=== PATIENT | female | born 1960 | race Caucasian/White ===

== ENCOUNTER 2023-03-26 00:01 | Emergency (ER) | payer OTHER, SELFPAY ==
[2023-03-26 00:04] VITALS: BP 142/66
[2023-03-26 00:21] LABS: Urine Albumin Negative (Neg - Trace); Urine Bilirubin Negative (Negative); Urine Character Clear (Clear); Urine Color Yellow; Urine Glucose Negative (Negative); Urine Ketone Negative (Negative); Urine Leukocyte 2+ (Negative); Urine Nitrite Negative (Negative); Urine Occult Blood Negative (Negative); Urine Urobilinogen Negative (Neg - 1+)
[2023-03-26 00:34] VITALS: BP 122/62
[2023-03-26 00:36] LABS: Urine Bacteria Moderate (Negative); Urine Red Blood Cell 0-2 /HPF (0-2); Urine Squamous Cell >30 /LPF (Few)
[2023-03-26 00:41] LABS: % Basophils 0.3 % (0-2); % Immature Granulocytes 0.4 % (0-0.5); % Lymphocytes 15.7 % (20.5-51.1); % Neutrophils 70.6 % (42.2-75.2); Absolute Eosinophils 0.5 10^3/uL (0-0.7); Absolute Immature Granulocytes 0.1 10^3/uL (0-0.05); Absolute Monocytes 1.2 10^3/uL (0.1-0.6); Hematocrit 35.9 % (37.0-47.0); Hemoglobin 11.3 g/dL (12.0-16.0); Mean Corp Hgb Conc. 31.5 g/dL (33.0-37.0); Mean Corpuscular Volume 60.3 fL (81.0-99.0); Mean Platelet Volume 10.8 fL (7.4-10.4); Nucleated Red Blood Cells % 0 %; Platelet Count 344 10^3/uL (130-400); Red Blood Cell Count 5.95 10^6/uL (4.20-5.40); White Blood Cell Count 12.8 10^3/uL (4.8-10.8)
--- NOTE | 2023-03-26 00:57 | ED.GENMED ---
History of Present Illness
General
Chief Complaint: Abdominal Pain
Source: patient and spouse
Exam Limitations: none
Time Seen by Provider: 03/26/23 00:22
Nursing documentation reviewed up to this point in time: agreed with
Travel History
Have you had any contact with someone who has COVID-19?: No
Do you have any symptoms of coronavirus? Fever > 100 degrees, chills, cough, shortness of breath, sore throat, loss of taste or smell, muscle aches, or headache?: No
History of Present Illness
History of Present Illness:
62-year-old female status post appendectomy, presents with lower abdominal pain right greater than left tells me she had twinges of pain since around the first of the year acutely worsened yesterday after lifting a heavy bag no nausea or vomiting no
diarrhea no fever or chills, she has had a colonoscopy possibly told that she had diverticulosis, though she is not certain,
Past History
Past History
ED Past Surgical History: Appendectomy
Social History
Tobacco: Non-smoker
Alcohol: None
Drug: None
Personal:
Living: with family
Employment: Employed
Review of Systems
Review of Systems
All Other Systems: Not applicable
Constitutional: Denies fever or fatigue
EENT: Reports no symptoms
Respiratory: Reports no symptoms
Cardiac: Reports no symptoms
ABD/GI: Reports abdominal pain; Denies vomiting, diarrhea or black stools
: Reports no symptoms
Skin: Reports no symptoms
Neurological: Reports no symptoms
Endocrine: Reports no symptoms
Phy Exam
Physical Exam
Physical Exam:
Physical Exam
General: no apparent distress, not acutely ill
Neck: No jaundice
Heart: s1/s2 regular rate and rhythm, no murmur. equal radial pulses.
Lungs: no acute respiratory distress. clear bilaterally
Abdomen: Soft, mild right lower abdominal tenderness
Neuro: alert and oriented. no focal neurological deficits
Skin: no rash
Psychiatric: well kept. interactive and cooperative
Extremities: no edema.
Course
Orders/Labs/Results
Orders:
Orders
03/26/23 00:14
Urinalysis Reflex To Culture Urgent
Date Specimen was Collected: 03/26/23
Time Specimen was Collected: 00:10
Urine Microscopic Reflex Cult Urgent
Urine Culture Urgent
TYREE Source: U
Specimen Description:
Date Specimen was Collected: 03/26/23
Time Specimen was Collected: 00:10
03/26/23 00:25
IV Insert/Care/Rem.- Treatment PRN
03/26/23 00:34
Complete Blood Count/With Diff Urgent
Comprehensive Metabolic Panel Urgent
Lipase Urgent
03/26/23 00:48
CT Abd/Pel (IV only)-DH only Urgent
Comment:
Reason For Exam: rlq pain
Ketorolac [Toradol] 30 mg IV NOW STA
Abnormal Lab Results
03/26/23 03/26/23
00:14 00:34
WBC 12.8 H 10^3/uL
(4.8-10.8)
RBC 5.95 H 10^6/uL
(4.20-5.40)
Hgb 11.3 L g/dL
(12.0-16.0)
Hct 35.9 L %
(37.0-47.0)
MCV 60.3 L fL
(81.0-99.0)
MCH 19.0 L pg
(27.0-31.0)
MCHC 31.5 L g/dL
(33.0-37.0)
RDW 17.0 H %
(11.5-14.5)
MPV 10.8 H fL
(7.4-10.4)
Abs Immat Gran (auto) 0.1 H 10^3/uL
(0-0.05)
Absolute Neuts (auto) 9.0 H 10^3/uL
(1.4-6.5)
Absolute Monos (auto) 1.2 H 10^3/uL
(0.1-0.6)
Lymphocytes % 15.7 L %
(20.5-51.1)
Potassium 3.2 L mmol/L
(3.5-5.1)
BUN 25 H mg/dl
(7-17)
Glucose 120 H mg/dl
(70-99)
ALT 41 H U/L
(0-35)
Leukocyte Esterase Rfl 2+ A
(Negative)
Urine WBC (Reflex) 11-15 A /HPF
(0-5)
Urine Bacteria (Reflex) Moderate A
(Negative)
03/26/23 00:34
03/26/23 00:34
Vital Signs
Initial and Last Documented VS:
Initial Vital Signs
Temp Pulse Resp BP Pulse Ox
97.8 F 73 18 142/66 99
03/26/23 00:04 03/26/23 00:04 03/26/23 00:04 03/26/23 00:04 03/26/23 00:04
Last Documented Vital Signs
Temp Pulse Resp BP Pulse Ox
97.8 F 73 18 118/95 99
03/26/23 00:04 03/26/23 00:04 03/26/23 00:04 03/26/23 01:21 03/26/23 00:04
MDM/Problems Addressed
Differential Diagnosis Includes:
Diverticulitis colitis, inflammatory bowel disease obstruction muscle strain
MDM/Problems Addressed:
Lower abdominal
Chronic conditions affecting care: Previous abdomnial surgery
Acute Exacerbation and/or Progression of Chronic Illness: Previous abdomnial surgery
*Radiology
Radiology exam reviewed: preliminary read by ED provider
*Pulse Oximetry
Patient hypoxic: no
*Glass Processing Worker Interpretation
Rate: Glass Processing Worker- N/A
*Critical Care Note
Total Time (30-74mins, 75-104mins- exclusive of procedures): Not Applicable
Update Note
Update Note:
Update labs noted CT noted consistent with early sigmoid diverticulitis
ED Attending Note
-
Portions of this chart may have been created with voice recognition software.� Occasional wrong word or��sound alike� substitutions may have occurred due to the inherent limitations of voice recognition software.
Discharge Plan
Departure
Referrals:
Lily Ivey DO [Family Provider] -
Interventions
Interventions:
*Risk Screen - Suicide Last Done: 03/26/23 00:04
*General Assessment Last Done: 03/26/23 00:04
*Neglect/Abuse Screening Last Done: 03/26/23 00:04
ED- Fall Risk Assessment Last Done: 03/26/23 00:04
*ED COVID-19 Vaccine History Last Done: 03/26/23 00:04
QN-Cgttcl-Wpdkoevlaj Assessment Last Done: 03/26/23 00:37
[2023-03-26 01:00] VITALS: BP 120/66
[2023-03-26 01:03] LABS: ALT (SGPT) 41 U/L (0-35); AST (SGOT) 31 U/L (14-36); Albumin 4.1 g/dl (3.5-5.0); Alkaline Phosphatase 109 U/L (38-126); Blood Urea Nitrogen 25 mg/dl (7-17); Calcium 9.4 mg/dl (8.4-10.2); Carbon Dioxide 27 mmol/L (22-30); Chloride 102 mmol/L (98-107); Glucose 120 mg/dl (70-99); Lipase 150 U/L (23-300); Potassium 3.2 mmol/L (3.5-5.1); Sodium 137 mmol/L (135-145); Total Bilirubin 0.6 mg/dl (0.2-1.3); Total Protein 7.1 g/dl (6.3-8.2); eGFR > 60.00
[2023-03-26] MEDS: TORADOL 30 MG IV (01:06)
[2023-03-26 01:21] VITALS: BP 118/95
[2023-03-26] MEDS: LEVAQUIN 500 MG PO (01:59)
== END 2023-03-26 02:07 | disposition home or self-care (01) ==
LOC: EMR 00:01
PROVIDERS: EMERGENCY PHYSICIAN Emergency Medicine; FAMILY PHYSICIAN Family Medicine
DX: K57.32 Diverticulitis of large intestine without perforation or abscess without bleeding (principal)
CPT/HCPCS: 99285; 96374; 74177; 80053; 81003; 81015; 83690; 85025; 87086; Q9967

== ENCOUNTER 2023-10-19 01:03 | Inpatient (IN) | payer OTHER, SELFPAY ==
[2023-10-18 21:50] VITALS: BMI 31.3
[2023-10-18 21:51] VITALS: BP 108/73
[2023-10-18] MEDS: NSS 1000 IV (22:55)
[2023-10-18 23:00] VITALS: BP 100/63
[2023-10-18 23:13] LABS: % Basophils 0.7 % (0-2); % Eosinophils 0.2 % (0-6); % Immature Granulocytes 2.2 % (0-0.5); % Monocytes 10.9 % (1.7-9.3); Absolute Basophils 0.1 10^3/uL (0-0.2); Absolute Immature Granulocytes 0.3 10^3/uL (0-0.05); Absolute Lymphocytes 0.8 10^3/uL (1.2-3.4); Absolute Monocytes 1.4 10^3/uL (0.1-0.6); Absolute Neutrophils 9.9 10^3/uL (1.4-6.5); Hematocrit 27.1 % (37.0-47.0); Hemoglobin 8.8 g/dL (12.0-16.0); Mean Corp Hgb Conc. 32.5 g/dL (33.0-37.0); Mean Corpuscular Hgb 18.4 pg (27.0-31.0); Mean Corpuscular Volume 56.7 fL (81.0-99.0); Mean Platelet Volume 10.9 fL (7.4-10.4); Nucleated Red Blood Cells % 0.2 %; Platelet Count 550 10^3/uL (130-400); Red Blood Cell Count 4.78 10^6/uL (4.20-5.40); Red Cell Dist. Width 15.6 % (11.5-14.5); White Blood Cell Count 12.4 10^3/uL (4.8-10.8)
[2023-10-18 23:22] LABS: ALT (SGPT) 45 U/L (0-35); AST (SGOT) 66 U/L (14-36); Albumin 2.8 g/dl (3.5-5.0); Alkaline Phosphatase 96 U/L (38-126); Blood Urea Nitrogen 25 mg/dl (7-17); Calcium 8.1 mg/dl (8.4-10.2); Carbon Dioxide 31 mmol/L (22-30); Chloride 87 mmol/L (98-107); Glucose 145 mg/dl (70-99); Lipase 37 U/L (23-300); Potassium 2.9 mmol/L (3.5-5.1); Sodium 128 mmol/L (135-145); Total Protein 5.6 g/dl (6.3-8.2); eGFR > 60.00
[2023-10-18 23:49] VITALS: BP 117/50
[2023-10-19] VITALS (10 sets, daily range): BP systolic 91–121; BP diastolic 43–74; BMI 29.7
--- NOTE | 2023-10-19 00:01 | ED.GENMED ---
History of Present Illness
General
Chief Complaint: Abdominal Symptoms
Source: patient
Exam Limitations: none
Time Seen by Provider: 10/18/23 22:32
History of Present Illness
History of Present Illness:
63-year-old female presents with 4 weeks worth of diarrhea that has been persistent after taking a course of antibiotics for a respiratory infection. She denies abdominal pain or fever. She happened to have colonoscopy done yesterday. She was
tested positive for C. difficile during the colonoscopy. Her diarrhea persist. She was started on vancomycin by the GI team she had a total of 7 doses prior to arrival. She notes generalized weakness.
Past History
Past History
ED Past Surgical History: Appendectomy
Social History
Tobacco: Non-smoker
Alcohol: None
Drug: None
Personal:
Living: with family
Employment: Employed
Phy Exam
Physical Exam
Physical Exam:
General: Pale appearing female no acute respiratory distress
HEENT: Normocephalic mucosa dry neck is supple
Heart: Regular rate and rhythm no murmurs
Lungs: Clear no wheeze abdomen is soft nontender nondistended no guarding or rebound
Extremities: No cyanosis
Course
Orders/Labs/Results
Orders:
Orders
10/18/23 22:40
0.9% Sodium Chloride 1000 ml [Nss] 1,000 ml IV BOLUS
10/18/23 22:48
Complete Blood Count/With Diff Urgent
Comprehensive Metabolic Panel Urgent
Lipase Urgent
10/18/23 23:59
STOOL [C difficile Antigen & Toxins] Urgent
TYREE Source: Feces/Stool
Specimen Description:
Stool Culture Urgent
TYREE Source: Feces/Stool
Specimen Description:
Abnormal Lab Results
10/18/23
22:48
WBC 12.4 H 10^3/uL
(4.8-10.8)
Hgb 8.8 L g/dL
(12.0-16.0)
Hct 27.1 L %
(37.0-47.0)
MCV 56.7 L fL
(81.0-99.0)
MCH 18.4 L pg
(27.0-31.0)
MCHC 32.5 L g/dL
(33.0-37.0)
RDW 15.6 H %
(11.5-14.5)
Plt Count 550 H 10^3/uL
(130-400)
MPV 10.9 H fL
(7.4-10.4)
Abs Immat Gran (auto) 0.3 H 10^3/uL
(0-0.05)
Absolute Neuts (auto) 9.9 H 10^3/uL
(1.4-6.5)
Absolute Lymphs (auto) 0.8 L 10^3/uL
(1.2-3.4)
Absolute Monos (auto) 1.4 H 10^3/uL
(0.1-0.6)
Immature Gran % 2.2 H %
(0-0.5)
Neutrophils % 80.0 H %
(42.2-75.2)
Lymphocytes % 6.0 L %
(20.5-51.1)
Monocytes % 10.9 H %
(1.7-9.3)
Sodium 128 L mmol/L
(135-145)
Potassium 2.9 L mmol/L
(3.5-5.1)
Chloride 87 L mmol/L
(98-107)
Carbon Dioxide 31 H mmol/L
(22-30)
BUN 25 H mg/dl
(7-17)
Glucose 145 H mg/dl
(70-99)
Calcium 8.1 L mg/dl
(8.4-10.2)
AST 66 H U/L
(14-36)
ALT 45 H U/L
(0-35)
Total Protein 5.6 L g/dl
(6.3-8.2)
Albumin 2.8 L g/dl
(3.5-5.0)
10/18/23 22:48
10/18/23 22:48
Vital Signs
Initial and Last Documented VS:
Initial Vital Signs
Temp Pulse Resp BP Pulse Ox
99.5 F 92 18 108/73 95
10/18/23 21:51 10/18/23 21:51 10/18/23 21:51 10/18/23 21:51 10/18/23 21:51
Last Documented Vital Signs
Temp Pulse Resp BP Pulse Ox
99.5 F 88 18 117/50 96
10/18/23 21:51 10/18/23 23:30 10/18/23 21:51 10/18/23 23:49 10/18/23 23:30
MDM/Problems Addressed
Differential Diagnosis Includes:
Persistent diarrhea and fatigue. Question electrolyte abnormality versus dehydration. Known positive C. difficile
Will check labs. Hydration ordered.
*Critical Care Note
Total Time (30-74mins, 75-104mins- exclusive of procedures): Not Applicable
Update Note
Update Note:
Notable laboratory abnormalities include hypokalemia with potassium of 2.9 and hyponatremia with a sodium of 128. Diarrhea persist here several times. Will resend stool cultures. Will admit to hospital for further treatment
ED Attending Note
-
Portions of this chart may have been created with voice recognition software.� Occasional wrong word or��sound alike� substitutions may have occurred due to the inherent limitations of voice recognition software.
Discharge Plan
Departure
Patient Disposition: Admit
Date of Disposition: 10/19/23
Time of Disposition: 00:07
Admit to: Telemetry
Presentation/result/management discussed w/ accepting MD/DO: Hospitalist
Discharge Problem:
Acute hyponatremia, Acute hypokalemia, Diarrhea
Prescriptions:
No Action
metronidazole 250 mg tablet
250 mg PO BID Qty: 14 0RF
levofloxacin 500 mg tablet
500 mg PO DAILY 7 Days Qty: 7 0RF
Referrals:
Garrick Parham PA-C [Family Provider] -
Interventions
Interventions:
*Risk Screen - Suicide Last Done: 10/18/23 21:51
*General Assessment Last Done: 10/18/23 21:51
*Neglect/Abuse Screening Last Done: 10/18/23 21:51
Discharge Date and Time
Print Language: ESTONIAN
[2023-10-19] MEDS: TYLENOL 650 MG PO (00:36)
--- NOTE | 2023-10-19 00:36 | HPS.HSE ---
Family Physician
-
Family Physician: Garrick Parham
Chief Complaint
-
Recently Dxed C Diff, dirrhea
History of Present Illness
63F no significant PMHX being OP evaluated for 4 weeks of non bloody persistent diarrhea after taking a course of antibiotics for a respiratory infection.
- denies abdominal pain or fever.
- s/p colonoscopy done yesterday.
- tested positive for C. difficile during the colonoscopy.
- Currently on PO vancomycin by the GI team s/p total of 7 doses prior to arrival.
- associated generalized weakness.
Medical History
Past Medical History
Past Medical History: Reports Other
Past Surgical History: Reports Appendectomy
Social History
Tobacco: Non-smoker
Alcohol: None
Personal:
Living: With Family
Family History
Family History: Not pertinent
Allergies / Home Medications
Allergies reflects when Allergies were last updated in [employer].
Home Medications with original date entered in [employer]
Allergy/Medication List:
Allergies
Allergy/AdvReac Type Severity Reaction Status Date / Time
No Known Allergies Allergy Unverified 03/26/23 00:04
Home Medications
levofloxacin 500 mg tablet 500 mg PO DAILY 7 days #7 tabs 03/26/23
metronidazole 250 mg tablet 250 mg PO BID #14 tabs 03/26/23
Review of Systems
-
Constitutional: Reports No Symptoms
EENT: Reports No Symptoms
Respiratory: Reports No Symptoms
Cardiac: Reports No Symptoms
Abdomen/GI: Reports Diarrhea
: Reports No Symptoms
Musculoskeletal: Reports No Symptoms
Skin: Reports No Symptoms
Neurological: Reports No Symptoms
Endocrine: Reports No Symptoms
Hematologic/Lymphatic: Reports No Symptoms
Psych: Reports No Symptoms
Physical Exam
Vital Signs
Vital Signs
Temp Pulse Resp BP Pulse Ox
99.5 F 88 18 117/50 96
10/18/23 21:51 10/18/23 23:30 10/18/23 21:51 10/18/23 23:49 10/18/23 23:30
Physical Exam
General: Well Developed, Well Nourished and No Apparent Distress
HEENT: NormoCephalic, Moist mucous membranes and Atraumatic
Respiratory: Clear
Cardiac: S1/S2 and Regular Rhythm; No Murmur or Rub
GI: Soft, Non Tender, Non Distended and Normal Bowel Sounds; No Organomegaly
Rectal: Deferred by Provider
Musculoskeletal: No Clubbing, No Cyanosis and No Edema
Skin: No Rash
Neuro: Nonfocal/grossly intact
Laboratory Results
-
10/18/23 22:48
10/18/23 22:48
Laboratory Results
Total Bilirubin 1.0 mg/dl (0.2-1.3) 10/18/23 22:48
AST 66 U/L (14-36) H 10/18/23 22:48
ALT 45 U/L (0-35) H 10/18/23 22:48
Alkaline Phosphatase 96 U/L (38-126) 10/18/23 22:48
Lipase 37 U/L (23-300) 10/18/23 22:48
Data Reviewed
-
Lab Data: Labs Reviewed by me
Impression/Plan
-
Vital Signs
Temp Pulse Resp BP Pulse Ox
99.5 F 88 18 117/50 96
10/18/23 21:51 10/18/23 23:30 10/18/23 21:51 10/18/23 23:49 10/18/23 23:30
Laboratory Tests
03/26/23 10/18/23
00:34 22:48
WBC 12.4 H
Hgb 11.3 L 8.8 L
MCV 56.7 L
Sodium 128 L
Potassium 2.9 L
Chloride 87 L
Carbon Dioxide 31 H
BUN 25 H
Creatinine 0.8
eGFR > 60.00
AST 66 H
ALT 45 H
Alkaline Phosphatase 96
Albumin 2.8 L
No prior DH t admission:
ASSESSMENT & PLAN
C Diff associated diarrhea with persistent diarrhea
Associated with dehydration , hyponatremia and hypokalemia
Abn LFTs suspect ? shock liver
- stool for C Diff
- cont PO vanco 250 qid
- IV NS
- IV K [place] 40 now
- check Mg
- f/u CMP in AM
- ID consult
Interval new microcytic anemia
S/P colonoscopy yesterday
- Trend Hgb
- Fe studied and Ferritin
- T & S
- Heme consult
DVT Px: SCD
Code: Full
IP TLM
[2023-10-19] MEDS: KCL 270 MEQ IV ×4 (01:37→21:09)
[2023-10-19] MEDS: NSS 1000 IV (02:34)
--- NOTE | 2023-10-19 03:15 | PTCARENOTE ---
Patient arrived from the ED via stretcher at approximately 0130. Patient was a stand and pivot from stretcher to bed x2 assist. Assessment as documented. Patient oriented to room. Bed in lowest position. Call gracia within reach.
[2023-10-19] MEDS: FIRVANQ 250 MG PO (05:22)
--- NOTE | 2023-10-19 08:07 | W.PN.HOSP.TC ---
Today's Communication/Plan
-
cont Vanco
follow labs
Assessment / Plan
Assessment / Plan
63yo F with PMHx of HTN, was having loose watery non-bloody stools for 2 mo, found c.diff during colonoscopy on 10/17/23, came back for worsening weakness
A/P:
#C.diff coitis
Vanco 125mg q6h
GI cosnult
#Hyponatremia
#Hypokalemia
2/2 GI lossess
replete and follow
#Microcytic anemia
chronic
iron studies
Hem consult placed on admission
#Transaminitis
recurrent
hepatitis panel
follow LFT
#Thrombocytosis
#Leukocytosis
reactive
follow CBC
#Essential HTN
hold HCTZ due to concern for GI fluid losses
DVT ppx hep
FUll code
I have spent at least 37min reviewing chart, test results and direct patient care
Anticipated Discharge: Within 24 hours
Subjective/Interval History
-
Date of Service: October 19, 2023
Objective Data
-
Labs:
Laboratory Results
10/18/23 10/19/23 10/19/23
22:48 06:00 07:27
WBC 12.4 H Pending
Hgb 8.8 L Pending
Hct 27.1 L Pending
Plt Count 550 H Pending
Sodium 128 L Pending
Potassium 2.9 L Pending
Chloride 87 L Pending
Carbon Dioxide 31 H Pending
BUN 25 H Pending
Creatinine 0.8 Pending
Glucose 145 H Pending
Calcium 8.1 L Pending
Total Bilirubin 1.0 Pending
AST 66 H Pending
ALT 45 H Pending
Alkaline Phosphatase 96 Pending
Vital Signs:
Vital Signs
Temp Pulse Resp BP Pulse Ox
98.2 F 88 18 91/49 98
10/19/23 03:40 10/19/23 03:40 10/19/23 03:40 10/19/23 03:40 10/19/23 03:40
Review of Systems
-
History Source: Patient
All other systems: Reviewed and negative
Physical Exam
-
General: No Apparent Distress
HEENT: Normocephalic and Atraumatic
Cardiac: Regular Rhythm
GI: Soft, Nontender and Nondistended
Skin: Warm
Neuro: Awake, Alert, Oriented and AO x 3
Psych: Calm
[2023-10-19] MEDS: HEPARIN 5000 UNITS SC ×2 (08:37→21:13)
[2023-10-19] MEDS: DESENEX/MITRAZOL/ZEASORB 1 APPLIC TOPICAL ×2 (08:40→21:09)
[2023-10-19 08:52] LABS: ALT (SGPT) 41 U/L (0-35); AST (SGOT) 43 U/L (14-36); Albumin 2.4 g/dl (3.5-5.0); Alkaline Phosphatase 106 U/L (38-126); Blood Urea Nitrogen 20 mg/dl (7-17); Calcium 7.9 mg/dl (8.4-10.2); Carbon Dioxide 32 mmol/L (22-30); Chloride 93 mmol/L (98-107); Direct Bilirubin 0.3 mg/dl (0.0-0.4); Estimated Creatinine Clearance 64 ml/min; Glucose 117 mg/dl (70-99); Iron 28 ug/dl (37-170); Magnesium 2.6 mg/dl (1.6-2.3); Potassium 2.5 mmol/L (3.5-5.1); Sodium 134 mmol/L (135-145); Total Bilirubin 0.7 mg/dl (0.2-1.3); Total Protein 5.1 g/dl (6.3-8.2); eGFR > 60.00
[2023-10-19 08:58] LABS: Percent Saturation 21 % (20-50); Total Iron Binding Capacity 132 ug/dl (265-497)
[2023-10-19] MEDS: LR 1000 IV ×2 (09:45→21:13)
[2023-10-19 10:08] LABS: Hematocrit 27.1 % (37.0-47.0); Hemoglobin 8.7 g/dL (12.0-16.0); Mean Corp Hgb Conc. 32.1 g/dL (33.0-37.0); Mean Corpuscular Hgb 18.4 pg (27.0-31.0); Mean Corpuscular Volume 57.4 fL (81.0-99.0); Mean Platelet Volume 10.8 fL (7.4-10.4); Platelet Count 502 10^3/uL (130-400); Red Blood Cell Count 4.72 10^6/uL (4.20-5.40); Red Cell Dist. Width 15.6 % (11.5-14.5); White Blood Cell Count 11.6 10^3/uL (4.8-10.8)
[2023-10-19 12:23] LABS: % Basophils 0.9 % (0-2); % Eosinophils 0.3 % (0-6); % Immature Granulocytes 2.8 % (0-0.5); % Lymphocytes 5.8 % (20.5-51.1); % Monocytes 8.4 % (1.7-9.3); % Neutrophils 81.8 % (42.2-75.2); Absolute Basophils 0.1 10^3/uL (0-0.2); Absolute Immature Granulocytes 0.3 10^3/uL (0-0.05); Absolute Lymphocytes 0.7 10^3/uL (1.2-3.4); Absolute Neutrophils 9.5 10^3/uL (1.4-6.5); Nucleated Red Blood Cells % 0 %
[2023-10-19] MEDS: FIRVANQ 125 MG PO (12:59)
[2023-10-19] MEDS: MYLICON 80 MG PO (13:55)
[2023-10-19] MEDS: FLUSH (NSS) 2 FLUSH IV (14:18)
[2023-10-19] MEDS: MORPHINE SULFATE 1 MG IV ×2 (14:18→20:35)
--- NOTE | 2023-10-19 14:30 | W.PN.UPDATE ---
Update Note
Progress Note Update
Pt with 'Mediterranean anemia', most likely thalassemia, from .
Superimposed inflammatory state causing platelet and ferritin elevation.
She is s/p colonoscopy 10/16 as outpt.
Known C. diff colitis.
Plan:
No further workup needed for anemia.
Ordered Bentyl for crampy abdominal pain.
Full Consult to follow.
[2023-10-19] MEDS: BENTYL 20 MG IM (15:04)
[2023-10-19 15:06] LABS: Potassium 2.5 mmol/L (3.5-5.1)
[2023-10-19] MEDS: D5/0.9% SODIUM CHLORIDE 1000 IV (15:06)
[2023-10-19 15:08] LABS: Lactic Acid 1.8 mmol/L (0.7-2.0)
[2023-10-19] MEDS: FLUSH (NSS) 1 FLUSH IV (15:08)
--- NOTE | 2023-10-19 16:17 | CM ---
Reviewed the chart notes and spoke with the patient at the bedside. The patient resides with her spouse, daughter, and sister in a one story home with one step to enter. The patient reports no DME/VN/SNF in the past. The patient confirmed her
pharmacy of choice is the [facility]. CM continues to be available to patient/family and is monitoring medical plan for needs at discharge.
Plan: Discharge to home when medically stable. No needs anticipated.
--- NOTE | 2023-10-19 16:24 | W.PN.UPDATE ---
Update Note
Progress Note Update
Received call from radiology - concern for air under the diaphragm.
Transfer to IMU, start broad spectrum Abx, strict NPO and GenSx consult - informed surgeon outside production inspector
--- NOTE | 2023-10-19 16:40 | PHA.VAN.IN ---
Assessment
- Assessment
Renal Function: Appears similar to baseline
Maximum Temperature: 100.4 F
Concomitant Antimicrobials: MEROPENEM
Plan
- Plan
Initial / Loading Dose: VANCO 2000 MG X1
Monitoring: RANDOM 10/19 @0600
Pharmacokinetics Vancomycin I
- -
Patient Age: 63
Patient Sex: Female
Vancomycin Day #: 1
Indication: GI
Requesting Provider: DR. HDALEY
Height / Weight:
Height 5 ft 4 in
Actual Weight 78.381 kg
Pertinent Past Medical History: Thalassemia, CDiff (+)
- Vital Signs / Lab Results
Temp Pulse Resp BP Pulse Ox
98.5 F 89 20 112/55 95
10/19/23 11:35 10/19/23 11:35 10/19/23 11:35 10/19/23 11:35 10/19/23 11:35
Lab Results - Hematology
10/18/23 10/19/23
22:48 09:26
WBC 12.4 H 11.6 H
Lab Results - Chemistry
10/18/23 10/19/23
22:48 07:27
BUN 25 H 20 H
Creatinine 0.8 0.9
Estimated Creat Clear 64
Albumin 2.8 L 2.4 L
10/19/23
14:49
Lactic Acid 1.8
Microbiology Results
10/19/23 00:16 C. difficile [facility] Antigen & Toxins - Final
Feces/Stool Negative for toxigenic C.difficile
--- NOTE | 2023-10-19 16:54 | CON.ID ---
Consultation
-
Date/Time Consultation Requested: October 19, 2023
Date/Time Consultation Performed: October 19, 2023
Requesting Provider: Dr. Fernando Fernández
Performing Provider: Dr. Maria Elena Villavicencio
Reason for Consultation: C. diff, bowel perforation
Chief Complaint / Past History
Chief Complaint
Abdominal pain
History of Present Illness
63-year-old female with history of hypertension who has been having 4 to 6 weeks of diarrhea. She underwent colonoscopy on October 17, 2023 with report of indeterminate colitis. She was started on oral vancomycin after the colonoscopy. It is
unclear at this time whether or not C. difficile was positive at time of colonoscopy. She presented to ED 10/17 complaining of abdominal pain. No fevers. Diarrhea persisted. In ED stool for C. diff negative. WBC 11.6. + fever 100.6. Today CT a/p
shows air under the diaphragm. She is going to the OR.
Past History
Additional Past Medical History:
HTN
Mediterranean anemia
Diverticulosis
Appendectomy
Allergy History:
No Known Allergies Allergy (Unverified 03/26/23 00:04)
Medications Reviewed: Yes
Current Antibiotics:
PO vancomycin
Metronidazole
meropenem
Zosyn
Social History
Tobacco: Non-Smoker
Alcohol: None
Drug: None
Personal:
Family History
Family History: Not Pertinent
Review of Systems
Review of Systems
General: Change in Appetite; Negative Fever or Chills
HEENT: Negative Lymphadenopathy, Stiff Neck, Headache or Pharyngitis
Cardiovascular: Negative Chest Pain or Dyspnea
Respiratory: Negative Dyspnea or Cough
Genital / Urological: Negative Dysuria or Flank Pain
Vital Signs
Temp Pulse Resp BP Pulse Ox
98.5 F 89 20 112/55 95
10/19/23 11:35 10/19/23 11:35 10/19/23 11:35 10/19/23 11:35 10/19/23 11:35
Physical Exam
Physical Exam
Constitutional: Acutely Ill
Eyes: No Conjunctival Hemorrhage and Sclera Anicteric
Cardiovascular: Regular Rate and S1/S2
Pulmonary: Clear
Gastrointestinal: Soft, Tender (Diffuse), Distended and Decreased Bowel Sounds
Genito-Urinary: Negative CVA Tenderness
Extremities: Negative Edema
Neurological: AO x 3
Lab / Diagnostic Study Results
10/19/23 09:26
10/19/23 14:49
Abs Immat Gran (auto) 0.3 10^3/uL (0-0.05) H 10/19/23 09:26
Absolute Neuts (auto) 9.5 10^3/uL (1.4-6.5) H 10/19/23 09:26
Absolute Lymphs (auto) 0.7 10^3/uL (1.2-3.4) L 10/19/23 09:26
Absolute Monos (auto) 1.0 10^3/uL (0.1-0.6) H 10/19/23 09:26
Absolute Basos (auto) 0.1 10^3/uL (0-0.2) 10/19/23 09:26
Immature Gran % 2.8 % (0-0.5) H 10/19/23 09:26
Neutrophils % 81.8 % (42.2-75.2) H 10/19/23 09:26
Lymphocytes % 5.8 % (20.5-51.1) L 10/19/23 09:26
Monocytes % 8.4 % (1.7-9.3) 10/19/23 09:
Eosinophils % 0.3 % (0-6) 10/19/23 09:26
Basophils % 0.9 % (0-2) 10/19/23 09:26
Lactic Acid 1.8 mmol/L (0.7-2.0) 10/19/23 14:49
Microbiology Results
Micro:
10/19/23 00:16 C. difficile [facility] Antigen & Toxins - Final
Feces/Stool Negative for toxigenic C.difficile
10/19/23 00:16 Salmonella/Shigella Culture - Pending
Feces/Stool Campylobacter Culture - Pending
Shiga Toxin Test - Pending
10/19/23 AXR: Nonspecific bowel gas appearance with bowel wall thickening and distended bowel wall thickening in the distended transverse colon suggesting colitis and gas-filled loops of small bowel measuring up to 3 cm suggesting ileus
10/19/23 CT a/p: There is moderate-large volume free intraperitoneal air suggesting the presence of perforated abdominal viscus. There is colitis involving the descending and sigmoid colon. There is ileocolic anastomosis in the right mid abdomen.
Assessment / Plan
# Chronic diarrhea
# Descending colon and sigmoid colitis
# Colonoscopy 10/17/23 -> GI prescribed po Vancomycin ?empirically. 09/12/23 C. diff negative, O+P neg. 10/17 C. diff neg. Need outside record.
# Bowel perforation
# Sepsis fever, leukocytosis
- C. diff here negative.
- Emergent OR.
Appreciate surgery. Will send intra-op aerobic, anaerobic cx's as well as C. diff.
- Recommend IV Vancomycin, cefepime, metronidazole stat.
- DC meropenem, Zosyn.
- Can continue po vancomycin for now pending OR findings and repeat C. diff in OR.
- Follow blood cx's, stool cx's, temps, wbc.
Care Review
Plan reviewed with: Physician (Dr. Fernández and Florecita)
--- NOTE | 2023-10-19 16:54 | CON.GS ---
Addendum entered and electronically signed by Jean Marie Bernabe MD 10/19/23 18:46:
I saw and examined the patient.
The Coagulating Bath Mixer's note was reviewed and I agree with the note.
Comment: 63F PPD2 s/p colonoscopy for indeterminate colitis. Presented to ED with persistent diarrhea and weakness. Denies abd pain. Exam is remarkably benign. CT reviewed, significant free air and colonic inflammation noted. For ex-lap, possible
bowel resection, possible ostomy. Will need to proceed with caution as there is no blood available for transfusion and she is starting with Hb 8.
Original Note:
Consultation
-
Date/Time Consultation Requested: 10/19/231621
Date/Time Consultation Performed: 10/19/231634
Requesting Provider: Jennifer
Performing Provider: Solo Bernabe
Reason for Consultation: CT concerned for bowel perf
Medical History
-
Chief Complaint: abdominal pain
History of Present Illness:
Ms Johnston is a 63 yo female with a h/o appendectomy who has been having significant diarrhea for the past 6-[address] Nix in [place] for this problem. She notes that she had a colonoscopy on 10/17/[address] Nix and
according to the handout she received from her doctor she was noted to have 'indeterminate colitis'. The official report is not available at this time. It is unclear if she had a positive c-diff stool study or if the colitis was only thought to be
from c-diff, but she was started on oral vancomycin after her colonoscopy. The morning after her procedure (yesterday), she developed lower abdominal pain which became more generalized causing her to present to the ED at for evaluation yesterday
evening. Of note, c-diff sent from the ED was negative for c-difficile. She notes that pain is better with morphine and is grossly nontender on exam without rigidity or guarding. The abdomen is quite rounded and distended but not tense. She denies
nausea or vomiting. She does note persistent diarrhea. She denies fevers or chills.
Past Medical History
Past Medical History: HTN and Other ('mediterranean' anemia )
Past Surgical History: Appendectomy
Social History
Tobacco: Non-Smoker
Alcohol: None
Personal:
Living: With Family
Family History
Family History: Reviewed & Not Pertinent
Allergies / Home Medications
Allergy/AdvReac Type Severity Reaction Status Date / Time
No Known Allergies Allergy Unverified 03/26/23 00:04
�Medication �Instructions �Recorded �Confirmed �Type
hydrochlorothiazide 25 mg tablet 25 mg PO DAILY 10/19/23 10/19/23 History
Review of Systems
-
History Source: Patient
All other systems: Negative unless noted
A 10 point review of systems was completed, and was negative except as per HPI.
Physical Exam
Vital Signs
Temp Pulse Resp BP Pulse Ox
98.5 F 89 20 112/55 95
10/19/23 11:35 10/19/23 11:35 10/19/23 11:35 10/19/23 11:35 10/19/23 11:35
10/18/23 10/19/23 10/20/23
06:59 06:59 06:59
Actual Weight 78.381 kg
Body Mass Index (BMI) 29.7
Lab Results
10/19/23 09:26
10/19/23 14:49
WBC 11.6 10^3/uL (4.8-10.8) H 10/19/23 09:26
Hgb 8.7 g/dL (12.0-16.0) L 10/19/23 09:26
Hct 27.1 % (37.0-47.0) L 10/19/23 09:26
Plt Count 502 10^3/uL (130-400) H 10/19/23 09:26
Abs Immat Gran (auto) 0.3 10^3/uL (0-0.05) H 10/19/23 09:26
Neutrophils % 81.8 % (42.2-75.2) H 10/19/23 09:26
Physical Exam
General: Other (Ill appearing; color ashy novoa)
HEENT: Normocephalic
Respiratory: Non Labored Respirations
GI: Soft, Tender (minimal without rebound or rigidity) and Distended
Skin: Warm and Dry
Neuro: Awake, Alert and AO x 3
Psych: Calm
Data Reviewed
-
Radiology: Image Personally Visualized and interpreted, Report Reviewed by me, Discussed with Physician, Discussed with Nurse and Discussed with Patient
CT Scan: Image Personally Visualized and interpreted, Report Reviewed by me, Discussed with Nurse and Discussed with Patient
Labs: Labs Reviewed by me, Discussed with Physician and Discussed with Patient
Old Records: Reviewed
Assessment / Plan
-
Ms Johnston is a 63 yo female with a h/o appendectomy with possible cecectomy at the time based on imaging who has been having significant diarrhea for the past 6-8 weeks. She had a colonoscopy on 10/17/[address] Nix and according to the handout she
received from her doctor she was noted to have 'indeterminate colitis'. It is unclear if she had a positive c-diff stool study as an OP but the colitis was thought to be from c-diff and she was started on oral vancomycin after her colonoscopy. Of
note, c-diff specimen sent from the ED was negative for c-difficile with other stool cx pending. She presents with pain and persistent diarrhea.
Supine ABD XR with significant bowel distention on admission with f/u CT imaging demonstrating perforated viscous with significant amount of free air. Pain thus far managed well with morphine alone. Afebrile currently with low grade fever of 100.4
around midnight this morning. stable vital signs thus far. mild leukocytosis. Lactic acid is normal. Severe hypokalemia noted as well which is being replaced currently.
--Keep NPO
--Correct hypokalemia: first k-rider is infusing
--Will plan OR emergently for exploratory laparotomy
--Start ABX, will give stat dose preop, recommend ID consult to assist with management
--d/c bowel regimen
--Obtain records of colonoscopy if able
--Analgesics/antiemetics as needed
Further recommendations to follow pending operative findings
--- NOTE | 2023-10-19 17:10 | PTCARENOTE ---
Orders in to transfer pt to ICU due to a perf bowel. Pt with temp of 99.9, 115/55. Report given to MANAGER TRANSPORTATION.
[2023-10-19] MEDS: FLAGYL 500 MG 100 IV (17:43)
[2023-10-19] MEDS: STERILE WATER FOR INJECTION 10 ML IV (17:43)
[2023-10-19] MEDS: MAXIPIME 2000 MG IV (17:43)
[2023-10-19] MEDS: VANCOCIN 540 MG IV (17:44)
--- NOTE | 2023-10-19 18:26 | PTCARENOTE ---
Pt received to room 3363 as IMU overflow at
--- NOTE | 2023-10-19 18:27 | PTCARENOTE ---
Pt received to ICU bed 3363 as IMU overflow. Blood cultures drawn. 2 new IVs placed. Antibiotics started and pt transferred to OR.
Pt AAOx3. Family updated at bedside. Sinus rhythm. no edema. Lungs CTA. 88% on room air. 97% on 2L NC. Abdomen tender and distended. No BM or void in short time on unit.
--- NOTE | 2023-10-19 20:25 | W.IMMPOSTOP ---
Surgical Immed Post Op Note
-
Primary Surgeon: Florecita
Pre-op Diagnosis: Perforated viscus
Post-op Diagnosis: Perforated rectum
Procedure Performed: Exploratory laparotomy, repair rectal perforation
Anesthesia Type: GETA + TAP block
Specimen / Cultures: Peritoneal fluid aerobic/anaerobic
Estimated Blood Loss: 5cc
Complications: None immediate
Operative Findings: Virtually no contamination, no purulence; colon with healthy appearance, no signs of ischemia, inflamed proximal rectum, 1mm perforation identified and repaired in 2 layers with 3-0 silk suture; scant turbid fluid at site of
perforation and a few sb loops nearby with slight staining/rind, 19fr ely adjacent to the repair; ng confirmed in stomach, may develop ileus
updated by phone
--- NOTE | 2023-10-19 20:30 | PTCARENOTE ---
pt direct back from OR, drowsy/oriented x 3, c/o 11/26 abd pain- prn morphine per APR. afebrile. SR HR 90s. IV x 4 WNL- IVF and K rider infusing on arrival. R ryan huddleston WNL. Sat 99% on 6LNC. R NGT at 65- LIWS. SANDEEP with 2 aquacel - shadowing
noted/marked. L abd KELLY drain with SS drainage. Stark draining adequate amt rain yellow urine. awaiting additional orders.
[2023-10-19 21:34] LABS: Hematocrit 25.2 % (37.0-47.0); Hemoglobin 8.1 g/dL (12.0-16.0); Mean Corp Hgb Conc. 32.1 g/dL (33.0-37.0); Mean Corpuscular Hgb 18.6 pg (27.0-31.0); Mean Corpuscular Volume 57.8 fL (81.0-99.0); Mean Platelet Volume 10.9 fL (7.4-10.4); Platelet Count 514 10^3/uL (130-400); Red Blood Cell Count 4.36 10^6/uL (4.20-5.40); Red Cell Dist. Width 15.4 % (11.5-14.5); White Blood Cell Count 18.1 10^3/uL (4.8-10.8)
[2023-10-19] MEDS: DILAUDID 1 MG IV (21:37)
[2023-10-19 21:44] LABS: INR 1.52; PT 18.1 Sec (11.4-14.6)
[2023-10-19 21:45] LABS: APTT 34.3 Sec (23.4-35.0)
[2023-10-19 21:58] LABS: Blood Urea Nitrogen 15 mg/dl (7-17); Calcium 6.8 mg/dl (8.4-10.2); Carbon Dioxide 25 mmol/L (22-30); Chloride 101 mmol/L (98-107); Estimated Creatinine Clearance 82 ml/min; Glucose 159 mg/dl (70-99); Magnesium 2.4 mg/dl (1.6-2.3); Potassium 3.2 mmol/L (3.5-5.1); Sodium 136 mmol/L (135-145); eGFR > 60.00
--- NOTE | 2023-10-19 22:15 | CON.ONC ---
Impression
Impression
Presumed thalassemia, baseline Hgb 11.7
Acute exacerbation of anemia due to inflammatory state +/- blood loss
Platelet elevation due to inflammatory state +/- iron deficiency
C. diff
Abd pain
Plan
Plan
No definite evidence of iron deficiency currently. Can reassess CBC in outpt setting following recovery from acute presentation.
When I saw pt this afternoon, she was about to go down for CT A/P.
Subsequently the scan showed perforated viscus requiring urgent ex lap and repair of rectal perforation.
Suggest blood transfusion PRN Hgb <7.
Thank you for consult, will follow along with you.
Patient History
History of Present Illness
63-year-old female presents with 4 weeks worth of diarrhea that has been persistent after taking a course of antibiotics for a respiratory infection. She underwent colonoscopy 10/16 ([facility] She was tested positive for C. difficile
during the colonoscopy. In ED she c/o generalized weakness and was noted to have Hgb 8.1. She does not recognized the term thalassemia but gives a history of 'Mediterranean anemia' with 03/26/23 CBC showing Hgb 11.3, MCV 60.3. Admits to hx
superimposed iron deficiency. We are consulted regarding her anemia. Currently she appears uncomfortable, experiencing paroxysms of abdominal pain. Denies recent rectal bleeding.
Past-Medical/Surgical History
Past Medical History
Past Medical History: HTN and Other ('mediterranean' anemia )
Past Surgical History: Appendectomy
Social History
Tobacco: Non-Smoker
Alcohol: None
Personal:
Living: With Family
Family History
Family History: Reviewed & Not Pertinent
Allergies / Home Medications
Patient Medication
�Medication �Instructions �Recorded �Confirmed �Last Taken �Type
hydrochlorothiazide 25 mg tablet 25 mg PO DAILY 10/19/23 10/19/23 Unknown History
Active Medications
Generic Name Dose Route Start Last Admin
Trade Name Freq PRN Reason Stop Dose Admin
Cefepime HCl 2,000 mg 10/20/23 02:00
Cefepime Hcl 2,000 Mg/12.5 Ml Vial IV
Q8H FABIAN
Dicyclomine HCl 20 mg 10/19/23 18:00 10/19/23 21:14
Dicyclomine 20 Mg Tablet PO 10/20/23 00:00 Not Given
QID FABIAN
Heparin Sodium 5,000 units 10/19/23 08:00 10/19/23 21:13
Heparin 5,000 Units/Ml 1 Ml Vial SC 11/16/23 07:59 5,000 units
Q12 FABIAN Administration
Hydromorphone HCl 0.5 mg 10/19/23 21:23
Hydromorphone 0.5 Mg/0.5 Ml Syringe IV 11/02/23 21:22
Q3HPRN PRN
moderate pain
Hydromorphone HCl 1 mg 10/19/23 21:23 10/19/23 21:37
Hydromorphone 1 Mg/Ml Carpuject IV 11/02/23 21:22 1 mg
Q3HPRN PRN Administration
severe pain
Lactated Ringer's 1,000 mls @ 75 mls/hr 10/19/23 09:00 10/19/23 21:13
Lr IV 1,000 mls
.[id number] FABIAN Administration
Dextrose/Sodium Chloride 1,000 mls @ 75 mls/hr 10/19/23 15:00 10/19/23 15:06
D5/0.9% Sodium Chloride IV 1,000 mls
.[id number] FABIAN Administration
Potassium Chloride 40 meq/ 270 mls @ 67.5 mls/hr 10/19/23 16:00 10/19/23 21:09
Sodium Chloride IV 10/19/23 23:59 270 mls
Q4H FABIAN Administration
Vancomycin HCl 1 each/ Device 0 mls @ 0 mls/hr 10/19/23 18:00
IV
PER PROTOCOL FABIAN
As Directed
Metronidazole 100 mls @ 100 mls/hr 10/20/23 00:00
Flagyl 500 Mg IV
Q8 FABIAN
Miconazole Nitrate 0 applic 10/19/23 08:00 10/19/23 21:09
Miconazole Powder Bottle TOPICAL 11/16/23 07:59 1 applic
BID FABIAN Administration
Sodium Chloride 0 flush 10/19/23 01:00 10/19/23 15:08
Sodium Chloride 0.9% (Flush) Syringe IV 11/16/23 00:59 1 flush
PER PROTOCOL FABIAN Administration
Sterile Water 10 ml 10/20/23 02:00
Sterile Water For Injection 10 Ml Vial IV 11/17/23 01:59
Q8H FABIAN
Vancomycin HCl 500 mg 10/19/23 18:00 10/19/23 21:09
Vancomycin Oral Solution 50 Mg/Ml In Oral Syringe PO Not Given
Q6 FABIAN
Review of Systems
-
History Source: Patient and Records
Constitutional: Reports Fatigue and Weakness
EENT: Reports No Symptoms
Respiratory: Reports No Symptoms
Cardiac: Reports No Symptoms
GI: Reports Abdominal Pain
: Reports No Symptoms
Musculoskeletal: Reports No Symptoms
Skin: Reports No Symptoms
Neuro: Reports No Symptoms
Endocrine: Reports No Symptoms
Hematologic/Lymphatic: Reports No Symptoms
Allergy / Immunology: Reports No Symptoms
Psych: Reports No Symptoms
Physical Exam
-
General: Well Developed, Well Nourished and Appears in Distress
HEENT: Moist Mucous Membranes; Negative Jaundice
Cardiology: Normal Sinus Rhythm
Pulmonary: Clear
GI: Other (tender)
Musculoskeletal: No Clubbing, No Cyanosis and No Edema
Extremities: No C/C/E
Neurology: Non Focal
Skin: Warm and Dry
Hematologic / Lymphatic: No Petechiae
Psych: Calm and Intact Judgement/Insight
Labs
Lab Results
WBC 18.1 10^3/uL (4.8-10.8) H 10/19/23 21:21
RBC 4.36 10^6/uL (4.20-5.40) 10/19/23 21:21
Hgb 8.1 g/dL (12.0-16.0) L 10/19/23 21:21
Hct 25.2 % (37.0-47.0) L 10/19/23 21:
MCV 57.8 fL (81.0-99.0) L 10/19/23 21:
MCH 18.6 pg (27.0-31.0) L 10/19/23 21:
MCHC 32.1 g/dL (33.0-37.0) L 10/19/23 21:21
RDW 15.4 % (11.5-14.5) H 10/19/23 21:
Plt Count 514 10^3/uL (130-400) H 10/19/23 21:21
MPV 10.9 fL (7.4-10.4) H 10/19/23 21:21
Abs Immat Gran (auto) 0.3 10^3/uL (0-0.05) H 10/19/23 09:26
Absolute Neuts (auto) 9.5 10^3/uL (1.4-6.5) H 10/19/23 09:26
Absolute Lymphs (auto) 0.7 10^3/uL (1.2-3.4) L 10/19/23 09:26
Absolute Monos (auto) 1.0 10^3/uL (0.1-0.6) H 10/19/23 09:26
Absolute Eos (auto) 0.0 10^3/uL (0-0.7) 10/19/23 09:26
Absolute Basos (auto) 0.1 10^3/uL (0-0.2) 10/19/23 09:
Immature Gran % 2.8 % (0-0.5) H 10/19/23 09:
Neutrophils % 81.8 % (42.2-75.2) H 10/19/23 09:
Lymphocytes % 5.8 % (20.5-51.1) L 10/19/23 09:
Monocytes % 8.4 % (1.7-9.3) 10/19/23 09:
Eosinophils % 0.3 % (0-6) 10/19/23:
Basophils % 0.9 % (0-2) 10/19/23 09:
Creatinine 0.7 mg/dL (0.6-1.0) 10/19/23 21:21
Vital Signs
Vital Signs
Temp Pulse Resp BP Pulse Ox
99.1 F 90 26 97/55 98
10/19/23 18:00 10/19/23 21:45 10/19/23 21:45 10/19/23 21:58 10/19/23 21:45
[2023-10-20] VITALS (15 sets, daily range): BP systolic 86–121; BP diastolic 44–93; BMI 30.6; BMI 31.0
[2023-10-20] MEDS: CALCIUM GLUCONATE 130 MG IV (00:50)
[2023-10-20] MEDS: DILAUDID 1 MG IV ×6 (00:51→19:32)
[2023-10-20] MEDS: FLAGYL 500 MG 100 IV ×3 (00:51→16:29)
[2023-10-20] MEDS: MAXIPIME 2000 MG IV ×3 (03:00→18:42)
[2023-10-20] MEDS: STERILE WATER FOR INJECTION 10 ML IV ×3 (03:00→18:42)
--- NOTE | 2023-10-20 04:00 | PTCARENOTE ---
no changes in pt assessment. resting with eyes closed.
[2023-10-20 04:50] LABS: Hematocrit 24.6 % (37.0-47.0); Hemoglobin 7.8 g/dL (12.0-16.0); Mean Corp Hgb Conc. 31.7 g/dL (33.0-37.0); Mean Corpuscular Hgb 18.9 pg (27.0-31.0); Mean Corpuscular Volume 59.6 fL (81.0-99.0); Mean Platelet Volume 10.9 fL (7.4-10.4); Platelet Count 473 10^3/uL (130-400); Red Blood Cell Count 4.13 10^6/uL (4.20-5.40); Red Cell Dist. Width 15.4 % (11.5-14.5); White Blood Cell Count 15.8 10^3/uL (4.8-10.8)
[2023-10-20 04:58] LABS: ALT (SGPT) 33 U/L (0-35); AST (SGOT) 27 U/L (14-36); Albumin 1.8 g/dl (3.5-5.0); Alkaline Phosphatase 88 U/L (38-126); Blood Urea Nitrogen 15 mg/dl (7-17); Carbon Dioxide 28 mmol/L (22-30); Chloride 104 mmol/L (98-107); Estimated Creatinine Clearance 82 ml/min; Glucose 161 mg/dl (70-99); Magnesium 2.4 mg/dl (1.6-2.3); Phosphorus 3.9 mg/dl (2.5-4.5); Potassium 3.3 mmol/L (3.5-5.1); Sodium 139 mmol/L (135-145); Total Bilirubin 0.4 mg/dl (0.2-1.3); Total Protein 4.3 g/dl (6.3-8.2); eGFR > 60.00
[2023-10-20 05:16] LABS: Vancomycin Random 14.6 ug/ml
[2023-10-20] MEDS: KCL 270 MEQ IV (06:26)
[2023-10-20 07:27] LABS: Band Neutrophils 23 % (0-3); Lymphocytes 3 % (20-51); Monocytes 3 % (2-9)
[2023-10-20 07:28] LABS: Absolute Neutrophils -Man Diff 14.3 10^3/uL (1.4-6.5); Metamyelocytes 1 % (-); Myelocytes 2 % (-); Segmented Neutrophils 68 % (42-75)
[2023-10-20 07:29] LABS: Normal RBC Morphology No; Platelets Checked Yes
[2023-10-20 07:30] LABS: Anisocytosis Slight; Hypochromasia 1+; Ovalocytes 1+; Target Cells Slight; Total Cells Counted 100
[2023-10-20] MEDS: HEPARIN 5000 UNITS SC ×2 (08:10→21:00)
[2023-10-20] MEDS: DESENEX/MITRAZOL/ZEASORB 1 APPLIC TOPICAL ×2 (08:11→21:02)
--- NOTE | 2023-10-20 09:00 | W.PN.ID1 ---
Date of Service
Date of Service: October 20, 2023
Today's Communication
DC PO vancomycin.
Assessment / Plan
# Chronic diarrhea
# Descending colon and sigmoid colitis
# Colonoscopy 10/17/23 -> GI prescribed po Vancomycin ?empirically. 09/12/23 C. diff negative, O+P neg. 10/18 C. diff neg. Need outside record.
# Post-colonoscopy rectal perforation
# leukocytosis
# Fever resolved
- C. diff here negative.
- 10/18 s/p emergent OR: colon healthy, no stool for C. diff, +1mm perforation proximal rectum, minimal contaminatio
Appreciate surgery. Intra-op cx pending
- DC po vancomycin. Not consistent with C. diff colitis.
- Continue IV Vancomycin, cefepime, metronidazole pending OR cx.
- Follow wbc.
Chief Complaint
-: Other (Bowel perf)
Subjective / Review of Systems
Feels 150% better today.
Vital Signs / Physical Exam
Vital Signs
Vital Signs
Temp Pulse Resp BP Pulse Ox
98.5 F 80 14 92/49 96
10/20/23 00:30 10/20/23 07:00 10/20/23 07:00 10/20/23 00:00 10/20/23 08:31
Physical Exam
Constitutional: No Acute Distress and Comfortable
Cardiovascular: Regular Rate and S1/S2
Gastrointestinal: Soft and Non Tender; Negative Decreased Bowel Sounds
Extremities: Negative Edema
Neurological: AO x 3
Objective Data
Lab Data
Lab Results
10/20/23 04:06
10/20/23 04:06
PT 18.1 Sec (11.4-14.6) H 10/19/23 21:21
PT Cancelled 10/19/23 21:21
INR 1.52 10/19/23 21:21
INR Cancelled 10/19/23 21:21
APTT 34.3 Sec (23.4-35.0) 10/19/23 21:21
APTT Cancelled 10/19/23 21:21
Estimated Creat Clear 82 ml/min 10/20/23 04:06
Lactic Acid 1.8 mmol/L (0.7-2.0) 10/19/23 14:49
Total Bilirubin 0.4 mg/dl (0.2-1.3) 10/20/23 04:06
AST 27 U/L (14-36) 10/20/23 04:06
ALT 33 U/L (0-35) 10/20/23 04:06
Alkaline Phosphatase 88 U/L (38-126) 10/20/23 04:06
Most recent labs reviewed.
Micro Results:
10/19/23 17:46 Blood Culture - Pending
Blood/Venous
10/19/23 17:44 Blood Culture - Pending
Blood/Venous
10/19/23 19:07 Wound Culture - Pending
Abdomen Gram Stain - Pending
10/19/23 19:07 Anaerobic Culture - Pending
Peritoneal Fluid
10/19/23 00:16 C. difficile GDH Antigen & Toxins - Final
Feces/Stool Negative for toxigenic C.difficile
10/19/23 00:16 Salmonella/Shigella Culture - Pending
Feces/Stool Campylobacter Culture - Pending
Shiga Toxin Test - Pending
10/19/23 AXR: Nonspecific bowel gas appearance with bowel wall thickening and distended bowel wall thickening in the distended transverse colon suggesting colitis and gas-filled loops of small bowel measuring up to 3 cm suggesting ileus
10/19/23 CT a/p: There is moderate-large volume free intraperitoneal air suggesting the presence of perforated abdominal viscus. There is colitis involving the descending and sigmoid colon. There is ileocolic anastomosis in the right mid abdomen.
--- NOTE | 2023-10-20 09:25 | CON.INTV ---
Consultation
Consultation Request
Date/Time Consultation Requested: 10/20/2023
Date/Time Consultation Performed: 10/20/2023
Requesting Provider: Dr. Rodriguez
Performing Provider: Dr. Pio Wall
Reason for Consultation: Bowel perforation/sepsis
Medical History
-
History of Present Illness:
63-year-old woman with past medical history significant for prior appendectomy, hypertension, possible thalassemia who reports diarrhea for about 6 to 8 weeks following a course of antibiotics. Being evaluated by gastroenterology in [place].
Underwent colonoscopy on 10/17/2023 at [facility].? Indeterminate colitis. No details available at this point.
It is noted that the patient was given vancomycin after colonoscopy, unclear whether she was positive for C. difficile at that time.
Morning after the procedure patient developed lower abdominal pain that eventually became generalized and came to the hospital for further evaluation.
C. difficile testing was negative.
CT abdomen pelvis demonstrated free intraperitoneal air. Subsequently she was taken for exploratory laparotomy emergently, she was found to have a rectal perforation. This was repaired. Patient was sent to the critical care unit for further care.
Currently hemodynamically stable.
Extubated
Abdominal pain expected postoperatively.
Denies nausea or vomiting.
Past Medical History
Past Medical History: Other (See assessment and plan section)
Social History
Tobacco: Non-smoker
Alcohol: None
Personal:
Living: With Family
Family History
Family History: Reviewed & Not Pertinent
Allergies / Home Medications
Allergies
Allergy/AdvReac Type Severity Reaction Status Date / Time
No Known Allergies Allergy Unverified 03/26/23 00:04
Home Medications
�Medication �Instructions �Recorded �Confirmed �Last Taken �Type
hydrochlorothiazide 25 mg tablet 25 mg PO DAILY Fluid 10/19/23 10/19/23 Unknown History
Retention/Swelling
Review of Systems
-
History Source: Patient
All other systems: Negative unless noted
Vitals / Labs / Diagnostic Testing
Vital Signs
Temp Pulse Resp BP Pulse Ox
98.0 F 80 14 92/49 96
10/20/23 08:00 10/20/23 07:00 10/20/23 07:00 10/20/23 00:00 10/20/23 08:31
Lab Data
10/20/23 04:06
10/20/23 04:06
Laboratory Results
10/19/23 10/19/23 10/19/23
21:21 21:21 21:21
PT 18.1 H Cancelled
INR 1.52 Cancelled
APTT 34.3
10/19/23
21:21
PT
INR
APTT Cancelled
Microbiology
10/19/23 00:16 Feces/Stool C. difficile GDH Antigen & Toxins - Final
Negative for toxigenic C.difficile
Diagnostic Testing:
Physical Exam
-
HEENT: Normocephalic
Cardiovascular: S1/S2
Respiratory: Clear and Non-Labored Respirations
GI: Soft, Other (This morning absent bowel sound, NG tube in place.) and Other (Surgical incision intact)
Neurology: Awake
Skin: Warm
General: Comfortable
Assessment
-
63-year-old woman with past medical history noted, admitted through the emergency room complaining of abdominal pain. Colonoscopy performed 10/17/2019/[facility] for chronic diarrhea. Found to have bowel perforation. Taken emergently to the
operating room for exploratory laparotomy, rectal perforation found. Repaired. Transferred to the critical care unit for further care.
Bowel perforation post colonoscopy: Colonoscopy performed 10/17/2023-[facility].
CT abdomen pelvis 10/19/2023: Reviewed
1). There is moderate-large volume free intraperitoneal air suggesting the presence of perforated abdominal viscus.
2). There is colitis involving the descending and sigmoid colon
3). There is ileocolic anastomosis in the right mid abdomen
Status post exploratory laparotomy for perforated viscus 10/19/2023: Repair of rectal perforation.
Virtually no contamination, no purulence; colon with healthy appearance, no signs of ischemia, inflamed proximal rectum, 1mm perforation identified and repaired
Conditions present prior admission:
Hypertension
? Thalassemia
Diverticulosis
History of appendectomy
Assessment and plan:
Overnight hemodynamically stable. Did not require vasopressors.
Hemoglobin relatively stable at 7.8. Patient does have history of chronic anemia.? Thalassemia
Continue to follow H&H
Continue gentle IV fluids while NPO.
Surgical correspondence reviewed: Continue usual postoperative care
Incentive spirometry
Increase activity as able
N.p.o. for now.
-
Operative report reviewed: No significant contamination found on exploratory laparotomy. Antibiotics will continue. Infectious disease at this point.
Follow cultures.
Follow drain output
-
Discontinue [id number] stable
Hold antihypertensive for now
-
DVT prophylax heparin subcu every 12.
-
Stable to transfer to intermediate care unit.
No additional critical care recommendations.
Please call pulmonary if any respiratory issues arise.
--- NOTE | 2023-10-20 09:26 | PHA.VAN.FU ---
Vancomycin Assessment / Plan
- Assessment
Renal Function: Stable (0.7>0.7)
WBC's are: Trending Down (18.1>15.8)
In the past 24 hrs, patient has been: Afebrile
Concomitant Antimicrobials: Cefepime, Metronidazole
- Assessment - Therapeutic Drug Monitoring
Random Level: 14.6 drawn ~10.5 hrs after vancomycin 2000mg loading dose
- Dosing Plan
Adjust Regimen to: Vancomycin 1000mg IV Q12hrs
New Regimen Predicts: AUC (488), Peak (30), Trough (13)
Dosing Comments: Utilized Vd coefficient 0.7 based on patient clearing Vanc LD in 10.5hrs
- Monitoring Plan
No level(s) ordered at this time: Will order levels according to vancomycin dosing protocol
- Follow Up
Pharmacy will continue to follow.
Vancomycin Follow UP
- -
Patient Age: 63
Patient Sex: Female
Vancomycin Day #: 2
Indication: GI
Requesting Provider: DR. HADLEY
Height / Weight:
Height 5 ft 4 in
Actual Weight 81.9 kg
IBW in k.7
Adjusted BW in k.6
Pertinent Past Medical History: BMI~ 31, Thalassemia, CDiff (+) recently,
- Vital Signs / Lab Results
Temp Pulse Resp BP Pulse Ox
98.0 F 80 14 92/49 96
10/20/23 08:00 10/20/23 07:00 10/20/23 07:00 10/20/23 00:00 10/20/23 08:31
Lab Results - Hematology
10/18/23 10/19/23 10/19/23
22:48 09:26 21:21
WBC 12.4 H 11.6 H 18.1 H
Band Neutrophils
10/20/23
04:06
WBC 15.8 H
Band Neutrophils 23 H
Lab Results - Chemistry
10/18/23 10/19/23 10/19/23
22:48 07:27 21:21
BUN 25 H 20 H 15
Creatinine 0.8 0.9 0.7
Estimated Creat Clear 64 82
Albumin 2.8 L 2.4 L
10/20/23
04:06
BUN 15
Creatinine 0.7
Estimated Creat Clear 82
Albumin 1.8 L
10/19/23
14:49
Lactic Acid 1.8
Microbiology Results
10/19/23 00:16 C. difficile GDH Antigen & Toxins - Final
Feces/Stool Negative for toxigenic C.difficile
Therapeutic Drug Monitoring
Random Vancomycin 14.6 ug/ml 10/20/23 04:06
--- NOTE | 2023-10-20 09:29 | PTCARENOTE ---
Pt received in bed @ 0700. AAOx3. Pt stating pain adequately controlled by PRN Dilaudid administered by previous shift. SaO2 96% on 2L NC. Lungs clear to auscultation. Sinus rhythm on reclaimer. HR 80s. (R) radial arterial line transduced,
zeroed, and flushed. MAP > 65. +1 pitting LE edema. Palpable pedal pulses. Abdomen round, tender. Hypoactive bowel sounds. NG tube to LIWS. Green output. Pt with diarrhea prior to admission. C. Diff (-). Standard precaution per Dr. Villavicencio, ID. Stark
catheter draining yellow urine. (L) KELLY drain serosanguineous. Midline abdominal incision with shadowing within borders marked by previous shift. Foam on sacrum. LR infusing @ 75ml/hr. KCl 40 meq IV infusing.
--- NOTE | 2023-10-20 09:34 | W.PN.GS2 ---
Today's Communication / Plan
-
Awaiting return of bowel function
Okay to downgrade from ICU.
Assessment / Plan
-
This is a 63-year-old female who presents with perforated rectum in the setting of a recent colonoscopy. Postoperative day 1 status post exploratory laparotomy, primary repair of rectal perforation.
N.p.o., IV fluids, continue NG tube to low intermittent wall suction, expect ileus
Continue KELLY to bulb suction
Continue antibiotics will plan for a 7-day course.
Patient appears stable, okay to transfer out of the ICU per primary.
General surgery will continue to follow
Time Spent
Total Time Spent with Patient (in minutes): 20
Subjective Data
-
Date of Service: October 20, 2023
Interval Events:
No acute events overnight. Slept well. Pain Controlled. Denies Nausea/Vomiting.
Objective Data
-
Intake and Output
10/19/23 10/20/23 10/21/23
06:59 06:59 06:59
Intake Total 1480 / 1555 250 / 250
Output Total 2390 / 2425 70 / 70
Balance -910 / -870 180 / 180
Intake:
IV fluids (Total) 750 / 825 150 / 150
Lr 1,000 ml @ 75 mls/hr IV . 750 / 825 150 / 150
[id number] FABIAN Rx#:[id number]
IV piggybacks 730 / 730 100 / 100
Output:
Drain Output (Total) 340 / 340
Left Abdomen Bud-Bullard 340 / 340
Urine, Stark 2049 70 / 70
Other:
Number of approximated LARGE 1
amounts of urine
Vital Signs
Temp Pulse Resp BP Pulse Ox
98.0 F 80 14 92/49 96
10/20/23 08:00 10/20/23 07:00 10/20/23 07:00 10/20/23 00:00 10/20/23 08:31
Lab Results
10/20/23 04:06
10/20/23 04:06
Calcium 8.0 mg/dl (8.4-10.2) L 10/20/23 04:06
Phosphorus 3.9 mg/dl (2.5-4.5) 10/20/23 04:06
Magnesium 2.4 mg/dl (1.6-2.3) H 10/20/23 04:06
Total Bilirubin 0.4 mg/dl (0.2-1.3) 10/20/23 04:06
Direct Bilirubin 0.3 mg/dl (0.0-0.4) 10/19/23 07:27
AST 27 U/L (14-36) 10/20/23 04:06
ALT 33 U/L (0-35) 10/20/23 04:06
Alkaline Phosphatase 88 U/L (38-126) 10/20/23 04:06
Total Protein 4.3 g/dl (6.3-8.2) L 10/20/23 04:06
Albumin 1.8 g/dl (3.5-5.0) L 10/20/23 04:06
Physical Exam
-
GENERAL/NEURO: Awake, Alert, no distress
CHEST: Unlabored breathing on RA, NG tube with bilious output
ABDOMEN: Soft, Non-Tender, Non-Distended, dressing with stable strikethrough, KELLY with serous output
[2023-10-20] MEDS: VANCOCIN 200 IV ×2 (10:00→21:00)
[2023-10-20] MEDS: LR 1000 IV (11:07)
--- NOTE | 2023-10-20 11:37 | W.PN.HOSP.TC ---
Today's Communication/Plan
-
cont Abx
replete potassium
Assessment / Plan
Assessment / Plan
63yo F with PMHx of HTN, was having loose watery non-bloody stools for 2 mo, found c.diff during colonoscopy on 10/17/23, came back for worsening weakness, found worsening abdominal pain and later CT showed bowel perf. S/P laparotomy on 10/19/23 with
small rectal defect repaired, no purulnce seen, colon viable and visually healthy/
A/P:
#Bowel perf
s/p laparotomy by GenSx
Abx as per ID
Advance diet as per GenSx
#C.diff colitis
neg c.diff test
Request documents from GI office
Vanco/Flagyl
GI cosnult
#Hyponatremia
#Hypokalemia
2/2 GI lossess
replete and follow
#Microcytic anemia
chronic
iron studies
Hem consult placed on admission
#Transaminitis - resolved
hepatitis panel
follow LFT
#Thrombocytosis
#Leukocytosis
reactive
follow CBC
#Essential HTN
hold HCTZ due to concern for GI fluid losses
DVT ppx hep
FUll code
I have spent at least 57mon reviewing chart, test results and direct patient care
Anticipated Discharge: > 48 hours
Subjective/Interval History
-
Date of Service: October 20, 2023
Objective Data
-
Labs:
Laboratory Results
10/20/23
04:06
WBC 15.8 H
Hgb 7.8 L
Hct 24.6 L
Plt Count 473 H
Sodium 139
Potassium 3.3 L
Chloride 104
Carbon Dioxide 28
BUN 15
Creatinine 0.7
Glucose 161 H
Calcium 8.0 L
Total Bilirubin 0.4
AST 27
ALT 33
Alkaline Phosphatase 88
Vital Signs:
Vital Signs
Temp Pulse Resp BP Pulse Ox
98.0 F 80 14 92/49 96
10/20/23 08:00 10/20/23 07:00 10/20/23 07:00 10/20/23 00:00 10/20/23 10:40
I&O
10/19/23 10/20/23 10/21/23
06:59 06:59 06:59
Intake Total 1480 / 1555 675 / 675
Output Total 2390 / 2425 215 / 215
Balance -910 / -870 460 / 460
Review of Systems
-
History Source: Patient
All other systems: Reviewed and negative
Physical Exam
-
General: No Apparent Distress
HEENT: Moist Mucous Membranes
Respiratory: Clear to Auscultation
Cardiac: Regular Rhythm
GI: Soft, Nondistended and Tender
Genito-urinary: No Costovertebral Tender
Skin: Warm
Neuro: Awake, Alert, Oriented and AO x 3
Psych: Calm
--- NOTE | 2023-10-20 13:11 | PTCARENOTE ---
Pt reassessed. (R) radial arterial line removed. Stark catheter removed @ 1:00pm. Due to void by 7:00pm. Incontinent of small brown loose stool. LR continues @ 75ml/hr. PRN Dilaudid 1mg IV given as able for 7/10 abdominal pain. Pt expresses relief
with administration.
--- NOTE | 2023-10-20 14:03 | W.PN.ANS.POP ---
Anesthesia Post Operative
- Anesthesia Post Op Note
Vital Signs Stable-See Nursing Note: Yes
Airway Patent: Yes
Adequate Pain Control: Yes
Change in Mental Status: No
Current Postoperative Nausea & Vomiting: No
Anesthesia Complications: No
General Anesthetic Recall: No
Unplanned Admission: No
Post Op Hydration Adequate: Yes
- -
Pt resting, spoke to RN-VSS, and doing well.
--- NOTE | 2023-10-20 15:21 | CON.GI ---
Consultation
-
Date/Time Consultation Requested: 10/20/2023
Date/Time Consultation Performed: 10/20/2023
Performing Provider: Kwasi Harding
Reason for Consultation: diarrhea, ? c. diff
Medical History
Chief Complaint / HPI
Chief Complaint: diarrhea, questionable C. diff infection
History of Present Illness:
Patient is a 63-year-old female with no significant history who presents with diarrhea. She had colonoscopy at another facility for evaluation of chronic diarrhea. There was a question whether she tested positive for C. difficile. During her
evaluation here, CT abdomen/pelvis was done which showed free air under diaphragm and was diagnosed with colonic perforation. She was taken to the OR and had laparotomy which noted small perforation in the rectum, and had primary repair. Regarding
her diarrhea, this started from 07/2023. Multiple watery BMs without blood. She had taken amoxicillin for URTI when her diarrhea started.
Past Medical History
Past Medical History: Other
Past Surgical History: Appendectomy
Social History
Tobacco: Non-Smoker
Alcohol: None
Allergies / Home Medications
Allergy/AdvReac Type Severity Reaction Status Date / Time
No Known Allergies Allergy Unverified 03/26/23 00:04
�Medication �Instructions �Recorded
hydrochlorothiazide 25 mg tablet 25 mg PO DAILY Fluid 10/19/23
Retention/Swelling
Review of Systems
Vital Signs
Temp Pulse Resp BP Pulse Ox
98.2 F 81 17 117/61 92
10/20/23 11:09 10/20/23 14:00 10/20/23 14:00 10/20/23 14:00 10/20/23 13:30
Physical Exam
Exam
General: Well Developed and Well Nourished
HEENT: Normocephalic
Respiratory: Clear
Cardiac: S1/S2
GI: Soft, Non Distended and Normal Bowel Sounds
Results
WBC 15.8 10^3/uL (4.8-10.8) H 10/20/23 04:06
Hgb 7.8 g/dL (12.0-16.0) L 10/20/23 04:06
Hct 24.6 % (37.0-47.0) L 10/20/23 04:06
MCV 59.6 fL (81.0-99.0) L 10/20/23 04:06
Plt Count 473 10^3/uL (130-400) H 10/20/23 04:06
Absolute Neuts (auto) 9.5 10^3/uL (1.4-6.5) H 10/19/23 09:26
PT 18.1 Sec (11.4-14.6) H 10/19/23 21:21
PT Cancelled 10/19/23 21:21
INR 1.52 10/19/23 21:21
INR Cancelled 10/19/23 21:21
APTT 34.3 Sec (23.4-35.0) 10/19/23 21:21
APTT Cancelled 10/19/23 21:21
Sodium 139 mmol/L (135-145) 10/20/23 04:06
Potassium 3.3 mmol/L (3.5-5.1) L 10/20/23 04:06
Chloride 104 mmol/L (98-107) 10/20/23 04:06
Carbon Dioxide 28 mmol/L (22-30) 10/20/23 04:06
BUN 15 mg/dl (7-17) 10/20/23 04:06
Creatinine 0.7 mg/dL (0.6-1.0) 10/20/23 04:06
Calcium 8.0 mg/dl (8.4-10.2) L 10/20/23 04:06
Total Bilirubin 0.4 mg/dl (0.2-1.3) 10/20/23 04:06
AST 27 U/L (14-36) 10/20/23 04:06
ALT 33 U/L (0-35) 10/20/23 04:06
Alkaline Phosphatase 88 U/L (38-126) 10/20/23 04:06
Lipase 37 U/L (23-300) 10/18/23 22:48
Diagnostic Image Results:
Prior GI Procedures:
EGD:
Colonoscopy:
Assessment / Plan
-
63-year-old female with no significant history who recently had colonoscopy for chronic diarrhea which was complicated by rectal perf s/p primary surgical repair requested for evaluation of diarrhea.
Impression / Rec:
1. Chronic diarrhea - onset about 2 months ago which started around the time she took amoxicillin for respiratory infection. No blood in stool. She had colonoscopy at another facility for evaluation of this which reportedly showed indeterminate
colitis. There was a question whether she tested positive for C. difficile and she had been taking oral vanco prior to admission here. C. difficile antigen/toxin are negative here. Unclear if she had biopsies taken during her colonoscopy. Will
obtain records for clarification.
Total Time Spent with Patient (in minutes): 55
-
-
Thank you for consultation and allowing me to participate in the patient's care. Please call the surgical oncologist GI physician during the after hours with any questions or concerns.
--- NOTE | 2023-10-20 19:30 | PTCARENOTE ---
oil deliverer, pt aaox3, prn dilaudid for abd pain, inc small amt loose stool, paulina care. SR HR 70-80s. NGT to LIWS- draining green. L abd drsg intact- L abd KELLY with serous-Serosang drainage. POC discussed, call basil w/pt.
[2023-10-20 20:12] LABS: Hepatitis B Surface Antigen Negative (Negative)
[2023-10-20 20:29] LABS: Hepatitis B Core Ab, Total Negative (Negative); Hepatitis B Surface Antibody Negative; Hepatitis C Antibody Negative (Negative)
[2023-10-21] VITALS (10 sets, daily range): BP systolic 89–149; BP diastolic 51–97; BMI 31.4
[2023-10-21] MEDS: LR 1000 IV ×2 (00:11→14:46)
[2023-10-21] MEDS: FLAGYL 500 MG 100 IV ×4 (00:11→23:35)
[2023-10-21] MEDS: MAXIPIME 2000 MG IV ×3 (03:15→17:13)
[2023-10-21] MEDS: STERILE WATER FOR INJECTION 10 ML IV ×3 (04:35→17:12)
[2023-10-21 05:19] LABS: Hematocrit 24.7 % (37.0-47.0); Hemoglobin 7.7 g/dL (12.0-16.0); Mean Corp Hgb Conc. 31.2 g/dL (33.0-37.0); Mean Corpuscular Hgb 18.6 pg (27.0-31.0); Mean Corpuscular Volume 59.5 fL (81.0-99.0); Mean Platelet Volume 10.7 fL (7.4-10.4); Platelet Count 477 10^3/uL (130-400); Red Blood Cell Count 4.15 10^6/uL (4.20-5.40); Red Cell Dist. Width 15.6 % (11.5-14.5); White Blood Cell Count 15.9 10^3/uL (4.8-10.8)
[2023-10-21] MEDS: VANCOCIN 200 IV ×2 (05:23→17:39)
[2023-10-21 05:25] LABS: ALT (SGPT) 30 U/L (0-35); AST (SGOT) 24 U/L (14-36); Albumin 1.9 g/dl (3.5-5.0); Alkaline Phosphatase 86 U/L (38-126); Blood Urea Nitrogen 20 mg/dl (7-17); Calcium 8.2 mg/dl (8.4-10.2); Carbon Dioxide 29 mmol/L (22-30); Chloride 107 mmol/L (98-107); Estimated Creatinine Clearance 84 ml/min; Glucose 122 mg/dl (70-99); Potassium 3.3 mmol/L (3.5-5.1); Sodium 140 mmol/L (135-145); Total Bilirubin 0.5 mg/dl (0.2-1.3); Total Protein 4.7 g/dl (6.3-8.2); eGFR > 60.00
[2023-10-21] MEDS: DILAUDID 1 MG IV (05:36)
[2023-10-21 07:22] LABS: % Basophils 0.6 % (0-2); % Immature Granulocytes 6.9 % (0-0.5); % Lymphocytes 5.2 % (20.5-51.1); % Monocytes 5.7 % (1.7-9.3); % Neutrophils 81.6 % (42.2-75.2); Absolute Basophils 0.1 10^3/uL (0-0.2); Absolute Immature Granulocytes 1.1 10^3/uL (0-0.05); Absolute Lymphocytes 0.8 10^3/uL (1.2-3.4); Absolute Monocytes 0.9 10^3/uL (0.1-0.6); Nucleated Red Blood Cells % 0 %
[2023-10-21] MEDS: HEPARIN 5000 UNITS SC ×2 (08:07→20:26)
[2023-10-21] MEDS: DESENEX/MITRAZOL/ZEASORB 1 APPLIC TOPICAL ×2 (08:14→20:26)
--- NOTE | 2023-10-21 08:26 | W.PN.HOSP.TC ---
Today's Communication/Plan
-
No significant BS
cont Abx as per ID
cont NPO until GenSx advance diet
repleted potassium
Assessment / Plan
Assessment / Plan
63yo F with PMHx of HTN, was having loose watery non-bloody stools for 2 mo, found c.diff during colonoscopy on 10/17/23, came back for worsening weakness, found worsening abdominal pain and later CT showed bowel perf. S/P laparotomy on 10/19/23 with
small rectal defect repaired, no purulence seen, colon viable and visually healthy
A/P:
#Bowel perf
s/p laparotomy by GenSx
Abx as per ID, pending periOP Cx
Advance diet as per GenSx
#C.diff colitis ruled out
neg c.diff test
#Hyponatremia
#Hypokalemia
2/2 GI losses
replete and follow
#Microcytic anemia with postOP anemia
Hem consult: presumed thalassemia
Serial Hgb and transfuse to keep >7.0
#Transaminitis - resolved
hepatitis panel
follow LFT
#Thrombocytosis
#Leukocytosis
reactive
follow CBC
#Essential HTN
hold HCTZ due to concern for GI fluid losses
DVT ppx hep
FUll code
I have spent at least 37mon reviewing chart, test results and direct patient care
Anticipated Discharge: > 48 hours
Subjective/Interval History
-
Date of Service: October 21, 2023
Objective Data
-
Labs:
Laboratory Results
10/21/23
04:46
WBC 15.9 H
Hgb 7.7 L
Hct 24.7 L
Plt Count 477 H
Sodium 140
Potassium 3.3 L
Chloride 107
Carbon Dioxide 29
BUN 20 H
Creatinine 0.7
Glucose 122 H
Calcium 8.2 L
Total Bilirubin 0.5
AST 24
ALT 30
Alkaline Phosphatase 86
Vital Signs:
Vital Signs
Temp Pulse Resp BP Pulse Ox
98.0 F 93 27 98/54 94
10/21/23 07:27 10/21/23 05:00 10/21/23 05:00 10/21/23 04:00 10/21/23 05:00
I&O
10/20/23 10/21/23 10/22/23
06:59 06:59 06:59
Intake Total 1480 / 1555 2155 / 2155
Output Total 2390 / 2425 585 / 585
Balance -910 / -870 1570 / 1570
Review of Systems
-
All other systems: Reviewed and negative
Physical Exam
-
General: No Apparent Distress
HEENT: Normocephalic
Cardiac: Regular Rhythm
GI: Soft and Tender; Negative Normal Bowel Sounds
Skin: Warm
Psych: Calm
[2023-10-21] MEDS: KCL 270 MEQ IV (09:00)
--- NOTE | 2023-10-21 09:00 | PTCARENOTE ---
alert and oriented, pleasant , NSR on monitor , BP 98/64, 96% on 2L NC , pt given IS , TV 500 encouraged cough and deep breathing , weaned down o2 to room air with sats of 92% , pt currently IMU level of care
--- NOTE | 2023-10-21 10:10 | W.PN.UPDATE ---
Update Note
Progress Note Update
CBC and history c/w thalassemia
No evidence for iron deficiency
Would transfuse if clinically indicated
No heme f/u needed
Will sign off, please call with any questions
--- NOTE | 2023-10-21 10:16 | W.PN.GS2 ---
Today's Communication / Plan
-
-- DC NGT, sips of clears for comfort
Assessment / Plan
-
This is a 63-year-old female who presents with perforated rectum in the setting of a recent colonoscopy. POD#2 status post exploratory laparotomy, primary repair of rectal perforation.
Plan clinically stable. Evidence of some return of bowel function. Minimal NGT output. Plan to DC NG tube and trial sips of clears.
-- DC NGT, sips of clears for comfort
-- Continue KELLY to bulb suction
-- Continue antibiotics will plan for a 7-day course.
-- General surgery will continue to follow
Subjective Data
-
Date of Service: October 21, 2023
Feels improved -less abdominal and pelvic pain. No nausea or vomiting. Reports passing loose or liquidy, nonbloody stools. No flatus. No fevers.
Objective Data
-
Intake and Output
10/20/23 10/21/23 10/22/23
06:59 06:59 06:59
Intake Total 1480 / 1555 2155 / 2155
Output Total 2390 / 2425 585 / 585
Balance -910 / -870 1570 / 1570
Intake:
IV fluids (Total) 750 / 825 1725 / 1725
Lr 1,000 ml @ 75 mls/hr IV . 750 / 825 1725 / 1725
[id number] FABIAN Rx#:[id number]
IV piggybacks 730 / 730 400 / 400
Amount instilled into GI Tube ( 30 / 30
Total)
Alton Sump 30 / 30
Output:
Drain Output (Total) 340 / 340 40 / 40
Left Abdomen Bud-Bullard 340 / 340 40 / 40
Gastrointestinal tube output ( 300 / 300
Total)
Alton Sump 300 / 300
Urine, Stark 2049 245 / 245
Other:
Number of approximated LARGE 1
amounts of urine
Vital Signs
Temp Pulse Resp BP Pulse Ox
98.0 F 93 27 98/54 94
10/21/23 07:27 10/21/23 05:00 10/21/23 05:00 10/21/23 04:00 10/21/23 05:00
Lab Results
10/21/23 04:46
10/21/23 04:46
Calcium 8.2 mg/dl (8.4-10.2) L 10/21/23 04:46
Phosphorus 3.9 mg/dl (2.5-4.5) 10/20/23 04:06
Magnesium 2.4 mg/dl (1.6-2.3) H 10/20/23 04:06
Total Bilirubin 0.5 mg/dl (0.2-1.3) 10/21/23 04:46
Direct Bilirubin 0.3 mg/dl (0.0-0.4) 10/19/23 07:27
AST 24 U/L (14-36) 10/21/23 04:46
ALT 30 U/L (0-35) 10/21/23 04:46
Alkaline Phosphatase 86 U/L (38-126) 10/21/23 04:46
Total Protein 4.7 g/dl (6.3-8.2) L 10/21/23 04:46
Albumin 1.9 g/dl (3.5-5.0) L 10/21/23 04:46
Physical Exam
-
Gen: NAD
HEENT: minimal light bilious
Abd: soft, mild tenderness, mild distension, non-peritoneal, dressing with shadowing, KELLY serosang with some fibrinous debris, no feculence or bile
--- NOTE | 2023-10-21 10:31 | W.PN.ID1 ---
Date of Service
Date of Service: October 21, 2023
Today's Communication
Continue abx's.
Assessment / Plan
# Chronic diarrhea since 07/2023
# Descending colon and sigmoid colitis
# Colonoscopy 10/17/23 -> outsice GI prescribed po Vancomycin ?empirically. 09/12/23 C. diff negative, O+P neg. 10/18 C. diff neg. Need outside record.
# Post-colonoscopy rectal perforation
# leukocytosis
# Fever resolved
- C. diff here negative.
- 10/18 s/p emergent OR: colon healthy, no stool for C. diff, +1mm perforation proximal rectum s/p repaired, minimal contamination
Appreciate surgery. Intra-op cx pending
- DC'd po vancomycin. Not consistent with C. diff colitis.
- Continue IV Vancomycin, cefepime, metronidazole pending OR cx.
- Follow wbc.
Chief Complaint
-: Other (Bowel perf)
Subjective / Review of Systems
Feeling better today.
+ loose stool.
Vital Signs / Physical Exam
Vital Signs
Vital Signs
Temp Pulse Resp BP Pulse Ox
98.0 F 93 27 98/54 94
10/21/23 07:27 10/21/23 05:00 10/21/23 05:00 10/21/23 04:00 10/21/23 05:00
Physical Exam
Constitutional: No Acute Distress and Comfortable
Cardiovascular: Regular Rate and S1/S2
Gastrointestinal: Soft, Non Tender and Decreased Bowel Sounds
Neurological: AO x 3
Objective Data
Lab Data
Lab Results
10/21/23 04:46
10/21/23 04:46
PT 18.1 Sec (11.4-14.6) H 10/19/23 21:21
PT Cancelled 10/19/23 21:21
INR 1.52 10/19/23 21:21
INR Cancelled 10/19/23 21:21
APTT 34.3 Sec (23.4-35.0) 10/19/23 21:21
APTT Cancelled 10/19/23 21:21
Estimated Creat Clear 84 ml/min 10/21/23 04:46
Lactic Acid 1.8 mmol/L (0.7-2.0) 10/19/23 14:49
Total Bilirubin 0.5 mg/dl (0.2-1.3) 10/21/23 04:46
AST 24 U/L (14-36) 10/21/23 04:46
ALT 30 U/L (0-35) 10/21/23 04:46
Alkaline Phosphatase 86 U/L (38-126) 10/21/23 04:46
Most recent labs reviewed.
Micro Results:
10/19/23 19:07 Anaerobic Culture - Preliminary
Peritoneal Fluid Culture pending. Anaerobic cultures are examined after 3
days incubation. Additional information to follow.
10/19/23 19:07 Wound Culture - Preliminary
Abdomen Gram Stain - Preliminary
10/19/23 17:44 Blood Culture - Preliminary
Blood/Venous No Growth in 24 hours- Final report to follow
10/19/23 17:46 Blood Culture - Preliminary
Blood/Venous No Growth in 24 hours- Final report to follow
10/19/23 00:16 Salmonella/Shigella Culture - Preliminary
Feces/Stool Culture in Progress
Campylobacter Culture - Preliminary
Culture in Progress
Shiga Toxin Test - Pending
10/19/23 00:16 C. difficile GDH Antigen & Toxins - Final
Feces/Stool Negative for toxigenic C.difficile
10/19/23 AXR: Nonspecific bowel gas appearance with bowel wall thickening and distended bowel wall thickening in the distended transverse colon suggesting colitis and gas-filled loops of small bowel measuring up to 3 cm suggesting ileus
10/19/23 CT a/p: There is moderate-large volume free intraperitoneal air suggesting the presence of perforated abdominal viscus. There is colitis involving the descending and sigmoid colon. There is ileocolic anastomosis in the right mid abdomen.
--- NOTE | 2023-10-21 10:45 | CM ---
CM following re: discharge planning.
Discussed in Rounds, reviewed pt's chart, met with pt.
Per Rounds meeting, POD#2 status post exploratory laparotomy, primary repair of rectal perforation, d/c NGT, continue KELLY tube, continue antibiotics, PT/OT to evaluate.
Per CM note, pt resides with her spouse, daughter, and sister in a one story home with one step to enter and pt is independent in all areas [employer].
D/C plan: home with anticipated no needs.
CM will follow with discharge plan updates as hospitalization progresses
--- NOTE | 2023-10-21 10:53 | W.PN.GI.CBS2 ---
Today's Communication / Plan
-
Clinically improving, see full recommendations as below. Will sign-off, please call / recontact with any questions.
Assessment / Plan
-
Ms. Johnston is a 63-year-old female with no significant past medical history who recently had colonoscopy for chronic diarrhea which was complicated by rectal perf s/p primary surgical repair requested for evaluation of diarrhea. Previous reports onset
about 2 months ago which started around the time she took amoxicillin for respiratory infection. No blood in stool. She had colonoscopy at another facility for evaluation (no records of this) of this which reportedly showed indeterminate colitis
(?). There was a question whether she tested positive for C. difficile as well and she had been taking oral vanco prior to admission here. Thus far, stool testing has been unremarkable and C. difficile antigen/toxin are negative here. Unclear if
she had biopsies taken during her colonoscopy, but would defer any plans for any endoscopic evaluation at this time. Reports her diarrhea is improving with more formed stools.
#Chronic Diarrhea- IMPROVING
#Rectal Perforation (s/p primary repair 10/19/23)
#Leukocytosis
#Previous c/f C Diff Infection (pseudomembranes ? C Diff x 2 negative)
Recommendations:
- Diet as outlined per surgery
- Agree with continuing IV antibiotics as per Infectious Disease
- Will attempt to obtain [facility] colonoscopy records and path (submitted request)
- No plans for repeat endoscopic evaluation at this time
- Prefer to avoid anti-diarrheals / anti-spasmodics given recent surgery unless diarrhea recurs but would avoid in post-op setting
- Surgery following, appreciate recs
- Recommend outpatient follow-up with her primary [employer] [employer] Specialist after discharge
- Rest of care per primary team
GI team will sign-off. Please recontact with any questions or concerns regarding this patient.
Mateus Hugo, DO
Department of Gastroenterology
Subjective
Subjective
Date of Service: October 21, 2023
- No acute events overnight
Feeling better, have less abdominal pain. Reports pain is well-controlled. NGT removed, hoping to have sips of clear liquids. No recent nausea or vomiting. Had one semi-formed BM this morning with loose brown stool, reports her overall symptoms
improving.
Objective
Data Reviewed
Laboratory Data:
Laboratory Results
10/21/23 04:46
10/21/23 04:46
Laboratory Results
PT 18.1 Sec (11.4-14.6) H 10/19/23 21:21
PT Cancelled 10/19/23 21:21
INR 1.52 10/19/23 21:21
INR Cancelled 10/19/23 21:21
APTT 34.3 Sec (23.4-35.0) 10/19/23 21:21
APTT Cancelled 10/19/23 21:21
Phosphorus 3.9 mg/dl (2.5-4.5) 10/20/23 04:06
Magnesium 2.4 mg/dl (1.6-2.3) H 10/20/23 04:06
Total Bilirubin 0.5 mg/dl (0.2-1.3) 10/21/23 04:46
AST 24 U/L (14-36) 10/21/23 04:46
ALT 30 U/L (0-35) 10/21/23 04:46
Alkaline Phosphatase 86 U/L (38-126) 10/21/23 04:46
Lipase 37 U/L (23-300) 10/18/23 22:48
Vital Signs and I&O:
Vital Signs
Temp Pulse Resp BP Pulse Ox
98.0 F 93 27 98/54 94
10/21/23 07:27 10/21/23 05:00 10/21/23 05:00 10/21/23 04:00 10/21/23 05:00
I&O
10/20/23 10/21/23 10/22/23
06:59 06:59 06:59
Intake Total 1480 / 1555 2155 / 2155
Output Total 2390 / 2425 585 / 585
Balance -910 / -870 1570 / 1570
Physical Exam
Physical Exam
HEENT: Moist mucous membranes
Cardiology: Normal Sinus Rhythm
Pulmonary: Clear
GI: Soft, Non Distended and Other (KELLY drain with serosang fluid)
Extremities: Warm
Neuro: Non Focal
--- NOTE | 2023-10-21 11:09 | PTCARENOTE ---
NGT DC as ordered, oob in chair , pt is now Telemetry status , pt and sister updated on current plan of care and condition
--- NOTE | 2023-10-21 11:28 | PHA.VAN.FU ---
Vancomycin Assessment / Plan
- Assessment
Renal Function: Stable
WBC's are: Trending Up (15.8->15.9)
In the past 24 hrs, patient has been: Afebrile
Concomitant Antimicrobials: Cefepime, Metronidazole
- Dosing Plan
Continue: Vanco 1G Q12H
- Monitoring Plan
Peak Level: 10/20 2029
Trough Level: 10/21 529
Monitoring Comments: levels to be drawn after 4th maintenance dose
- Follow Up
Pharmacy will continue to follow.
Vancomycin Follow UP
- -
Patient Age: 63
Patient Sex: Female
Vancomycin Day #: 3
Indication: GI
Requesting Provider: DR. HADLEY
Height / Weight:
Height 5 ft 4 in
Actual Weight 82.9 kg
IBW in k.7
Adjusted BW in k.6
Pertinent Past Medical History: BMI~ 31, Thalassemia, CDiff (+) recently,
- Vital Signs / Lab Results
Temp Pulse Resp BP Pulse Ox
97.8 F 90 26 93/62 90
10/21/23 11:25 10/21/23 11:00 10/21/23 11:00 10/21/23 10:41 10/21/23 11:00
Lab Results - Hematology
10/18/23 10/19/23 10/19/23
22:48 09:26 21:21
WBC 12.4 H 11.6 H 18.1 H
Band Neutrophils
10/20/23 10/21/23
04:06 04:46
WBC 15.8 H 15.9 H
Band Neutrophils 23 H
Lab Results - Chemistry
10/18/23 10/19/23 10/19/23
22:48 07:27 21:21
BUN 25 H 20 H 15
Creatinine 0.8 0.9 0.7
Estimated Creat Clear 64 82
Albumin 2.8 L 2.4 L
10/20/23 10/21/23
04:06 04:46
BUN 15 20 H
Creatinine 0.7 0.7
Estimated Creat Clear 82 84
Albumin 1.8 L 1.9 L
10/19/23
14:49
Lactic Acid 1.8
Microbiology Results
10/19/23 00:16 Salmonella/Shigella Culture - Final
Feces/Stool No Salmonella, Shigella, Aeromonas or Plesiomonas species
isolated.
Campylobacter Culture - Final
No Campylobacter species isolated.
10/19/23 19:07 Anaerobic Culture - Preliminary
Peritoneal Fluid Culture pending. Anaerobic cultures are examined after 3
days incubation. Additional information to follow.
10/19/23 19:07 Wound Culture - Preliminary
Abdomen Gram Stain - Preliminary
10/19/23 17:44 Blood Culture - Preliminary
Blood/Venous No Growth in 24 hours- Final report to follow
10/19/23 17:46 Blood Culture - Preliminary
Blood/Venous No Growth in 24 hours- Final report to follow
10/19/23 00:16 C. difficile GDH Antigen & Toxins - Final
Feces/Stool Negative for toxigenic C.difficile
Therapeutic Drug Monitoring
Random Vancomycin 14.6 ug/ml 10/20/23 04:06
--- NOTE | 2023-10-21 11:51 | PTCARENOTE ---
pt voided large amount on toilet unable to get accurate amount
--- NOTE | 2023-10-21 17:08 | PTCARENOTE ---
pt is now having small formed brown stools
[2023-10-21] MEDS: DILAUDID 0.5 MG IV (17:13)
--- NOTE | 2023-10-21 18:08 | PTCARENOTE ---
pt to transfer to room 433, report given to receiving RN
--- NOTE | 2023-10-21 18:45 | TRANSFER ---
1835 Pt arrived via w/c from ICU. Alert and oriented x 3. Denies acute distress. Place on telemetry per MD orders, heart rhythm (normal sinus rhythm)
IV fluids infusing and vancomycin IVPB. VS stable. Report given to cook night nurse.
[2023-10-21 22:29] LABS: Vancomycin Peak 31.9 ug/ml (18-26)
[2023-10-22] MEDS: MAXIPIME 2000 MG IV ×3 (02:00→16:20)
[2023-10-22] MEDS: STERILE WATER FOR INJECTION 10 ML IV ×3 (02:00→16:21)
[2023-10-22 03:38] VITALS: BP 129/76
[2023-10-22 06:00] VITALS: BMI 31.0
[2023-10-22] MEDS: LR 1000 IV (06:19)
[2023-10-22] MEDS: VANCOCIN 200 IV (06:56)
[2023-10-22 07:00] VITALS: BP 122/53
[2023-10-22 07:58] LABS: Hematocrit 28.6 % (37.0-47.0); Hemoglobin 8.8 g/dL (12.0-16.0); Mean Corp Hgb Conc. 30.8 g/dL (33.0-37.0); Mean Corpuscular Volume 58.5 fL (81.0-99.0); Platelet Count 470 10^3/uL (130-400); Red Blood Cell Count 4.89 10^6/uL (4.20-5.40); Red Cell Dist. Width 16.5 % (11.5-14.5)
[2023-10-22 08:05] LABS: Vancomycin Trough 21.4 ug/ml (5-20)
[2023-10-22 08:21] LABS: ALT (SGPT) 28 U/L (0-35); AST (SGOT) 24 U/L (14-36); Albumin 2.2 g/dl (3.5-5.0); Alkaline Phosphatase 130 U/L (38-126); Blood Urea Nitrogen 21 mg/dl (7-17); Calcium 8.1 mg/dl (8.4-10.2); Carbon Dioxide 26 mmol/L (22-30); Chloride 106 mmol/L (98-107); Estimated Creatinine Clearance 65 ml/min; Glucose 107 mg/dl (70-99); Potassium 3.5 mmol/L (3.5-5.1); Sodium 141 mmol/L (135-145); Total Bilirubin 0.5 mg/dl (0.2-1.3); Total Protein 4.8 g/dl (6.3-8.2); eGFR > 60.00
--- NOTE | 2023-10-22 08:28 | PTCARENOTE ---
Vanco Trough 21.4 from this am- hospitalist notified
[2023-10-22 08:55] LABS: % Basophils 0.6 % (0-2); % Eosinophils 0.3 % (0-6); % Immature Granulocytes 7.4 % (0-0.5); % Lymphocytes 5.4 % (20.5-51.1); % Monocytes 4.7 % (1.7-9.3); % Neutrophils 81.6 % (42.2-75.2); Absolute Basophils 0.1 10^3/uL (0-0.2); Absolute Eosinophils 0.1 10^3/uL (0-0.7); Absolute Immature Granulocytes 1.7 10^3/uL (0-0.05); Absolute Lymphocytes 1.3 10^3/uL (1.2-3.4); Absolute Monocytes 1.1 10^3/uL (0.1-0.6); Absolute Neutrophils 18.7 10^3/uL (1.4-6.5); Nucleated Red Blood Cells % 0.2 %
--- NOTE | 2023-10-22 08:56 | PHA.VAN.FU ---
Addendum entered and electronically signed by Katie Santiago [facility] 10/22/23 09:51:
Agree with resident's assessment and plan
Original Note:
Vancomycin Assessment / Plan
- Assessment
Renal Function: SCR Increasing (0.7->0.9)
WBC's are: Trending Up
In the past 24 hrs, patient has been: Afebrile
Concomitant Antimicrobials: Cefepime, Flagyl
- Assessment - Therapeutic Drug Monitoring
Extrapolated Cmax (mcg/mL): 37.1
Peak level was drawn: More than 3 hours after previous dose (Level drawn more than 3hrs of end of infusion, may underestimate true peak and AUC and overestimate half-life)
Extrapolated Cmin (mcg/mL): 22.4
Trough Drawn: Appropriately
Levels were drawn: At steady state
Calculated AUC (mcg*h/mL): 701
Calculated ke: .0458
Calculated half life (H): 15.1
Calculated Vd (L): 62.26
Calculated Vanc CL (ml/min): 47.52
- Dosing Plan
Adjust Regimen to: Vanco Dosing By Level
- Monitoring Plan
Random Level: 10/22 06
- Follow Up
Pharmacy will continue to follow.
Vancomycin Follow UP
- -
Patient Age: 63
Patient Sex: Female
Vancomycin Day #: 4
Indication: GI
Requesting Provider: DR. HADLEY
Height / Weight:
Height 5 ft 4 in
Actual Weight 81.817 kg
IBW in k.7
Adjusted BW in k.6
Pertinent Past Medical History: BMI~ 31, Thalassemia, CDiff (+) recently,
- Vital Signs / Lab Results
Temp Pulse Resp BP Pulse Ox
99.0 F 91 18 122/53 100
10/22/23 07:00 10/22/23 07:00 10/22/23 07:00 10/22/23 07:00 10/22/23 07:00
Lab Results - Hematology
10/19/23 10/19/23 10/20/23
09:26 21:21 04:06
WBC 11.6 H 18.1 H 15.8 H
Band Neutrophils 23 H
10/21/23 10/22/23
04:46 06:41
WBC 15.9 H 23.0 H
Band Neutrophils
Lab Results - Chemistry
10/19/23 10/20/23 10/21/23
21:21 04:06 04:46
BUN 15 15 20 H
Creatinine 0.7 0.7 0.7
Estimated Creat Clear 82 82 84
Albumin 1.8 L 1.9 L
10/22/23
06:41
BUN 21 H
Creatinine 0.9
Estimated Creat Clear 65
Albumin 2.2 L
10/19/23
14:49
Lactic Acid 1.8
Microbiology Results
10/19/23 19:07 Anaerobic Culture - Preliminary
Peritoneal Fluid Culture pending. Anaerobic cultures are examined after 3
days incubation. Additional information to follow.
10/19/23 17:44 Blood Culture - Preliminary
Blood/Venous No Growth in 48 hours- Final report to follow
10/19/23 17:46 Blood Culture - Preliminary
Blood/Venous No Growth in 48 hours- Final report to follow
10/19/23 00:16 Salmonella/Shigella Culture - Final
Feces/Stool No Salmonella, Shigella, Aeromonas or Plesiomonas species
isolated.
Campylobacter Culture - Final
No Campylobacter species isolated.
10/19/23 19:07 Wound Culture - Preliminary
Abdomen Gram Stain - Preliminary
Therapeutic Drug Monitoring
Vancomycin Peak 31.9 ug/ml (18-26) H 10/21/23 21:58
Vancomycin Trough 21.4 ug/ml (5-20) H* 10/22/23 06:41
Random Vancomycin 14.6 ug/ml 10/20/23 04:06
[2023-10-22] MEDS: FLAGYL 500 MG 100 IV ×3 (09:28→23:06)
[2023-10-22] MEDS: HEPARIN 5000 UNITS SC ×2 (09:28→20:25)
[2023-10-22] MEDS: DESENEX/MITRAZOL/ZEASORB 1 APPLIC TOPICAL ×2 (09:29→20:25)
--- NOTE | 2023-10-22 10:10 | PN.CDI ---
Addendum entered and electronically signed by Fernando Rodriguez MD 10/22/23 15:39:
clinically irrelevant
Original Note:
CDI
- -
CDI:
Physician Documentation Request
Admit Date: 10/19/23 01:03
Dear Doctor Jennifer,
Clinical Indicators:
Patient admitted with bowel perforation; s/p repair of rectal perforation 10/18.
10/18 Calcium Gluconate 3 gm IV rider x 1.
Calcium level:
10/19/23
21:21
Calcium 6.8 L*
Based on the above, could you clarify in the progress notes, the appropriate diagnosis, if significant, that supports the above abnormalities and additional evaluation, monitoring and/or treatment rendered:
Hypocalcemia
Abnormal lab value, clinically insignificant
Other
Use of terms such as suspected, likely, concern for, or probable (associated with a specific diagnosis that is being evaluated, monitored, or treated as if it exists) are acceptable and can be coded in the inpatient setting, when documented at the
time of discharge.
Thank you,
Mayra Beal RN BSN
CDI Specialist
available via tiger text
Please use your independent medical judgment in providing your response.
--- NOTE | 2023-10-22 10:37 | CM ---
Plan is to home when stable, no needs.
Plan; Home no needs.
--- NOTE | 2023-10-22 10:59 | W.PN.GS2 ---
Today's Communication / Plan
-
LRD
Possible CT tomorrow
Assessment / Plan
-
This is a 63-year-old female who presents with perforated rectum in the setting of a recent colonoscopy. POD#3 status post exploratory laparotomy, primary repair of rectal perforation.
Plan clinically stable. Bowel function returning.
-- Adv to LRD
-- Continue KELLY to bulb suction
-- Continue antibiotics will plan for a 7-day course, appreciate ID recs.
-- Trend WBC, if continues to rise or spikes fever would proceed to CT a/p with PO and IV contrast
-- General surgery will continue to follow
Subjective Data
-
Date of Service: October 22, 2023
AFVSS, pain controlled, OOBTC, denies n/v, passing liquid stool and flatus
Objective Data
-
Intake and Output
10/21/23 10/22/23 10/23/23
06:59 06:59 06:59
Intake Total 2155 / 2230 2155.0 / 2155.0
Output Total 585 / 585 170 / 170
Balance 1570 / 1645 1985.0 / 1985.0
Intake:
Oral fluids 60 / 60
IV fluids (Total) 172 / 1800 1995.0 / 1995.0
40 kcl in 270 nss 270.0 / 270.0
Lr 1,000 ml @ 75 mls/hr IV . 172 / 1800 900 / 900
[id number] FABIAN Rx#:[id number]
IV piggybacks 400 / 400 100 / 100
Amount instilled into GI Tube ( 30 / 30
Total)
[place] Sump 30 / 30
Output:
Drain Output (Total) 40 / 40 170 / 170
Left Abdomen Bud-Bullard 40 / 40 170 / 170
Gastrointestinal tube output ( 300 / 300
Total)
[place] Sump 300 / 300
Urine, Stark 245 / 245
Other:
Number of approximated MODERATE 4
amounts of urine
Number of approximated LARGE 1
amounts of urine
Vital Signs
Temp Pulse Resp BP Pulse Ox
99.0 F 91 18 122/53 100
10/22/23 07:00 10/22/23 07:00 10/22/23 07:00 10/22/23 07:00 10/22/23 07:00
Lab Results
10/22/23 06:41
10/22/23 06:41
Calcium 8.1 mg/dl (8.4-10.2) L 10/22/23 06:41
Phosphorus 3.9 mg/dl (2.5-4.5) 10/20/23 04:06
Magnesium 2.4 mg/dl (1.6-2.3) H 10/20/23 04:06
Total Bilirubin 0.5 mg/dl (0.2-1.3) 10/22/23 06:41
Direct Bilirubin 0.3 mg/dl (0.0-0.4) 10/19/23 07:27
AST 24 U/L (14-36) 10/22/23 06:41
ALT 28 U/L (0-35) 10/22/23 06:41
Alkaline Phosphatase 130 U/L (38-126) H 10/22/23 06:41
Total Protein 4.8 g/dl (6.3-8.2) L 10/22/23 06:41
Albumin 2.2 g/dl (3.5-5.0) L 10/22/23 06:41
Physical Exam
-
Gen: NAD
Abd: soft, aquacel OK, mod ttp to LLQ, drain ss
[2023-10-22 11:00] VITALS: BP 107/78
--- NOTE | 2023-10-22 12:43 | W.PN.ID1 ---
Addendum entered and electronically signed by Maria Elena Villavicencio MD 10/22/23 12:51:
10/18 stool cx negative. No need to repeat stool cx.
Original Note:
Date of Service
Date of Service: October 22, 2023
Today's Communication
Check stool cx, C. diff
Assessment / Plan
# Chronic diarrhea since 07/2023
# Descending colon and sigmoid colitis
# Colonoscopy 10/17/23 -> outsice GI prescribed po Vancomycin ?empirically. 09/12/23 C. diff negative, O+P neg. 10/18 C. diff neg.
# Post-colonoscopy rectal perforation
# leukocytosis
# Fever resolved
- C. diff here negative. Awaiting outside record.
- 10/18 s/p emergent OR: colon healthy, no stool for C. diff, +1mm perforation proximal rectum s/p repaired, minimal contamination
Appreciate surgery. Intra-op cx in progress
- Leukocytosis trending up.
Check stool cx, repeat C. diff.
- Continue IV Vancomycin, cefepime, metronidazole pending OR cx.
- Follow wbc.
Chief Complaint
-: Other (Bowel perf)
Subjective / Review of Systems
Feels well. + diarrhea as previous.
Vital Signs / Physical Exam
Vital Signs
Vital Signs
Temp Pulse Resp BP Pulse Ox
97.8 F 96 16 107/78 97
10/22/23 11:00 10/22/23 11:00 10/22/23 11:00 10/22/23 11:10/22/23 11:00
Physical Exam
Constitutional: No Acute Distress
Cardiovascular: Regular Rate and S1/S2
Gastrointestinal: Soft, Non Tender, Non Distended and Decreased Bowel Sounds
Extremities: Negative Edema
Neurological: AO x 3
Objective Data
Lab Data
Lab Results
10/22/23 06:41
10/22/23 06:41
PT 18.1 Sec (11.4-14.6) H 10/19/23 21:21
PT Cancelled 10/19/23 21:21
INR 1.52 10/19/23 21:21
INR Cancelled 10/19/23 21:21
APTT 34.3 Sec (23.4-35.0) 10/19/23 21:21
APTT Cancelled 10/19/23 21:21
Estimated Creat Clear 65 ml/min 10/22/23 06:41
Lactic Acid 1.8 mmol/L (0.7-2.0) 10/19/23 14:49
Total Bilirubin 0.5 mg/dl (0.2-1.3) 10/22/23 06:41
AST 24 U/L (14-36) 10/22/23 06:41
ALT 28 U/L (0-35) 10/22/23 06:41
Alkaline Phosphatase 130 U/L (38-126) H 10/22/23 06:41
Most recent labs reviewed.
Micro Results:
10/19/23 19:07 Anaerobic Culture - Preliminary
Peritoneal Fluid Culture pending. Anaerobic cultures are examined after 3
days incubation. Additional information to follow.
10/19/23 17:44 Blood Culture - Preliminary
Blood/Venous No Growth in 48 hours- Final report to follow
10/19/23 17:46 Blood Culture - Preliminary
Blood/Venous No Growth in 48 hours- Final report to follow
10/19/23 00:16 Salmonella/Shigella Culture - Final
Feces/Stool No Salmonella, Shigella, Aeromonas or Plesiomonas species
isolated.
Campylobacter Culture - Final
No Campylobacter species isolated.
Shiga Toxin Test - Pending
10/19/23 19:07 Wound Culture - Preliminary
Abdomen Gram Stain - Preliminary
10/19/23 00:16 C. difficile GDH Antigen & Toxins - Final
Feces/Stool Negative for toxigenic C.difficile
10/19/23 AXR: Nonspecific bowel gas appearance with bowel wall thickening and distended bowel wall thickening in the distended transverse colon suggesting colitis and gas-filled loops of small bowel measuring up to 3 cm suggesting ileus
10/19/23 CT a/p: There is moderate-large volume free intraperitoneal air suggesting the presence of perforated abdominal viscus. There is colitis involving the descending and sigmoid colon. There is ileocolic anastomosis in the right mid abdomen.
--- NOTE | 2023-10-22 12:54 | W.PN.HOSP.TC ---
Today's Communication/Plan
-
follow labs - repeat imaging if leukocytosis will keep worsening
cont Abx
advance diet
Assessment / Plan
Assessment / Plan
63yo F with PMHx of HTN, was having loose watery non-bloody stools for 2 mo, found c.diff during colonoscopy on 10/17/23, came back for worsening weakness, found worsening abdominal pain and later CT showed bowel perf. S/P laparotomy on 10/19/23 with
small rectal defect repaired, no purulence seen, colon viable and visually healthy
A/P:
#Bowel perf
s/p laparotomy by GenSx
Abx as per ID, pending periOP Cx, gram stain showed no WBC and no growth
Advance diet as per GenSx
#C.diff colitis ruled out
neg c.diff test
#Hyponatremia
#Hypokalemia
2/2 GI losses
replete and follow
#Microcytic anemia with postOP anemia
Hem consult: presumed thalassemia
Serial Hgb and transfuse to keep >7.0
#Transaminitis - resolved
hepatitis panel
follow LFT
#Thrombocytosis
#Leukocytosis
reactive
follow CBC
#Essential HTN
hold HCTZ due to concern for GI fluid losses
DVT ppx hep
FUll code
I have spent at least 37mon reviewing chart, test results and direct patient care
Anticipated Discharge: > 48 hours
Subjective/Interval History
-
Date of Service: October 22, 2023
Objective Data
-
Labs:
Laboratory Results
10/22/23
06:41
WBC 23.0 H
Hgb 8.8 L
Hct 28.6 L
Plt Count 470 H
Sodium 141
Potassium 3.5
Chloride 106
Carbon Dioxide 26
BUN 21 H
Creatinine 0.9
Glucose 107 H
Calcium 8.1 L
Total Bilirubin 0.5
AST 24
ALT 28
Alkaline Phosphatase 130 H
Vital Signs:
Vital Signs
Temp Pulse Resp BP Pulse Ox
97.8 F 96 16 107/78 97
10/22/23 11:00 10/22/23 11:00 10/22/23 11:00 10/22/23 11:00 10/22/23 11:00
I&O
10/21/23 10/22/23 10/23/23
06:59 06:59 06:59
Intake Total 2155 / 2230 2155.0 / 2155.0
Output Total 585 / 585 170 / 170
Balance 1570 / 1645 1985.0 / 1985.0
[2023-10-22] MEDS: DILAUDID 0.5 MG IV (14:24)
[2023-10-22 15:00] VITALS: BP 100/61
[2023-10-22 19:44] VITALS: BP 97/68
[2023-10-22 23:17] VITALS: BP 124/58
[2023-10-23] MEDS: STERILE WATER FOR INJECTION 10 ML IV ×3 (01:09→17:06)
[2023-10-23] MEDS: MAXIPIME 2000 MG IV ×3 (01:09→17:05)
[2023-10-23 03:25] VITALS: BP 123/66
[2023-10-23] MEDS: DILAUDID 0.5 MG IV ×3 (05:42→22:13)
[2023-10-23 06:00] VITALS: BMI 30.9
[2023-10-23 08:21] VITALS: BP 125/67
[2023-10-23] MEDS: HEPARIN 5000 UNITS SC ×2 (08:27→19:32)
[2023-10-23] MEDS: FLAGYL 500 MG 100 IV ×2 (08:27→15:58)
[2023-10-23 08:36] LABS: Vancomycin Random 15.6 ug/ml
[2023-10-23 08:39] LABS: Hematocrit 26.9 % (37.0-47.0); Hemoglobin 8.6 g/dL (12.0-16.0); Mean Corpuscular Volume 59.4 fL (81.0-99.0); Mean Platelet Volume 10.7 fL (7.4-10.4); Platelet Count 453 10^3/uL (130-400); Red Blood Cell Count 4.53 10^6/uL (4.20-5.40); Red Cell Dist. Width 15.9 % (11.5-14.5); White Blood Cell Count 23.3 10^3/uL (4.8-10.8)
[2023-10-23 08:48] LABS: ALT (SGPT) 26 U/L (0-35); AST (SGOT) 24 U/L (14-36); Albumin 1.9 g/dl (3.5-5.0); Alkaline Phosphatase 136 U/L (38-126); Blood Urea Nitrogen 21 mg/dl (7-17); Calcium 7.7 mg/dl (8.4-10.2); Carbon Dioxide 24 mmol/L (22-30); Chloride 106 mmol/L (98-107); Estimated Creatinine Clearance 73 ml/min; Glucose 108 mg/dl (70-99); Potassium 3.2 mmol/L (3.5-5.1); Sodium 140 mmol/L (135-145); Total Bilirubin 0.5 mg/dl (0.2-1.3); Total Protein 4.4 g/dl (6.3-8.2); eGFR > 60.00
--- NOTE | 2023-10-23 08:55 | W.PN.HOSP.TC ---
Today's Communication/Plan
-
cont Abx
CT abd/pelvis today
replete potassium
Assessment / Plan
Assessment / Plan
63yo F with PMHx of HTN, was having loose watery non-bloody stools for 2 mo, found c.diff during colonoscopy on 10/17/23, came back for worsening weakness, found worsening abdominal pain and later CT showed bowel perf. S/P laparotomy on 10/19/23 with
small rectal defect repaired, no purulence seen, colon viable and visually healthy
A/P:
#Bowel perf
s/p laparotomy by GenSx
Abx as per ID, pending periOP Cx: GNB and strep
Advance diet as per GenSx
#Leukocytosis
worsening since Sx
Repeat imaging on 10/23/23
#C.diff colitis ruled out
neg c.diff test
#Hyponatremia
#Hypokalemia
2/2 GI losses
replete and follow
#Microcytic anemia with postOP anemia
Hem consult: presumed thalassemia
Serial Hgb and transfuse to keep >7.0
#Transaminitis - resolved
hepatitis panel
follow LFT
#Thrombocytosis
reactive
follow CBC
#Essential HTN
hold HCTZ due to concern for GI fluid losses
DVT ppx hep
FUll code
I have spent at least 37mon reviewing chart, test results and direct patient care
Anticipated Discharge: > 48 hours
Subjective/Interval History
-
Date of Service: October 23, 2023
Objective Data
-
Labs:
Laboratory Results
10/23/23
07:37
WBC 23.3 H
Hgb 8.6 L
Hct 26.9 L
Plt Count 453 H
Sodium 140
Potassium 3.2 L
Chloride 106
Carbon Dioxide 24
BUN 21 H
Creatinine 0.8
Glucose 108 H
Calcium 7.7 L
Total Bilirubin 0.5
AST 24
ALT 26
Alkaline Phosphatase 136 H
Vital Signs:
Vital Signs
Temp Pulse Resp BP Pulse Ox
98.2 F 93 16 125/67 94
10/23/23 08:21 10/23/23 08:21 10/23/23 08:21 10/23/23 08:21 10/23/23 08:21
I&O
10/22/23 10/23/23 10/24/23
06:59 06:59 06:59
Intake Total 2155.0 / 2155.0 960 / 960
Output Total 170 / 170 30 / 30
Balance 1985.0 / 1985.0 930 / 930
Review of Systems
-
History Source: Patient
All other systems: Reviewed and negative
Abdomen/GI: Reports Abdominal Pain
Physical Exam
-
General: No Apparent Distress
HEENT: Normocephalic
Respiratory: Clear to Auscultation
Cardiac: Regular Rhythm
GI: Nondistended and Tender
Musculoskeletal: No Clubbing, No Cyanosis and No Edema
Skin: Warm
Neuro: Awake, Alert, Oriented and AO x 3
[2023-10-23] MEDS: DESENEX/MITRAZOL/ZEASORB TOPICAL (09:15)
--- NOTE | 2023-10-23 09:30 | PHA.VAN.FU ---
Vancomycin Assessment / Plan
- Assessment
Renal Function: Stable
WBC's are: Stable
In the past 24 hrs, patient has been: Afebrile
Concomitant Antimicrobials: cefepime, metronidazole
- Assessment - Therapeutic Drug Monitoring
Random Level: 15.6 - drawn ~24.5H after previous dose of 1000mg
- Dosing Plan
Dosing by Level: Re-dose today (Vanc 1000mg)
Dosing Comments: will continue dosing by level today and follow level trend
Patient received 1000mg after trough of 21.4 was drawn (had not resulted)
Patient was changed from Q12H regimen to dosing by level and further dosing was held yesterday
Level appropriately reduced today following single dose yesterday
Re-dose today with same dose today of 1000mg and follow trend - may eventually require reduced dosing or prolonged interval
SCR & BUN relatively stable and close to baseline - vancomycin clearance may be impacted by IV contrast received 10/18 or patient may not follow population-based PK
- Monitoring Plan
Random Level: 10/23 0600
- Follow Up
Pharmacy will continue to follow.
Vancomycin Follow UP
- -
Patient Age: 63
Patient Sex: Female
Vancomycin Day #: 5
Indication: GI
Requesting Provider: Dr. Rodriguez
Pertinent Antimicrobial Allergies:
NKDA
Height / Weight:
Height 5 ft 4 in
Actual Weight 81.6 kg
IBW in k.7
Adjusted BW in k.6
Pertinent Past Medical History: BMI~ 31, Thalassemia, CDiff (+) recently,
- Vital Signs / Lab Results
Temp Pulse Resp BP Pulse Ox
98.2 F 93 16 125/67 94
10/23/23 08:21 10/23/23 08:21 10/23/23 08:21 10/23/23 08:21 10/23/23 08:21
Lab Results - Hematology
10/21/23 10/22/23 10/23/23
04:46 06:41 07:37
WBC 15.9 H 23.0 H 23.3 H
Lab Results - Chemistry
10/21/23 10/22/23 10/23/23
04:46 06:41 07:37
BUN 20 H 21 H 21 H
Creatinine 0.7 0.9 0.8
Estimated Creat Clear 84 65 73
Albumin 1.9 L 2.2 L 1.9 L
Microbiology Results
10/19/23 00:16 Salmonella/Shigella Culture - Final
Feces/Stool No Salmonella, Shigella, Aeromonas or Plesiomonas species
isolated.
Campylobacter Culture - Final
No Campylobacter species isolated.
Shiga Toxin Test - Final
No E. coli Shiga Toxin 1 or 2 detected.
10/22/23 17:58 C. difficile GDH Antigen & Toxins - Final
Feces/Stool Negative for toxigenic C.difficile
10/19/23 19:07 Wound Culture - Preliminary
Abdomen Gram negative bacilli
Streptococcus species
Gram Stain - Preliminary
10/19/23 17:46 Blood Culture - Preliminary
Blood/Venous No Growth in 72 hours- Final report to follow
10/19/23 17:44 Blood Culture - Preliminary
Blood/Venous No Growth in 72 hours- Final report to follow
10/19/23 19:07 Anaerobic Culture - Preliminary
Peritoneal Fluid Culture pending. Anaerobic cultures are examined after 3
days incubation. Additional information to follow.
Therapeutic Drug Monitoring
Vancomycin Peak 31.9 ug/ml (18-26) H 10/21/23 21:58
Vancomycin Trough 21.4 ug/ml (5-20) H* 10/22/23 06:41
Random Vancomycin 15.6 ug/ml 10/23/23 07:37
--- NOTE | 2023-10-23 09:53 | W.PN.GS2 ---
Addendum entered and electronically signed by Chandrakant Martines MD 10/23/23 10:33:
pt seen and examined in followup with resident. agree with documented progress note
pt at bedside as well
she denies any new abdominal pain, no nausea/vomiting, + loose stools (stable)
no cough/SOB
no symptoms
no calf pain/ambulating some
AFVSS
ABD: soft, ND, mild TTP at incision area
incision with aquacel dressing
KELLY with SSF - cloudy but not purulent or feculent
WBC 23
A/P: POD#4 s/p ex lap repair rectal perf
CT a/p to eval for abd source of leukocytosis
await review of imaging
continue KELLY
cefepime/metro abx - ID following
Original Note:
Today's Communication / Plan
-
Patient to get CT Ab/Pelv today. Continue current management
Assessment / Plan
-
This is a 63-year-old female who presents with perforated rectum in the setting of a recent colonoscopy. POD#4 status post exploratory laparotomy, primary repair of rectal perforation.
Plan clinically stable. Bowel function returning.
-- Advanced diet to LRD yesterday, patient has been tolerating well, continue
-- Continue KELLY to bulb suction
-- Continue antibiotics will plan for a 7-day course, appreciate ID recs.
-- Leukocytosis continues, afebrile, CT a/p with PO and IV contrast ordered
-- General surgery will continue to follow
Subjective Data
-
Date of Service: October 23, 2023
Patient says that she has been feeling well but had an instance of increased abdominal pain after using the commode at 2:30am last night. She described the event as a pulling pain in her lower abdomen that resolved after taking pain medication. She
is currently in no distress and says she has had no other issues. Patient was able to tolerate her low residue diet well yesterday and says she has been ambulating often as well.
Objective Data
-
Intake and Output
10/22/23 10/23/23 10/24/23
06:59 06:59 06:59
Intake Total 2155.0 / 2155.0 960 / 960
Output Total 170 / 170 30 / 30
Balance 1985.0 / 1985.0 930 / 930
Intake:
Oral fluids 60 / 60 960 / 960
IV fluids (Total) 1995.0 / 1995.0
40 kcl in 270 nss 270.0 / 270.0
Lr 1,000 ml @ 75 mls/hr IV . 900 / 900
[id number] FABIAN Rx#:[id number]
IV piggybacks 100 / 100
Output:
Drain Output (Total) 170 / 170 30 / 30
Left Abdomen Bud-Bullard 170 / 170 30 / 30
Other:
Number of approximated MODERATE 4 2
amounts of urine
Number of approximated LARGE 1
amounts of urine
Number of unmeasured liquid
stools
Rectum 3
Vital Signs
Temp Pulse Resp BP Pulse Ox
98.2 F 93 16 125/67 94
10/23/23 08:21 10/23/23 08:21 10/23/23 08:21 10/23/23 08:21 10/23/23 08:21
Lab Results
10/23/23 07:37
10/23/23 07:37
Calcium 7.7 mg/dl (8.4-10.2) L 10/23/23 07:37
Phosphorus 3.9 mg/dl (2.5-4.5) 10/20/23 04:06
Magnesium 2.4 mg/dl (1.6-2.3) H 10/20/23 04:06
Total Bilirubin 0.5 mg/dl (0.2-1.3) 10/23/23 07:37
Direct Bilirubin 0.3 mg/dl (0.0-0.4) 10/19/23 07:27
AST 24 U/L (14-36) 10/23/23 07:37
ALT 26 U/L (0-35) 10/23/23 07:37
Alkaline Phosphatase 136 U/L (38-126) H 10/23/23 07:37
Total Protein 4.4 g/dl (6.3-8.2) L 10/23/23 07:37
Albumin 1.9 g/dl (3.5-5.0) L 10/23/23 07:37
Physical Exam
-
Gen: NAD
Abd: soft, aquacel OK, mild tenderness in LLQ, drain ss
[2023-10-23] MEDS: KCL 270 MEQ IV (10:08)
--- NOTE | 2023-10-23 10:19 | W.PN.ID1 ---
Date of Service
Date of Service: October 23, 2023
Today's Communication
DC Vanco. Continue cefepime/wbc.
Assessment / Plan
# Chronic diarrhea since 07/2023
# Descending colon and sigmoid colitis on CT
# s/p outpatient Colonoscopy 10/17/23 - awaiting report, biopsy result
# Post-colonoscopy rectal perforation
# leukocytosis - plateau'd
# Fever resolved
- C. diff ruled out.
C. diff x 2 here negative. Outpt 09/10/23 C. diff neg.
- 10/18 s/p emergent OR: colon healthy, +1mm perforation proximal rectum s/p repaired, minimal contamination
OR cx: GNR, Strep species
- DC Vancomycin
- Continue cefepime, metronidazole pending final cx.
- Follow wbc.
Chief Complaint
-: Other (Bowel perf)
Subjective / Review of Systems
Feels well.
Vital Signs / Physical Exam
Vital Signs
Vital Signs
Temp Pulse Resp BP Pulse Ox
98.2 F 93 16 125/67 94
10/23/23 08:21 10/23/23 08:21 10/23/23 08:21 10/23/23 08:21 10/23/23 08:21
Physical Exam
Constitutional: No Acute Distress and Comfortable
Pulmonary: Clear
Gastrointestinal: Soft, Non Tender and Non Distended
Extremities: Negative Edema
Objective Data
Lab Data
Lab Results
10/23/23 07:37
10/23/23 07:37
PT 18.1 Sec (11.4-14.6) H 10/19/23 21:21
PT Cancelled 10/19/23 21:21
INR 1.52 10/19/23 21:21
INR Cancelled 10/19/23 21:21
APTT 34.3 Sec (23.4-35.0) 10/19/23 21:21
APTT Cancelled 10/19/23 21:21
Estimated Creat Clear 73 ml/min 10/23/23 07:37
Lactic Acid 1.8 mmol/L (0.7-2.0) 10/19/23 14:49
Total Bilirubin 0.5 mg/dl (0.2-1.3) 10/23/23 07:37
AST 24 U/L (14-36) 10/23/23 07:37
ALT 26 U/L (0-35) 10/23/23 07:37
Alkaline Phosphatase 136 U/L (38-126) H 10/23/23 07:37
Most recent labs reviewed.
Micro Results:
10/19/23 00:16 Salmonella/Shigella Culture - Final
Feces/Stool No Salmonella, Shigella, Aeromonas or Plesiomonas species
isolated.
Campylobacter Culture - Final
No Campylobacter species isolated.
Shiga Toxin Test - Final
No E. coli Shiga Toxin 1 or 2 detected.
10/22/23 17:58 C. difficile GDH Antigen & Toxins - Final
Feces/Stool Negative for toxigenic C.difficile
10/19/23 19:07 Wound Culture - Preliminary
Abdomen Gram negative bacilli
Streptococcus species
Gram Stain - Preliminary
10/19/23 17:46 Blood Culture - Preliminary
Blood/Venous No Growth in 72 hours- Final report to follow
10/19/23 17:44 Blood Culture - Preliminary
Blood/Venous No Growth in 72 hours- Final report to follow
10/19/23 19:07 Anaerobic Culture - Preliminary
Peritoneal Fluid Culture pending. Anaerobic cultures are examined after 3
days incubation. Additional information to follow.
10/19/23 00:16 C. difficile GDH Antigen & Toxins - Final
Feces/Stool Negative for toxigenic C.difficile
10/19/23 AXR: Nonspecific bowel gas appearance with bowel wall thickening and distended bowel wall thickening in the distended transverse colon suggesting colitis and gas-filled loops of small bowel measuring up to 3 cm suggesting ileus
10/19/23 CT a/p: There is moderate-large volume free intraperitoneal air suggesting the presence of perforated abdominal viscus. There is colitis involving the descending and sigmoid colon. There is ileocolic anastomosis in the right mid abdomen.
[2023-10-23] MEDS: OMNIPAQUE 50 ML PO (11:04)
[2023-10-23 11:33] LABS: % Basophils 0.3 % (0-2); % Eosinophils 0.8 % (0-6); % Immature Granulocytes 6.8 % (0-0.5); % Lymphocytes 4.9 % (20.5-51.1); % Monocytes 3.2 % (1.7-9.3); Absolute Basophils 0.1 10^3/uL (0-0.2); Absolute Eosinophils 0.2 10^3/uL (0-0.7); Absolute Immature Granulocytes 1.6 10^3/uL (0-0.05); Absolute Lymphocytes 1.1 10^3/uL (1.2-3.4); Absolute Monocytes 0.8 10^3/uL (0.1-0.6); Absolute Neutrophils 19.6 10^3/uL (1.4-6.5); Nucleated Red Blood Cells % 0.2 %
[2023-10-23 11:37] VITALS: BP 118/67
--- NOTE | 2023-10-23 14:48 | CM ---
sp expl lap/repair of rectal perforation pod#4,iv cefepime,iv flagyl,cont lakeisha drain,on low residue diet.Plan:home with no needs.
[2023-10-23 15:20] VITALS: BP 116/67
--- NOTE | 2023-10-23 16:54 | W.PN.SURGUPD ---
Surgical Update
Surgical Update
pt seen in follow up. family at bedside (sister and daughter)
just ate some lunch.
denies nausea, no vomiting. not much appetite but enrique PO
+fl and loose BM today
adamantly denies no new or worsening abdominal pain, on questioning continues to deny even any significant abdominal pain
AF, low grade tachy, BP normal
ABD soft, ND, moderate incisional pain but no R/R/G on palpation.
dressing removed and incision clean and intact, no erythema, no purulence - okay to leave open to air
KELLY bulb a bit mucopurulent but not bilious/enteric (securing stitch to skin was broken but able to tie again to secure) pinned KELLY bulb to gown.
CT imaging personally reviewed as well as rads report. small foci of scattered extraluminal air but within limits of expectation for recent laparotomy. focal area of SB thickening adjacent to pelvis with some free fluid and foci of extraluminal
air but no organized abscess. oral contrast opacifies this area and does not extravasate. near drain but drain does not course immediate through this area. no pelvic fluid collections, no oral contrast extravasation elsewhere. no signs of ileus
or obstruction.
reviewed with pt and her family. leukocytosis may be reactive or infectious but no intra-abominal abscess or drainable post op fluid collections. clinically stable without peritonitis on exam, no enteric contents in KELLY and enrique LR diet fairly well.
other than leukocytosis clinically does not appear to have SB injury.
continue close monitoring
okay to continue LR diet
repeat CBC tomorrow AM
maintain KELLY
currently on broad abx coverage with guidance from ID
if fever - sharp culture
if persistent WBC tomorrow and abd exam unchanged consider further work up (CXR/UA/Bld cx/duplex scan for LE dvt?)
updated primary surgeon as well
[2023-10-23 19:00] VITALS: BP 108/68
[2023-10-23] MEDS: DESENEX/MITRAZOL/ZEASORB 1 APPLIC TOPICAL (19:32)
[2023-10-23 23:00] VITALS: BP 120/64
[2023-10-24] MEDS: FLAGYL 500 MG 100 IV (00:59)
[2023-10-24] MEDS: HEPARIN 5000 UNITS SC ×3 (02:00→18:17)
[2023-10-24] MEDS: STERILE WATER FOR INJECTION 10 ML IV (02:00)
[2023-10-24] MEDS: MAXIPIME 2000 MG IV (02:00)
[2023-10-24 03:45] VITALS: BP 119/63
[2023-10-24 07:05] VITALS: BP 103/66
--- NOTE | 2023-10-24 07:45 | W.PN.GS2 ---
Addendum entered and electronically signed by Jean Marie Bernabe MD 10/24/23 10:12:
I saw and examined the patient.
The resident's note was reviewed and I agree with the note.
Comment:
Pt with no complaints. Reports clinical improvement on every parameter. Her diarrhea is improved. Her pain is improved. She feels well. She is tolerating LRD. She denies f/c, denies urinary symptoms, denies extremity pain/swelling. Her exam is
essentially benign, with minimal ttp, incision cdi, and drain with totally clear pristine serous fluid.
Until now no records from her c-scope that occurred 2 days prior to admission are available. I reached out to Dr Luis Nix MD of [facility] in [place], and he provided an update and will fax records shortly. He reports pseudomembranes
on the scope, he did not advance scope beyond rectum due to severe colitis. He took biopsies, results are pending.
Plan is to treat empirically for c dif. Will investigate other potential etiologies for leukocytosis including pulmonary, vascular and urinary for completeness.
Original Note:
Today's Communication / Plan
-
Monitor patient labs and if leukocytosis persists, patient will require further work up
Assessment / Plan
-
This is a 63-year-old female who presents with perforated rectum in the setting of a recent colonoscopy. POD#5 status post exploratory laparotomy, primary repair of rectal perforation.
Plan clinically stable, afebrile with mild tachycardia. Bowel movements regular and started to bulk from being mostly liquid before
-- Patient has been tolerating low residue diet well
-- Patient reports little to no abdominal pain, no issues after having dressing removed yesterday
-- Continue KELLY to bulb suction
-- Continuing broad based antibiotics according to ID recommendations- input appreciated -> continue cefepime and metronidazole while awaiting culture results
-- Monitoring WBC count, afebrile at the moment, CT A/P with PO and IV contrast showed no organized abscess, pelvic fluid collections, or oral contrast extravasation nor any signs of ileus or obstruction.
-- Awaiting CBC for today -> Continuing Leukocytosis will require further workup -> CXR, UA, Bld cx, duplex scan
-- General surgery will continue to follow
Subjective Data
-
Date of Service: October 24, 2023
Patient has been feeling well, and complained of no adverse events overnight. Patient states that she likes having support from her walker while ambulating and has been able to keep moving around throughout the day. She has no complaints at this
time and is looking forward to going home soon.
Objective Data
-
Intake and Output
10/23/23 10/24/23 10/25/23
06:59 06:59 06:59
Intake Total 960 / 960
Output Total 30 30 180 / 180
Balance 930 / 930 -180 / -180
Intake:
Oral fluids 960 / 960
Output:
Drain Output (Total) 180 / 180
Left Abdomen Bud-Bullard 180 / 180
Other:
Number of approximated MODERATE 2
amounts of urine
Number of approximated LARGE 1
amounts of urine
Number of unmeasured liquid
stools
Rectum 3
Vital Signs
Temp Pulse Resp BP Pulse Ox
98.1 F 91 18 119/63 97
10/24/23 03:45 10/24/23 03:45 10/24/23 03:45 10/24/23 03:45 10/24/23 03:45
Calcium 7.7 mg/dl (8.4-10.2) L 10/23/23 07:37
Phosphorus 3.9 mg/dl (2.5-4.5) 10/20/23 04:06
Magnesium 2.4 mg/dl (1.6-2.3) H 10/20/23 04:06
Total Bilirubin 0.5 mg/dl (0.2-1.3) 10/23/23 07:37
Direct Bilirubin 0.3 mg/dl (0.0-0.4) 10/19/23 07:27
AST 24 U/L (14-36) 10/23/23 07:37
ALT 26 U/L (0-35) 10/23/23 07:37
Alkaline Phosphatase 136 U/L (38-126) H 10/23/23 07:37
Total Protein 4.4 g/dl (6.3-8.2) L 10/23/23 07:37
Albumin 1.9 g/dl (3.5-5.0) L 10/23/23 07:37
Physical Exam
-
Gen: NAD
Abd: soft, roslyn in midline- no erythema noted around roslyn, non tender abdomen, non-distended, drain ss
[2023-10-24 08:29] LABS: Hematocrit 25.7 % (37.0-47.0); Mean Corp Hgb Conc. 31.1 g/dL (33.0-37.0); Mean Corpuscular Hgb 18.3 pg (27.0-31.0); Mean Corpuscular Volume 58.8 fL (81.0-99.0); Mean Platelet Volume 10.7 fL (7.4-10.4); Platelet Count 442 10^3/uL (130-400); Red Blood Cell Count 4.37 10^6/uL (4.20-5.40); Red Cell Dist. Width 15.7 % (11.5-14.5); White Blood Cell Count 32.7 10^3/uL (4.8-10.8)
[2023-10-24 08:51] LABS: ALT (SGPT) 22 U/L (0-35); AST (SGOT) 20 U/L (14-36); Alkaline Phosphatase 150 U/L (38-126); Blood Urea Nitrogen 22 mg/dl (7-17); Calcium 7.7 mg/dl (8.4-10.2); Carbon Dioxide 22 mmol/L (22-30); Chloride 105 mmol/L (98-107); Estimated Creatinine Clearance 73 ml/min; Glucose 111 mg/dl (70-99); Potassium 3.5 mmol/L (3.5-5.1); Sodium 137 mmol/L (135-145); Total Bilirubin 0.6 mg/dl (0.2-1.3); Total Protein 4.6 g/dl (6.3-8.2); eGFR > 60.00
[2023-10-24] MEDS: ROCEPHIN 2000 MG IV (08:56)
[2023-10-24] MEDS: STERILE WATER FOR INJECTION 20 ML IV (08:57)
[2023-10-24] MEDS: DESENEX/MITRAZOL/ZEASORB TOPICAL (09:09)
[2023-10-24 09:13] LABS: % Basophils 0.2 % (0-2); % Eosinophils 0.2 % (0-6); % Immature Granulocytes 5.1 % (0-0.5); % Lymphocytes 3.6 % (20.5-51.1); % Monocytes 3.1 % (1.7-9.3); % Neutrophils 87.8 % (42.2-75.2); Absolute Basophils 0.1 10^3/uL (0-0.2); Absolute Eosinophils 0.1 10^3/uL (0-0.7); Absolute Immature Granulocytes 1.7 10^3/uL (0-0.05); Absolute Lymphocytes 1.2 10^3/uL (1.2-3.4); Absolute Neutrophils 28.7 10^3/uL (1.4-6.5); Nucleated Red Blood Cells % 0.1 %
[2023-10-24] MEDS: FLAGYL 500 MG IV (09:22)
--- NOTE | 2023-10-24 10:35 | W.PN.ID1 ---
Addendum entered and electronically signed by Maria Elena Villavicencio MD 10/24/23 10:56:
Of note 10/23/23 CT a/p: Postoperative changes with overall decreased pneumoperitoneum however there is a new focus of bowel wall thickening with surrounding edema and focal pneumoperitoneum along a loop of small bowel within the lower midline
abdomen, likely jejunum, suspicious for focal bowel injury. Per surgery, pt wo peritoneal signs, no abscess, no contrast extravasation; to monitor closely.
Original Note:
Date of Service
Date of Service: October 24, 2023
Today's Communication
See below.
Assessment / Plan
# Leukocytosis trending up
# Chronic diarrhea since 07/2023 - stool cx's neg, C. diff neg
# Descending colon and sigmoid colitis on CT
# Rectal perforation post outpatient Colonoscopy on 10/17/23
- 10/18 s/p emergent OR: colon healthy, +1mm perforation proximal rectum s/p repaired, minimal contamination
OR cx E. coli, Strep species
Narrow cefepime/metronidazole to ceftriaxone/po metronidazole.
- Worsening leukocytosis - unclear at this time.
Dr. Bernabe spoke to outside GI who reports 'pseudomembranous colitis'. Biopsy pending.
However, pt with multiple negative C. diff 09/10/23, 10/19/23, 10/22/23.
Also diarrhea improving without tx.
Pt looks well, non-toxic appearing without specific complaints
Hospitalist started empiric fidaxomicin today.
Recheck WBC today.
Repeat blood cx's.
UA reflex Ucx pending.
Venous US
Follow WBC.
Chief Complaint
-: Leukocytosis and Other (Bowel perf)
Subjective / Review of Systems
Feels well. Diarrhea improving. Tolerating diet. No limb swelling.
Review of Systems: No Fever, No Chills, No Pharyngitis, No Cough, No Abdominal Pain, No Nausea, No Dysuria and No Skin Rash
Vital Signs / Physical Exam
Vital Signs
Vital Signs
Temp Pulse Resp BP Pulse Ox
98.1 F 84 16 103/66 98
10/24/23 07:05 10/24/23 07:05 10/24/23 07:05 10/24/23 07:05 10/24/23 07:05
Physical Exam
Constitutional: No Acute Distress, Comfortable and Non-toxic
Eyes: No Conjunctival Hemorrhage and Sclera Anicteric
Cardiovascular: Regular Rate and S1/S2
Pulmonary: Clear, Symmetric and Non Labored; Negative Wheezes, Rales, Rhonchi or Coarse
Gastrointestinal: Soft, Non Tender, Non Distended and Normal Bowel Sounds
Genito-Urinary: Negative CVA Tenderness
Extremities: Edema (1+ BLE)
Musculoskeletal: Negative Joint Swelling, Joint Effusion or Spinal Tenderness
Skin: Negative Rash
Neurological: AO x 3
Objective Data
Lab Data
Lab Results
10/24/23 07:21
PT 18.1 Sec (11.4-14.6) H 10/19/23 21:21
PT Cancelled 10/19/23 21:21
INR 1.52 10/19/23 21:21
INR Cancelled 10/19/23 21:21
APTT 34.3 Sec (23.4-35.0) 10/19/23 21:21
APTT Cancelled 10/19/23 21:21
Estimated Creat Clear 73 ml/min 10/24/23 07:21
Lactic Acid 1.8 mmol/L (0.7-2.0) 10/19/23 14:49
Total Bilirubin 0.6 mg/dl (0.2-1.3) 10/24/23 07:21
AST 20 U/L (14-36) 10/24/23 07:21
ALT 22 U/L (0-35) 10/24/23 07:21
Alkaline Phosphatase 150 U/L (38-126) H 10/24/23 07:21
Most recent labs reviewed.
Micro Results:
10/24/23 09:26 Blood Culture - Pending
Blood/Venous
10/24/23 08:50 Blood Culture - Pending
Blood/Venous
10/19/23 17:44 Blood Culture - Preliminary
Blood/Venous No Growth in 4 days- Final report to follow
10/19/23 17:46 Blood Culture - Preliminary
Blood/Venous No Growth in 4 days- Final report to follow
10/19/23 19:07 Anaerobic Culture - Preliminary
Peritoneal Fluid Culture pending. Anaerobic cultures are examined after 3
days incubation. Additional information to follow.
10/19/23 19:07 Wound Culture - Preliminary
Abdomen Escherichia coli
Streptococcus species
Gram Stain - Preliminary
10/19/23 00:16 Salmonella/Shigella Culture - Final
Feces/Stool No Salmonella, Shigella, Aeromonas or Plesiomonas species
isolated.
Campylobacter Culture - Final
No Campylobacter species isolated.
Shiga Toxin Test - Final
No E. coli Shiga Toxin 1 or 2 detected.
10/22/23 17:58 C. difficile GDH Antigen & Toxins - Final
Feces/Stool Negative for toxigenic C.difficile
10/19/23 00:16 C. difficile GDH Antigen & Toxins - Final
Feces/Stool Negative for toxigenic C.difficile
10/19/23 AXR: Nonspecific bowel gas appearance with bowel wall thickening and distended bowel wall thickening in the distended transverse colon suggesting colitis and gas-filled loops of small bowel measuring up to 3 cm suggesting ileus
10/19/23 CT a/p: There is moderate-large volume free intraperitoneal air suggesting the presence of perforated abdominal viscus. There is colitis involving the descending and sigmoid colon. There is ileocolic anastomosis in the right mid abdomen.
Care Review
Plan reviewed with: Physician (Dr. Bernabe. Dr. Fernández)
[2023-10-24 11:00] VITALS: BP 117/65
[2023-10-24] MEDS: DIFICID 200 MG PO ×2 (11:24→20:37)
--- NOTE | 2023-10-24 11:28 | VNURNOTE ---
Home Health Liaison met with patient and spouse at bedside to discuss [facility] nurse visits, schedule and homebound status. Patient is agreeable and understands that visits at home will be 1-3 x per week to assess and teach medical management. [facility]
brochure provided with contact information. Patient is aware that [facility] will contact them for start of care in 1-2 days after discharge from . Will watch if home w/drain.
[facility] referral completed in [facility].
--- NOTE | 2023-10-24 11:41 | PTCARENOTE ---
Patient put on Contact Precautions as per hospitalist verbal order .
--- NOTE | 2023-10-24 12:29 | CM ---
Chart reviewed and patient to return to home with spouse when stable, plan will be to home with visiting nurses, visiting nurse options were reviewed and they are agreeable to [facility], [facility] liaison contacted.
Plan: Home with [facility].
[2023-10-24] MEDS: FLAGYL 500 MG PO ×2 (14:00→22:03)
--- NOTE | 2023-10-24 14:33 | W.PN.HOSP.TC ---
Today's Communication/Plan
-
started difficid. Patient in spite of high WBC is mobile, without much abd pain and afebrile.
Assessment / Plan
Assessment / Plan
63yo F with PMHx of HTN, was having loose watery non-bloody stools for 2 mo, found c.diff during colonoscopy on 10/17/23, came back for worsening weakness, found worsening abdominal pain and later CT showed bowel perf. S/P laparotomy on 10/19/23 with
small rectal defect repaired, no purulence seen, colon viable and visually healthy.
As per results of colonoscopy - pseudomembranes seen, so cont mgmt for c.diff
A/P:
#Bowel perf
s/p laparotomy by GenS[facility]
Abx as per ID, pending periOP Cx: GNB and strep
Advance diet as per GenSx
#Leukocytosis 2/2 C.Diff colitis
Dificid
worsening since Sx
Repeat imaging on 10/23/23 - postOP changes with no abscess.
#Hyponatremia
#Hypokalemia
2/2 GI losses
replete and follow
#Microcytic anemia with postOP anemia
Hem consult: presumed thalassemia
Serial Hgb and transfuse to keep >7.0
#Transaminitis - resolved
hepatitis panel
follow LFT
#Thrombocytosis
reactive
follow CBC
#Essential HTN
hold HCTZ due to concern for GI fluid losses
DVT ppx hep
FUll code
I have spent at least 57mon reviewing chart, test results and direct patient care
Anticipated Discharge: > 48 hours
Subjective/Interval History
-
Date of Service: October 24, 2023
Objective Data
-
Labs:
Laboratory Results
10/24/23 10/24/23
07:21 14:05
WBC 32.7 H Pending
Hgb 8.0 L
Hct 25.7 L
Plt Count 442 H
Sodium 137
Potassium 3.5
Chloride 105
Carbon Dioxide 22
BUN 22 H
Creatinine 0.8
Glucose 111 H
Calcium 7.7 L
Total Bilirubin 0.6
AST 20
ALT 22
Alkaline Phosphatase 150 H
Vital Signs:
Vital Signs
Temp Pulse Resp BP Pulse Ox
98.2 F 91 16 117/65 98
10/24/23 11:00 10/24/23 11:00 10/24/23 11:00 10/24/23 11:00 10/24/23 11:00
I&O
10/23/23 10/24/23 10/25/23
06:59 06:59 06:59
Intake Total 960 / 960
Output Total 30 / 30 180 / 180
Balance 930 / 930 -180 / -180
Review of Systems
-
History Source: Patient
All other systems: Reviewed and negative
Physical Exam
-
General: Comfortable
HEENT: Normocephalic
Respiratory: Clear to Auscultation
Cardiac: Regular Rhythm
GI: Soft, Nontender and Nondistended
[2023-10-24 14:40] LABS: % Basophils 0.2 % (0-2); % Eosinophils 0.4 % (0-6); % Immature Granulocytes 4.5 % (0-0.5); % Lymphocytes 4.3 % (20.5-51.1); % Monocytes 3.8 % (1.7-9.3); % Neutrophils 86.8 % (42.2-75.2); Absolute Basophils 0.1 10^3/uL (0-0.2); Absolute Eosinophils 0.1 10^3/uL (0-0.7); Absolute Immature Granulocytes 1.5 10^3/uL (0-0.05); Absolute Lymphocytes 1.4 10^3/uL (1.2-3.4); Absolute Monocytes 1.3 10^3/uL (0.1-0.6); White Blood Cell Count 33.4 10^3/uL (4.8-10.8)
[2023-10-24 14:41] LABS: Anisocytosis 1+; Hypochromasia 3+; Normal RBC Morphology No; Polychromasia 2+; Target Cells 2+
[2023-10-24 14:42] LABS: Acanthocytes 1+; Ovalocytes 1+; Schistocytes RARE
[2023-10-24 15:05] VITALS: BP 125/69
--- NOTE | 2023-10-24 15:34 | PN.CDI ---
Addendum entered and electronically signed by Fernando Rodriguez MD 10/24/23 15:55:
on admission
Original Note:
CDI
- -
CDI:
Physician Documentation Request
Admit Date: 10/19/23 01:03
Dear Doctor Jennifer,
Clinical Indicators:
Patient admitted with bowel perforation; s/p exploratory laparotomy, primary repair of rectal perforation 10/19/23.
10/18 H & P, '...4 weeks of non bloody persistent diarrhea after taking a course of antibiotics...tested positive for C. difficile during the colonoscopy.'
10/18 PN, 'C.diff colitis Vanco 125mg q6h'
10/20 PN, 'C.diff colitis ruled out neg c.diff test'
10/23 PN, 'Leukocytosis 2/2 C.Diff colitis Dificid worsening since Sx'
After study, please clarify the following:
C diff colitis was present on admission
C diff colitis was not present on admission
Other, please specify
Use of terms such as suspected, likely, concern for, or probable (associated with a specific diagnosis that is being evaluated, monitored, or treated as if it exists) are acceptable and can be coded in the inpatient setting, when documented at the
time of discharge.
Thank you,
Mayra Beal RN BSN
CDI Specialist
available via tiger text
Please use your independent medical judgment in providing your response.
[2023-10-24 19:42] VITALS: BP 149/56
[2023-10-24 20:24] LABS: Urine Albumin 2+ (Neg - Trace); Urine Bilirubin 1+ (Negative); Urine Character Clear (Clear); Urine Color Amber; Urine Glucose Negative (Negative); Urine Ketone Trace (Negative); Urine Leukocyte Trace (Negative); Urine Nitrite Positive (Negative); Urine Occult Blood 3+ (Negative); Urine Urobilinogen Negative (Neg - 1+)
[2023-10-24] MEDS: DILAUDID 0.5 MG IV (20:38)
[2023-10-24] MEDS: DESENEX/MITRAZOL/ZEASORB 1 APPLIC TOPICAL (20:38)
[2023-10-24 21:00] LABS: Urine Mucus Few; Urine Squamous Cell >30 /LPF (Few)
[2023-10-24 21:02] LABS: Urine Yeast Few (Negative)
[2023-10-24 21:03] LABS: Urine Bacteria Few (Negative); Urine Red Blood Cell 0-2 /HPF (0-2)
[2023-10-24 23:33] VITALS: BP 137/69
[2023-10-25] MEDS: HEPARIN 5000 UNITS SC ×3 (02:12→17:13)
[2023-10-25 03:15] VITALS: BP 136/67
[2023-10-25] MEDS: FLAGYL 500 MG PO ×3 (05:36→21:00)
[2023-10-25 06:00] VITALS: BMI 32.0
[2023-10-25 07:05] VITALS: BP 108/54
[2023-10-25] MEDS: DIFICID 200 MG PO ×2 (07:47→20:55)
[2023-10-25] MEDS: DESENEX/MITRAZOL/ZEASORB 1 APPLIC TOPICAL ×2 (07:49→20:55)
[2023-10-25 07:58] LABS: ALT (SGPT) 20 U/L (0-35); AST (SGOT) 21 U/L (14-36); Albumin 2.2 g/dl (3.5-5.0); Alkaline Phosphatase 169 U/L (38-126); Blood Urea Nitrogen 20 mg/dl (7-17); Calcium 8.2 mg/dl (8.4-10.2); Carbon Dioxide 22 mmol/L (22-30); Chloride 104 mmol/L (98-107); Estimated Creatinine Clearance 75 ml/min; Glucose 111 mg/dl (70-99); Potassium 3.5 mmol/L (3.5-5.1); Sodium 139 mmol/L (135-145); Total Bilirubin 0.5 mg/dl (0.2-1.3); eGFR > 60.00
[2023-10-25 08:06] LABS: Hematocrit 25.9 % (37.0-47.0); Hemoglobin 8.2 g/dL (12.0-16.0); Mean Corp Hgb Conc. 31.7 g/dL (33.0-37.0); Mean Corpuscular Hgb 18.2 pg (27.0-31.0); Mean Corpuscular Volume 57.6 fL (81.0-99.0); Mean Platelet Volume 10.8 fL (7.4-10.4); Platelet Count 473 10^3/uL (130-400); Red Cell Dist. Width 15.9 % (11.5-14.5); White Blood Cell Count 31.7 10^3/uL (4.8-10.8)
[2023-10-25 08:54] LABS: % Basophils 0.3 % (0-2); % Immature Granulocytes 4.3 % (0-0.5); % Lymphocytes 4.8 % (20.5-51.1); % Monocytes 4.1 % (1.7-9.3); % Neutrophils 85.5 % (42.2-75.2); Absolute Basophils 0.1 10^3/uL (0-0.2); Absolute Eosinophils 0.3 10^3/uL (0-0.7); Absolute Immature Granulocytes 1.4 10^3/uL (0-0.05); Absolute Lymphocytes 1.5 10^3/uL (1.2-3.4); Absolute Monocytes 1.3 10^3/uL (0.1-0.6); Absolute Neutrophils 27.1 10^3/uL (1.4-6.5); Nucleated Red Blood Cells % 0.1 %
--- NOTE | 2023-10-25 09:54 | W.PN.HOSP.TC ---
Today's Communication/Plan
-
WBC leveled - cont dificid
send KELLY drain fluid for culture
Assessment / Plan
Assessment / Plan
63yo F with PMHx of HTN, was having loose watery non-bloody stools for 2 mo, found c.diff during colonoscopy on 10/17/23, came back for worsening weakness, found worsening abdominal pain and later CT showed bowel perf. S/P laparotomy on 10/19/23 with
small rectal defect repaired, no purulence seen, colon viable and visually healthy.
As per results of colonoscopy - pseudomembranes seen, so cont mgmt for c.diff
A/P:
#Bowel perf
s/p laparotomy by GenSx
Abx as per ID, pending periOP Cx: GNB and strep
Advance diet as per GenSx
#Leukocytosis 2/2 C.Diff colitis vs another source
Dificid
worsening since Sx
Repeat imaging on 10/23/23 - postOP changes with no abscess.
Repeated Bcx NTD
UA with nitrites ands bacteria, however no pyuria and no urinary symptoms as per patient. Ucx pending
XR without overt pneumonia
LE US neg for DVT
Cx from KELLY drain ordered
#Hyponatremia
#Hypokalemia
2/2 GI losses
replete and follow
#Microcytic anemia with postOP anemia
Hem consult: presumed thalassemia
Serial Hgb and transfuse to keep >7.0
#Transaminitis - resolved
hepatitis panel
follow LFT
#Thrombocytosis
reactive
follow CBC
#Essential HTN
hold HCTZ due to concern for GI fluid losses
DVT ppx hep
FUll code
I have spent at least 57mon reviewing chart, test results and direct patient care
Anticipated Discharge: 24 - 48 hours
Subjective/Interval History
-
Date of Service: October 25, 2023
Objective Data
-
Labs:
Laboratory Results
10/25/23
06:29
WBC 31.7 H
Hgb 8.2 L
Hct 25.9 L
Plt Count 473 H
Sodium 139
Potassium 3.5
Chloride 104
Carbon Dioxide 22
BUN 20 H
Creatinine 0.8
Glucose 111 H
Calcium 8.2 L
Total Bilirubin 0.5
AST 21
ALT 20
Alkaline Phosphatase 169 H
Vital Signs:
Vital Signs
Temp Pulse Resp BP Pulse Ox
98.3 F 88 18 108/54 98
10/25/23 07:05 10/25/23 07:05 10/25/23 07:05 10/25/23 07:05 10/25/23 07:05
I&O
10/24/23 10/25/23 10/26/23
06:59 06:59 06:59
Intake Total 1440 / 1440
Output Total 180 / 180
Balance -180 / -180 1415 / 1415
Review of Systems
-
History Source: Patient
All other systems: Reviewed and negative
Physical Exam
-
General: No Apparent Distress
HEENT: Normocephalic and Atraumatic
Respiratory: Clear to Auscultation
Cardiac: Regular Rhythm
GI: Soft, Nontender, Nondistended and Other (KELLY drain with mildly cloudy fluid)
Genito-urinary: No Costovertebral Tender
Musculoskeletal: No Clubbing, No Cyanosis and No Edema
Skin: Warm
Neuro: Awake, Alert, Oriented and AO x 3
Psych: Calm
[2023-10-25] MEDS: STERILE WATER FOR INJECTION 20 ML IV (10:09)
[2023-10-25] MEDS: ROCEPHIN 2000 MG IV (10:10)
[2023-10-25 11:03] VITALS: BP 108/57
--- NOTE | 2023-10-25 12:36 | W.PN.GS2 ---
Addendum entered and electronically signed by Mickey Blakely MD 10/25/23 19:18:
I saw and examined the patient.
The CATSHOVEL DRIVER's note was reviewed and I agree with the note.
Comment:
POD 6 ex lap, primary repair of rectal perforation; complicated by significant leukocytosis; repeat CT with expected postoperative changes, UA concerning for UTI, pending urine culture
Tolerating a diet without N/V, denies abdominal pain; still having liquid BMs
AFVSS, ABD soft, nondistended, appropriately tender near midline incision; incision well-approximated with roslyn, no erythema or purulent drainage
Significant leukocytosis seems unrelated to surgery (i.e. no concern for deep space infection or failure of repair)
Workup so far unrevealing except suspicious UA, but denies urinary symptoms; follow-up urine culture
Continue IV antibiotics for intraop cultures and dificid for pseudomembranes seen during cscope (cdiff test negative); appreciate ID
Continue low residue
Continue pain control
Original Note:
Today's Communication / Plan
-
C/W ABX
C/W diet
Assessment / Plan
-
This is a 63-year-old female who presents with perforated rectum in the setting of a recent colonoscopy which showed severe pseudomembranous colitis noted and scope therefore not advanced past rectum/rectal biopsy taken. c-diff stool studies however
negative.
POD#6 status post exploratory laparotomy, primary repair of rectal perforation : of note near the area of perforation there were a few sb loops with slight staining/rind
Repeat CT on 10/23/23 with expected post operative changes some small bowel wall thickening with surrounding edema consistent with findings in OR of localized irritation near area of perforation, no abscess
Significant leukocytosis persists with slight downtrend today
Abdominal exam benign, tolerating diet: progressing well from surgical standpoint
Abnormal UA with Cx pending
OR wound cultures with ecoli/strep
-- C/W LRD
-- Continue KELLY to bulb suction
-- ABX as per ID
-- On Dificid for c-diff ppx given colonoscopy findings/diarrhea
-- Trend labs/exams
Subjective Data
-
Date of Service: October 25, 2023
Patient seen and examined at bedside with Dr. Blakely. present, questions addressed. Denies abdominal pain. Denies n/v. Passing flatus. Still with some diarrhea although she notes it is not as severe as before and slowing down significantly.
Denies voiding difficulty or dysuria.
Objective Data
-
Intake and Output
10/24/23 10/25/23 10/26/23
06:59 06:59 06:59
Intake Total 1440 / 1440
Output Total 180 / 180
Balance -180 / -180 1415 / 1415
Intake:
Oral fluids 1440 / 1440
Output:
Drain Output (Total) 180 / 180
Left Abdomen Bud-Bullard 180 / 180
Other:
Number of approximated MODERATE 5
amounts of urine
Number of approximated LARGE 1 4
amounts of urine
Vital Signs
Temp Pulse Resp BP Pulse Ox
98.3 F 86 18 108/57 98
10/25/23 11:03 10/25/23 11:03 10/25/23 11:03 10/25/23 11:03 10/25/23 11:03
Lab Results
10/25/23 06:29
10/25/23 06:29
Calcium 8.2 mg/dl (8.4-10.2) L 10/25/23 06:29
Phosphorus 3.9 mg/dl (2.5-4.5) 10/20/23 04:06
Magnesium 2.4 mg/dl (1.6-2.3) H 10/20/23 04:06
Total Bilirubin 0.5 mg/dl (0.2-1.3) 10/25/23 06:29
Direct Bilirubin 0.3 mg/dl (0.0-0.4) 10/19/23 07:27
AST 21 U/L (14-36) 10/25/23 06:29
ALT 20 U/L (0-35) 10/25/23 06:29
Alkaline Phosphatase 169 U/L (38-126) H 10/25/23 06:
Total Protein 5.0 g/dl (6.3-8.2) L 10/25/23 06:29
Albumin 2.2 g/dl (3.5-5.0) L 10/25/23 06:29
Physical Exam
-
Gen: NAD
Abd: soft, midline incision with intact roslyn- no erythema or drainage, non tender abdomen, non-distended, drain ss
[2023-10-25 15:33] VITALS: BP 123/59
[2023-10-25 19:00] VITALS: BP 112/65
[2023-10-25] MEDS: MELATONIN 5 MG PO (21:02)
[2023-10-25 23:00] VITALS: BP 108/63
[2023-10-26] MEDS: HEPARIN 5000 UNITS SC ×3 (01:28→18:14)
[2023-10-26 04:13] VITALS: BMI 32.4
[2023-10-26] MEDS: FLAGYL 500 MG PO ×3 (05:10→21:08)
[2023-10-26 07:12] VITALS: BP 111/57
[2023-10-26] MEDS: DIFICID 200 MG PO ×2 (07:29→19:56)
[2023-10-26] MEDS: DESENEX/MITRAZOL/ZEASORB 1 APPLIC TOPICAL ×2 (07:30→19:56)
[2023-10-26 08:41] LABS: % Basophils 0.3 % (0-2); % Eosinophils 1.4 % (0-6); % Immature Granulocytes 4.8 % (0-0.5); % Monocytes 6.1 % (1.7-9.3); % Neutrophils 80.4 % (42.2-75.2); Absolute Basophils 0.1 10^3/uL (0-0.2); Absolute Eosinophils 0.3 10^3/uL (0-0.7); Absolute Immature Granulocytes 0.9 10^3/uL (0-0.05); Absolute Lymphocytes 1.3 10^3/uL (1.2-3.4); Absolute Monocytes 1.2 10^3/uL (0.1-0.6); Absolute Neutrophils 15.3 10^3/uL (1.4-6.5); Hemoglobin 7.8 g/dL (12.0-16.0); Mean Corp Hgb Conc. 32.5 g/dL (33.0-37.0); Mean Corpuscular Hgb 19.1 pg (27.0-31.0); Mean Corpuscular Volume 58.7 fL (81.0-99.0); Mean Platelet Volume 10.9 fL (7.4-10.4); Nucleated Red Blood Cells % 0.2 %; Platelet Count 426 10^3/uL (130-400); Red Blood Cell Count 4.09 10^6/uL (4.20-5.40); Red Cell Dist. Width 15.7 % (11.5-14.5)
[2023-10-26 09:06] LABS: ALT (SGPT) 18 U/L (0-35); AST (SGOT) 23 U/L (14-36); Albumin 2.2 g/dl (3.5-5.0); Alkaline Phosphatase 134 U/L (38-126); Blood Urea Nitrogen 18 mg/dl (7-17); Carbon Dioxide 24 mmol/L (22-30); Chloride 102 mmol/L (98-107); Estimated Creatinine Clearance 86 ml/min; Glucose 102 mg/dl (70-99); Potassium 3.4 mmol/L (3.5-5.1); Sodium 137 mmol/L (135-145); Total Bilirubin 0.5 mg/dl (0.2-1.3); Total Protein 4.9 g/dl (6.3-8.2); eGFR > 60.00
--- NOTE | 2023-10-26 09:14 | W.PN.GS2 ---
Addendum entered and electronically signed by Mickey Blakely MD 10/26/23 17:32:
Tolerating a diet, pain controlled, having bowel function
WBC 19
Continue low residue
Continue antibiotics, appreciate ID
Original Note:
Today's Communication / Plan
-
Continue abx and LRD
Trend labs
Assessment / Plan
-
This is a 63-year-old female who presents with perforated rectum in the setting of a recent colonoscopy which showed severe pseudomembranous colitis noted and scope therefore not advanced past rectum/rectal biopsy taken. c-diff stool studies however
negative.
POD#7 status post exploratory laparotomy, primary repair of rectal perforation : of note near the area of perforation there were a few sb loops with slight staining/rind
Repeat CT on 10/23/23 with expected post operative changes some small bowel wall thickening with surrounding edema consistent with findings in OR of localized irritation near area of perforation, no abscess
Leukocytosis present but trending down 31.7 to 19
Diarrhea improved, tolerating diet: progressing well from surgical standpoint
Abnormal UA with Cx pending
OR wound cultures with ecoli/veillonella and peptostrep
-- C/W LRD
-- Continue KELLY to bulb suction, will likely be able to remove prior to d/c
-- ABX as per ID
-- On Dificid for c-diff ppx given colonoscopy findings/diarrhea with noted improvement in diarrhea
-- Trend labs/exams
Subjective Data
-
Date of Service: October 26, 2023
Patient seen and examined at bedside. OOB to chair. Denies pain. Tolerating diet. Denies n/v. Passing flatus. Notes diarrhea has significantly slowed down.
Objective Data
-
Intake and Output
10/25/23 10/26/23 10/27/23
06:59 06:59 06:59
Intake Total 1440 / 1440 960 / 960
Output Total
Balance 1415 / 1415 940 / 940
Intake:
Oral fluids 1440 / 1440 960 / 960
Output:
Drain Output (Total)
Left Abdomen Bud-Bullard
Other:
Number of approximated MODERATE 5 4
amounts of urine
Number of approximated LARGE 4
amounts of urine
Vital Signs
Temp Pulse Resp BP Pulse Ox
98.0 F 81 16 111/57 97
10/26/23 07:12 10/26/23 07:12 10/26/23 07:12 10/26/23 07:12 10/26/23 07:12
Lab Results
10/26/23 07:50
10/26/23 07:50
Calcium 8.0 mg/dl (8.4-10.2) L 10/26/23 07:50
Phosphorus 3.9 mg/dl (2.5-4.5) 10/20/23 04:06
Magnesium 2.4 mg/dl (1.6-2.3) H 10/20/23 04:06
Total Bilirubin 0.5 mg/dl (0.2-1.3) 10/26/23 07:50
Direct Bilirubin 0.3 mg/dl (0.0-0.4) 10/19/23 07:27
AST 23 U/L (14-36) 10/26/23 07:50
ALT 18 U/L (0-35) 10/26/23 07:50
Alkaline Phosphatase 134 U/L (38-126) H 10/26/23 07:50
Total Protein 4.9 g/dl (6.3-8.2) L 10/26/23 07:50
Albumin 2.2 g/dl (3.5-5.0) L 10/26/23 07:50
Physical Exam
-
Gen: NAD
Abd: soft, midline incision with intact roslyn- no erythema or drainage, non tender abdomen, non-distended, drain with clear serous fluid
[2023-10-26] MEDS: STERILE WATER FOR INJECTION 20 ML IV (09:20)
[2023-10-26] MEDS: ROCEPHIN 2000 MG IV (09:20)
--- NOTE | 2023-10-26 11:10 | W.PN.HOSP.TC ---
Today's Communication/Plan
-
pending final plan for KELLY drain and IV abx
cont Dificid
Assessment / Plan
Assessment / Plan
63yo F with PMHx of HTN, was having loose watery non-bloody stools for 2 mo, found c.diff during colonoscopy on 10/17/23, came back for worsening weakness, found worsening abdominal pain and later CT showed bowel perf. S/P laparotomy on 10/19/23 with
small rectal defect repaired, no purulence seen, colon viable and visually healthy. Later developed worsening leukocytosis, that resolving with the restart of C.diff treatment since as per results of colonoscopy - pseudomembranes seen. Plan to d/c
when able to switch to oral Abx vs stop IV Abx and final plan from surgery for KELLY drain.
A/P:
#Bowel perf
s/p laparotomy by GenSx
Abx as per ID, accoding to periOP Cx - Ceftriaxone/Flagyl
Advance diet as per GenSx
#Leukocytosis 2/2 C.Diff colitis vs another source
Dificid
worsening since Sx
Repeat imaging on 10/23/23 - postOP changes with no abscess.
Repeated Bcx NTD
UA with nitrites ands bacteria, however no pyuria and no urinary symptoms as per patient. Ucx pending
XR without overt pneumonia
LE US neg for DVT
Cx from KELLY drain ordered
#Hyponatremia
#Hypokalemia
2/2 GI losses
replete and follow
#Microcytic anemia with postOP anemia
Hem consult: presumed thalassemia
Serial Hgb and transfuse to keep >7.0
#Transaminitis - resolved
hepatitis panel
follow LFT
#Thrombocytosis
reactive
follow CBC
#Essential HTN
hold HCTZ due to concern for GI fluid losses
DVT ppx hep
FUll code
I have spent at least 57mon reviewing chart, test results and direct patient care
Anticipated Discharge: 24 - 48 hours
Subjective/Interval History
-
Date of Service: October 26, 2023
Objective Data
-
Labs:
Laboratory Results
10/26/23
07:50
WBC 19.0 H
Hgb 7.8 L
Hct 24.0 L
Plt Count 426 H
Sodium 137
Potassium 3.4 L
Chloride 102
Carbon Dioxide 24
BUN 18 H
Creatinine 0.7
Glucose 102 H
Calcium 8.0 L
Total Bilirubin 0.5
AST 23
ALT 18
Alkaline Phosphatase 134 H
Vital Signs:
Vital Signs
Temp Pulse Resp BP Pulse Ox
98.0 F 81 16 111/57 97
10/26/23 07:12 10/26/23 07:12 10/26/23 07:12 10/26/23 07:12 10/26/23 07:12
I&O
10/25/23 10/26/23 10/27/23
06:59 06:59 06:59
Intake Total 1440 / 1440 960 / 960
Output Total 25 / 25 20 / 20
Balance 1415 / 1415 940 / 940
Review of Systems
-
History Source: Patient
All other systems: Reviewed and negative
Physical Exam
-
General: No Apparent Distress
HEENT: Normocephalic and Atraumatic
Respiratory: Clear to Auscultation
Cardiac: Regular Rhythm
GI: Soft, Nontender, Nondistended and Other (clear yellow liquid in KELLY)
Genito-urinary: No Costovertebral Tender
Skin: Warm
Neuro: Awake, Alert, Oriented and AO x 3
Psych: Calm
[2023-10-26] MEDS: KCL 270 MEQ IV (11:17)
[2023-10-26] MEDS: KCL 40 MEQ PO (13:48)
[2023-10-26 15:17] VITALS: BP 104/60
[2023-10-26] MEDS: MELATONIN 5 MG PO (21:08)
[2023-10-26 23:05] VITALS: BP 118/64
[2023-10-27] MEDS: HEPARIN 5000 UNITS SC ×3 (01:22→16:42)
[2023-10-27] MEDS: FLAGYL 500 MG PO (05:01)
[2023-10-27 06:00] VITALS: BMI 32.1
[2023-10-27 07:34] VITALS: BP 120/70
[2023-10-27] MEDS: DIFICID 200 MG PO (07:35)
[2023-10-27] MEDS: DESENEX/MITRAZOL/ZEASORB 1 APPLIC TOPICAL ×2 (07:36→21:34)
[2023-10-27 08:21] LABS: Hematocrit 24.4 % (37.0-47.0); Hemoglobin 7.7 g/dL (12.0-16.0); Mean Corp Hgb Conc. 31.6 g/dL (33.0-37.0); Mean Corpuscular Hgb 18.3 pg (27.0-31.0); Mean Platelet Volume 10.5 fL (7.4-10.4); Platelet Count 486 10^3/uL (130-400); Red Blood Cell Count 4.21 10^6/uL (4.20-5.40); Red Cell Dist. Width 16.1 % (11.5-14.5); White Blood Cell Count 18.1 10^3/uL (4.8-10.8)
[2023-10-27 08:55] LABS: Blood Urea Nitrogen 18 mg/dl (7-17); Calcium 8.3 mg/dl (8.4-10.2); Carbon Dioxide 22 mmol/L (22-30); Chloride 105 mmol/L (98-107); Estimated Creatinine Clearance 86 ml/min; Glucose 112 mg/dl (70-99); Potassium 4.1 mmol/L (3.5-5.1); Sodium 139 mmol/L (135-145); eGFR > 60.00
--- NOTE | 2023-10-27 09:21 | W.PN.GS2 ---
Addendum entered and electronically signed by Dennis Márquez MD 10/27/23 14:22:
I saw and examined the patient independently.
The Procedure Rn's note was reviewed and I agree with the note, assessment and plan except where noted below.
Comment: This is a 63-year-old female postoperative day 8 from exploratory laparotomy, primary repair of rectal perforation in the setting of a recent colonoscopy for concern of C. difficile though studies negative.
Clinically doing well however had a marked leukocytosis of unclear etiology that is now downtrending. ID is following and helping with antibiotic management.
Continue with low residue diet.
KELLY drain removed at bedside today.
Remainder of care per hospitalist.
Will keep roslyn in until follow-up.
General surgery will continue to follow.
Original Note:
Today's Communication / Plan
-
Removed KELLY drain, continue low residue diet, continue antibiotics as per ID. Patient clear to be discharged on surgery's end if WBC count continues to drop tomorrow.
Assessment / Plan
-
63-year-old female who presented with perforated rectum in the setting of a recent colonoscopy which showed severe pseudomembranous colitis noted and scope therefore not advanced past rectum/rectal biopsy taken. C-diff stool studies however negative.
POD#8 status post exploratory laparotomy, primary repair of rectal perforation. Patient has been feeling well, and has been having regular more solid bowel movements now as well.
CT on 10/23/23 with expected post operative changes some small bowel wall thickening with surrounding edema consistent with findings in OR of localized irritation near area of perforation, no abscess
Leukocytosis present but trending down 19.0 -> 18.1
Diarrhea improved, tolerating diet: progressing well from surgical standpoint
Abnormal UA -> Urine Cx shows Yeast
OR wound cultures with ecoli/veillonella and peptostrep
-- C/W LRD
-- KELLY drain removed -> pain tolerated removal of drain well
-- ABX as per ID -> input appreciated, continuing abx as directed
-- On Dificid for c-diff ppx given colonoscopy findings/diarrhea with noted improvement in diarrhea -> continuing as per ID
-- Continue to trend labs, monitor WBC and Hgb
-- Transfuse as needed if Hgb <7
Subjective Data
-
Date of Service: October 27, 2023
Patient continues to feel well. Had no complaints over night. Says she continues to tolerate her low residue diet and has had no abdominal pain. She says that she is looking forward to leaving the hospital soon. Patient does not complain of any
nausea or vomiting.
Objective Data
-
Intake and Output
10/26/23 10/27/23 10/28/23
06:59 06:59 06:59
Intake Total 960 / 960 1570 / 1570
Output Total
Balance 940 / 940 1535 / 1535
Intake:
Oral fluids 960 / 960 1570 / 1570
Output:
Drain Output (Total)
Left Abdomen Bud-Bullard
Other:
Number of approximated MODERATE 4 2
amounts of urine
Number of approximated LARGE 1
amounts of urine
Vital Signs
Temp Pulse Resp BP Pulse Ox
98.1 F 87 18 120/70 98
10/27/23 07:34 10/27/23 07:34 10/27/23 07:34 10/27/23 07:34 10/27/23 07:34
Lab Results
10/27/23 07:26
10/27/23 07:26
Calcium 8.3 mg/dl (8.4-10.2) L 10/27/23 07:26
Phosphorus 3.9 mg/dl (2.5-4.5) 10/20/23 04:06
Magnesium 2.4 mg/dl (1.6-2.3) H 10/20/23 04:06
Total Bilirubin 0.5 mg/dl (0.2-1.3) 10/26/23 07:50
Direct Bilirubin 0.3 mg/dl (0.0-0.4) 10/19/23 07:27
AST 23 U/L (14-36) 10/26/23 07:50
ALT 18 U/L (0-35) 10/26/23 07:50
Alkaline Phosphatase 134 U/L (38-126) H 10/26/23 07:50
Total Protein 4.9 g/dl (6.3-8.2) L 10/26/23 07:50
Albumin 2.2 g/dl (3.5-5.0) L 10/26/23 07:50
Physical Exam
-
Gen: NAD
Abd: soft, midline incision with intact roslyn- no erythema or drainage, non tender abdomen, non-distended,
KELLY: drain with clear serous fluid -> Removed
[2023-10-27] MEDS: STERILE WATER FOR INJECTION 20 ML IV (09:48)
[2023-10-27] MEDS: ROCEPHIN 2000 MG IV (09:48)
--- NOTE | 2023-10-27 11:55 | CM ---
Chart reviewed and plan is to home with [facility] when stable.
Plan; Home with [facility].
--- NOTE | 2023-10-27 12:26 | W.PN.ID1 ---
Date of Service
Date of Service: October 27, 2023
Today's Communication
Can dc ceftriaxone/metronidazole.
Consider dc fidaxomicin (ordered by hopsitalist)
Assessment / Plan
# Leukocytosis trending down
# Chronic diarrhea since 07/2023 - stool cx's neg, C. diff neg
# Descending colon and sigmoid colitis on CT
# Rectal perforation post outpatient Colonoscopy on 10/17/23
- 10/18 s/p emergent OR: colon healthy, +1mm perforation proximal rectum s/p repaired, minimal contamination
OR cx E. coli, Strep species
Discontinue ceftriaxone/po metronidazole (day 9).
- leukocytosis - unclear at this time.
Bcx neg. CXR neg. No DVT. Urine specimen contaminated with >[address]
Dr. Bernabe spoke to outside GI who reports 'pseudomembranous colitis' in rectum. Biopsy pending.
However, pt with multiple negative C. diff 09/10/23, 10/19/23, 10/22/23.
Also diarrhea improving prior to fidaxomicin .
Pt looks well, non-toxic appearing without specific complaints
Suspect IBD.
Hospitalist started empiric fidaxomicin on 10/23. Consider dc further fidaxomicin.
Chief Complaint
-: Leukocytosis and Other (Bowel perf)
Subjective / Review of Systems
She feels well. No complaints. Wants to go home soon.
Vital Signs / Physical Exam
Vital Signs
Vital Signs
Temp Pulse Resp BP Pulse Ox
98.1 F 87 18 120/70 98
10/27/23 07:34 10/27/23 07:34 10/27/23 07:34 10/27/23 07:34 10/27/23 07:34
Physical Exam
Constitutional: No Acute Distress and Comfortable
Cardiovascular: Regular Rate and S1/S2
Pulmonary: Clear
Gastrointestinal: Soft, Non Tender and Non Distended
Genito-Urinary: Negative CVA Tenderness
Extremities: Negative Edema
Neurological: AO x 3
Objective Data
Lab Data
Lab Results
10/27/23 07:26
10/27/23 07:26
PT 18.1 Sec (11.4-14.6) H 10/19/23 21:21
PT Cancelled 10/19/23 21:21
INR 1.52 10/19/23 21:21
INR Cancelled 10/19/23 21:21
APTT 34.3 Sec (23.4-35.0) 10/19/23 21:21
APTT Cancelled 10/19/23 21:21
Estimated Creat Clear 86 ml/min 10/27/23 07:26
Lactic Acid 1.8 mmol/L (0.7-2.0) 10/19/23 14:49
Total Bilirubin 0.5 mg/dl (0.2-1.3) 10/26/23 07:50
AST 23 U/L (14-36) 10/26/23 07:50
ALT 18 U/L (0-35) 10/26/23 07:50
Alkaline Phosphatase 134 U/L (38-126) H 10/26/23 07:50
Most recent labs reviewed.
Micro Results:
10/25/23 10:21 Body Fluid Culture - Preliminary
Fluid No Growth After 48 Hours
Gram Stain - Preliminary
10/24/23 09:26 Blood Culture - Preliminary
Blood/Venous No Growth in 72 hours- Final report to follow
10/24/23 19:49 Urine Culture - Preliminary
Urine Yeast
10/24/23 08:50 Blood Culture - Preliminary
Blood/Venous No Growth in 72 hours- Final report to follow
10/19/23 19:07 Wound Culture - Final
Abdomen Escherichia coli
Streptococcus species
Gram Stain - Final
10/19/23 19:07 Anaerobic Culture - Final
Peritoneal Fluid Veillonella species
Peptostreptococcus species
10/19/23 17:44 Blood Culture - Final
Blood/Venous No Growth - Final Report
10/19/23 17:46 Blood Culture - Final
Blood/Venous No Growth - Final Report
10/19/23 00:16 Salmonella/Shigella Culture - Final
Feces/Stool No Salmonella, Shigella, Aeromonas or Plesiomonas species
isolated.
Campylobacter Culture - Final
No Campylobacter species isolated.
Shiga Toxin Test - Final
No E. coli Shiga Toxin 1 or 2 detected.
10/22/23 17:58 C. difficile GDH Antigen & Toxins - Final
Feces/Stool Negative for toxigenic C.difficile
10/19/23 00:16 C. difficile GDH Antigen & Toxins - Final
Feces/Stool Negative for toxigenic C.difficile
10/19/23 AXR: Nonspecific bowel gas appearance with bowel wall thickening and distended bowel wall thickening in the distended transverse colon suggesting colitis and gas-filled loops of small bowel measuring up to 3 cm suggesting ileus
10/19/23 CT a/p: There is moderate-large volume free intraperitoneal air suggesting the presence of perforated abdominal viscus. There is colitis involving the descending and sigmoid colon. There is ileocolic anastomosis in the right mid abdomen.
--- NOTE | 2023-10-27 13:07 | W.PN.HOSP.TC ---
Today's Communication/Plan
-
trend wbc
afebrile
DC iv abx
restart HCTZ
Assessment / Plan
Assessment / Plan
63yo F with PMHx of HTN, was having loose watery non-bloody stools for 2 mo, found c.diff during colonoscopy on 10/17/23, came back for worsening weakness, found worsening abdominal pain and later CT showed bowel perf. S/P laparotomy on 10/19/23 with
small rectal defect repaired, no purulence seen, colon viable and visually healthy. Later developed worsening leukocytosis, that resolving with the restart of C.diff treatment since as per results of colonoscopy - pseudomembranes seen. Plan to d/c
when able to switch to oral Abx vs stop IV Abx and final plan from surgery for KELLY drain.
A/P:
#Bowel perf
s/p laparotomy by GenSx
Abx as per ID, accoding to periOP Cx - Ceftriaxone/Flagyl -plan to stop further
Advance diet as per GenSx
tolerating so far.
KELLY drain removed
#Leukocytosis unclear source
Dificid stopped- Cdiff negative x 2
Repeat imaging on 10/23/23 - postOP changes with no abscess.
Repeated Bcx NTD
Ucx with yeast-
XR without overt pneumonia
LE US neg for DVT
Cx from KELLY drain ordered
downtrending wbc. afebrile.
#Hyponatremia
#Hypokalemia
2/2 GI losses
replete and follow
#Microcytic anemia with postOP anemia
Hem consult: presumed thalassemia
Serial Hgb and transfuse to keep >7.0
#Transaminitis - resolved
hepatitis panel
follow LFT
#Thrombocytosis
reactive
follow CBC
#Essential HTN
restart HCTZ
Hypokalemia-replete/monitor
DVT ppx hep
FUll code
Anticipated Discharge: Within 24 hours
Subjective/Interval History
-
Date of Service: October 27, 2023
feeling better
no abd pain
tolerating diet
states of LE edema
Objective Data
-
Labs:
Laboratory Results
10/27/23
07:26
WBC 18.1 H
Hgb 7.7 L
Hct 24.4 L
Plt Count 486 H
Sodium 139
Potassium 4.1
Chloride 105
Carbon Dioxide 22
BUN 18 H
Creatinine 0.7
Glucose 112 H
Calcium 8.3 L
Vital Signs:
Vital Signs
Temp Pulse Resp BP Pulse Ox
98.1 F 87 18 120/70 98
10/27/23 07:34 10/27/23 07:34 10/27/23 07:34 10/27/23 07:34 10/27/23 07:34
I&O
10/26/23 10/27/23 10/28/23
06:59 06:59 06:59
Intake Total 960 / 960 1570 / 1570
Output Total 20 / 20 35 / 35
Balance 940 / 940 1535 / 1535
Physical Exam
-
General: No Apparent Distress
HEENT: Normocephalic and Atraumatic
Respiratory: Clear to Auscultation
Cardiac: Regular Rhythm
GI: Soft, Nontender, Nondistended and Normal Bowel Sounds
Genito-urinary: No Costovertebral Tender
Musculoskeletal: Edema, Right Lower Extrem and Edema, Left Lower Extrem
Skin: Warm
Neuro: Awake, Alert, Oriented and AO x 3
Psych: Calm
--- NOTE | 2023-10-27 13:15 | WOUNDNOTE ---
[facility] RN note: Patient admitted with c diff diarrhea. S/p exploratory lap, repair or rectal perforation. Patient . Plan is home tomorrow with VN.
See H&P for complete history.
PMH: appendectomy.
Wound Location and type/assessment: Patient admitted with: Sacral crease and R buttocks stage 2 pressure injuries. Patient reports they feel improved.
Appetite: good.
Pressure redistribution devices in place: [employer] Accumax. Patient stood with walker independently for skin assessment. Air chair cushion.
Plan: Silicone border foam changed on sacral/R buttocks. Instructed patient pressure injury prevention measures.
Will confirm orders with Dr. Payne.
Care plan to be updated and will follow as needed.
Recommend follow up at wound care center upon discharge.
[2023-10-27 15:25] VITALS: BP 122/64
--- NOTE | 2023-10-27 15:56 | PN.CDI ---
CDI
- -
CDI:
Physician Documentation Request
Admit Date: 10/19/23 01:03
Dear Doctor Elmer,
Clinical Indicators:
Patient admitted with bowel perforation
10/26 [facility] RN skin/wound assessment: Sacrum Stage 2 Pressure Injury, POA
Right Buttocks Stage 2 Pressure Injury, POA
Physician documentation of the type and location of wounds is required for compliant documentation. Based on the above clinical findings and your assessment, please provide the following in your progress note:
1. Location of the ulcer/wound, including laterality.
2. Type (etiology) of ulcer/wound:
- Pressure (decubitus) ulcer
- Other, please specify
- Unable to determine
3. If a pressure ulcer, please also include the stage* of the ulcer:
- Stage 1 - Skin intact, non-blanchable redness
- Stage 2 - Partial thickness loss of dermis, includes intact or open blister
- Stage 3 - Full thickness tissue not including bone, tendon or muscle
- Stage 4 - Full thickness tissue loss, including exposed bone, tendon or muscle
- Unstageable - Full thickness loss in which the base of the ulcer is covered by slough (yellow, clark, javier, green or brown) and/or eschar (clark, brown or black) in the wound bed.
- Unable to determine
Use of terms such as suspected, likely, concern for, or probable (associated with a specific diagnosis that is being evaluated, monitored, or treated as if it exists) are acceptable and can be coded in the inpatient setting, when documented at the
time of discharge.
Thank you,
HUNG ClevelandN
CDI Specialist
available via tiger text
Please use your independent medical judgment in providing your response.
*Source: National Pressure Ulcer Advisory Panel (NPUAP)
[2023-10-27] MEDS: MELATONIN 5 MG PO (21:34)
[2023-10-27 23:31] VITALS: BP 123/69
[2023-10-28] MEDS: HEPARIN 5000 UNITS SC ×2 (02:53→09:47)
[2023-10-28 06:00] VITALS: BMI 31.8
--- NOTE | 2023-10-28 07:13 | W.PN.GS2 ---
Addendum entered and electronically signed by Acosta Casillas MD 10/28/23 12:06:
Patient seen and examined. Agree with assessment plan as document below.
Denies abdominal pain or discomfort. No nausea or vomiting. Passing flatus and more formed, nonbloody stools. Afebrile.
Gen: NAD
Abd: soft, NT/ND, non-peritoneal, incision c/d/i - no erythema, ecchymosis or drainage, luis in place
Patient is a 63 yo F POD#9 status post exploratory laparotomy, primary repair of rectal perforation.
CT on 10/23/23 with expected post operative changes some small bowel wall thickening with surrounding edema consistent with findings in OR of localized irritation near area of perforation, no abscess
Leukocytosis present but trending down
Diarrhea improved, tolerating diet: progressing well from surgical standpoint
Abnormal UA -> Urine Cx shows Yeast
OR wound cultures with ecoli/veillonella and peptostrep
Patient has been feeling well, and has been having regular more solid bowel movements now as well. Patient was taken off abx yesterday and has has developed no fevers or chills since. Cleared for discharge on surgery end, will follow up for staple
removal in outpatient setting.
-- Low residue diet to continue for now
-- KELLY drain removed yesterday, no further drainage noted
-- All ABX dced as per ID and Hospitalist team-> input appreciated
-- [place] intact, will be removed during out-patient follow up with surgery team
-- OK for DC with outpatient surgical follow-up in 1 week
Original Note:
Today's Communication / Plan
-
Patient okay to be discharged on surgery's end. Patient will have luis removed upon follow up visit with surgery team in outpatient setting.
Assessment / Plan
-
63-year-old female who presented with perforated rectum in the setting of a recent colonoscopy which showed severe pseudomembranous colitis noted and scope therefore not advanced past rectum/rectal biopsy taken. C-diff stool studies however negative.
POD#9 status post exploratory laparotomy, primary repair of rectal perforation. Patient has been feeling well, and has been having regular more solid bowel movements now as well. Patient was taken off abx yesterday and has has developed no fevers or
chills since. Cleared for discharge on surgery end, will follow up for staple removal in outpatient setting.
CT on 10/23/23 with expected post operative changes some small bowel wall thickening with surrounding edema consistent with findings in OR of localized irritation near area of perforation, no abscess
Leukocytosis present yesterday but trending down 19.0 -> 18.1 (Awaiting labs for today)
Diarrhea improved, tolerating diet: progressing well from surgical standpoint
Abnormal UA -> Urine Cx shows Yeast
OR wound cultures with ecoli/veillonella and peptostrep
-- Low residue diet to continue for now
-- KELLY drain removed yesterday, no further drainage noted
-- Monitor WBC trend for today (Pending still)
-- All ABX dced as per ID and Hospitalist team-> input appreciated
-- Transfuse as needed if Hgb <7
-- Luis intact, will be removed during out-patient follow up with surgery team
Subjective Data
-
Date of Service: October 28, 2023
Patient has been feeling well. Has had more regular, solid looking, bowel movements and has been passing flatus. Patient says that she has been ambulating well and has no fevers or chills. She has been eating well and reports no nausea or vomiting.
Looking forward to being able to leave the hospital.
Objective Data
-
Intake and Output
10/27/23 10/28/23 10/29/23
06:59 06:59 06:59
Intake Total 1570 / 1570 1440 / 1440
Output Total 35 / 35
Balance 1535 / 1535 1440 / 1440
Intake:
Oral fluids 1570 / 1570 1440 / 1440
Output:
Drain Output (Total)
Left Abdomen Bud-Bullard
Other:
Number of approximated MODERATE 2 3
amounts of urine
Number of approximated LARGE 1
amounts of urine
Vital Signs
Temp Pulse Resp BP Pulse Ox
98.2 F 83 18 123/69 96
10/27/23 23:31 10/27/23 23:31 10/27/23 23:31 10/27/23 23:31 10/27/23 23:31
Calcium 8.3 mg/dl (8.4-10.2) L 10/27/23 07:26
Phosphorus 3.9 mg/dl (2.5-4.5) 10/20/23 04:06
Magnesium 2.4 mg/dl (1.6-2.3) H 10/20/23 04:06
Total Bilirubin 0.5 mg/dl (0.2-1.3) 10/26/23 07:50
Direct Bilirubin 0.3 mg/dl (0.0-0.4) 10/19/23 07:27
AST 23 U/L (14-36) 10/26/23 07:50
ALT 18 U/L (0-35) 10/26/23 07:50
Alkaline Phosphatase 134 U/L (38-126) H 10/26/23 07:50
Total Protein 4.9 g/dl (6.3-8.2) L 10/26/23 07:50
Albumin 2.2 g/dl (3.5-5.0) L 10/26/23 07:50
Physical Exam
-
Gen: NAD
Abd: soft, midline incision with intact luis- no erythema or drainage around luis, non-tender abdomen, non-distended,
[2023-10-28 07:23] VITALS: BP 131/69
[2023-10-28] MEDS: DESENEX/MITRAZOL/ZEASORB 1 APPLIC TOPICAL (07:37)
[2023-10-28] MEDS: ORETIC 25 MG PO (07:38)
[2023-10-28 07:57] LABS: Hemoglobin 7.1 g/dL (12.0-16.0); Mean Corp Hgb Conc. 30.9 g/dL (33.0-37.0); Mean Corpuscular Hgb 18.1 pg (27.0-31.0); Mean Corpuscular Volume 58.5 fL (81.0-99.0); Mean Platelet Volume 10.4 fL (7.4-10.4); Platelet Count 528 10^3/uL (130-400); Red Blood Cell Count 3.93 10^6/uL (4.20-5.40); Red Cell Dist. Width 15.9 % (11.5-14.5); White Blood Cell Count 17.5 10^3/uL (4.8-10.8)
[2023-10-28 08:34] LABS: Blood Urea Nitrogen 17 mg/dl (7-17); Calcium 8.2 mg/dl (8.4-10.2); Carbon Dioxide 22 mmol/L (22-30); Chloride 106 mmol/L (98-107); Estimated Creatinine Clearance 99 ml/min; Glucose 108 mg/dl (70-99); Sodium 140 mmol/L (135-145); eGFR > 60.00
--- NOTE | 2023-10-28 08:51 | PN.CDI ---
CDI
- -
CDI:
Physician Documentation Request
Admit Date: 10/19/23 01:03
Dear Doctor Elmer,
Clinical Indicators:
Patient admitted with bowel perforation.
10/23 Query response: C diff colitis was POA.
WBC on admission:
10/18/23
22:48
WBC 12.4 H
HR/RR trend:
10/19/23
17:06 10/19/23
17:15 10/19/23
17:45
Pulse 92 92 89
Resp Rate 31 32 28
10/19/23
18:00 10/19/23
18:23
Pulse 97 96
Resp Rate 32 31
Please clarify which of the following most accurately describes the status of the patient's infection:
Sepsis (please specify if POA)
- Systemic manifestations of infection, with 2 or more SIRS criteria which include:
- Fever >100.4 degrees F or hypothermia < 96.8 degrees F
- Leukocytosis - WBC > 12,000 or leukopenia - WBC < 4,000 or > 10% bands
- Tachycardia > 90 beats per minute
- Tachypnea - RR > 20 breaths per minute or PaCO2 , 32mmHg
Source: [employer] Manual 2013
C Diff Colitis Only, Without Systemic Illness
Other, please specify
Use of terms such as suspected, likely, concern for, or probable (associated with a specific diagnosis that is being evaluated, monitored, or treated as if it exists) are acceptable and can be coded in the inpatient setting, when documented at the
time of discharge.
Thank you,
Mayra Beal RN BSN
CDI Specialist
available via tiger text
Please use your independent medical judgment in providing your response.
--- NOTE | 2023-10-28 11:13 | W.PN.HOSP.TC ---
Today's Communication/Plan
-
refused prbc
wbc downtrended
dc home
Assessment / Plan
Assessment / Plan
63yo F with PMHx of HTN, was having loose watery non-bloody stools for 2 mo, found c.diff during colonoscopy on 10/17/23, came back for worsening weakness, found worsening abdominal pain and later CT showed bowel perf. S/P laparotomy on 10/19/23 with
small rectal defect repaired, no purulence seen, colon viable and visually healthy. Later developed worsening leukocytosis, that resolving with the restart of C.diff treatment since as per results of colonoscopy - pseudomembranes seen. Plan to d/c
when able to switch to oral Abx vs stop IV Abx and final plan from surgery for KELLY drain.
A/P:
#Bowel perf
#Sepsis likely 2/2 bowel perf
s/p laparotomy by [facility]
Abx as per ID, according to periOP Cx - Ceftriaxone/Flagyl -which were Dced
Advance diet as per Gen[facility]
tolerating so far.
KELLY drain removed
#Leukocytosis unclear source
Dificid stopped- Cdiff negative x 2
Repeat imaging on 10/23/23 - postOP changes with no abscess.
Repeated Bcx NTD
Ucx with yeast-
CXR without overt pneumonia
LE US neg for DVT
Cx from KELLY drain ordered-negative so far.
downtrending wbc. afebrile.
#Hyponatremia
#Hypokalemia
2/2 GI losses
replete and follow
#Microcytic anemia with postOP anemia
Hem consult: presumed thalassemia
Serial Hgb and transfuse to keep >7.0
Hgb at 7.1 and patient was offered PRBC but she refused it. Understands moving feeling fatigue, tired more than usual, lightheadedness, dizziness etc. Recommend repeat cbc with pcp in 5-7 days.
#Transaminitis - resolved
hepatitis panel
follow LFT
#Thrombocytosis
reactive
follow CBC
#Essential HTN
restart HCTZ
Hypokalemia-replete/monitor
Sacrum Stage 2 Pressure Injury, POA
Right Buttocks Stage 2 Pressure Injury, POA
Wound care eval
Offloading pressure if possible.
DVT ppx hep
FUll code
More than 30 minutes spent in discharge including
Final examination of the patient
Summarizing hospital stay
Instructions for continuing care to all relevant caregivers
Preparation of discharge records, prescriptions, and referral forms
Total time spent (in minutes): 58
Anticipated Discharge: Today
Subjective/Interval History
-
Date of Service: October 28, 2023
denies abd pain or nausea or vomiting
Objective Data
-
Labs:
Laboratory Results
10/28/23 10/28/23
07:30 11:00
WBC 17.5 H
Hgb 7.1 L Cancelled
Hct 23.0 L Cancelled
Plt Count 528 H
Sodium 140
Potassium 4.0
Chloride 106
Carbon Dioxide 22
BUN 17
Creatinine 0.6
Glucose 108 H
Calcium 8.2 L
Vital Signs:
Vital Signs
Temp Pulse Resp BP Pulse Ox
98.1 F 86 19 131/69 100
10/28/23 07:23 10/28/23 07:38 10/28/23 07:23 10/28/23 07:38 10/28/23 07:23
I&O
10/27/23 10/28/23 10/29/23
06:59 06:59 06:59
Intake Total 1570 / 1570 1440 / 1440
Output Total 35 / 35
Balance 1535 / 1535 1440 / 1440
Physical Exam
-
General: No Apparent Distress
HEENT: Normocephalic and Atraumatic
Respiratory: Clear to Auscultation
Cardiac: Regular Rhythm
GI: Soft, Nontender, Nondistended and Normal Bowel Sounds
Genito-urinary: No Costovertebral Tender
Musculoskeletal: Edema, Right Lower Extrem and Edema, Left Lower Extrem
Skin: Warm
Neuro: Awake, Alert, Oriented and AO x 3
Psych: Calm
Data Reviewed
-
Total Time Spent with Patient (in minutes): 58
--- NOTE | 2023-10-28 11:22 | CM ---
Addendum entered by Ellen Carlisle 10/28/23 12:13:
Patient was asking for ambulance transport however case advocate explained to patient that she needed to be bedbound for ambulance transport. Patient's sister to transport patient to home today.
Plan: Home with [facility]
Original Note:
Plan is to home with [facility] when stable.
Plan; Home with [facility]
--- NOTE | 2023-10-28 11:50 | W.PN.ID1 ---
Date of Service
Date of Service: October 28, 2023
Today's Communication
DC home.
Assessment / Plan
# Leukocytosis continues to trend down.
# Chronic diarrhea since 07/2023 - stool cx's neg, C. diff neg. Diarrhea now resolved.
# Descending colon and sigmoid colitis on CT
# Rectal perforation post outpatient Colonoscopy on 10/17/23
- 10/18 s/p emergent OR: colon healthy, +1mm perforation proximal rectum s/p repaired, minimal contamination
OR cx E. coli, Strep species
Completed 9d ceftriaxone/po metronidazole .
- Bcx neg. CXR neg. No DVT. Urine specimen contaminated with >[address] Bernabe spoke to outside GI who reports 'pseudomembranous colitis' in rectum. Biopsy pending.
However, pt with multiple negative C. diff 09/10/23, 10/19/23, 10/22/23.
Also diarrhea improving prior to fidaxomicin .
Pt looks well, non-toxic appearing without specific complaints
Suspect IBD.
Appreciate hospitalist - dc'd fidaxomicin (after 7 doses).
-DC home today.
Chief Complaint
-: Leukocytosis and Other (Bowel perf)
Subjective / Review of Systems
Feels well. No diarrhea.
Vital Signs / Physical Exam
Vital Signs
Vital Signs
Temp Pulse Resp BP Pulse Ox
98.1 F 86 19 131/69 100
10/28/23 07:23 10/28/23 07:38 10/28/23 07:23 10/28/23 07:38 10/28/23 07:23
Physical Exam
Constitutional: No Acute Distress and Comfortable
Gastrointestinal: Soft, Non Tender and Non Distended
Objective Data
Lab Data
Lab Results
10/28/23 11:00
10/28/23 07:30
PT 18.1 Sec (11.4-14.6) H 10/19/23 21:21
PT Cancelled 10/19/23 21:21
INR 1.52 10/19/23 21:21
INR Cancelled 10/19/23 21:21
APTT 34.3 Sec (23.4-35.0) 10/19/23 21:21
APTT Cancelled 10/19/23 21:21
Estimated Creat Clear 99 ml/min 10/28/23 07:30
Lactic Acid 1.8 mmol/L (0.7-2.0) 10/19/23 14:49
Total Bilirubin 0.5 mg/dl (0.2-1.3) 10/26/23 07:50
AST 23 U/L (14-36) 10/26/23 07:50
ALT 18 U/L (0-35) 10/26/23 07:50
Alkaline Phosphatase 134 U/L (38-126) H 10/26/23 07:50
Most recent labs reviewed.
Micro Results:
10/24/23 09:26 Blood Culture - Preliminary
Blood/Venous No Growth in 4 days- Final report to follow
10/24/23 08:50 Blood Culture - Preliminary
Blood/Venous No Growth in 4 days- Final report to follow
10/25/23 10:21 Body Fluid Culture - Final
Fluid No Growth After 72 Hours
Gram Stain - Final
10/24/23 19:49 Urine Culture - Final
Urine Yeast
10/19/23 19:07 Wound Culture - Final
Abdomen Escherichia coli
Streptococcus species
Gram Stain - Final
10/19/23 19:07 Anaerobic Culture - Final
Peritoneal Fluid Veillonella species
Peptostreptococcus species
10/19/23 17:44 Blood Culture - Final
Blood/Venous No Growth - Final Report
10/19/23 17:46 Blood Culture - Final
Blood/Venous No Growth - Final Report
10/19/23 00:16 Salmonella/Shigella Culture - Final
Feces/Stool No Salmonella, Shigella, Aeromonas or Plesiomonas species
isolated.
Campylobacter Culture - Final
No Campylobacter species isolated.
Shiga Toxin Test - Final
No E. coli Shiga Toxin 1 or 2 detected.
10/22/23 17:58 C. difficile GDH Antigen & Toxins - Final
Feces/Stool Negative for toxigenic C.difficile
10/19/23 00:16 C. difficile GDH Antigen & Toxins - Final
Feces/Stool Negative for toxigenic C.difficile
10/19/23 AXR: Nonspecific bowel gas appearance with bowel wall thickening and distended bowel wall thickening in the distended transverse colon suggesting colitis and gas-filled loops of small bowel measuring up to 3 cm suggesting ileus
10/19/23 CT a/p: There is moderate-large volume free intraperitoneal air suggesting the presence of perforated abdominal viscus. There is colitis involving the descending and sigmoid colon. There is ileocolic anastomosis in the right mid abdomen.
[2023-10-28 12:39] VITALS: BP 118/76
--- NOTE | 2023-10-28 13:02 | PTCARENOTE ---
Rn Personal Injury Litigation Paralegal- Merritt texted Dr. Payne for script for a walker.
--- NOTE | 2023-10-28 13:18 | W.DCSUMMARY ---
Discharge Summary
Discharge Data
Date of Admission: 10/19/23
Date of Discharge: 10/28/23
-
Pending Results: No
Hospital Course
63yo F with PMHx of HTN, was having loose watery non-bloody stools for 2 mo, was found to have a pseudomembranous colitis per correspondence, came back for worsening weakness. found worsening abdominal pain and later CT showed here is
moderate-large volume free intraperitoneal air suggesting the presence of perforated abdominal viscus. There is colitis involving the descending and sigmoid colon. There is ileocolic anastomosis in the right mid abdomen. There is multilevel lumbar
degenerative disc disease. Patient was eval by general surgery and patient underwent exploratory laparotomy with primary repair of rectal perforation. Postop patient with severe leukocytosis. Infectious disease was consulted. Hematology was also
consulted for anemia and there was concern for thalassemia and to transfuse as needed for hemoglobin less than 7. Patient received antibiotics per infectious disease of ceftriaxone and Flagyl. Initially there was concern of C. difficile and was
started on Dificid. GI was also consulted. Patient with chronic diarrhea which has been improving. C. difficile were checked in the hospital was found to be negative x 2. Dificid was discontinued. Patient underwent repeat CT abdomen pelvis
without significant findings and found to have postop changes without abscess. Blood cultures were negative. Urine culture with yeast. Chest x-ray was without overt pneumonia. Lower extremity ultrasound was negative for DVT. Per infectious
disease antibiotics were discontinued. Patient white blood cell continued downtrend. Patient remained afebrile. Patient was found to be hemoglobin of 7.1 on day of discharge. Patient was offered PRBC but she refused it. Understands feeling
fatigue, tired more than usual, lightheadedness, dizziness etc. Recommend repeat cbc with pcp in 5-7 days. Patient be discharged home with home health.
Discharge Plan
-
Patient Disposition: Home (Routine Discharge)
Discharge Diagnosis/Procedures: sepsis likely 2/2 Perforated rectum status post exploratory laparotomy and repair
leukocytosis
anemia
hypokalemia
hypocalcemia
Condition: Good
Diet: Low Fiber
Activity: No strenuous activity
Additional Activity: Do not lift over 15lbs for the next 4 weeks
Bathing Restrictions: OK to Shower
Blood Work: CBC in 3-5 days with primary doctor.
Wound Care: Ok to shower and wash incision gently with soap and water. The roslyn will removed at your follow up appointment with your surgeon 2-3 weeks from your surgery date
Activity Restrictions/Additional Instructions:
Wound Care Instructions
Sacral/R buttocks ulcers-clean with saline or soap and water, apply silicone border foam, change every 3 days and as needed for loosened dressing.
Miconazole powder to abdominal folds, affected areas twice a day.
Pressure redistributing chair cushion (i.e. Air chair cushion).
Elevate heels off bed with pillow/s.
Follow up at wound care center call for an appointment.
Instructions: Low Fiber Diet
Referrals:
Jean Marie Benrabe MD [Active] - in one week
Garrick Parham PA-C [Family Provider] - in less than 1 week
Prescriptions:
Continued
hydrochlorothiazide 25 mg Tablet
25 mg PO DAILY
Discharge Orders:
Discharge Patient (As Directed); Ordered 10/28/23
Ordered By: Quang Payne
Discharge Date and Time
Discharge Date/Time: 10/28/23 13:29
Print Language: BOLIVIAN
--- NOTE | 2023-10-31 08:22 | OR.RPT ---
Operative Report
Operative Report
Primary Surgeon: Florecita
Pre-op Diagnosis: Perforated viscus
Post-op Diagnosis: Perforated rectum
Procedure Performed: Exploratory laparotomy, repair rectal perforation
Anesthesia Type: GETA + TAP block
Specimen / Cultures: Peritoneal fluid aerobic/anaerobic
Estimated Blood Loss: 5cc
Complications: None immediate
Operative Findings: Virtually no contamination, no purulence; colon with healthy appearance, no signs of ischemia, inflamed proximal rectum, 1mm perforation identified and repaired in 2 layers with 3-0 silk suture; scant turbid fluid at site of
perforation and a few sb loops nearby with slight staining/rind, 19fr ely adjacent to the repair; ng confirmed in stomach, may develop ileus
Date of Surgery: 10/19/23
Indications: This 63F developed underwent colonoscopy for colitis and 2 days later developed pneumoperitoneum and abdominal pain. The endoscopist diagnosed c. diff infection. Exploratory laparotomy, possible bowel resection, possible colostomy was
planned.
Description of procedure: The patient was placed on the operating table in the supine position. General anesthesia was induced. A time-out was completed verifying correct patient, procedure, site, positioning, and special equipment prior to
beginning this procedure. The abdomen was prepped and draped in the usual sterile fashion.
An incision was made with cut cautery in the midline and carried down to the linea alba with electrocautery. The linea alba was divided and the abdomen entered. We immediately encountered distended colon that appeared healthy. There was minimal
contamination present. The colon was examined from cecum to rectum. The incision was extended cephalad and caudad to allow adequate exposure. The right, transverse, descending and sigmoid colon were without significant abnormality. The small bowel
was run from ligament of treitz to terminal ileum and no abnormality was found. Attention was turned to the pelvis. In the left pelvis the distal sigmoid was adherent to the pelvic sidewall. It was gently bluntly dissected away revealing a small
amount of purulent fluid. This fluid was cultured. The rectum was examined and a small 1mm perforation was identified at the posterolateral aspect. This was closed in two layers with 2-0 silk sutures. The abdomen was irrigated with copious warm
sterile saline until effluent ran clear. A 19fr ely drain was placed in close proximity to the repair and brought out through the lateral abdominal wall and secured to the skin with 2-0 nylon suture. The abdomen was closed with running #1 PDS
stratafix suture. The subcutaneous tissue was irrigated with sterile saline and the skin was closed with roslyn. An aquacel dressing at the midline and a drain dressing were applied.
The patient tolerated the procedure well and was taken to the postanesthesia care unit in stable condition.
== END 2023-10-28 13:29 | disposition home health service (06) | DRG 853 ==
LOC: 4 WEST ACU 01:03
PROVIDERS: Internal Medicine; Nurse Practitioner Family; Physician Assistant; Registered Nurse; ADMITTING PHYSICIAN Internal Medicine; ATTENDING PHYSICIAN Hospitalist; CONSULT PHYSICIAN Internal Medicine Gastroenterology; CONSULT PHYSICIAN Internal Medicine Infectious Disease; CONSULT PHYSICIAN Surgery; EMERGENCY PHYSICIAN Student in an Organized Health Care Education/Training Program; FAMILY PHYSICIAN Physician Assistant Medical; OTHER PHYSICIAN Internal Medicine Hematology & Oncology
PROC: 0DQP0ZZ Repair Rectum, Open Approach (ICD-10-PCS; 2023-10-19)
DX: A41.9 Sepsis, unspecified organism (principal); K63.1 Perforation of intestine (nontraumatic); A04.72 Enterocolitis due to Clostridium difficile, not specified as recurrent; E87.1 Hypo-osmolality and hyponatremia; K91.89 Other postprocedural complications and disorders of digestive system; E87.6 Hypokalemia; I10 Essential (primary) hypertension; D75.839 Thrombocytosis, unspecified; D56.9 Thalassemia, unspecified; K57.30 Diverticulosis of large intestine without perforation or abscess without bleeding; D72.828 Other elevated white blood cell count; M51.36 Other intervertebral disc degeneration, lumbar region; L89.312 Pressure ulcer of right buttock, stage 2; L89.152 Pressure ulcer of sacral region, stage 2; Y83.8 Other surgical procedures as the cause of abnormal reaction of the patient, or of later complication, without mention of misadventure at the time of the procedure; Z79.899 Other long term (current) drug therapy; Z98.0 Intestinal bypass and anastomosis status
CPT/HCPCS: 71045; 71046; 74018; 74177; 80048; 80053; 80076; 80202; 81003; 81015; 82728; 83540; 83550; 83605; 83690; 83735; 84100; 84132; 85004; 85025; 85027; 85610; 85730; 86704; 86706; 86803; 86850; 86900; 86901; 87015; 87040; 87045; 87046; 87070; 87075; 87076; 87077; 87086; 87186; 87205; 87324; 87340; 87427; 87449; 93005; 93970; 96360; 99285; Q9967

== ENCOUNTER 2023-11-30 10:15 | Emergency (ER) | payer OTHER, SELFPAY ==
[2023-11-30 10:23] VITALS: BP 141/80
[2023-11-30 10:57] VITALS: BMI 29.2
[2023-11-30 11:20] LABS: % Basophils 0.3 % (0-2); % Eosinophils 0.9 % (0-6); % Immature Granulocytes 0.5 % (0-0.5); % Lymphocytes 10.2 % (20.5-51.1); % Monocytes 7.8 % (1.7-9.3); % Neutrophils 80.3 % (42.2-75.2); Absolute Eosinophils 0.1 10^3/uL (0-0.7); Absolute Immature Granulocytes 0.1 10^3/uL (0-0.05); Absolute Lymphocytes 1.3 10^3/uL (1.2-3.4); Absolute Neutrophils 10.3 10^3/uL (1.4-6.5); Hematocrit 25.3 % (37.0-47.0); Hemoglobin 7.8 g/dL (12.0-16.0); Mean Corp Hgb Conc. 30.8 g/dL (33.0-37.0); Mean Corpuscular Hgb 19.5 pg (27.0-31.0); Mean Corpuscular Volume 63.1 fL (81.0-99.0); Nucleated Red Blood Cells % 0 %; Platelet Count 545 10^3/uL (130-400); Red Blood Cell Count 4.01 10^6/uL (4.20-5.40); Red Cell Dist. Width 18.8 % (11.5-14.5); White Blood Cell Count 12.9 10^3/uL (4.8-10.8)
[2023-11-30 11:38] LABS: ALT (SGPT) 14 U/L (0-35); AST (SGOT) 22 U/L (14-36); Albumin 3.4 g/dl (3.5-5.0); Alkaline Phosphatase 75 U/L (38-126); Blood Urea Nitrogen 14 mg/dl (7-17); Carbon Dioxide 22 mmol/L (22-30); Chloride 106 mmol/L (98-107); Estimated Creatinine Clearance 95 ml/min; Glucose 89 mg/dl (70-99); Potassium 3.8 mmol/L (3.5-5.1); Sodium 141 mmol/L (135-145); Total Bilirubin 0.6 mg/dl (0.2-1.3); Total Protein 6.6 g/dl (6.3-8.2); eGFR > 60.00
--- NOTE | 2023-11-30 12:25 | ED.GENMED ---
History of Present Illness
General
Chief Complaint: Abdominal Symptoms
Source: patient, records and family
Time Seen by Provider: 11/30/23 11:57
History of Present Illness
History of Present Illness:
63-year-old female with recent past medical history of C. difficile colitis status post completion of antibiotics presenting to the emergency department for evaluation after she started with loose stool again this morning after having reportedly
normal bowel movements for the last 3 weeks. Patient states she feels well presently but given her recent history was very concerned and wanted to make sure she did not have a recurrence of her C. difficile colitis. Patient denies any fevers,
chills, rigors, nausea, vomiting. Currently also denying any abdominal pain. Patient notes that she has not been on any antibiotics for the last few weeks and has been feeling very well to the point where she is going back to work this coming
Friday.
Past History
Past History
ED Past Medical History: Other (C. difficile colitis)
ED Past Surgical History: Appendectomy
Social History
Tobacco: Non-smoker
Alcohol: None
Drug: None
Personal:
Living: with family
Employment: Employed
Review of Systems
Review of Systems
All Other Systems: ROS reviewed and negative except as documented in HPI and ROS
Phy Exam
Physical Exam
Physical Exam:
GENERAL: Alert , smiling, pleasant, very well appearing
EYE: clear conjunctiva b/l
HEAD: NCAT
ENT: o/p clr, mmm.
ABDOMEN: Soft, without focal tenderness, no r/g, no cvat
NEUROLOGICAL: Alert and oriented
SKIN: Warm and dry, skin intact.
MUSCULOSKELETAL: No edema, well perfused.
PSYCH: Normal and appropriate interaction.
Scores
Heart Failure Risk
Heart Failure Risk Score: Not Applicable
Heart Score for Chest Pain Patients
STEMI patient?: Not applicable
Withdrawal Assessment of Alcohol
Withdrawal Assessment Completed?: Not applicable
Course
Orders/Labs/Results
Orders:
Orders
11/30/23 11:06
Complete Blood Count/With Diff Urgent
Comprehensive Metabolic Panel Urgent
11/30/23 11:31
C difficile Antigen & Toxins Urgent
TYREE Source: Feces/Stool
Specimen Description:
Date Specimen was Collected: 11/30/23
Time Specimen was Collected: 11:27
Stool Culture Urgent
TYREE Source: Feces/Stool
Specimen Description:
Date Specimen was Collected: 11/30/23
Time Specimen was Collected: 11:27
Abnormal Lab Results
11/30/23
11:06
WBC 12.9 H 10^3/uL
(4.8-10.8)
RBC 4.01 L 10^6/uL
(4.20-5.40)
Hgb 7.8 L g/dL
(12.0-16.0)
Hct 25.3 L %
(37.0-47.0)
MCV 63.1 L fL
(81.0-99.0)
MCH 19.5 L pg
(27.0-31.0)
MCHC 30.8 L g/dL
(33.0-37.0)
RDW 18.8 H %
(11.5-14.5)
Plt Count 545 H 10^3/uL
(130-400)
MPV 11.0 H fL
(7.4-10.4)
Abs Immat Gran (auto) 0.1 H 10^3/uL
(0-0.05)
Absolute Neuts (auto) 10.3 H 10^3/uL
(1.4-6.5)
Absolute Monos (auto) 1.0 H 10^3/uL
(0.1-0.6)
Neutrophils % 80.3 H %
(42.2-75.2)
Lymphocytes % 10.2 L %
(20.5-51.1)
Albumin 3.4 L g/dl
(3.5-5.0)
11/30/23 11:06
11/30/23 11:06
Vital Signs
Initial and Last Documented VS:
Initial Vital Signs
Temp Pulse Resp BP Pulse Ox
98.5 F 68 16 141/80 99
11/30/23 10:23 11/30/23 10:23 11/30/23 10:23 11/30/23 10:23 11/30/23 10:23
Last Documented Vital Signs
Temp Pulse Resp BP Pulse Ox
98.5 F 68 16 141/80 99
11/30/23 10:23 11/30/23 10:23 11/30/23 10:23 11/30/23 10:23 11/30/23 10:23
MDM/Problems Addressed
Differential Diagnosis Includes:
recurring c. diff colitis, antibiotic associated collitis, IBS, IBD
MDM/Problems Addressed:
63-year-old female presenting to the emergency department for evaluation of loose stool this morning, recent admission and complications from C. difficile colitis. Patient states she was more just very concerned about possible recurrence of C.
difficile colitis which is why she came back to the ER. She otherwise feels well and is without any other concerns. Labs and stool studies were initiated on arrival. Disposition pending
*Pulse Oximetry
Patient hypoxic: no
*Critical Care Note
Total Time (30-74mins, 75-104mins- exclusive of procedures): Not Applicable
Data Reviewed
Review of Other/Old Records Reveals: Labs, Records and Discharge Summary
Source: patient, records and family
Patient Management
Escalation/DeEscalation of care consider admission/obs:
Patient's labs show a continuing improved leukocytosis. Her C. difficile study is negative. Patient feels comfortable being discharged home and will continue her outpatient management as scheduled.
ED Attending Note
-
Portions of this chart may have been created with voice recognition software.� Occasional wrong word or��sound alike� substitutions may have occurred due to the inherent limitations of voice recognition software.
Discharge Plan
Departure
Patient Disposition: Home (Routine Discharge)
Date of Disposition: 11/30/23
Time of Disposition: 12:25
Patient with high blood pressure during this ER visit?: No
Discharge Problem:
Diarrhea
Instructions: Diarrhea, Adult ED
Prescriptions:
No Action
hydrochlorothiazide 25 mg Tablet
25 mg PO DAILY
Referrals:
Mckenzie Reinoso CRNP [Family Provider] -
Interventions
Interventions:
*Risk Screen - Suicide Last Done: 11/30/23 10:23
*General Assessment Last Done: 11/30/23 10:58
*Neglect/Abuse Screening Last Done: 11/30/23 10:23
QW-Caxcyv-Ysetbllegm Assessment Last Done: 11/30/23 10:58
Discharge Date and Time
Print Language: GAMBIAN
[2023-11-30 12:50] VITALS: BP 138/70
== END 2023-11-30 12:53 | disposition home or self-care (01) ==
LOC: EMR 10:15
PROVIDERS: Emergency Medicine; EMERGENCY PHYSICIAN Emergency Medicine; FAMILY PHYSICIAN Nurse Practitioner Family
DX: R19.7 Diarrhea, unspecified (principal); Z86.19 Personal history of other infectious and parasitic diseases
CPT/HCPCS: 99283; 80053; 85025; 87045; 87046; 87324; 87427; 87449

== ENCOUNTER 2023-12-08 07:39 | Emergency (ER) | payer OTHER, SELFPAY ==
[2023-12-08 07:41] VITALS: BP 135/52
--- NOTE | 2023-12-08 08:40 | ED.GENMED ---
History of Present Illness
<Opal العراقي MD, Resident - Last Filed: 12/08/23 14:25>
General
Chief Complaint: Abdominal Symptoms
Source: patient, records and family
Time Seen by Provider: 12/08/23 07:48
Travel History
Have you traveled to any high risk areas for coronavirus over the past 14 days?: No
Have you had any contact with someone who has COVID-19?: No
Do you have any symptoms of coronavirus? Fever > 100 degrees, chills, cough, shortness of breath, sore throat, loss of taste or smell, muscle aches, or headache?: No
History of Present Illness
History of Present Illness:
63-year-old female with PMHx significant for appendectomy, recent diagnosis of C. difficile diarrhea, hospital admission 10/19/23 through 10/30/2023 for diarrhea and indeterminate colitis, course complicated by rectal perforation, s/p surgery with 2
subsequent C. difficile stool test negative on 10/21/2023, 11/30/2023 presents with recurrent diarrhea. She started noticing diarrhea on 11/30/2023, 2 - 3 episodes of loose and soft stools, Conneaut stool scale-4-5, with lots of flatus, increased
bowel noises, burping and bloating. Her stools were nonbloody, non-mucous, and are not associated with any abdominal pain. She denies having fever, nausea, vomitings, change in color of stool, dysuria, frequency, hesitancy, and her loose stools
were not as bad as the one she had during her first hospital admission.
Of note she travel to [place] in July, became really sick after coming back, saw PCP for cough, congestion and fatigue, was given amoxicillin, and patient started developing loose stools after taking 1 dose of amoxicillin. Previously had loose stools
were 7 on Conneaut stool scale, 8-10 episodes a day, nonbloody and nonmucous. She was worked up in the PCP office 1 week after these episodes during which her stool cultures as well as C. difficile was negative. However during her colonoscopy in
late September, she was told that she had C. difficile and was given vancomycin and sent home on vancomycin. After finishing the course of vancomycin she was admitted to [facility] as her diarrheal episodes did not subside. On day 2 of
hospitalization-10/20/2023, she developed acute abdominal pain and had rectal perforation.
Denies recent history of travel, sick contacts.
Past History
<Opal العراقي MD, Resident - Last Filed: 12/08/23 14:25>
Past History
ED Past Medical History: Other (C. difficile colitis, perforated rectum, SBP)
ED Past Surgical History: Appendectomy
Social History
Tobacco: Non-smoker
Alcohol: None
Drug: None
Personal:
Living: with family
Employment: Employed
Review of Systems
<Opal العراقي MD, Resident - Last Filed: 12/08/23 14:25>
Review of Systems
Allergies reviewed?: No
Constitutional: Reports no symptoms
EENT: Reports no symptoms
Respiratory: Reports no symptoms
Cardiac: Reports no symptoms
ABD/GI: Reports diarrhea and other; Denies abdominal pain, nausea, vomiting, constipated, bloody stools, black stools, anorexia or pain
: Denies dysuria, frequency, flank pain, difficulty voiding, urgency or dark urine
Musculoskeletal: Reports no symptoms
Skin: Reports no symptoms
Neurological: Reports no symptoms
Endocrine: Reports no symptoms
Hematologic/Lymphatic: Reports no symptoms
Psychiatric: Reports no symptoms
Phy Exam
<Opal العراقي MD, Resident - Last Filed: 12/08/23 14:25>
General Physical Exam
General Presentation: well appearing and no apparent distress
General Skin: warm
General Habitus: normal
General Mental: alert
General Hydration: appears well hydrated
ENT Exam
ENT Exam: pharynx normal
Eye Exam
Eye Exam: PERRL, EOMI and conjunctiva normal
Cardiovascular Exam
Cardiovascular Exam: regular rate/rhythm, no gallop, no JVD, no murmur and normal peripheral pulses
Pulmonary Exam
Pulmonary Exam: lungs clear, no rales, no crackles, no rhonchi and no wheezing
Gastrointestinal Exam
Gastrointestinal Exam: normal bowel sounds, non tender, soft, no organomegaly, non distended and no masses
Abdominal Scars: vertical midline
Auscultation of Abdomen: normal
Liver Exam: edema of legs
Neurological Exam
Neurological Exam: alert and no motor deficits
Musculoskeletal Exam
Musculoskeletal Exam: edema
Skin Exam
Skin Exam: normal color
Course
<Opal العراقي MD, Resident - Last Filed: 12/08/23 14:25>
Orders/Labs/Results
Orders:
Orders
12/08/23 08:30
Vital Signs- Treatment ONCE
Frequency: Hourly
Iohexol [Omnipaque] See Protocol PO NOW STA
12/08/23 08:32
CT Abd/pel W Iv And Oral Contr Urgent
Comment:
Reason For Exam: post C. Diff diarrhea
12/08/23 09:06
Complete Blood Count/With Diff Urgent
Comprehensive Metabolic Panel Urgent
12/08/23 10:55
Urinalysis Reflex To Culture Urgent
Date Specimen was Collected: 12/08/23
Time Specimen was Collected: 10:13
Urine Microscopic Reflex Cult Urgent
STOOL [C difficile Antigen & Toxins] Urgent
TYREE Source: Feces/Stool
Specimen Description:
Date Specimen was Collected: 12/08/23
Time Specimen was Collected: 10:13
Urine Culture Urgent
TYREE Source: U
Specimen Description:
Date Specimen was Collected: 12/08/23
Time Specimen was Collected: 10:13
Abnormal Lab Results
12/08/23 12/08/23
09:06 10:55
WBC 14.4 H 10^3/uL
(4.8-10.8)
Hgb 7.9 L g/dL
(12.0-16.0)
Hct 26.0 L %
(37.0-47.0)
MCV 61.5 L fL
(81.0-99.0)
MCH 18.7 L pg
(27.0-31.0)
MCHC 30.4 L g/dL
(33.0-37.0)
RDW 18.0 H %
(11.5-14.5)
Plt Count 630 H 10^3/uL
(130-400)
MPV 10.7 H fL
(7.4-10.4)
Abs Immat Gran (auto) 0.1 H 10^3/uL
(0-0.05)
Absolute Neuts (auto) 11.4 H 10^3/uL
(1.4-6.5)
Absolute Monos (auto) 1.4 H 10^3/uL
(0.1-0.6)
Immature Gran % 0.6 H %
(0-0.5)
Neutrophils % 78.9 H %
(42.2-75.2)
Lymphocytes % 9.6 L %
(20.5-51.1)
Monocytes % 9.6 H %
(1.7-9.3)
Glucose 111 H mg/dl
(70-99)
Albumin 3.4 L g/dl
(3.5-5.0)
Leukocyte Esterase Rfl 1+ A
(Negative)
Urine RBC 3-6 A /HPF
(0-2)
Urine WBC (Reflex) 11-15 A /HPF
(0-5)
Urine Bacteria (Reflex) Few A
(Negative)
12/08/23 09:06
12/08/23 09:06
Vital Signs
Initial and Last Documented VS:
Initial Vital Signs
Temp Pulse Resp BP Pulse Ox
98.9 F 91 16 135/52 98
12/08/23 07:41 12/08/23 07:41 12/08/23 07:41 12/08/23 07:41 12/08/23 07:41
Last Documented Vital Signs
Temp Pulse Resp BP Pulse Ox
98.9 F 59 16 131/77 97
12/08/23 07:41 12/08/23 12:25 12/08/23 12:25 12/08/23 12:25 12/08/23 12:25
Internet Sales Consultant consulted with Physician
Internet Sales Consultant consulted with physician?: Yes
Name of Physician Consulted: Jordana Nieves MD, GI
<Jordan Austin MD - Last Filed: 12/08/23 09:27>
Orders/Labs/Results
Orders:
Orders
12/08/23 08:30
Vital Signs- Treatment ONCE
Frequency: Hourly
Iohexol [Omnipaque] See Protocol PO NOW STA
12/08/23 08:32
CT Abd/pel W Iv And Oral Contr Urgent
Comment:
Reason For Exam: post C. Diff diarrhea
12/08/23 09:06
Complete Blood Count/With Diff Urgent
Comprehensive Metabolic Panel Urgent
12/08/23 10:55
Urinalysis Reflex To Culture Urgent
Date Specimen was Collected: 12/08/23
Time Specimen was Collected: 10:13
Urine Microscopic Reflex Cult Urgent
STOOL [C difficile Antigen & Toxins] Urgent
TYREE Source: Feces/Stool
Specimen Description:
Date Specimen was Collected: 12/08/23
Time Specimen was Collected: 10:13
Urine Culture Urgent
TYREE Source: U
Specimen Description:
Date Specimen was Collected: 12/08/23
Time Specimen was Collected: 10:13
Abnormal Lab Results
12/08/23 12/08/23
09:06 10:55
WBC 14.4 H 10^3/uL
(4.8-10.8)
Hgb 7.9 L g/dL
(12.0-16.0)
Hct 26.0 L %
(37.0-47.0)
MCV 61.5 L fL
(81.0-99.0)
MCH 18.7 L pg
(27.0-31.0)
MCHC 30.4 L g/dL
(33.0-37.0)
RDW 18.0 H %
(11.5-14.5)
Plt Count 630 H 10^3/uL
(130-400)
MPV 10.7 H fL
(7.4-10.4)
Abs Immat Gran (auto) 0.1 H 10^3/uL
(0-0.05)
Absolute Neuts (auto) 11.4 H 10^3/uL
(1.4-6.5)
Absolute Monos (auto) 1.4 H 10^3/uL
(0.1-0.6)
Immature Gran % 0.6 H %
(0-0.5)
Neutrophils % 78.9 H %
(42.2-75.2)
Lymphocytes % 9.6 L %
(20.5-51.1)
Monocytes % 9.6 H %
(1.7-9.3)
Glucose 111 H mg/dl
(70-99)
Albumin 3.4 L g/dl
(3.5-5.0)
Leukocyte Esterase Rfl 1+ A
(Negative)
Urine RBC 3-6 A /HPF
(0-2)
Urine WBC (Reflex) 11-15 A /HPF
(0-5)
Urine Bacteria (Reflex) Few A
(Negative)
12/08/23 09:06
12/08/23 09:06
Vital Signs
Initial and Last Documented VS:
Initial Vital Signs
Temp Pulse Resp BP Pulse Ox
98.9 F 91 16 135/52 98
12/08/23 07:41 12/08/23 07:41 12/08/23 07:41 12/08/23 07:41 12/08/23 07:41
Last Documented Vital Signs
Temp Pulse Resp BP Pulse Ox
98.9 F 59 16 131/77 97
12/08/23 07:41 12/08/23 12:25 12/08/23 12:25 12/08/23 12:25 12/08/23 12:25
<Opal العراقي MD, Resident - Last Filed: 12/08/23 14:25>
MDM/Problems Addressed
Differential Diagnosis Includes:
C. difficile colitis versus indeterminate colitis.
Elevated leukocytosis-WBC count at 14.4 slightly elevated from her baseline at 12.2.
C. difficile stool antigen and toxins negative.
CT abdomen is evident for colitis, small bowel inflammation resolving.
<Opal العراقي MD, Resident - Last Filed: 12/08/23 14:25>
*Radiology
Radiology exam reviewed: preliminary read by ED provider and radiology read reviewed
*Pulse Oximetry
Patient hypoxic: no
*EKG
Interpreted by ED Provider?: NA
*Director Television Interpretation
Rate: Director Television- N/A
*Critical Care Note
Total Time (30-74mins, 75-104mins- exclusive of procedures): Not Applicable
Data Reviewed
Review of Other/Old Records Reveals: Labs, Records, Radiology Studies, Operative Reports, Testing, Progress Notes and Discharge Summary
Source: patient and family
<Opal العراقي MD, Resident - Last Filed: 12/08/23 14:25>
Comment
Comment:
Patient has elevated leukocytosis, her CT abdomen is evident for colitis but small bowel inflammation has resolved with compared to the previous CT.
<Opal العراقي MD, Resident - Last Filed: 12/08/23 14:25>
Update Note
Update Note:
Patient has 3 more episodes of loose stools-Conneaut stool scale 7 in the last 3 hours.
Due to her elevated white blood cell count, CT abdomen and pelvis results that are evident for colitis, ongoing diarrhea but negative C. difficile today and a week ago, negative stool cultures a week ago, GI is consulted. GI visit pending. Updated
patient about the same.
ED Attending Note
<Opal العراقي MD, Resident - Last Filed: 12/08/23 14:25>
-
Portions of this chart may have been created with voice recognition software.� Occasional wrong word or��sound alike� substitutions may have occurred due to the inherent limitations of voice recognition software.
<Jordan Austin MD - Last Filed: 12/08/23 09:27>
ED Attending Note
Patient seen and examined by attending physician: Yes
I performed a history and physical exam of patient and discussed management with resident, I reviewed resident's note and agree with documented findings and plan of care.: Yes
ED Attending Note:
63-year-old female complicated history of C. difficile colitis followed by bowel perforation. Returns to our ER with episodes of what she is calling diarrhea and increased gas and abdominal sounds. Symptoms have been for a week. What she
describes as diarrhea is 2-3 episodes of loose stool per day. No blood or mucus. No fever. No abdominal pain. No nausea or vomiting.
On exam patient is nontoxic in no distress. Warm and dry. Perfusing well. Lungs clear and equal. Heart regular rate and rhythm no murmur. Abdomen is soft. Bowel sounds present. No rebound or guarding no mass or hernia. Well-healing vertical
incision. Grossly nonfocal.
Previous records reviewed. Will do a repeat C. difficile even though the recent 1 was negative. Will get an abdominal CT given her complicated recent course. Discussed with GI.
Discharge Plan
Departure
Prescriptions:
No Action
hydrochlorothiazide 25 mg Tablet
25 mg PO DAILY
Referrals:
Mckenzie Reinoso CRNP [Family Provider] -
Interventions
Interventions:
*Risk Screen - Suicide Last Done: 12/08/23 07:41
*General Assessment Last Done: 12/08/23 08:48
*Neglect/Abuse Screening Last Done: 12/08/23 07:41
ED- Fall Risk Assessment Last Done: 12/08/23 08:48
*ED COVID-19 Vaccine History Last Done: 12/08/23 08:48
DN-Udktff-Dwzybdfgmo Assessment Last Done: 12/08/23 08:48
Discharge Date and Time
Print Language: DIVEHI
[2023-12-08 08:46] VITALS: BMI 27.7
[2023-12-08] MEDS: OMNIPAQUE 50 ML PO (08:50)
[2023-12-08 09:31] LABS: ALT (SGPT) 14 U/L (0-35); AST (SGOT) 20 U/L (14-36); Albumin 3.4 g/dl (3.5-5.0); Alkaline Phosphatase 90 U/L (38-126); Blood Urea Nitrogen 13 mg/dl (7-17); Calcium 9.5 mg/dl (8.4-10.2); Carbon Dioxide 24 mmol/L (22-30); Chloride 104 mmol/L (98-107); Estimated Creatinine Clearance 93 ml/min; Glucose 111 mg/dl (70-99); Potassium 3.9 mmol/L (3.5-5.1); Sodium 140 mmol/L (135-145); Total Bilirubin 0.5 mg/dl (0.2-1.3); Total Protein 6.6 g/dl (6.3-8.2); eGFR > 60.00
[2023-12-08 09:42] LABS: % Basophils 0.3 % (0-2); % Immature Granulocytes 0.6 % (0-0.5); % Lymphocytes 9.6 % (20.5-51.1); % Monocytes 9.6 % (1.7-9.3); % Neutrophils 78.9 % (42.2-75.2); Absolute Basophils 0.1 10^3/uL (0-0.2); Absolute Eosinophils 0.1 10^3/uL (0-0.7); Absolute Immature Granulocytes 0.1 10^3/uL (0-0.05); Absolute Lymphocytes 1.4 10^3/uL (1.2-3.4); Absolute Monocytes 1.4 10^3/uL (0.1-0.6); Absolute Neutrophils 11.4 10^3/uL (1.4-6.5); Hemoglobin 7.9 g/dL (12.0-16.0); Mean Corp Hgb Conc. 30.4 g/dL (33.0-37.0); Mean Corpuscular Hgb 18.7 pg (27.0-31.0); Mean Corpuscular Volume 61.5 fL (81.0-99.0); Mean Platelet Volume 10.7 fL (7.4-10.4); Nucleated Red Blood Cells % 0 %; Platelet Count 630 10^3/uL (130-400); Red Blood Cell Count 4.23 10^6/uL (4.20-5.40); White Blood Cell Count 14.4 10^3/uL (4.8-10.8)
[2023-12-08 11:19] LABS: Urine Albumin Trace (Neg - Trace); Urine Bilirubin Negative (Negative); Urine Character Clear (Clear); Urine Color Yellow; Urine Glucose Negative (Negative); Urine Ketone Negative (Negative); Urine Leukocyte 1+ (Negative); Urine Nitrite Negative (Negative); Urine Occult Blood Negative (Negative); Urine Specific Gravity 1.015 (<1.030); Urine Urobilinogen Negative (Neg - 1+); Urine pH 6.5 (5.0-9.0)
[2023-12-08 11:53] LABS: Urine Squamous Cell >30 /LPF (Few)
[2023-12-08 11:56] LABS: Urine Bacteria Few (Negative)
[2023-12-08 12:25] VITALS: BP 131/77
--- NOTE | 2023-12-08 16:22 | CON.GI ---
Consultation
-
Date/Time Consultation Requested: 12/08/23 1530
Date/Time Consultation Performed: 12/08/23 1600
Requesting Provider: Dr. Barton
Performing Provider: Dr. Berry/MIGUEL Bal
Reason for Consultation: diarrhea
Medical History
Chief Complaint / HPI
Chief Complaint: diarrhea, questionable C. diff infection
History of Present Illness:
63-year-old female with no significant history who presents with diarrhea. She had colonoscopy at [facility] [place] for evaluation of chronic diarrhea.The patient states that this occurred after taking 1 pill of amoxicillin after having URI
after returning from [place] in July 2023. She states that she had negative outpatient stool studies with her PCP including CDiff, cultures and O&P per patient. She had colonoscopy with outside physician and she states she was told that he found C
Diff on colonoscopy and she was started on oral Vancomycin. She has 2 doses and came to with diarrhea on 10/19/23. During her evaluation here, CT abdomen/pelvis was done which showed free air under diaphragm and was diagnosed with colonic
perforation. She was taken to the OR and had laparotomy which noted small perforation in the rectum, and had primary repair. CDiff testing here was negative here was negative. Patient was seen by ID and Vancomycin was stopped. Patient was on
Cefepime and metronidazole then narrowed to ceftriaxone and metronidazole.OR culture positive E Coli, strep species. Patient was started on empiric Dificid
10/24/23 x 7 days. She states that her BMs were small and piece like then eventually improved and started to become formed then finally returned to normal. Patient did develop a DVT and was started on Eliquis. She started with diarrhea 5-8 times a
day. approximately 5-7 days ago, this is watery. She came to the ER and was DC after having negative stool studies on 11/30/23. She denies any F, C, N, V, melena, hematochezia, dysphagia, odynophagia, early satiety, unintentional weightloss.
Past Medical History
Past Medical History: Other (lower ext edema, diarrhea)
Past Surgical History: Appendectomy and Other (Ex lap with rectal perf repair)
Social History
Tobacco: Non-Smoker
Alcohol: None
Drug: None
Personal:
Living: With Family
Employment: Employed
Family History
Family History: Other (No fam hx of GI malignancy)
Allergies / Home Medications
Allergy/AdvReac Type Severity Reaction Status Date / Time
No Known Allergies Allergy Verified 12/08/23 07:43
�Medication �Instructions �Recorded
hydrochlorothiazide 25 mg tablet 25 mg PO DAILY Fluid 10/19/23
Retention/Swelling
Review of Systems
-
All other systems: A 12 pt ROS was Negative except as stated above in HPI
Vital Signs
Temp Pulse Resp BP Pulse Ox
98.9 F 59 16 131/77 97
12/08/23 07:41 12/08/23 12:25 12/08/23 12:25 12/08/23 12:25 12/08/23 12:25
Physical Exam
Exam
General: No Apparent Distress
HEENT: Anicteric
Respiratory: Clear
Cardiac: Regular Rhythm
GI: Soft, Non Tender, Non Distended and Normal Bowel Sounds
Skin: Warm and Dry
Psych: Calm
Results
WBC 14.4 10^3/uL (4.8-10.8) H 12/08/23 09:06
Hgb 7.9 g/dL (12.0-16.0) L 12/08/23 09:06
Hct 26.0 % (37.0-47.0) L 12/08/23 09:06
MCV 61.5 fL (81.0-99.0) L 12/08/23 09:06
Plt Count 630 10^3/uL (130-400) H 12/08/23 09:06
Absolute Neuts (auto) 11.4 10^3/uL (1.4-6.5) H 12/08/23 09:06
Sodium 140 mmol/L (135-145) 12/08/23 09:06
Potassium 3.9 mmol/L (3.5-5.1) 12/08/23 09:06
Chloride 104 mmol/L (98-107) 12/08/23 09:06
Carbon Dioxide 24 mmol/L (22-30) 12/08/23 09:06
BUN 13 mg/dl (7-17) 12/08/23 09:06
Creatinine 0.6 mg/dL (0.6-1.0) 12/08/23 09:06
Calcium 9.5 mg/dl (8.4-10.2) 12/08/23 09:06
Total Bilirubin 0.5 mg/dl (0.2-1.3) 12/08/23 09:06
AST 20 U/L (14-36) 12/08/23 09:06
ALT 14 U/L (0-35) 12/08/23 09:06
Alkaline Phosphatase 90 U/L (38-126) 12/08/23 09:06
Diagnostic Image Results:
CT Abd/Pelvis 12/08/23:
IMPRESSION:
Persistent, unchanged inflammation involving the descending and sigmoid colon. No focal fluid collection.
Interval resolution of bowel wall thickening and surrounding inflammatory changes involving a small bowel loop previously seen on CT from 10/23/2023.
Inflammation involving the central omentum subjacent to the laparotomy scar which may represent omental infarction.
Prior GI Procedures:
EGD:
Colonoscopy: 09/2023 [facility] [place]: report unavailable to me
Assessment / Plan
-
63-year-old female with no significant history who presents with diarrhea. She had colonoscopy at [facility] [place] for evaluation of chronic diarrhea.The patient states that this occurred after taking 1 pill of amoxicillin after having URI
after returning from [place]. in July 2023. She states that she had negative outpatient stool studies with her PCP including CDiff, cultures and O&P per patient. She had colonoscopy with outside physician and she states she was told that he found C
Diff on colonoscopy and she was started on oral Vancomycin. She has 2 doses and came to with diarrhea on 10/19/23. During her evaluation here, CT abdomen/pelvis was done which showed free air under diaphragm and was diagnosed with colonic
perforation. She was taken to the OR and had laparotomy which noted small perforation in the rectum, and had primary repair. Despite having multiple negative Cdiff tests she was treated with Dificid for 7 days. She returns with recurrent diarrhea
for past 7 days. Again negative stool studies. she was recently dx with DVT and started on Eliquis approx 8 days ago as well. No signs of bleeding. No records from Colonoscopy available.
Impression:
Diarrhea--> since July 2023--> was told that she had CDiff, by Endoscopist and started on Vancomycin. Bx were pending at time of hospitalization. Negative CDiff while here, also treated empirically with Dificid x 7 days
Colonoscopy at outside institution with rectal perforation s/p exlap and rectal repair 10/19/23--> will try to obtain report and bx
Plan:
-Check ESR, CRP, fecal calpro, TSH/T4 now.
-Low residue/Low lactose diet
-Recommend colestipol 1 gm po daily. Will discuss with ER.
-Follow up with Dr. Mateus Hugo on 12/30/23 at 9:30 am, given card
-Will need prior colonoscopy and path. Patient aware.
-
-
Thank you for consultation and allowing me to participate in the patient's care. Please call the precision optics technician GI physician during the after hours with any questions or concerns.
[2023-12-08 17:06] VITALS: BP 103/54
[2023-12-08 19:13] LABS: TSH Reflex To Free T4 0.69 uIU/ml (0.47-4.68)
[2023-12-08 22:49] LABS: Erythrocyte Sed Rate 51 mm/hour (0-20)
[2023-12-11 18:11] LABS: Calprotectin, Fecal >3000 ug/g (<=49)
== END 2023-12-08 18:00 | disposition home or self-care (01) ==
LOC: EMR 07:39
PROVIDERS: Nurse Practitioner; Student in an Organized Health Care Education/Training Program; EMERGENCY PHYSICIAN Student in an Organized Health Care Education/Training Program; FAMILY PHYSICIAN Nurse Practitioner Family; OTHER PHYSICIAN Internal Medicine
DX: R19.7 Diarrhea, unspecified (principal)
CPT/HCPCS: 99285; 74177; 80053; 81003; 81015; 83993; 84443; 85025; 85652; 86140; 87086; 87324; 87449; Q9967

== ENCOUNTER 2024-03-06 16:27 | Inpatient (IN) | payer OTHER, SELFPAY ==
[2024-03-06] VITALS (7 sets, daily range): BP systolic 98–123; BP diastolic 43–79; BMI 25.3
--- NOTE | 2024-03-06 09:55 | ED.GENMED ---
History of Present Illness
General
Chief Complaint: Chest Problem
Time Seen by Provider: 03/06/24 09:45
History of Present Illness
History of Present Illness:
Patient is a 63-year-old with history of DVT on Xarelto presenting to the emergency department with left-sided rib pain. Patient states about a month ago she felt sore on her left ribs. She took some Tylenol and a heating pad and the pain went
away. She woke up this morning felt a lump to her left upper abdomen and lower ribs. Denies any trauma or bumping into anything. No fevers or chills. No rash. She has had a 50 pound weight loss but attributes it to not eating during last summer
secondary to medical problems. However she has noticed a few episodes of night sweats. No history of malignancy. No family history of malignancy. No nausea vomiting. She does state that her bowel movements are irregular.
Past History
Past History
ED Past Medical History: Other (C. difficile colitis, perforated rectum, SBP)
ED Past Surgical History: Appendectomy
Social History
Tobacco: Non-smoker
Alcohol: None
Drug: None
Personal:
Living: with family
Employment: Employed
Phy Exam
Physical Exam
Physical Exam:
GENERAL: in no acute distress
HEENT: normocephalic, extraocular movements intact, moist oral mucosa
NECK: normal inspection
RESPIRATORY: no respiratory distress, clear to auscultation bilaterally
CARDIOVASCULAR: regular rate and rhythm
ABDOMEN/: Left upper quadrant with tenderness and a lump palpable just below the ribs, no associated rash soft, non-distended, no rebound or guarding
EXTREMITIES: non-tender, no edema/swelling
NEUROLOGIC: awake and alert, moves all extremities
SKIN: warm
Course
Orders/Labs/Results
Orders:
Orders
03/06/24 08:59
CR Ribs-left 3 Vw W/pa Chest Urgent
Comment:
Reason For Exam: pain, swelling over L ribs
03/06/24 09:53
CT Abd/pelvis W Iv Cont Urgent
Comment:
Reason For Exam: left upper quadrant, left lower rib pain
03/06/24 10:06
Basic Metabolic Panel Urgent
Complete Blood Count/With Diff Urgent
03/06/24 14:39
Piperacillin/Tazo 4.5 Gram [Zosyn] 4.5 gram in 100 ml IV NOW
Abnormal Lab Results
03/06/24
10:06
WBC 17.5 H 10^3/uL
(4.8-10.8)
Hgb 7.4 L g/dL
(12.0-16.0)
Hct 25.4 L %
(37.0-47.0)
MCV 58.9 L fL
(81.0-99.0)
MCH 17.2 L pg
(27.0-31.0)
MCHC 29.1 L g/dL
(33.0-37.0)
RDW 17.1 H %
(11.5-14.5)
Plt Count 676 H 10^3/uL
(130-400)
Abs Immat Gran (auto) 0.1 H 10^3/uL
(0-0.05)
Absolute Neuts (auto) 14.4 H 10^3/uL
(1.4-6.5)
Absolute Monos (auto) 1.7 H 10^3/uL
(0.1-0.6)
Immature Gran % 0.6 H %
(0-0.5)
Neutrophils % 82.6 H %
(42.2-75.2)
Lymphocytes % 7.0 L %
(20.5-51.1)
Monocytes % 9.5 H %
(1.7-9.3)
Sodium 134 L mmol/L
(135-145)
Glucose 106 H mg/dl
(70-99)
03/06/24 10:06
03/06/24 10:06
Vital Signs
Initial and Last Documented VS:
Initial Vital Signs
Temp Pulse Resp BP Pulse Ox
99.3 F 96 18 99/65 100
03/06/24 08:55 03/06/24 08:55 03/06/24 08:55 03/06/24 08:55 03/06/24 08:55
Last Documented Vital Signs
Temp Pulse Resp BP Pulse Ox
99.3 F 96 16 105/56 100
03/06/24 08:55 03/06/24 13:15 03/06/24 14:00 03/06/24 13:15 03/06/24 13:15
MDM/Problems Addressed
Differential Diagnosis Includes:
Patient is a 63-year-old woman presenting to the emergency department with pain and a lump over her left upper abdomen/lower ribs. On arrival initial blood pressure was slightly low however on repeat it was normal. On exam she does have a lump to
the left upper quadrant as well as some tenderness over the ribs. The lump does not feel as if it is on the ribs. Concern for mass given the night sweats weight loss. X-ray was obtained prior to my evaluation which per my interpretation does not
show any obvious rib abnormalities. Will proceed with CT scan and obtain basic blood work.
*Critical Care Note
Total Time (30-74mins, 75-104mins- exclusive of procedures): Not Applicable
Update Note
Update Note:
CT scan per my interpretation with lateral abdominal wall collection. Unfortunately CT scan read was not read for multiple hours. I did reach out to radiology who then reviewed the CT scan. There is an abdominal wall abscess to the lateral aspect
that is about 7.8 x 1 x 7.5 cm along with a confined lateral perforation of the descending colon. I did discuss with radiology to confirm that there is no free air in the peritoneum. I discussed with colorectal surgery who recommended medicine
admission. I did order antibiotics. Will admit to the hospitalist service.
ED Attending Note
-
Portions of this chart may have been created with voice recognition software.� Occasional wrong word or��sound alike� substitutions may have occurred due to the inherent limitations of voice recognition software.
Discharge Plan
Departure
Patient Disposition: Admit
Date of Disposition: 03/06/24
Time of Disposition: 14:46
Presentation/result/management discussed w/ accepting MD/DO: Hospitalist
Discharge Problem:
Abdominal wall abscess, Perforation of colon
Prescriptions:
No Action
hydrochlorothiazide 25 mg Tablet
25 mg PO DAILY
colestipol 1 gram tablet
1 g PO ONCE 30 Days Qty: 30 0RF
Referrals:
Mckenzie Reinoso CRNP [Family Provider] -
Interventions
Interventions:
*Risk Screen - Suicide Last Done: 03/06/24 08:55
*General Assessment Last Done: 03/06/24 08:55
*Neglect/Abuse Screening Last Done: 03/06/24 09:37
*ED COVID-19 Vaccine History Last Done: 03/06/24 08:55
ED- Cardiac Assessment Last Done: 03/06/24 09:37
ED- Pulmonary Assessment Last Done: 03/06/24 09:37
Discharge Date and Time
Print Language: TURKMEN
[2024-03-06 10:26] LABS: % Basophils 0.2 % (0-2); % Eosinophils 0.1 % (0-6); % Immature Granulocytes 0.6 % (0-0.5); % Monocytes 9.5 % (1.7-9.3); % Neutrophils 82.6 % (42.2-75.2); Absolute Immature Granulocytes 0.1 10^3/uL (0-0.05); Absolute Lymphocytes 1.2 10^3/uL (1.2-3.4); Absolute Monocytes 1.7 10^3/uL (0.1-0.6); Absolute Neutrophils 14.4 10^3/uL (1.4-6.5); Hematocrit 25.4 % (37.0-47.0); Hemoglobin 7.4 g/dL (12.0-16.0); Mean Corp Hgb Conc. 29.1 g/dL (33.0-37.0); Mean Corpuscular Hgb 17.2 pg (27.0-31.0); Mean Corpuscular Volume 58.9 fL (81.0-99.0); Nucleated Red Blood Cells % 0 %; Platelet Count 676 10^3/uL (130-400); Red Blood Cell Count 4.31 10^6/uL (4.20-5.40); Red Cell Dist. Width 17.1 % (11.5-14.5); White Blood Cell Count 17.5 10^3/uL (4.8-10.8)
[2024-03-06 10:43] LABS: Blood Urea Nitrogen 14 mg/dl (7-17); Calcium 8.4 mg/dl (8.4-10.2); Carbon Dioxide 22 mmol/L (22-30); Chloride 103 mmol/L (98-107); Glucose 106 mg/dl (70-99); Sodium 134 mmol/L (135-145); eGFR > 60.00
[2024-03-06] MEDS: ZOSYN 100 IV (14:49)
--- NOTE | 2024-03-06 15:43 | HPS.HSE ---
Family Physician
-
Family Physician: MIGUEL Patterson
Chief Complaint
-
left sided abdomen/ribs pain
History of Present Illness
63-year-old with history of DVT on Eliquis, status post exploratory laparotomy, primary repair of rectal perforation presenting to the emergency department with left-sided rib pain/abdominal pain. patient woke up with pain and felt a lump to her
left upper abdomen and lower ribs. Denies any trauma or bumping into anything. No fevers or chills. No rash. She has had a 50 pound weight loss but attributes it to not eating during last summer secondary to medical problems. However she has
noticed a few episodes of night sweats. Patient denies any headache, dizzy, syncope patient denied nausea vomiting diarrhea. Patient denied dysuria,hematuria.
Medical History
Past Medical History
Past Medical History: Reports Other
Additional Past Medical History:
DVT
Colitis
C. difficile infection
Anemia
Past Surgical History: Reports Other
Additional Past Surgical History:
Appendectomy
ex lap, repair of rectal perforation
Social History
Tobacco: Non-smoker
Alcohol: None
Drug: None
Living: With Family
Family History
Family History: Not pertinent
Allergies / Home Medications
Allergies reflects when Allergies were last updated in [facility].
Home Medications with original date entered in [facility]
Allergy/Medication List:
Allergies
Allergy/AdvReac Type Severity Reaction Status Date / Time
No Known Allergies Allergy Verified 12/08/23 07:43
Home Medications
apixaban 5 mg tablet (Eliquis) 5 mg PO BID 03/06/24
colestipol 1 gram tablet 1 g PO HS 03/06/24
ferrous sulfate 325 mg (65 mg iron) tablet 325 mg PO DAILY 03/06/24
therapeutic multivitamin 1 tab PO DAILY 03/06/24
Review of Systems
-
Constitutional: Reports Night Sweats
EENT: Reports No Symptoms
Respiratory: Reports No Symptoms
Cardiac: Reports No Symptoms
Abdomen/GI: Reports Other (Left-sided abdominal/ribs pain)
: Reports No Symptoms
Musculoskeletal: Reports No Symptoms
Skin: Reports No Symptoms
Neurological: Reports No Symptoms
Endocrine: Reports No Symptoms
Hematologic/Lymphatic: Reports No Symptoms
Psych: Reports No Symptoms
Physical Exam
Vital Signs
Vital Signs
Temp Pulse Resp BP Pulse Ox
99.3 F 96 16 105/56 100
03/06/24 08:55 03/06/24 13:15 03/06/24 14:00 03/06/24 13:15 03/06/24 13:15
Physical Exam
General: Well Developed, Well Nourished and No Apparent Distress
HEENT: NormoCephalic, Moist mucous membranes and Atraumatic
Respiratory: Clear
Cardiac: S1/S2 and Regular Rhythm; No Murmur or Rub
GI: Soft, Non Tender, Non Distended, Normal Bowel Sounds and Other (lump); No Organomegaly
Rectal: Deferred by Provider
Musculoskeletal: No Clubbing, No Cyanosis and No Edema
Skin: No Rash
Neuro: AO x 3 and Nonfocal/grossly intact
Psych: Calm
Laboratory Results
-
03/06/24 10:06
03/06/24 10:06
Data Reviewed
-
CT Scan: Report Reviewed by me
Lab Data: Labs Reviewed by me
Impression/Plan
-
# Abdominal abscess
-WBC 17, patient remained afebrile
-Tylenol as needed for fever or pain
-Zosyn continued
-IR consulted for possible drainage in AM
-heating pad for comfort
-Colorectal consulted
-CT abdomen pelvis with impression of 9 cm in length area of severe bowel wall thickening and pericolonic inflammatory stranding in the mid and distal descending colon consistent with acute colitis.
Image 48 series 201 demonstrates confined lateral perforation along the descending colon with associated abscess in the lateral aspect of the left abdominal wall. The abscess measures approximately 7.8 x 1.0 x 7.5 cm in AP, transverse and
craniocaudal dimensions respectively
-Chest x-ray with impression of No radiographically demonstrable left rib fracture. No pleural effusion or pneumothorax.
# Anemia of chronic disease
-Hemoglobin stable at 7.4
-No active bleeding
-Continue to monitor
-Ferrous sulfate continue
#status post exploratory laparotomy, primary repair of rectal perforation.
#DVT
-hold eliquis
-as per surgical team, use Lovenox prophylactically.
# CODE STATUS
-Full code
--- NOTE | 2024-03-06 16:02 | CON.GS ---
Addendum entered and electronically signed by Chandrakant Martines MD 03/06/24 16:33:
Patient seen and examined with surgical F[employer] HEEL PIECE SHAPER. Agree with documented consultation note.
HPI: 63-year-old female previously known to our surgical service status post ex lap, primary repair rectal perforation 10/19/2023. This was following colonoscopy which showed severe pseudomembranous colitis. Empirically treated with Dificid although
C. difficile stool studies negative. Return emergency department evaluation in November with colitis and diarrhea for which was being treated with colestipol. Also was found to have left lower extremity DVT in November and she has been on Eliquis
since.
At today's evaluation in the emergency department patient states that she has been doing well until just over the last 24 hours when she began noticing tenderness and discomfort in the left lateral abdominal wall particularly with movement. She
recalls a similar episode last month for which she was applying a heating pad and this was alleviating her discomfort and that it completely went away so she did not think much of it.
On further discussions she states her appetite has been well. No postprandial abdominal bloating or distention. No nausea, no vomiting. Her bowels have been moving regularly without diarrhea recently. No constipation. No melena or hematochezia.
No fevers chills but has had an occasional night sweat which she typically does not experience.
PMH: Left lower extremity DVT, history of colitis/diarrhea, chronic iron deficiency anemia
PSH: Open appendectomy, ex lap repair of rectal perforation
AFVSS
NAD AAOx3, resting comfortably in emergency department on bed
ABD: Soft, nondistended, tenderness palpation left lower quadrant without guarding or rebound. Tenderness to palpation left flank with some warmth to touch and visible swelling/generalized firmness and induration.
CT abdomen/pelvis: Left lateral abdominal wall fluid collection within the layers of the lateral oblique musculature. Predominantly transversalis muscle and adjacent peritoneal lining abutting the descending colon. There is also some inflammation
around the sigmoid colon continuous with surrounding small bowel loops. No radiographic findings suggestive of obstruction. No free air.
Assessment/plan: 63-year-old female with descending/sigmoid colitis and left lateral abdominal wall fluid collection/probable abscess. No signs of perforation. Clinically stable without peritonitis.
Initiate broad-spectrum empiric antibiotic coverage -Zosyn
Consult interventional radiology for IR aspiration and hopeful drain placement in left lateral abdominal wall collection.
Okay for clear liquids
Supportive care with analgesics and antiemetics if needed
Further radiographic imaging of colon and GI tract pending IR aspiration/drain results and appearance of fluid
Will follow thank you
Original Note:
Medical History
-
Chief Complaint: left flank pain
History of Present Illness:
Ms Johnston is a 63 yo female with admission in October of 2023 with perforated rectum in the setting of a colonoscopy in [place] which showed severe pseudomembranous colitis, scope therefore not advanced past rectum/rectal biopsy taken. She was
taken to the OR for exploratory laparotomy with repair of the rectal perforation on 10/19/[address] Bernabe. Subsequent c-diff stool studies that admission were negative, but she was empirically treated with Difcid x7 days. She has been following
with gastroenterology for chronic diarrhea with presentation to the ED on 12/08/23 with colitis present on CT without abscess or pneumoperitoneum. She was initiated on colestipol as an outpatient and has had resolution of diarrhea since that time.
She had LLE edema in November DVT diagnosis at that time and Eliquis was initiated. She has also been following with hematology and will be receiving an iron infusion as she has been chronically anemic. She presents today for intermittent pain to the
left mid flank with movement. There is tenderness to the LLQ over to the left side with palpable edema present to the flank. She notes she had a normal BM today. She denies n/v. She had a similar episode of pain last month to the left flank and
noted that a heating pad was enough to resolve her discomfort.
Past Medical History
Past Medical History: Other (LLE DVT on Eliquis LD 03/06/24 am, Colitis with recurrent diarrhea, Chronic anemia)
Past Surgical History: Appendectomy and Other (Exploratory laparotomy for repair of rectal perforation 10/19/23)
Social History
Tobacco: Non-Smoker
Alcohol: None
Family History
Family History: Reviewed & Not Pertinent
Allergies / Home Medications
Allergy/AdvReac Type Severity Reaction Status Date / Time
No Known Allergies Allergy Verified 12/08/23 07:43
�Medication �Instructions �Recorded �Confirmed �Type
apixaban 5 mg tablet (Eliquis) 5 mg PO BID 03/06/24 03/06/24 History
colestipol 1 gram tablet 1 g PO HS 03/06/24 03/06/24 History
ferrous sulfate 325 mg (65 mg 325 mg PO DAILY 03/06/24 03/06/24 History
iron) tablet
therapeutic multivitamin 1 tab PO DAILY 03/06/24 03/06/24 History
Review of Systems
-
History Source: Patient
All other systems: Negative unless noted
A 10 point review of systems was completed, and was negative except as per HPI.
Physical Exam
Vital Signs
Temp Pulse Resp BP Pulse Ox
99.3 F 96 16 105/56 100
03/06/24 08:55 03/06/24 13:15 03/06/24 14:00 03/06/24 13:15 03/06/24 13:15
03/05/24 03/06/24 03/07/24
06:59 06:59 06:59
Actual Weight 68 kg
Lab Results
03/06/24 10:06
03/06/24 10:06
WBC 17.5 10^3/uL (4.8-10.8) H 03/06/24 10:06
Hgb 7.4 g/dL (12.0-16.0) L 03/06/24 10:06
Hct 25.4 % (37.0-47.0) L 03/06/24 10:06
Plt Count 676 10^3/uL (130-400) H 03/06/24 10:06
Abs Immat Gran (auto) 0.1 10^3/uL (0-0.05) H 03/06/24 10:06
Neutrophils % 82.6 % (42.2-75.2) H 03/06/24 10:06
Physical Exam
General: Well Developed and Well Nourished
HEENT: Moist Mucous Membranes
Respiratory: Non Labored Respirations
GI: Soft, Non Distended and Tender (LLQ into mid flank, edema noted to flank)
Skin: Warm and Dry
Neuro: Awake, Alert and AO x 3
Psych: Calm
Data Reviewed
-
CT Scan: Image Personally Visualized and interpreted, Report Reviewed by me, Discussed with Physician and Discussed with Patient
Labs: Labs Reviewed by me, Discussed with Physician, Discussed with Patient and Discussed with Family
Old Records: Reviewed (including outpatient GI records)
Assessment / Plan
-
63 yo female with prior ex lap for repair of a rectal perforation after colonoscopy 10/19/23, persistent diarrhea improved with colestipol with prior episodes of colitis, DVT 11/2023 on Eliquis LD this morning who presents with left sided
abdominal/flank pain. CT imaging reviewed with abscess present to the left lateral sidewall of the abdomen with adjacent inflammatory changes to the bowel. Unclear if abscess communicates with the bowel or fistula forming. There is no
pneumoperitoneum. Afebrile with stable vital signs. Leukocytosis and thrombocytosis present with anemia consistent with acute infection/inflammatory process.
--Consult IR for abscess drainage/drain placement. Hold Eliquis for procedure
--Tentative plan for follow up imaging with rectal contrast pending IR findings
--Continue IV ABX
--Clear liquid diet to start
--Ok for SQ VTE ppx while Eliquis on hold
Hospitalist nurse practitioner at bedside, discussed case and plan of care
--- NOTE | 2024-03-06 18:15 | TRANSFER ---
Pt transferred from ED to [facility]. Pt walked from stretcher to bed, accompanied by . VSS, admission and assessment complete by this RN. Pt oriented to room, no complains of pain at this time. Call grcaia within reach.
[2024-03-06] MEDS: LOVENOX 40 MG SC (18:41)
--- NOTE | 2024-03-06 21:24 | W.PN.UPDATE ---
Update Note
Progress Note Update
Attending note
Patient seen independently
63-year-old woman with:
history of DVT on Eliquis,
status post exploratory laparotomy,
primary repair of rectal perforation
presents with left-sided rib pain/abdominal pain.She woke up with pain and felt a lump to her left upper abdomen and lower ribs. She Denies any trauma or bumping into anything. No fevers or chills. No rash. She has had a 50 pound weight loss but
attributes it to not eating during last summer secondary to medical problems. However she has noticed a few episodes of night sweats. Patient denies any headache, dizzy, syncope patient denied nausea vomiting diarrhea. Patient denied
dysuria,hematuria. CT in the ED showed:
There is an approximately 9 cm in length area of severe bowel wall thickening and pericolonic inflammatory stranding in the mid and distal descending colon consistent with acute colitis.
Image 48 series 201 demonstrates confined lateral perforation along the descending colon with associated abscess in the lateral aspect of the left abdominal wall.
The abscess measures approximately 7.8 x 1.0 x 7.5 cm in AP, transverse and craniocaudal dimensions respectively
Past Medical History
DVT
Colitis
C. difficile infection
Anemia
Past Surgical History: Reports Other
Additional Past Surgical History:
Appendectomy
ex lap, repair of rectal perforation
Physical Exam
General: Well Developed, Well Nourished and No Apparent Distress
HEENT: NormoCephalic, Moist mucous membranes and Atraumatic
Respiratory: Clear
Cardiac: S1/S2 and Regular Rhythm; No Murmur or Rub
GI: Soft, Non Tender, Non Distended, Normal Bowel Sounds and Other (lump); No Organomegaly
Psych: Calm
Impression/Plan
1. Abdominal abscess
-WBC 17, patient remained afebrile / vitals stable, abdomen not acute on exam.
-Zosyn continued
-IR consulted for possible drainage in AM
-Colorectal consulted
-Chest x-ray with impression of No radiographically demonstrable left rib fracture. No pleural effusion or pneumothorax.
Please see SYRUP [employer] SUPERVISOR note for full details on
# Anemia of chronic disease
#status post exploratory laparotomy, primary repair of rectal perforation.
#DVT
CODE STATUS -Full code
[2024-03-06] MEDS: ZOSYN 50 IV (21:41)
[2024-03-07] MEDS: ZOSYN 50 IV ×4 (05:24→21:32)
[2024-03-07 07:00] VITALS: BP 98/59
[2024-03-07 07:15] LABS: Hematocrit 23.5 % (37.0-47.0); Hemoglobin 7.1 g/dL (12.0-16.0); Mean Corp Hgb Conc. 30.2 g/dL (33.0-37.0); Mean Corpuscular Hgb 17.8 pg (27.0-31.0); Mean Platelet Volume 10.8 fL (7.4-10.4); Platelet Count 617 10^3/uL (130-400); Red Blood Cell Count 3.98 10^6/uL (4.20-5.40); White Blood Cell Count 10.4 10^3/uL (4.8-10.8)
[2024-03-07] MEDS: FEOSOL 325 MG PO (07:37)
--- NOTE | 2024-03-07 07:49 | W.PN.HOSP.TC ---
Today's Communication/Plan
-
For drainage by IR tomorrow
Continue IV antibiotics
Assessment / Plan
Assessment / Plan
63-year-old with history of DVT on Eliquis, status post exploratory laparotomy, primary repair of rectal perforation presenting to the emergency department with left-sided rib pain/abdominal pain. patient woke up with pain and felt a lump to her
left upper abdomen and lower ribs. Denies any trauma or bumping into anything. No fevers or chills. No rash. She has had a 50 pound weight loss but attributes it to not eating during last summer secondary to medical problems. However she has
noticed a few episodes of night sweats. Patient denies any headache, dizzy, syncope patient denied nausea vomiting diarrhea. Patient denied dysuria,hematuria.
#Acute diverticulitis with perforation and abscess
WBC 17, patient remained afebrile
CT abdomen pelvis with impression of 9 cm in length area of severe bowel wall thickening and pericolonic inflammatory stranding in the mid and distal descending colon consistent with acute colitis.
Appreciate colorectal surgery input, recommend drainage by IR
Appreciate IR input, plan for drainage on Wednesday 03/08 to allow for Eliquis washout
Continue IV Zosyn, pain meds, trend fever and white count
# Anemia of chronic disease
Hemoglobin 7.1 today, was 7.4
Check iron studies, B12, folic acid
Obtain type and cross, obtain blood consent, transfuse for hemoglobin less than 7.0
Continue ferrous sulfate
#History of ex lap, primary repair of rectal perforation 10/19/2023
#History of DVT
Hold Eliquis
#status post exploratory laparotomy, primary repair of rectal perforation.
DVT prophylaxis�subcu Lovenox
Full code
Updated family at bedside 03/07
Total time spent to see the patient on the floor, examine the patient, review data and lab results, discuss treatment plan with patient, nursing staff around 50 minutes.
Physical Exam
General: No acute distress
HEENT: Normocephalic, Atraumatic, EOMI, MMM
Respiratory: Clear to Auscultation bilaterally
Cardiac: Normal S1/S2, Regular Rate and Rhythm
GI: Soft, Nontender, Nondistended, Normal Bowel Sounds
Extremities: No Clubbing, Cyanosis, or Edema
Neuro: Nonfocal/Grossly Intact
Psych: Calm, Cooperative
Anticipated Discharge: 24 - 48 hours
Subjective/Interval History
-
Date of Service: March 07, 2024
Patient denies abdominal pain. No nausea, no vomiting. No fever. No chest pain, no shortness of breath.
Objective Data
-
Labs:
Laboratory Results
03/07/24
05:14
WBC 10.4
Hgb 7.1 L
Hct 23.5 L
Plt Count 617 H
Vital Signs:
Vital Signs
Temp Pulse Resp BP Pulse Ox
99.8 F 84 16 101/43 97
03/06/24 23:00 03/06/24 23:00 03/06/24 23:00 03/06/24 23:00 03/06/24 23:00
I&O
03/06/24 03/07/24 03/08/24
06:59 06:59 06:59
Output Total 50 / 50
Balance -50 / -50
--- NOTE | 2024-03-07 10:20 | W.PN.UPDATE ---
Update Note
Progress Note Update
- IR asked to evaluate/drain left abdominal wall fluid collection, likely complication of acute diverticulitis
- CT showed elongated, very narrow collection in the left abdominal wall measuring approximately 7.7 x 1.1 cm
- Pt on Eliquis, stopped yesterday. Appears to be clinically improving on IV abx
- Will defer attempted CT guided drain/aspiration till tomorrow to allow for adequate Eliquis washout. NPO past midnight please.
--- NOTE | 2024-03-07 10:20 | W.PN.GS2 ---
Today's Communication / Plan
-
`
Assessment / Plan
-
Assessment: 63-year-old female with descending/sigmoid colitis and left lateral abdominal wall fluid collection/probable abscess. No signs of perforation. Clinically stable without peritonitis.
AFVSS
WBC normalized
Hemoglobin stable, thrombocytosis slightly improved.
Plan:
Continue Zosyn
Interventional radiology consulted for aspiration and hopeful drain placement in left lateral abdominal wall collection.
Okay for clear liquids
Supportive care with analgesics and antiemetics if needed
Further radiographic imaging of colon and GI tract pending IR aspiration/drain results and appearance of fluid (consideration of repeat CT versus GGE versus colonoscopy -timing to be determined)
Subjective Data
-
Date of Service: March 07, 2024
Patient seen and examined. Family at bedside.
Left sided abdominal pain discomfort improving
Loose bowel movement this a.m. -has been off colestipol
No nausea or vomiting
Appetite well
Objective Data
-
Intake and Output
03/06/24 03/07/24 03/08/24
06:59 06:59 06:59
Output Total 50 / 50
Balance -50 / -50
Output:
Urine, Stark 50 / 50
Other:
Number of approximated SMALL 1
amounts of urine
Vital Signs
Temp Pulse Resp BP Pulse Ox
98.5 F 86 16 98/59 97
03/07/24 07:00 03/07/24 07:00 03/07/24 07:00 03/07/24 07:00 03/07/24 07:00
Lab Results
03/07/24 05:14
03/06/24 10:06
Calcium 8.4 mg/dl (8.4-10.2) 03/06/24 10:06
Physical Exam
-
NAD AAOx3
Resting comfortably in hospital bed
[2024-03-07 15:00] VITALS: BP 101/49
[2024-03-07] MEDS: LOVENOX 40 MG SC (17:13)
[2024-03-07 21:29] VITALS: BP 120/60
[2024-03-07] MEDS: ATIVAN 0.5 MG PO (21:33)
[2024-03-07] MEDS: ANESTHETIC LOZENGE 1 LOZENGE PO (21:51)
[2024-03-07 23:00] VITALS: BP 108/60
[2024-03-08] VITALS (16 sets, daily range): BP systolic 92–144; BP diastolic 55–81
[2024-03-08] MEDS: ZOSYN 50 IV ×4 (03:30→21:30)
[2024-03-08 05:52] LABS: Hematocrit 23.1 % (37.0-47.0); Mean Corp Hgb Conc. 30.3 g/dL (33.0-37.0); Mean Corpuscular Hgb 17.6 pg (27.0-31.0); Mean Corpuscular Volume 58.2 fL (81.0-99.0); Mean Platelet Volume 10.5 fL (7.4-10.4); Platelet Count 568 10^3/uL (130-400); Red Blood Cell Count 3.97 10^6/uL (4.20-5.40); Red Cell Dist. Width 16.9 % (11.5-14.5); White Blood Cell Count 6.3 10^3/uL (4.8-10.8)
[2024-03-08 06:29] LABS: Iron 24 ug/dl (37-170)
[2024-03-08 06:38] LABS: Percent Saturation 13 % (20-50); Total Iron Binding Capacity 177 ug/dl (265-497)
[2024-03-08 07:31] LABS: Folate > 20.0 ng/ml (2.76-20); Vitamin B12 739 pg/ml (239-931)
[2024-03-08] MEDS: FEOSOL 325 MG PO (08:20)
--- NOTE | 2024-03-08 08:28 | W.PN.HOSP.TC ---
Today's Communication/Plan
-
see bold
Assessment / Plan
Assessment / Plan
Gen: NAD, AAOx3.
Eyes: EOMI, PERRLA, no scleral icterus.
Neck: supple.
CV: RRR, +S1/S2, no m/r/g.
Resp: CTAB, no rales, wheezes, or rhonchi.
Abd: +BS, soft, NT, ND
Skin: No rashes.
Neuro: CN 2-12 intact, non-focal.
Psych: Normal mood and affect.
CT A/P: 9 cm in length area of severe bowel wall thickening and pericolonic inflammatory stranding in the mid and distal descending colon consistent with acute colitis. Image 48 series 201 demonstrates confined lateral perforation along the
descending colon with associated abscess in the lateral aspect of the left abdominal wall. The abscess measures approximately 7.8 x 1.0 x 7.5 cm in AP, transverse and craniocaudal dimensions respectively.
Acute diverticulitis with perforation and abscess:
-note, h/o ex lap, primary repair of rectal perforation 10/19/2023
-Leukocytosis has resolved
-cont Zosyn
-seen by CRS, recommend drainage by IR (to happen today)
-pain control
Anemia of chronic disease:
-transfuse 2U pRBCs
-cont ferrous sulfate
h/o DVT: Eliquis on hold for IR drainage
FULL/Lovenox
Anticipated Discharge: 24 - 48 hours
Subjective/Interval History
-
Date of Service: March 08, 2024
No new complaints. Denies abd pain.
Objective Data
-
Labs:
Laboratory Results
03/08/24
05:22
WBC 6.3
Hgb 7.0 L
Hct 23.1 L
Plt Count 568 H
Vital Signs:
Vital Signs
Temp Pulse Resp BP Pulse Ox
99.8 F 82 18 103/55 97
03/08/24 07:38 03/08/24 07:38 03/08/24 07:38 03/08/24 07:38 03/08/24 07:38
I&O
03/07/24 03/08/24 03/09/24
06:59 06:59 06:59
Intake Total 480 / 480
Output Total 50 / 50
Balance -50 / -50 480 / 480
--- NOTE | 2024-03-08 10:18 | W.PN.GS2 ---
Today's Communication / Plan
-
IR drain
Continue antibiotics
Assessment / Plan
-
Assessment: 63-year-old female with descending/sigmoid colitis and left lateral abdominal wall fluid collection/probable abscess. No signs of perforation. But suspect that this is from an underlying colonic fistula ? Diverticulitis. Thankfully,
clinically stable without peritonitis.
AFVSS
WBC normalized
Hemoglobin stable, thrombocytosis slightly improved.
Plan:
Continue Zosyn
Interventional radiology consulted for aspiration and hopeful drain placement in left lateral abdominal wall collection.
Okay for clear liquids
Supportive care with analgesics and antiemetics if needed
Will transfer patient care to colorectal surgery tomorrow.
Further radiographic imaging of colon and GI tract pending IR aspiration/drain results and appearance of fluid (consideration of repeat CT versus GGE versus colonoscopy versus abscessogram -timing to be determined)
Time Spent
Total Time Spent with Patient (in minutes): 20
Subjective Data
-
Date of Service: March 08, 2024
Interval Events:
No acute events overnight. Slept well. Pain Controlled. Denies Nausea/Vomiting, +bowel function. Tolerating diet.
Objective Data
-
Intake and Output
03/07/24 03/08/24 03/09/24
06:59 06:59 06:59
Intake Total 480 / 480 0 / 0
Output Total 50 / 50
Balance -50 / -50 480 / 480 0 / 0
Intake:
Oral fluids 480 / 480
Blood Product Amount Infused ( 0 / 0
mL)
Packed Rbc Leukoreduced Unit 0 / 0
[id number]
Output:
Urine, Frazier 50 / 50
Other:
Number of approximated SMALL 1
amounts of urine
Number of approximated MODERATE 2
amounts of urine
Vital Signs
Temp Pulse Resp BP Pulse Ox
98.9 F 84 18 115/60 96
03/08/24 09:56 03/08/24 09:56 03/08/24 09:56 03/08/24 09:56 03/08/24 09:56
Lab Results
03/08/24 05:22
03/06/24 10:06
Calcium 8.4 mg/dl (8.4-10.2) 03/06/24 10:06
Physical Exam
-
GENERAL/NEURO: Awake, Alert, no distress
CHEST: Unlabored breathing on RA
ABDOMEN: Soft, Non-Tender, Non-Distended, warm to touch on the left flank but no tenderness to palpation.
Patient has a frazier catheter: No
Patient has a central line: No
--- NOTE | 2024-03-08 15:55 | W.PN.UPDATE ---
Update Note
Progress Note Update
CT guided drainage catheter placement into left abdominal wall thin collection, yielding 3 cc of bloody nonpurulent fluid. Sent for c+s. 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
[2024-03-08] MEDS: NON-FORMULARY ITEM 1 GRAMS PO (17:05)
[2024-03-08] MEDS: LOVENOX 40 MG SC (17:05)
[2024-03-08] MEDS: DILAUDID 0.5 MG IV (17:05)
--- NOTE | 2024-03-08 17:06 | CM ---
Alert awake oriented patient who lives with Darrin who lives in a 1 story home with 4 step to enter. SHe is independent in driving and in all activities of daily living.She was offered VN she requested SHAREE Omlstead S aware of referral.
[facility] hx / No SNF history
Pharmacy [facility]
PCP DR Reinoso
PLAN Home with [facility]
[2024-03-08] MEDS: ROXICODONE 5 MG PO (21:59)
[2024-03-09 03:15] VITALS: BP 125/76
[2024-03-09] MEDS: ZOSYN 50 IV ×4 (04:13→21:39)
[2024-03-09 06:40] LABS: Mean Corp Hgb Conc. 31.3 g/dL (33.0-37.0); Mean Corpuscular Hgb 20.2 pg (27.0-31.0); Mean Corpuscular Volume 64.8 fL (81.0-99.0); Mean Platelet Volume 10.4 fL (7.4-10.4); Platelet Count 619 10^3/uL (130-400); Red Blood Cell Count 4.94 10^6/uL (4.20-5.40); White Blood Cell Count 7.7 10^3/uL (4.8-10.8)
[2024-03-09 07:21] VITALS: BP 112/54
[2024-03-09] MEDS: FEOSOL 325 MG PO (07:40)
--- NOTE | 2024-03-09 09:42 | VNURNOTE ---
Home Health Liaison met with patient at bedside to discuss [facility] nurse/therapy, visits, schedule and homebound status. Patient is agreeable and understands that visits at home will be 2-3 x per week to assess and teach medical management and
potential drain management. She is familiar with [facility] services. [facility] brochure provided with contact information. Patient is aware that [facility] will contact them for start of care in 1-2 days after discharge from . [facility] referral completed in [facility].
--- NOTE | 2024-03-09 10:27 | W.PN.HOSP.TC ---
Addendum entered and electronically signed by Sean Connor MD 03/09/24 15:15:
Sepsis, POA
Original Note:
Today's Communication/Plan
-
see bold
Assessment / Plan
Assessment / Plan
Gen: NAD, Awake and alert
Eyes: EOMI, PERRLA, no scleral icterus.
Neck: supple.
CV: remains RRR, +S1/S2, no m/r/g.
Resp: CTAB anteriorly, no rales, wheezes, or rhonchi.
Abd: +BS, soft, NT, ND
Skin: No rashes.
Neuro: CN 2-12 intact, non-focal.
Psych: Normal mood and affect.
03/08/24 16:03 Abscess Gram Stain - Preliminary
CT A/P: 9 cm in length area of severe bowel wall thickening and pericolonic inflammatory stranding in the mid and distal descending colon consistent with acute colitis. Image 48 series 201 demonstrates confined lateral perforation along the
descending colon with associated abscess in the lateral aspect of the left abdominal wall. The abscess measures approximately 7.8 x 1.0 x 7.5 cm in AP, transverse and craniocaudal dimensions respectively.
Acute diverticulitis with perforation and abscess:
-note, h/o ex lap, primary repair of rectal perforation 10/19/2023
-Leukocytosis has resolved
-seen by CRS, recommend drainage by IR. On 03/08/[address]-guided drainage catheter placement into left abdominal wall collection yielding 3 cc of bloody nonpurulent fluid.
-cont Zosyn, follow FCx
-pain control
-surgery following
Anemia of chronic disease:
-s/p 2U pRBCs on 03/08/24
-cont ferrous sulfate
h/o DVT: resume Eliquis
FULL/Eliquis
Anticipated Discharge: 24 - 48 hours
Subjective/Interval History
-
Date of Service: March 09, 2024
Denies abd pain.
Objective Data
-
Labs:
Laboratory Results
03/09/24
05:21
WBC 7.7
Hgb 10.0 L D
Hct 32.0 L
Plt Count 619 H
Vital Signs:
Vital Signs
Temp Pulse Resp BP Pulse Ox
98.0 F 75 16 112/54 97
03/09/24 07:21 03/09/24 07:21 03/09/24 07:21 03/09/24 07:21 03/09/24 07:21
I&O
03/08/24 03/09/24 03/10/24
06:59 06:59 06:59
Intake Total 480 / 480 1780 / 1780
Output Total 10 / 10
Balance 480 / 480 1770 / 1770
[2024-03-09 11:08] VITALS: BP 121/64
[2024-03-09] MEDS: ELIQUIS 5 MG PO ×2 (11:21→20:26)
[2024-03-09] MEDS: ROXICODONE 5 MG PO (11:55)
--- NOTE | 2024-03-09 12:51 | CON.CRS ---
Consultation
-
Performing Provider: Mickey Blakely MD
Reason for Consultation: colitis associated with contained perforation
Medical History
-
History of Present Illness:
Patient is a 63-year-old female with PMH of HTN, Mediterranean anemia, DVT (on Eliquis), and indeterminate colitis. She initially presented to the [facility] ED on 10/18 after colonoscopy which was reportedly done for diarrhea and showed severe
pseudomembranous colitis. She was found to have a perforation and underwent exploratory laparotomy with primary repair of proximal rectal perforation. The C. difficile testing at that time was negative, raising concern for the etiology of the
proctocolitis. She presented back to the ED on 11/29 and 12/07, both times with recurrent diarrhea without abdominal pain or hematochezia. A CT was done on 12/07, showing persistent inflammation in the descending and sigmoid colon. Workup at that
time showed a fecal calprotectin greater than 3000, stool studies including C. difficile negative. She was seen by Dr. Hugo as an outpatient. She had been started on colestipol and her diarrhea seem to have improved at that time. However, the
diagnosis was still unclear. She was recently started on Eliquis and a colonoscopy with EGD was postponed. She presented again with left-sided abdominal pain for 1 to 2 days. Until now, she had denied any issues with abdominal pain. She denied
any nausea or vomiting or diarrhea with this episode. Once she was admitted, her stools did become loose, but remained formed. She denied any hematochezia. Her WBC was 17.5, Hb 7.1. CT scan showing 9 cm length of mid to distal descending colon
thickening consistent with colitis, associated with adjacent abscess of 7.8 x 7.5 x 1 cm. She was admitted and seen by general surgery. An IR guided drain was placed within the collection and colorectal was consulted to take over management.
Past Medical History
Past Medical History: Other (As above)
Past Surgical History: Other (Ex lap, primary repair of rectal perforation 10/[address] Bernabe, appendectomy)
Social History
Tobacco: Non-Smoker
Alcohol: None
Family History
Family History: Reviewed & Not Pertinent
Allergies / Home Medications
Allergy/AdvReac Type Severity Reaction Status Date / Time
No Known Allergies Allergy Verified 12/08/23 07:43
�Medication �Instructions �Recorded �Confirmed �Type
apixaban 5 mg tablet (Eliquis) 5 mg PO BID 03/06/24 03/06/24 History
colestipol 1 gram tablet 1 g PO HS 03/06/24 03/06/24 History
ferrous sulfate 325 mg (65 mg 325 mg PO DAILY 03/06/24 03/06/24 History
iron) tablet
therapeutic multivitamin 1 tab PO DAILY 03/06/24 03/06/24 History
Review of Systems
-
A 10 point review of systems was completed, and was negative except as per HPI.
Physical Exam
Vital Signs
Temp 98.2 F 03/09/24 11:08
Pulse 74 03/09/24 11:08
Resp Rate 17 03/09/24 11:08
Blood pressure 121/64 03/09/24 11:08
SaO2 97 03/09/24 11:08
Body Mass Index (BMI) 25.3
Lab Results / Allergies
03/09/24 05:21
03/06/24 10:06
WBC 7.7 10^3/uL (4.8-10.8) 03/09/24 05:21
Hgb 10.0 g/dL (12.0-16.0) L D 03/09/24 05:21
Hct 32.0 % (37.0-47.0) L 03/09/24 05:21
Plt Count 619 10^3/uL (130-400) H 03/09/24 05:21
Abs Immat Gran (auto) 0.1 10^3/uL (0-0.05) H 03/06/24 10:06
Neutrophils % 82.6 % (42.2-75.2) H 03/06/24 10:06
Allergy/AdvReac Type Severity Reaction Status Date / Time
No Known Allergies Allergy Verified 12/08/23 07:43
Physical Exam
General: Well Developed, Well Nourished and No Apparent Distress
HEENT: Normocephalic and Atraumatic
GI: Soft, Non Distended and Tender (Tender in the left hemiabdomen, greatest at drain site, no rebound or guarding; KELLY-minimal serosanguineous)
Skin: Warm and Dry
Neuro: AO x 3
Data Reviewed
-
CT Scan: Image Personally Visualized and interpreted, Discussed with Physician (Dr. Hugo with GI) and Discussed with Patient
Labs: Labs Reviewed by me and Discussed with Patient
Assessment / Plan
-
63-year-old female with PMH of HTN, Mediterranean anemia, DVT (on Eliquis), and indeterminate colitis (initially thought to have C. difficile colitis on colonoscopy done in 09/2023, but subsequent testing negative; s/p ex lap with primary repair of
rectal perforation after colonoscopy; recurrent diarrhea in 11/2023 with elevated fecal calprotectin, CT showing persistent inflammation of the sigmoid and descending colon, awaiting colonoscopy/EGD with Dr. Hugo as outpatient), presented with 1 to
2 days of acute left-sided abdominal pain, WBC 17.5, Hb 7.1, CT scan showing 9 cm length of mid to distal descending colon thickening consistent with colitis, associated with adjacent abscess of 7.8 x 7.5 x 1 cm; s/p IR guided drainage on 03/08 with
3 mL of bloody output, sent for culture
AFVSS
WBC 7.7,Hb 10.0 (s/p PRBC x 2 yesterday)
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
�Differential includes Crohn's colitis, ulcerative colitis, diverticulitis, infectious colitis and other less likely possibilities including ischemia
�Follow-up stool studies and fecal calprotectin
�Agree with IV antibiotics; follow-up cultures
�Consulted GI
�Continue pain control with Tylenol
�Continue DVT PPx with Lovenox; anemia is more chronic in nature and less likely acute bleeding
� OOB/IS
� Appreciate hospitalist;
Dispo�we will attempt nonoperative measures and await EGD/colonoscopy as outpatient; however, patient will likely need elective left colectomy due to localized perforation and risk of recurrent perforation versus fistula
--- NOTE | 2024-03-09 14:47 | CON.GI ---
Addendum entered and electronically signed by Betsy Moy MD 03/09/24 16:32:
I saw and examined the patient.
The MARKETING FINANCE SPECIALIST's note was reviewed and I agree with the note.
Impression:
Acute colitis/perforation/abscess - descending colon. S/p IR drainage 03/08/2024 . Yelding 3 cc bloody non purulent fluid
Chronic diarrhea, improved on colestipol
History of rectal perforation after colonoscopy 10/17/2023 0- status post ex lap with primary repair 10/19/2023
Iron deficiency anemia- s/p 2 units PRBC 03/08
History of C. difficile infection, colonization not toxigenic status post treatment empirically in the past
History of DVT left lower extremity (11/2023) on Eliquis
Plan:
-Continue antibiotics. Follow-up drainage fluid culture
-Continue follow-up with colorectal surgery recommendation
-Will check stool calprotectin
-Considering current clinical picture with colon perforation/abscess formation will hold off on colonoscopy/initiation of treatment ( steroids , biologics ) for colitis ( Although highly suspicious for IBD not previously confirmed ). Patient needs
to follow-up with GI as outpatient -she needs colonoscopy/biopsy ( IBD work up ) after recovering from current colonic perforation/abscess
Original Note:
Consultation
-
Date/Time Consultation Requested: 03/09/24 1400
Date/Time Consultation Performed: 03/09/24 1415
Requesting Provider: Dr. Blakely
Performing Provider: Dr. Moy/MIGUEL Bal
Reason for Consultation: colonic abscess
Medical History
Chief Complaint / HPI
Chief Complaint: diarrhea, questionable C. diff infection
History of Present Illness:
63-year-old female with history of HTN, 'Mediterranean' anemia, left LE DVT (11/2023), chronic diarrhea starting back in July 2023 after being prescribed Augmentin for upper respiratory infection. Had colonoscopy at [facility] In [place] with
Dr. Nix on 10/17/23 for evaluation of chronic diarrhea(Prior Colonoscopy 2021 was reportedly normal). She was found to have pseudomembranes during colonoscopy on 10/17/2023. Rectal biopsies revealed normal mucosa without any findings of chronic
colitis or C. difficile. The patient had abdominal pain and fevers came to the emergency room on 10/18/2023 and was and found to have a rectal perforation. She had exploratory laparotomy with primary repair of rectal perforation performed on
10/19/2023. She was treated with IV antibiotics along with Dificid for 7-day course given the concern for prior C. difficile. She had 2 repeat emergency room visits on 11/30/2023 and again on 12/08/2023 concerning for C. difficile. These were
negative for toxigenic C. difficile only consistent with colonization. The patient's repeat CT imaging on 12/08/2023 revealed persistent unchanged inflammation involving the descending and sigmoid colon with interval resolution of previous small
bowel loops compared to CT from 10/2023.The patient unfortunately developed a left lower extremity DVT November 2023 and was placed on Eliquis. It was recommended the patient have 3 months of uninterrupted anticoagulation. Since that time the patient
was placed on colestipol with no further episodes of diarrhea. Follow-up appointments were made in anticipation of hopeful EGD/colonoscopy in the near future when patient is able to come off of anticoagulation as per PCP/hematology. Routine labs
were performed as an outpatient on 02/29/2024. There are still concerns for her still having low hemoglobin and concern for ongoing iron deficiency and she was referred back to hematology. The patient states that she was feeling perfectly well up
until 03/06/2024 when she woke up in the morning and felt a dull left upper quadrant discomfort. She also had a 'fullness' in the left upper quadrant. Because of these issues she decided to come to the emergency room for further evaluation. The
patient denies any fevers, chills, nausea, vomiting, melena, hematochezia, dysphagia or odynophagia. No early satiety. She has lost weight but she attributes that eating smaller meals throughout the day since the fall. Her bowel movements are
soft and formed. She usually has them daily. She denies any signs of bleeding or mucus within her bowel movements. She has no diarrhea. The patient had a CT performed of the abdomen pelvis with IV contrast. This showed a 9 cm in length area of
severe bowel wall thickening and pericolonic inflammatory stranding in the mid and distal descending colon consistent with acute colitis. There is also a confined lateral perforation along the descending colon with associated abscess in the lateral
aspect of the left abdominal wall. The abscess measures approximately 7.8 x 1.0 x 7.5 cm in AP, transverse and craniocaudal dimensions respectively. The patient states that the left upper quadrant discomfort went away with initiation of
antibiotics. The patient's Eliquis was held for washout. IR drainage took place on 03/08/2024 that yielded 3 cc of bloody nonpurulent fluid. Catheter was placed however IR stated may not need long-term given small size of collection and nonpurulent
contents. Wound culture preliminary is gram-negative bacilli. Patient continues on Zosyn at this time. On presentation patient's WBC was 17.5 however quickly came down and is currently 7.7.On presentation patient's hemoglobin was 7.4 and down to
7.0. She was transfused 2 units of packed red blood cells and hemoglobin this morning is 10.0. Hematocrit 32.0, platelets 619. Iron 24, TIBC 177, percent saturation 13, ferritin 331.0, B12 739, folate greater than 20, CRP 84.2. Fecal
calprotectin pending. There is scant sanguinous drainage in KELLY drain from abscess left upper quadrant.
Past Medical History
Past Medical History: HTN and Other (lower ext edema, diarrhea, Left lower extremity DVT, anemia)
Past Surgical History: Appendectomy and Other (Ex lap with rectal perf repair)
Social History
Tobacco: Non-Smoker
Alcohol: None
Drug: None
Personal:
Living: With Family
Employment: Employed
Family History
Family History: Other (No fam hx of GI malignancy)
Allergies / Home Medications
Allergy/AdvReac Type Severity Reaction Status Date / Time
No Known Allergies Allergy Verified 12/08/23 07:43
�Medication �Instructions �Recorded
apixaban 5 mg tablet (Eliquis) 5 mg PO BID 03/06/24
colestipol 1 gram tablet 1 g PO HS 03/06/24
ferrous sulfate 325 mg (65 mg 325 mg PO DAILY 03/06/24
iron) tablet
therapeutic multivitamin 1 tab PO DAILY 03/06/24
Review of Systems
-
All other systems: A 12 pt ROS was Negative except as stated above in HPI
Vital Signs
Temp Pulse Resp BP Pulse Ox
98.2 F 74 17 121/64 97
03/09/24 11:08 03/09/24 11:08 03/09/24 11:08 03/09/24 11:08 03/09/24 11:08
Physical Exam
Exam
General: No Apparent Distress
HEENT: Normocephalic
Respiratory: Clear
Cardiac: Regular Rhythm
GI: Soft, Non Tender, Non Distended, Normal Bowel Sounds and Other (left upper quadrant KELLY drain, scant sanguinous drainage)
Skin: Warm and Dry
Neuro: AO x 3
Psych: Calm
Results
WBC 7.7 10^3/uL (4.8-10.8) 03/09/24 05:21
Hgb 10.0 g/dL (12.0-16.0) L D 03/09/24 05:21
Hct 32.0 % (37.0-47.0) L 03/09/24 05:21
MCV 64.8 fL (81.0-99.0) L 03/09/24 05:21
Plt Count 619 10^3/uL (130-400) H 03/09/24 05:21
Absolute Neuts (auto) 14.4 10^3/uL (1.4-6.5) H 03/06/24 10:06
Sodium 134 mmol/L (135-145) L 03/06/24 10:06
Potassium 4.0 mmol/L (3.5-5.1) 03/06/24 10:06
Chloride 103 mmol/L (98-107) 03/06/24 10:06
Carbon Dioxide 22 mmol/L (22-30) 03/06/24 10:06
BUN 14 mg/dl (7-17) 03/06/24 10:06
Creatinine 0.6 mg/dL (0.6-1.0) 03/06/24 10:06
Calcium 8.4 mg/dl (8.4-10.2) 03/06/24 10:06
Diagnostic Image Results:
CT-guided abdominal wall collection drainage:03/08/24: Successful CT guided drainage catheter placement into a left abdominal wall collection, yielding 3 mL of bloody fluid.
CT Abd/Pelvis with IV contrast 03/06/24:
IMPRESSION:
There is an approximately 9 cm in length area of severe bowel wall thickening and pericolonic inflammatory stranding in the mid and distal descending colon consistent with acute colitis.
Image 48 series 201 demonstrates confined lateral perforation along the descending colon with associated abscess in the lateral aspect of the left abdominal wall. The abscess measures approximately 7.8 x 1.0 x 7.5 cm in AP, transverse and
craniocaudal dimensions respectively
Electronically signed by Philip Estrada MD, 03/06/2024 2:27 PM
CXR/Ribs 03/06/24:
IMPRESSION:
No radiographically demonstrable left rib fracture.
No pleural effusion or pneumothorax.
Prior GI Procedures:
EGD: Never
Colonoscopy: 10/17/2023 digestive [place] (Dr. Nix):Impression: In rectum diffuse erythema, friability, granularity, loss of vascular pattern with pseudomembranes. Colonic tissue appeared viable and biopsies taken for histology. Findings
highly consistent with C. difficile colitis. Was advised to start vancomycin 125 mg 4 times daily for 10 days and advised to go to ER for dehydration, fever, vomiting and abdominal pain. No repeat colonoscopy. Pathology from rectal biopsy
revealed colonic mucosa with no specific pathological change (sections reveal benign colonic mucosa without acute inflammation or chronic mucosal injury; there is no increase in intraepithelial lymphocytes or lamina propria collagen deposition).
Colonoscopy in 2021 (no records of this) reportedly normal, no polyps.
Prebiologic labs 02/24/2024: QuantiFERON gold negative, TPMT (17) within normal limits, hepatitis B surface antigen negative, total hepatitis B core antibody negative, hepatitis B surface antibody (not immune)
Assessment / Plan
-
63-year-old female with past medical history of hypertension, Mediterranean anemia, left lower extremity DVT (12/10) on Eliquis, chronic diarrhea starting back in July 2023 with colonoscopy at [facility] in [place] with Dr. Nix on 10/17/2023
for evaluation of the same found to have pseudomembranes during colonoscopy with rectal biopsies revealing normal mucosa without any findings of chronic colitis or C. difficile. Had rectal perforation with primary repair on 10/19/2023. Recurrent
episodes of diarrhea requiring ER evaluation on 11/30/2023 and again on 12/08/2023. CT imaging on 11/2123 with persistent unchanged inflammation in the descending and sigmoid colon. Improved diarrhea on colestipol. Iron deficiency anemia with
persistent elevation of inflammatory markers. Prior history of 'normal colonoscopy 2021' with concerns for underlying IBD (Crohn's versus UC versus scad) unable to perform endoscopic evaluation given recent DVT who presents to the emergency room
with left upper quadrant discomfort. CT performed of the abdomen pelvis with IV contrast. This showed a 9 cm in length area of severe bowel wall thickening and pericolonic inflammatory stranding in the mid and distal descending colon consistent
with acute colitis. There is also a confined lateral perforation along the descending colon with associated abscess in the lateral aspect of the left abdominal wall. The abscess measures approximately 7.8 x 1.0 x 7.5 cm in AP, transverse and
craniocaudal dimensions respectively. Patient with improvement of leukocytosis with initiation of Zosyn. Had an Eliquis washout and IR drainage on 03/08/2024 with small amount of bloody nonpurulent fluid. Culture preliminary is gram-negative
bacilli. Patient with anemia and hemoglobin of 7 now status post 2 units packed red blood cells improving to 10.0. No signs of active GI bleeding, diarrhea or mucus within stools.
Impression:
Descending/sigmoid colitis (indeterminate colitis as patient has not had colonoscopy yet to determine pathology)
Left lateral abdominal wall fluid collection/abscess; status post IR drainage
Chronic diarrhea, improved on colestipol
History of rectal perforation status post ex lap with primary repair 10/19/2023 after colonoscopy 10/17/2023
Iron deficiency anemia
History of C. difficile infection, colonization not toxigenic status post treatment empirically in the past
History of DVT left lower extremity (11/2023) on Eliquis
Plan:
-Continue diet as per Surgery
-Continue antibiotics, await final fluid culture
-Await stool calpro
-Will need to hold on colonoscopy at until current inflammation decreased.
-Appreciate Surgery input and following.
-Patient need to have Heme eval for when she can come off Eliquis for LLE DVT. ? Repeat US lower extremity.
-Further recommendations to be forthcoming.
-
-
Thank you for consultation and allowing me to participate in the patient's care. Please call the instrumentation tech GI physician during the after hours with any questions or concerns.
--- NOTE | 2024-03-09 14:52 | PN.CDI ---
CDI
- -
CDI:
Physician Documentation Request
Admit Date: 03/06/24 16:27
Dear Doctor Nikolas,
Please review the following and provide your response in the progress notes.
Clinical Indicators:
Pt admitted with Acute diverticulitis with perforation and abscess on IV Zosyn s/p drainage on 03/08
On admission WBC 17.5, HR 96
Please clarify which of the following most accurately describes the status of the patient's infection:
Sepsis-POA
- Systemic manifestations of infection, with 2 or more SIRS criteria which include:
- Fever >100.4 degrees F or hypothermia < 96.8 degrees F
- Leukocytosis - WBC > 12,000 or leukopenia - WBC < 4,000 or > 10% bands
- Tachycardia > 90 beats per minute
- Tachypnea - RR > 20 breaths per minute or PaCO2 , 32mmHg
Source: [employer]ck Manual 2013
Acute diverticulitis with perforation and abscess, Without Systemic Illness
Other ( please specify)
Use of terms such as suspected, likely, concern for, or probable (associated with a specific diagnosis that is being evaluated, monitored, or treated as if it exists) are acceptable and can be coded in the inpatient setting, when documented at the
time of discharge.
Thank you,
Vianey Price RN
CDI Specialist
[employer]
Please use your independent medical judgment in providing your response.
[2024-03-09 15:36] VITALS: BP 123/62
[2024-03-09] MEDS: NON-FORMULARY ITEM 1 GRAMS PO (16:36)
[2024-03-09] MEDS: ATIVAN 0.5 MG PO (21:38)
[2024-03-09 23:20] VITALS: BP 100/60
--- NOTE | 2024-03-10 02:18 | DOWNTIME ---
There was a [facility] [employer] Downtime on 03/10/2024 from 0100 to 03/10/2023 at 0205 . Downtime documentation of patient's care, including medication administrations, has been reconciled in the electronic record per guidelines. Refer to the
patient's paper chart under the miscellaneous tab to see printed paper medication records and downtime forms.
[2024-03-10] MEDS: ZOSYN 50 IV ×2 (04:58→09:59)
[2024-03-10 05:55] LABS: Hematocrit 33.7 % (37.0-47.0); Hemoglobin 10.5 g/dL (12.0-16.0); Mean Corp Hgb Conc. 31.2 g/dL (33.0-37.0); Mean Corpuscular Hgb 20.1 pg (27.0-31.0); Mean Corpuscular Volume 64.6 fL (81.0-99.0); Mean Platelet Volume 10.1 fL (7.4-10.4); Platelet Count 647 10^3/uL (130-400); Red Blood Cell Count 5.22 10^6/uL (4.20-5.40); Red Cell Dist. Width 25.1 % (11.5-14.5); White Blood Cell Count 8.3 10^3/uL (4.8-10.8)
[2024-03-10 07:43] VITALS: BP 129/70
--- NOTE | 2024-03-10 08:40 | PTCARENOTE ---
KELLY drain site displayed small amount of old drainage, new dressing placed.
--- NOTE | 2024-03-10 09:06 | W.PN.CRS1 ---
Today's Communication / Plan
-
As below
Assessment/Plan
-
63-year-old female with PMH of HTN, Mediterranean anemia, DVT (on Eliquis), and indeterminate colitis (initially thought to have C. difficile colitis on colonoscopy done in 09/2023, but subsequent testing negative; s/p ex lap with primary repair of
rectal perforation after colonoscopy; recurrent diarrhea in 11/2023 with elevated fecal calprotectin, CT showing persistent inflammation of the sigmoid and descending colon, awaiting colonoscopy/EGD with Dr. Hugo as outpatient), presented with 1 to
2 days of acute left-sided abdominal pain, WBC 17.5, Hb 7.1, CT scan showing 9 cm length of mid to distal descending colon thickening consistent with colitis, associated with adjacent abscess of 7.8 x 7.5 x 1 cm; s/p IR guided drainage on 03/08 with
3 mL of bloody output, sent for culture
AFVSS
WBC 8.3 from 7.7,Hb 10.5 from 10.0
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
�Differential includes Crohn's colitis, ulcerative colitis, diverticulitis, infectious colitis and other less likely possibilities including ischemia
� C. difficile negative; follow-up stool studies and fecal calprotectin
�Agree with IV antibiotics; follow-up cultures
�Appreciate GI
� Continue IR drain to bulb suction, will need VNA
�Advance to regular diet
�Continue pain control with Tylenol
�Continue DVT PPx with Lovenox; anemia is more chronic in nature and less likely acute bleeding
� OOB/IS
� Appreciate hospitalist;
Dispo�if tolerating regular diet, okay for DC this afternoon
-would like sample sent for stool cultures and fecal calprotectin prior to DC (reordered this morning)
-will need follow-up with me in 1 to 2 weeks and will obtain drain study at that time
-will also need EGD/colonoscopy as outpatient
-ultimately, patient will likely need elective left colectomy due to localized perforation and risk of recurrent perforation versus fistula
Subjective Data
Subjective Data
Date of Service: March 10, 2024
No overnight events.
Pain much improved
Denies nausea/vomiting. Tolerating clears.
+flatus +BMs +voiding
Pt is OOB.
Objective Data
-
Vital Signs
Temp Pulse Resp BP Pulse Ox
98.0 F 99 16 129/70 95
03/10/24 07:43 03/10/24 07:43 03/10/24 07:43 03/10/24 07:43 03/10/24 07:43
Intake & Output
03/09/24 03/10/24 03/11/24
06:59 06:59 06:59
Intake Total 1780 / 1780 1190 / 1190
Output Total
Balance 1770 / 1770 1185 / 1185
Intake:
Oral fluids 930 / 930 1080 / 1080
IV fluids (Total) 100 / 100 100 / 100
NSS 100 / 100
Amount instilled into Drain (
Total)
Left Lower Abdomen Bud-
Bullard A Placed in IR
Blood Products 250 / 250
Packed red blood cells 250 / 250
Blood Product Amount Infused ( 500 / 500
mL)
Packed Rbc Leukoreduced Unit 250 / 250
[id number]
Packed Rbc Leukoreduced Unit 250 / 250
[id number]
Output:
Drain Output (Total)
Left Lower Abdomen Bud-
Bullard A Placed in IR
Other:
Number of approximated MODERATE 1 1
amounts of urine
Lab Results
03/10/24 05:21
03/06/24 10:06
Physical Exam
-
General: No Acute Distress and AOx3
HEENT: Grossly Normal
Abdomen: Soft, Non Distended, Tender (Minimally tender in the left mid to lower quadrant), No Guarding, No Rebound and Other (KELLY-15 mL scant output, filled with air, reapplied suction)
Skin: Warm and Dry
[2024-03-10] MEDS: FEOSOL 325 MG PO (09:25)
[2024-03-10] MEDS: ELIQUIS 5 MG PO (09:25)
--- NOTE | 2024-03-10 14:11 | CM ---
Addendum entered by Marybeth Giles 03/10/24 15:00:
Patient does not have Medicare and CM updated [facility] liaison of discharge.
Original Note:
patient seen at bedside with sister Tammi. Patient plan for discharge home with [facility] to follow for drain management. CM will update liaison and patient states that she is eager to go home and has transportation. CM will continue to follow for
discharge planning needs.
Plan; home with [facility]
--- NOTE | 2024-03-10 14:56 | W.PN.HOSP.TC ---
Today's Communication/Plan
-
d/c
Assessment / Plan
Assessment / Plan
Gen: NAD, Awake and alert
Eyes: EOMI, PERRLA, no scleral icterus.
Neck: supple.
CV: remains RRR, +S1/S2, no m/r/g.
Resp: CTAB anteriorly, no rales, wheezes, or rhonchi.
Abd: +BS, soft, NT, ND
Skin: No rashes.
Neuro: CN 2-12 intact, non-focal.
Psych: Normal mood and affect.
03/08/24 16:03 Abscess Gram Stain - Preliminary
CT A/P: 9 cm in length area of severe bowel wall thickening and pericolonic inflammatory stranding in the mid and distal descending colon consistent with acute colitis. Image 48 series 201 demonstrates confined lateral perforation along the
descending colon with associated abscess in the lateral aspect of the left abdominal wall. The abscess measures approximately 7.8 x 1.0 x 7.5 cm in AP, transverse and craniocaudal dimensions respectively.
pt is a 63 year old female
Acute diverticulitis with perforation and abscess:
-note, h/o ex lap, primary repair of rectal perforation 10/19/2023
-Leukocytosis has resolved
-seen by CRS, recommend drainage by IR. On 03/08/[address]-guided drainage catheter placement into left abdominal wall collection yielding 3 cc of bloody nonpurulent fluid.
-cont Zosyn, follow FCx--change ABX to augmentin per colorectal
-pain control
-surgery following
Anemia of chronic disease:
-s/p 2U pRBCs on 03/08/24
-cont ferrous sulfate
h/o DVT: resume Eliquis
FULL/Eliquis
cleared for d/c
Anticipated Discharge: Today
Subjective/Interval History
-
Date of Service: March 10, 2024
pt tolerated solid food--Ok for d/c
Objective Data
-
Labs:
Laboratory Results
03/10/24
05:21
WBC 8.3
Hgb 10.5 L
Hct 33.7 L
Plt Count 647 H
Vital Signs:
max temp for 24 hours
03/09/24
23:20
Temp 98.3 F
Vital Signs
Temp Pulse Resp BP Pulse Ox
98.0 F 99 16 129/70 95
03/10/24 07:43 03/10/24 07:43 03/10/24 07:43 03/10/24 07:43 03/10/24 07:43
I&O
03/09/24 03/10/24 03/11/24
06:59 06:59 06:59
Intake Total 1780 / 1780 1190 / 1190
Output Total
Balance 1770 / 1770 1185 / 1185
Review of Systems
-
All other systems: Reviewed and negative
Physical Exam
-
General: Well Developed, Well Nourished and No Apparent Distress
HEENT: Normocephalic and Atraumatic
Respiratory: Clear to Auscultation; Negative Wheezes or Rhonchi
Cardiac: Regular Rhythm and S1/S2; Negative Murmur
GI: Soft, Nontender, Nondistended and Normal Bowel Sounds
Musculoskeletal: No Clubbing, No Cyanosis and No Edema
Neuro: Awake and Alert
[2024-03-10 15:03] VITALS: BP 109/57
--- NOTE | 2024-03-11 15:45 | W.DCSUMMARY ---
Discharge Summary
Discharge Data
Date of Admission: 03/06/24
Date of Discharge: 03/10/24
-
Pending Results: No
Hospital Course
Primary diagnoses:
Sepsis due to acute diverticulitis with perforation and abscess
Anemia of chronic disease
Secondary diagnoses:
h/o deep vein thrombosis
h/o ex lap, primary repair of rectal perforation 10/19/2023
Consultants:
Colorectal surgery
Interventional radiology
Imaging:
CT A/P: 9 cm in length area of severe bowel wall thickening and pericolonic inflammatory stranding in the mid and distal descending colon consistent with acute colitis. Image 48 series 201 demonstrates confined lateral perforation along the
descending colon with associated abscess in the lateral aspect of the left abdominal wall. The abscess measures approximately 7.8 x 1.0 x 7.5 cm in AP, transverse and craniocaudal dimensions respectively.
63-year-old female who presented with a chief complaint of left-sided abdominal pain as outlined in H&P done on admission. Hospital course by problem list:
Sepsis due to acute diverticulitis with perforation and abscess: Patient met sepsis criteria on admission. She had a leukocytosis which resolved. She was placed on Zosyn. She was seen in consultation by colorectal surgery and they recommended
drainage by interventional radiology. On 03/08/[address]-guided drainage catheter placement into left abdominal wall collection yielding 3 cc of bloody nonpurulent fluid. Fluid culture grew E. coli that was sensitive to Augmentin. The patient
was discharged on 10 days of Augmentin.
Anemia of chronic disease: Patient received 2 units of packed red blood cells 03/08/24. She was continued on ferrous sulfate.
Discharge Plan
-
Patient Disposition: Home with Home Care
Discharge Diagnosis/Procedures: Acute diverticulitis with perforation and abscess status post drain placement, anemia of chronic disease requiring transfusion, history of deep venous thrombosis
Condition: Good
Diet: Low Residue
Additional Diets: Advance to regular diet as tolerated
Activity: As tolerated
Driving Restrictions: No driving for 24 hours
Bathing Restrictions: None
Other Services: VN
Referrals:
Mckenzie Reinoso CRNP [Family Provider] - in less than 1 week
Mickey Blakely MD [Active] - in one to two weeks
Prescriptions:
New
acetaminophen 325 mg Tablet
650 mg PO Q4HPRN PRN (Reason: mild pain/FLORES/temp> 100.4F) Qty: 0 0RF
amoxicillin-pot clavulanate 875-125 mg tablet
1 tab PO Q12H Qty: 20 0RF
Continued
therapeutic multivitamin Tablet
1 tab PO DAILY
ferrous sulfate 325 mg (65 mg iron) Tablet
325 mg PO DAILY
Eliquis 5 mg Tablet
5 mg PO BID
colestipol 1 gram tablet
1 g PO HS
Discharge Orders:
Discharge Patient (As Directed); Ordered 03/10/24
Ordered By: Celi Price
Discharge Date and Time
Discharge Date/Time: 03/10/24 15:54
Print Language: TRISTANIAN
[2024-03-12 19:20] LABS: Calprotectin, Fecal 2190 ug/g (<=49)
== END 2024-03-10 15:54 | disposition home health service (06) | DRG 871 ==
LOC: 3 WEST ACU 16:27
PROVIDERS: Family Medicine; Internal Medicine; Radiology Vascular & Interventional Radiology; Registered Nurse; ADMITTING PHYSICIAN Internal Medicine; ATTENDING PHYSICIAN Internal Medicine; CONSULT PHYSICIAN Surgery; EMERGENCY PHYSICIAN Student in an Organized Health Care Education/Training Program; FAMILY PHYSICIAN Nurse Practitioner Family; OTHER PHYSICIAN Internal Medicine Gastroenterology; OTHER PHYSICIAN Surgery
PROC: 0W9F30Z Drainage of Abdominal Wall with Drainage Device, Percutaneous Approach (ICD-10-PCS; 2024-03-08)
PROC: 30233N1 Transfusion of Nonautologous Red Blood Cells into Peripheral Vein, Percutaneous Approach (ICD-10-PCS; 2024-03-08)
DX: A41.9 Sepsis, unspecified organism (principal); K65.1 Peritoneal abscess; K57.20 Diverticulitis of large intestine with perforation and abscess without bleeding; K63.2 Fistula of intestine; D63.8 Anemia in other chronic diseases classified elsewhere; Z86.718 Personal history of other venous thrombosis and embolism; I10 Essential (primary) hypertension; D56.9 Thalassemia, unspecified; D50.9 Iron deficiency anemia, unspecified; D75.839 Thrombocytosis, unspecified; Z79.01 Long term (current) use of anticoagulants; Z86.19 Personal history of other infectious and parasitic diseases
CPT/HCPCS: 49406; 71101; 74177; 80048; 82607; 82728; 82746; 83540; 83550; 83993; 85025; 85027; 86140; 86850; 86900; 86901; 86920; 87045; 87046; 87070; 87077; 87186; 87205; 87324; 87427; 87449; 96374; 99152; 99285; P9016; Q9967

== ENCOUNTER → 2024-04-01 12:05 | Outpatient (REF) | payer OTHER, SELFPAY ==
[2024-04-01 12:29] VITALS: BP 128/80; BP_SYST 98
== END ==
LOC: RADI 12:05
PROVIDERS: ATTENDING PHYSICIAN Surgery; FAMILY PHYSICIAN Nurse Practitioner Family
DX: K57.20 Diverticulitis of large intestine with perforation and abscess without bleeding (principal)
CPT/HCPCS: 49424; 76080

== ENCOUNTER 2024-06-08 06:43 | Emergency (ER) | payer OTHER, SELFPAY ==
[2024-06-08 06:45] VITALS: BP 132/66
--- NOTE | 2024-06-08 07:24 | ED.GENMED ---
History of Present Illness
General
Chief Complaint: Headache
Source: patient
Exam Limitations: none
Time Seen by Provider: 06/08/24 07:11
History of Present Illness
History of Present Illness:
64yoF with a history of hyperlipidemia and prior DVT no longer on anticoagulation presenting for evaluation of a headache. Symptoms initially began 3 days ago with a sinus pressure. She then developed pain in her right ear 2 days ago which has
since resolved. She developed intermittent pains in her right parietal region last night. She reports an intermittent sharp, electric shock-like pain that radiates from the right parietal region to behind her ear. Pain last about 1 to 2 seconds
at a time before resolving. She has no pain currently. She has not taken anything [id number] for her symptoms. No prior history of similar issues. She is otherwise asymptomatic and denies any rash, head trauma, fevers, neck stiffness,
photophobia, visual changes, weakness, paresthesias.
Past History
Past History
ED Past Medical History: Other (C. difficile colitis, perforated rectum, SBP)
ED Past Surgical History: Appendectomy
Social History
Tobacco: Non-smoker
Alcohol: None
Drug: None
Personal:
Living: with family
Employment: Employed
Phy Exam
General Physical Exam
General Presentation: well appearing and no apparent distress
General age: appears stated age
General Skin: warm and dry
General Habitus: normal
General Mental: alert
ENT Exam
ENT Exam: TM's normal, neck supple, normocephalic and other (No scalp rash or tenderness noted. No temporal artery tenderness. Full ROM of cervical spine without nuchal rigidity. )
Eye Exam
Eye Exam: PERRL and conjunctiva normal
Pulmonary Exam
Pulmonary Exam: no respiratory distress
Neurological Exam
Neurological Exam: alert and no motor deficits
Woodrow Coma Scale
Eye Opening: Spontaneous
Verbal Response: Oriented
Motor Response: Obeys Commands
GCS Total Score: 15
Skin Exam
Skin Exam: warm/dry
Psychiatric Exam
Psychiatric Exam: normal mood/affect
Course
Orders/Labs/Results
Orders:
Orders
06/08/24 07:22
CT Head W/o Iv Contrast Urgent
Comment:
Reason For Exam: acute headache
06/08/24 07:43
COVID-19 Antigen Urgent
Source: Nasal Swab
Influenza A+B Rapid Molecular Urgent
TYREE Source: Nasal Swab
Specimen Description:
Vital Signs
Initial and Last Documented VS:
Initial Vital Signs
Temp Pulse Resp BP Pulse Ox
98.2 F 68 24 132/66 100
06/08/24 06:45 06/08/24 06:45 06/08/24 06:45 06/08/24 06:45 06/08/24 06:45
Last Documented Vital Signs
Temp Pulse Resp BP Pulse Ox
98.2 F 68 24 132/66 100
06/08/24 06:45 06/08/24 06:45 06/08/24 06:45 06/08/24 06:45 06/08/24 06:45
MDM/Problems Addressed
Differential Diagnosis Includes:
64yoF here with intermittent headaches since yesterday. Intermittent stabbing, electric-shock like pains in the R parietal region that radiates behind the ear. Lasts 1-2 seconds at a time. No visual changes. VSS. She is well appearing in no
distress. No visualized rash on exam. No temporal artery tenderness. Differential diagnosis includes but is not limited to: Neuralgia, early shingles, primary stabbing headache, doubt temporal arteritis given location of symptoms
Initially plan: Will check viral testing and CT head. She declines analgesics.
*Critical Care Note
Total Time (30-74mins, 75-104mins- exclusive of procedures): Not Applicable
Update Note
Update Note:
Viral testing negative. CT head is negative for acute intracranial abnormality. There is mild ethmoid sinus mucosal thickening compatible with chronic inflammatory changes. Patient continues to be pain free on reassessment and admits to feeling
much better today. No indication for hospitalization. She was advised to follow-up with her PCP and ED return precautions discussed including new visual changes. Patient in agreement with plan and was discharged in stable condition.
ED Attending Note
-
Portions of this chart may have been created with voice recognition software.� Occasional wrong word or��sound alike� substitutions may have occurred due to the inherent limitations of voice recognition software.
Discharge Plan
Departure
Patient Disposition: Home (Routine Discharge)
Date of Disposition: 06/08/24
Time of Disposition: 08:41
Patient with high blood pressure during this ER visit?: No
Discharge Problem:
Acute headache
Instructions: Headache, Adult (DC)
Prescriptions:
No Action
therapeutic multivitamin Tablet
1 tab PO DAILY
Eliquis 5 mg Tablet
5 mg PO BID
colestipol 1 gram tablet
1 g PO HS
Activity Restrictions/Additional Instructions:
Use Flonase nasal spray and Mucinex for congestion.
Please follow-up with your family doctor within the next week. Return to the ER with any new or worsening symptoms including any changes in your vision.
Interventions
Interventions:
*Risk Screen - Suicide Last Done: 06/08/24 06:45
*General Assessment Last Done: 06/08/24 07:36
*Neglect/Abuse Screening Last Done: 06/08/24 06:45
*ED- Fall Risk Assessment Last Done: 06/08/24 07:36
*ED COVID-19 Vaccine History Last Done: 06/08/24 07:36
*Nursing Disposition Last Done: 06/08/24 09:32
ED- Neurological Assessment Last Done: 06/08/24 07:36
Discharge Date and Time
Discharge Date/Time: 06/08/24 09:32
Print Language: WALLISIAN
[2024-06-08 07:34] VITALS: BMI 27.9
[2024-06-08 08:27] LABS: COVID-19 Antigen Negative (Negative)
== END 2024-06-08 09:32 | disposition home or self-care (01) ==
LOC: EMR 06:43
PROVIDERS: Physician Assistant; EMERGENCY PHYSICIAN Emergency Medicine; FAMILY PHYSICIAN Family Medicine
DX: R51.9 Headache, unspecified (principal); Z11.52 Encounter for screening for COVID-19; K52.89 Other specified noninfective gastroenteritis and colitis; E78.5 Hyperlipidemia, unspecified; Z86.718 Personal history of other venous thrombosis and embolism
CPT/HCPCS: 99284; 70450; 87502; 87811

== ENCOUNTER → 2024-06-15 09:41 | Outpatient (REF) | payer OTHER, SELFPAY | LOC: MRI 3T 09:41 | PROVIDERS: ATTENDING PHYSICIAN Student in an Organized Health Care Education/Training Program; FAMILY PHYSICIAN Nurse Practitioner Family | DX: K52.3 Indeterminate colitis (principal); R93.5 Abnormal findings on diagnostic imaging of other abdominal regions, including retroperitoneum | CPT/HCPCS: 72197; 74183; A9585 ==

== ENCOUNTER 2024-08-26 12:08 | Emergency (ER) | payer OTHER, SELFPAY ==
[2024-08-26 12:10] VITALS: BP 165/79
[2024-08-26 12:43] VITALS: BMI 27.5
[2024-08-26 12:52] VITALS: BP 114/63
[2024-08-26 13:00] VITALS: BP 123/66
--- NOTE | 2024-08-26 13:02 | ED.GENMED ---
History of Present Illness
General
Chief Complaint: DVT/Possible Blood Clot
Source: patient
Exam Limitations: none
Time Seen by Provider: 08/26/24 12:30
Nursing documentation reviewed up to this point in time: agreed with
History of Present Illness
History of Present Illness:
64-year-old female past ministry of DVT last year presenting to the emergency department today with concerns of mild discomfort to the left calf throughout the day today. Not currently on blood thinners. Denies any chest pain shortness of breath.
Denies any recent trauma surgery or immobilization.
Past History
Past History
ED Past Medical History: Other (C. difficile colitis, perforated rectum, SBP)
ED Past Surgical History: Appendectomy
Social History
Tobacco: Non-smoker
Alcohol: None
Drug: None
Personal:
Living: with family
Employment: Employed
Review of Systems
Review of Systems
Allergies reviewed?: Yes
All Other Systems: ROS reviewed and negative except as documented in HPI and ROS
Phy Exam
Physical Exam
Physical Exam:
GENERAL: Alert , in no apparent distress
EYE: pupils equal and reactive
NECK: Supple, no significant adenopathy.
ENT: o/p clr, mmm.
CARDIAC: Regular rate and rhythm .
LUNGS: Clear breath sounds bilaterally, no acute respiratory distress, no wheezes/rales/rhonchi
ABDOMEN: Soft, without focal tenderness, no r/g, no cvat
NEUROLOGICAL: Alert and oriented, no focal neuro deficits
SKIN: Warm and dry, skin intact.
MUSCULOSKELETAL: No edema, well perfused.
PSYCH: Normal and appropriate interaction.
Course
Orders/Labs/Results
Orders:
Orders
08/26/24 13:00
Venous Doppler Lwr Ext Left [US Periph Venous LOWER Ext LT] Urgent
Comment:
Reason For Exam: calf pain hx DVt
Vital Signs
Initial and Last Documented VS:
Initial Vital Signs
Temp Pulse Resp BP Pulse Ox
98.0 F 73 16 165/79 100
08/26/24 12:10 08/26/24 12:10 08/26/24 12:10 08/26/24 12:10 08/26/24 12:10
Last Documented Vital Signs
Temp Pulse Resp BP Pulse Ox
97.7 F 77 20 123/66 97
08/26/24 12:54 08/26/24 13:30 08/26/24 13:30 08/26/24 13:00 08/26/24 13:30
MDM/Problems Addressed
MDM/Problems Addressed:
64-year-old female presenting to the emergency department today with concerns of left calf discomfort starting this morning. Does have a history of DVT (provoked by previous hospitalization and surgery) in the past but is not currently
anticoagulated. No recent trauma surgery immobilization. Had some pain to the left calf but denies any swelling. Here neurovascularly intact no obvious swelling on exam. Ultrasound performed that did not show any DVT. Otherwise patient stable
for discharge. Return precautions given.
*Pulse Oximetry
SaO2: 97
Oxygen Mode of Delivery: Room air
Patient hypoxic: no (97)
*Critical Care Note
Total Time (30-74mins, 75-104mins- exclusive of procedures): Not Applicable
ED Attending Note
-
Portions of this chart may have been created with voice recognition software.� Occasional wrong word or��sound alike� substitutions may have occurred due to the inherent limitations of voice recognition software.
Discharge Plan
Departure
Patient Disposition: Home (Routine Discharge)
Date of Disposition: 08/26/24
Time of Disposition: 15:46
Patient with high blood pressure during this ER visit?: No
Condition: Good
Covid-19: Not Applicable
Discharge Problem:
Pain of left calf
Prescriptions:
No Action
therapeutic multivitamin Tablet
1 tab PO DAILY
Eliquis 5 mg Tablet
5 mg PO BID
colestipol 1 gram tablet
1 g PO HS
Referrals:
Lily Ivey DO [Family Provider, Family Practice]
Activity Restrictions/Additional Instructions:
You came to the emergency department today with concerns of calf discomfort. Here you had an ultrasound that did not show any evidence of blood clot please follow up closely with the primary care doctor for any ongoing symptoms. Return for any
worsening, new or concerning symptoms.
Interventions
Interventions:
*Risk Screen - Suicide Last Done: 08/26/24 12:10
*General Assessment Last Done: 08/26/24 12:43
*Neglect/Abuse Screening Last Done: 08/26/24 12:10
*ED COVID-19 Vaccine History Last Done: 08/26/24 12:10
ED- Cardiac Assessment Last Done: 08/26/24 12:43
ED- Pulmonary Assessment Last Done: 08/26/24 12:43
ED-Peripheral Vascular Assessment Last Done: 08/26/24 12:43
ED-Skin Assessment Last Done: 08/26/24 12:43
Discharge Date and Time
Print Language: MALAGASY
== END 2024-08-26 16:17 | disposition home or self-care (01) ==
LOC: EMR 12:08
PROVIDERS: EMERGENCY PHYSICIAN Emergency Medicine; FAMILY PHYSICIAN Family Medicine
DX: M79.662 Pain in left lower leg (principal); Z86.718 Personal history of other venous thrombosis and embolism; Z90.49 Acquired absence of other specified parts of digestive tract
CPT/HCPCS: 99284; 93971

== ENCOUNTER → 2024-10-11 06:46 | Outpatient (REF) | payer OTHER, SELFPAY | LOC: RAD 06:46 | PROVIDERS: ATTENDING PHYSICIAN Internal Medicine Gastroenterology; FAMILY PHYSICIAN Family Medicine | DX: K50.119 Crohn's disease of large intestine with unspecified complications (principal) | CPT/HCPCS: 74177; Q9967 ==

== ENCOUNTER 2024-11-03 08:31 | Emergency (ER) | payer OTHER, SELFPAY ==
[2024-11-03 08:43] VITALS: BP 121/68
--- NOTE | 2024-11-03 09:19 | ED.GENMED ---
History of Present Illness
General
Chief Complaint: DVT/Possible Blood Clot
Source: patient
Exam Limitations: none
Time Seen by Provider: 11/03/24 09:01
History of Present Illness
History of Present Illness:
64yoF with a history of a prior DVT in 2023 presenting with her sister for evaluation of left calf pain. Symptoms began about 6 days ago. She denies any trauma. The pain is in the exact location of her prior DVT. She had an ultrasound in May
of this year which was negative and her blood thinners were discontinued at that time. She is otherwise asymptomatic and denies any chest pain, shortness of breath, syncope.
Past History
Past History
ED Past Medical History: Other (C. difficile colitis, perforated rectum, SBP)
ED Past Surgical History: Appendectomy
Social History
Tobacco: Non-smoker
Alcohol: None
Drug: None
Personal:
Living: with family
Employment: Employed
Phy Exam
General Physical Exam
General Presentation: well appearing and no apparent distress
General Skin: warm and dry
General Habitus: normal
General Mental: alert
ENT Exam
ENT Exam: normocephalic
Pulmonary Exam
Pulmonary Exam: no respiratory distress
Neurological Exam
Neurological Exam: alert
Woodrow Coma Scale
Eye Opening: Spontaneous
Verbal Response: Oriented
Motor Response: Obeys Commands
GCS Total Score: 15
Musculoskeletal Exam
Musculoskeletal Exam: other (L calf: +Mild tenderness. Normal to inspection without erythema or pitting edema. 2+ DP pulse.)
Skin Exam
Skin Exam: normal color and warm/dry
Psychiatric Exam
Psychiatric Exam: normal mood/affect
Course
Orders/Labs/Results
Orders:
Orders
11/03/24 09:18
Venous Doppler Lwr Ext Left [US Periph Venous LOWER Ext LT] Urgent
Comment:
Reason For Exam: L calf pain
Vital Signs
Initial and Last Documented VS:
Initial Vital Signs
Temp Pulse Resp BP Pulse Ox
99.1 F 79 16 121/68 98
11/03/24 08:43 11/03/24 08:43 11/03/24 08:43 11/03/24 08:43 11/03/24 08:43
Last Documented Vital Signs
Temp Pulse Resp BP Pulse Ox
99.1 F 62 16 123/66 97
11/03/24 08:43 11/03/24 12:42 11/03/24 08:43 11/03/24 12:42 11/03/24 12:42
MDM/Problems Addressed
Differential Diagnosis Includes:
64yoF here with atraumatic L calf pain x 6 days. Hx of DVT no longer on anticoagulation. No CP/SOB. VSS. LLE is neurovascularly intact without pitting edema or skin changes. Differential diagnosis includes: DVT, superficial thrombophlebitis,
muscular strain
Venous duplex obtained which is negative for DVT. Patient provided with reassurance and supportive care discussed. Patient discharged in stable condition.
*Pulse Oximetry
SaO2: 98
Oxygen Mode of Delivery: Room air
Patient hypoxic: no
*Critical Care Note
Total Time (30-74mins, 75-104mins- exclusive of procedures): Not Applicable
ED Attending Note
-
Portions of this chart may have been created with voice recognition software.� Occasional wrong word or��sound alike� substitutions may have occurred due to the inherent limitations of voice recognition software.
Discharge Plan
Departure
Patient Disposition: Home (Routine Discharge)
Date of Disposition: 11/03/24
Time of Disposition: 12:07
Patient with high blood pressure during this ER visit?: No
Discharge Problem:
Pain of left calf
Instructions: Muscle, joint, and bone pain (DC)
Prescriptions:
No Action
therapeutic multivitamin Tablet
1 tab PO DAILY
Eliquis 5 mg Tablet
5 mg PO BID
colestipol 1 gram tablet
1 g PO HS
Referrals:
Cassandra Treviño PA-C [Family Provider]
Activity Restrictions/Additional Instructions:
Your ultrasound was negative for DVT. Apply heat to affected area and take Tylenol as needed for pain.
Please follow-up with your family doctor and return to the ER with any new or worsening symptoms.
Interventions
Interventions:
*Risk Screen - Suicide Last Done: 11/03/24 08:43
*General Assessment Last Done: 11/03/24 11:37
*Neglect/Abuse Screening Last Done: 11/03/24 08:43
*ED- Fall Risk Assessment Last Done: 11/03/24 11:37
*ED COVID-19 Vaccine History Last Done: 11/03/24 11:37
*Nursing Disposition Last Done: 11/03/24 12:52
ED-Peripheral Vascular Assessment Last Done: 11/03/24 12:51
Discharge Date and Time
Discharge Date/Time: 11/03/24 12:30
Print Language: CUBAN
[2024-11-03 11:37] VITALS: BMI 29.4
[2024-11-03 11:40] VITALS: BP 123/66
[2024-11-03 12:42] VITALS: BP 123/66
== END 2024-11-03 12:30 | disposition home or self-care (01) ==
LOC: EMR 08:31
PROVIDERS: EMERGENCY PHYSICIAN Emergency Medicine; FAMILY PHYSICIAN Physician Assistant Medical
DX: M79.662 Pain in left lower leg (principal); Z86.718 Personal history of other venous thrombosis and embolism
CPT/HCPCS: 99284; 93971

== ENCOUNTER 2024-12-16 15:31 | Inpatient (IN) | payer OTHER, SELFPAY ==
[2024-12-16] VITALS (8 sets, daily range): BP systolic 102–158; BP diastolic 47–99; BMI 29.7
--- NOTE | 2024-12-16 12:52 | ED.GENMED ---
History of Present Illness
<SWETA Ellsworth Last Filed: 12/16/24 14:43>
General
Chief Complaint: Flank Pain
Source: patient
Exam Limitations: none
Time Seen by Provider: 12/16/24 12:46
History of Present Illness
History of Present Illness:
64-year-old female presents complaining of 2 days worth of persistent left-sided mid abdominal pain. Goes to the back some and comes to the front some. She has a history of abdominal abscess likely from diverticulitis. This was over a year ago.
She was seen by the family doctor today and given her history she was sending further evaluation. She did not have any bowel resection at that time. No urinary symptoms currently. No fever or nausea or vomiting. Tylenol helps her pain this
morning.
Past History
<SWETA Ellsworth Last Filed: 12/16/24 14:43>
Past History
ED Past Medical History: Other (C. difficile colitis, perforated rectum, SBP)
ED Past Surgical History: Appendectomy
Social History
Tobacco: Non-smoker
Alcohol: None
Drug: None
Personal:
Living: with family
Employment: Employed
Phy Exam
<SWETA Ellsworth Last Filed: 12/16/24 14:43>
Physical Exam
Physical Exam:
General: Well-appearing female no acute respiratory distress
HEENT: Normal cephalic atraumatic
Heart: Regular rate and rhythm
Lungs: Clear no wheeze
Abdomen is soft mildly tender to the left mid abdomen and lower quadrant. No guarding or rebound nondistended
Extremities: No cyanosis
Course
<SWETA Ellsworth Last Filed: 12/16/24 14:43>
Orders/Labs/Results
Orders:
Orders
12/16/24 Breakfast
NPO
Allow oral meds: Yes
NPO Except Meds: Yes
Allow clear liquids: No
Sips of clear liquids: No
12/16/24 12:34
C-Reactive Protein Urgent
Comment: ADD ON
Complete Blood Count/With Diff Urgent
Comprehensive Metabolic Panel Urgent
Urinalysis Reflex To Culture Urgent
Date Specimen was Collected: 12/16/24
Time Specimen was Collected: 12:20
Urine Microscopic Reflex Cult Urgent
Urine Culture Urgent
TYREE Source: U
Specimen Description:
Date Specimen was Collected: 12/16/24
Time Specimen was Collected: 12:20
12/16/24 12:52
CT Abd/pelvis W Iv Cont Urgent
Comment:
Reason For Exam: left lower abdominal pain
12/16/24 14:15
Ketorolac [Toradol] 15 mg IV NOW STA
12/16/24 14:41
Piperacillin/Tazo 3.375 Gram [Zosyn] 3.375 gram in 50 ml IV NOW
12/16/24 15:03
ColoRectal Surgery Consult Routine
Consulting Provider: Mickey Blakely
Was physician already notified: Yes
12/16/24 15:04
PRN Pain Medication Management As Directed
May give lesser potent ordered pain med per pt: Yes
preference::
Protocol:: Medication orders for pain may be administered in a
manner that supports deferring to patient preference
when the pt is:
- Requesting an ordered lesser potent pain medication.
Least to most potent pain medications are defined
as: acetaminophen < NSAID < tramadol < opioids
(morphine, oxycodone, hydromorphone).
- Requesting a lesser dose of the same medication IF
ORDERED.
- Requesting a less intrusive route of administration
if both routes are prescribed by the provider (PO <
IV).
12/16/24 15:05
Code Status As Directed
Resuscitation Status: Full Code
12/16/24 15:13
Admit Patient As Directed
Co-Sign Provider:
Level of Care: Inpatient admission
Assign to:: Medical/Surgical
Physician / Group: Mickey Blakely
Diagnosis: colitis
Reason for Hospitalization: colitis
Expected length of stay greater than two midnights?: Yes
ELOS- Estimated Length of Stay in days: 5
I certify the patient meets the requirements for IP care: Yes
Acetaminophen [Tylenol] 650 mg PO Q4HPRN PRN
HYDROmorphone [Dilaudid] 0.5 mg IV Q2HPRN PRN
HYDROmorphone [Dilaudid] 1 mg IV Q2HPRN PRN
Ondansetron HCl [Zofran] 4 mg PO Q8HPRN PRN
Activity As Directed
Activity Level: Out of Bed-Early Mobility
Anti-embolism (GABY) Hose As Directed
Type: Knee high
Intake/ Output As Directed
Frequency: Per unit guidelines
Pneumatic Compression Sleeves As Directed
Type: Knee high
Vital Signs As Directed
Frequency: Per unit guidelines
PRN Pain Medication Management As Directed
May give lesser potent ordered pain med per pt: Yes
preference::
Protocol:: Medication orders for pain may be administered in a
manner that supports deferring to patient preference
when the pt is:
- Requesting an ordered lesser potent pain medication.
Least to most potent pain medications are defined
as: acetaminophen < NSAID < tramadol < opioids
(morphine, oxycodone, hydromorphone).
- Requesting a lesser dose of the same medication IF
ORDERED.
- Requesting a less intrusive route of administration
if both routes are prescribed by the provider (PO <
IV).
Rx Incentive Spirometry [RESP] Routine
Frequency: q1h while awake
DX Deep Vein Thrombosis Video Routine
12/16/24 15:15
Add On- LAB Routine
Tests Added?: CRP
Calprotectin, Fecal [S] Routine
Stool Culture Routine
TYREE Source: Feces/Stool
Specimen Description:
Normosol (Mult Electrolytes) [Normosol-R/Plasmalyte-A] 1,000 ml IV 75 mls/hr
12/16/24 15:16
Type And Crossmatch [Type+Screen] Routine
PT/INR [Prothrombin Time] Routine
PTT Routine
DX Deep Vein Thrombosis Video Routine
12/16/24 18:00
Enoxaparin Sodium [Lovenox] 40 mg SC QPM
12/16/24 20:00
Piperacillin/Tazo 3.375 Gram [Zosyn] 3.375 gram in 50 ml IV Q6H
12/17/24 06:00
Basic Metabolic Panel IN AM
CRP [C-Reactive Protein] IN AM
Complete Blood Count/With Diff IN AM
12/18/24 06:00
CRP [C-Reactive Protein] IN AM
12/19/24 06:00
CRP [C-Reactive Protein] IN AM
12/20/24 06:00
CRP [C-Reactive Protein] IN AM
12/21/24 06:00
CRP [C-Reactive Protein] IN AM
Abnormal Lab Results
12/16/24
12:34
WBC 15.8 H 10^3/uL
(4.8-10.8)
Hgb 9.6 L g/dL
(12.0-16.0)
Hct 32.8 L %
(37.0-47.0)
MCV 63.0 L fL
(81.0-99.0)
MCH 18.4 L pg
(27.0-31.0)
MCHC 29.3 L g/dL
(33.0-37.0)
RDW 15.9 H %
(11.5-14.5)
MPV 11.0 H fL
(7.4-10.4)
Abs Immat Gran (auto) 0.1 H 10^3/uL
(0-0.05)
Absolute Neuts (auto) 12.6 H 10^3/uL
(1.4-6.5)
Absolute Monos (auto) 1.5 H 10^3/uL
(0.1-0.6)
Neutrophils % 79.8 H %
(42.2-75.2)
Lymphocytes % 8.8 L %
(20.5-51.1)
Monocytes % 9.5 H %
(1.7-9.3)
C-Reactive Protein 138.60 H mg/L
(0.0-10.00)
Ur Occult Blood Reflex 2+ A
(Negative)
Leukocyte Esterase Rfl 3+ A
(Negative)
Urine RBC 7-10 A /HPF
(0-2)
Urine Bacteria (Reflex) Moderate A
(Negative)
Urine Albumin (Reflex) 2+ A
(Neg - Trace)
12/16/24 12:34
12/16/24 12:34
Vital Signs
Initial and Last Documented VS:
Initial Vital Signs
Temp Pulse Resp BP Pulse Ox
98.5 F 77 16 128/65 98
12/16/24 12:20 12/16/24 12:20 12/16/24 12:20 12/16/24 12:20 12/16/24 12:20
Last Documented Vital Signs
Temp Pulse Resp BP Pulse Ox
98.5 F 78 16 127/99 98
12/16/24 12:20 12/16/24 14:31 12/16/24 14:31 12/16/24 15:00 12/16/24 14:49
<Mickey Mcgrath, - Last Filed: 12/16/24 16:38>
Orders/Labs/Results
Orders:
Orders
12/16/24 Breakfast
NPO
Allow oral meds: Yes
NPO Except Meds: Yes
Allow clear liquids: No
Sips of clear liquids: No
12/16/24 12:34
C-Reactive Protein Urgent
Comment: ADD ON
Complete Blood Count/With Diff Urgent
Comprehensive Metabolic Panel Urgent
Urinalysis Reflex To Culture Urgent
Date Specimen was Collected: 12/16/24
Time Specimen was Collected: 12:20
Urine Microscopic Reflex Cult Urgent
Urine Culture Urgent
TYREE Source: U
Specimen Description:
Date Specimen was Collected: 12/16/24
Time Specimen was Collected: 12:20
12/16/24 12:52
CT Abd/pelvis W Iv Cont Urgent
Comment:
Reason For Exam: left lower abdominal pain
12/16/24 14:15
Ketorolac [Toradol] 15 mg IV NOW STA
12/16/24 14:41
Piperacillin/Tazo 3.375 Gram [Zosyn] 3.375 gram in 50 ml IV NOW
12/16/24 15:03
ColoRectal Surgery Consult Routine
Consulting Provider: Mickey Blakely
Was physician already notified: Yes
12/16/24 15:04
PRN Pain Medication Management As Directed
May give lesser potent ordered pain med per pt: Yes
preference::
Protocol:: Medication orders for pain may be administered in a
manner that supports deferring to patient preference
when the pt is:
- Requesting an ordered lesser potent pain medication.
Least to most potent pain medications are defined
as: acetaminophen < NSAID < tramadol < opioids
(morphine, oxycodone, hydromorphone).
- Requesting a lesser dose of the same medication IF
ORDERED.
- Requesting a less intrusive route of administration
if both routes are prescribed by the provider (PO <
IV).
12/16/24 15:05
Code Status As Directed
Resuscitation Status: Full Code
12/16/24 15:13
Admit Patient As Directed
Co-Sign Provider:
Level of Care: Inpatient admission
Assign to:: Medical/Surgical
Physician / Group: Mickey Blakely
Diagnosis: colitis
Reason for Hospitalization: colitis
Expected length of stay greater than two midnights?: Yes
ELOS- Estimated Length of Stay in days: 5
I certify the patient meets the requirements for IP care: Yes
Acetaminophen [Tylenol] 650 mg PO Q4HPRN PRN
HYDROmorphone [Dilaudid] 0.5 mg IV Q2HPRN PRN
HYDROmorphone [Dilaudid] 1 mg IV Q2HPRN PRN
Ondansetron HCl [Zofran] 4 mg PO Q8HPRN PRN
Activity As Directed
Activity Level: Out of Bed-Early Mobility
Anti-embolism (GABY) Hose As Directed
Type: Knee high
Intake/ Output As Directed
Frequency: Per unit guidelines
Pneumatic Compression Sleeves As Directed
Type: Knee high
Vital Signs As Directed
Frequency: Per unit guidelines
PRN Pain Medication Management As Directed
May give lesser potent ordered pain med per pt: Yes
preference::
Protocol:: Medication orders for pain may be administered in a
manner that supports deferring to patient preference
when the pt is:
- Requesting an ordered lesser potent pain medication.
Least to most potent pain medications are defined
as: acetaminophen < NSAID < tramadol < opioids
(morphine, oxycodone, hydromorphone).
- Requesting a lesser dose of the same medication IF
ORDERED.
- Requesting a less intrusive route of administration
if both routes are prescribed by the provider (PO <
IV).
Rx Incentive Spirometry [RESP] Routine
Frequency: q1h while awake
DX Deep Vein Thrombosis Video Routine
12/16/24 15:15
Add On- LAB Routine
Tests Added?: CRP
Calprotectin, Fecal [S] Routine
Stool Culture Routine
TYREE Source: Feces/Stool
Specimen Description:
Normosol (Mult Electrolytes) [Normosol-R/Plasmalyte-A] 1,000 ml IV 75 mls/hr
12/16/24 15:16
Type And Crossmatch [Type+Screen] Routine
PT/INR [Prothrombin Time] Routine
PTT Routine
DX Deep Vein Thrombosis Video Routine
12/16/24 18:00
Enoxaparin Sodium [Lovenox] 40 mg SC QPM
12/16/24 20:00
Piperacillin/Tazo 3.375 Gram [Zosyn] 3.375 gram in 50 ml IV Q6H
12/17/24 06:00
Basic Metabolic Panel IN AM
CRP [C-Reactive Protein] IN AM
Complete Blood Count/With Diff IN AM
12/18/24 06:00
CRP [C-Reactive Protein] IN AM
12/19/24 06:00
CRP [C-Reactive Protein] IN AM
12/20/24 06:00
CRP [C-Reactive Protein] IN AM
12/21/24 06:00
CRP [C-Reactive Protein] IN AM
Abnormal Lab Results
12/16/24
12:34
WBC 15.8 H 10^3/uL
(4.8-10.8)
Hgb 9.6 L g/dL
(12.0-16.0)
Hct 32.8 L %
(37.0-47.0)
MCV 63.0 L fL
(81.0-99.0)
MCH 18.4 L pg
(27.0-31.0)
MCHC 29.3 L g/dL
(33.0-37.0)
RDW 15.9 H %
(11.5-14.5)
MPV 11.0 H fL
(7.4-10.4)
Abs Immat Gran (auto) 0.1 H 10^3/uL
(0-0.05)
Absolute Neuts (auto) 12.6 H 10^3/uL
(1.4-6.5)
Absolute Monos (auto) 1.5 H 10^3/uL
(0.1-0.6)
Neutrophils % 79.8 H %
(42.2-75.2)
Lymphocytes % 8.8 L %
(20.5-51.1)
Monocytes % 9.5 H %
(1.7-9.3)
C-Reactive Protein 138.60 H mg/L
(0.0-10.00)
Ur Occult Blood Reflex 2+ A
(Negative)
Leukocyte Esterase Rfl 3+ A
(Negative)
Urine RBC 7-10 A /HPF
(0-2)
Urine Bacteria (Reflex) Moderate A
(Negative)
Urine Albumin (Reflex) 2+ A
(Neg - Trace)
12/16/24 12:34
12/16/24 12:34
Vital Signs
Initial and Last Documented VS:
Initial Vital Signs
Temp Pulse Resp BP Pulse Ox
98.5 F 77 16 128/65 98
12/16/24 12:20 12/16/24 12:20 12/16/24 12:20 12/16/24 12:20 12/16/24 12:20
Last Documented Vital Signs
Temp Pulse Resp BP Pulse Ox
98.5 F 78 16 127/99 98
12/16/24 12:20 12/16/24 14:31 12/16/24 14:31 12/16/24 15:00 12/16/24 14:49
<Viraj Soto PA-C - Last Filed: 12/16/24 14:43>
MDM/Problems Addressed
Differential Diagnosis Includes:
Left mid abdominal pain. Consider renal colic versus diverticular abscess.
Check labs. CT ordered
<Viraj Soto PA-C - Last Filed: 12/16/24 14:43>
*Pulse Oximetry
SaO2: 98
Oxygen Mode of Delivery: Room air
Patient hypoxic: no
*Critical Care Note
Total Time (30-74mins, 75-104mins- exclusive of procedures): Not Applicable
<Viraj Soto PA-C - Last Filed: 12/16/24 14:43>
Update Note
Update Note:
CT demonstrates descending colitis. White blood cell count is 15.8. There is a fistula connecting to an abscess in the abdominal wall which is larger than it has been. Given the patient's increased pain and white blood cell count will decide to
admit to hospital. Zosyn ordered. Notified hospitalist and colorectal
ED Attending Note
<Viraj Soto PA-C - Last Filed: 12/16/24 14:43>
-
Portions of this chart may have been created with voice recognition software.� Occasional wrong word or��sound alike� substitutions may have occurred due to the inherent limitations of voice recognition software.
<Mickey Mcgrath DO - Last Filed: 12/16/24 16:38>
ED Attending Note
Patient seen and examined by attending physician: Yes
I performed the substantive portion of visit, reviewed & personally made and approve the management plan that is documented in note by myself or [place].: Yes
ED Attending Note:
I agree with Ernst's note
Patient presents with left-sided abdominal pain. 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 She is known to Dr. Blakely. No significant fever or chills. No nausea or vomiting.
General: Awake, Alert, Oriented X3. No acute distress.
Vitals: unremarkable
Head: Atraumatic
Eyes: Pupils equal, EOMI
Abd: Soft, mild tenderness but no peritoneal signs
Neuro: Nonfocal
Skin: Warm, dry, no rash
Extremities: pulses equal b/l, no edema
CT abdomen pelvis shows inflammatory changes of the descending colon and sigmoid colon. There is a fluid collection within the left lateral abdominal wall which is fairly sizable and is increased in size from a CT October 11. Suspected fistula for
connection between this and the descending colon. Patient will require hospitalization for IV antibiotics and definitive management.
Discharge Plan
Departure
Patient Disposition: Admit
Date of Disposition: 12/16/24
Time of Disposition: 14:42
Presentation/result/management discussed w/ accepting MD/DO: Hospitalist
Discharge Problem:
Colitis, Abdominal wall abscess
Interventions
Interventions:
*Risk Screen - Suicide Last Done: 12/16/24 12:20
*General Assessment Last Done: 12/16/24 12:20
*Neglect/Abuse Screening Last Done: 12/16/24 12:20
*ED- Fall Risk Assessment Last Done: 12/16/24 12:20
*ED COVID-19 Vaccine History Last Done: 12/16/24 12:20
*ED Influenza Vaccine History Last Done: 12/16/24 12:20
RW-Xwdhxf-Zaowwgsmuv Assessment Last Done: 12/16/24 13:00
ED-Female Genitourinary Assessment Last Done: 12/16/24 13:00
[2024-12-16 12:59] LABS: Hematocrit 32.8 % (37.0-47.0); Hemoglobin 9.6 g/dL (12.0-16.0); Mean Corp Hgb Conc. 29.3 g/dL (33.0-37.0); Mean Corpuscular Volume 63.0 fL (81.0-99.0); Nucleated Red Blood Cells % 0 %; Platelet Count 375 10^3/uL (130-400); Red Cell Dist. Width 15.9 % (11.5-14.5)
[2024-12-16 13:12] LABS: Urine Character Clear (Clear)
[2024-12-16 13:19] LABS: ALT (SGPT) 28 U/L (0-35); AST (SGOT) 24 U/L (14-36); Albumin 4.0 g/dl (3.5-5.0); Alkaline Phosphatase 119 U/L (38-126); Blood Urea Nitrogen 14 mg/dl (7-17); Calcium 9.2 mg/dl (8.4-10.2); Carbon Dioxide 23 mmol/L (22-30); Chloride 105 mmol/L (98-107); Glucose 95 mg/dl (70-99); Potassium 3.9 mmol/L (3.5-5.1); Sodium 135 mmol/L (135-145); Total Protein 7.2 g/dl (6.3-8.2); eGFR > 60.00
[2024-12-16 13:24] LABS: Urine Squamous Cell 16-20 /LPF (Few)
[2024-12-16] MEDS: TORADOL 15 MG IV (14:18)
--- NOTE | 2024-12-16 14:43 | HPS.HSE ---
Addendum entered and electronically signed by Adarsh Espinoza MD 12/16/24 18:39:
This is an addendum to H&P written by Reina Cowart on 12/16/2024. �Patient seen and examined independently with PA.
64-year-old female past medical history of prior DVT, chronic anemia, diverticulitis with perforation and abscess status post drain, colitis unclear etiology likely Crohn's disease, history of ex lap, primary repair of rectal perforation, presenting
with abdominal pain left lower quadrant for 2 days. �No fevers. �No vomiting or diarrhea.
She was here in[place] for sepsis secondary to acute�diverticulitis with perforation and abscess status post drain that was subsequently removed.
She subsequently had EGD and colonoscopy and enterography MRI�afterwards. �Enterography MRI showed residual focal bowel wall thickening along the lateral aspect of the distal descending colon with adjacent fistula tract formation with associated
phonatory thickening and mild phlegmon within the lateral abdominal wall.
She had enterography CT in September showing persistent mild inflammatory change involving the mid descending colon and persistent soft tissue communication between the lateral margin of the mid descending colon and adjacent lateral abdominal wall
possibly fistula
Vital signs unremarkable.
Labs show leukocytosis of 15. �Stable anemia of 9.6.
CT abdomen pelvis shows bowel wall thickening and mild inflammatory change involving the rectosigmoid, sigmoid and distal descending colon consistent with infectious or inflammatory colitis. �Collection of fluid and air within the left lateral
abdominal wall measuring 8.7 x 8.7 x 1.8 cm increase from previously. �Suspected fistulous communication between this and colon left abdominal wall collection.
Patient with infectious colitis with fluid collection within the left lateral abdominal wall concerning for abscess. �Also with fistula from colon to the left abdominal wall collection. �Findings likely secondary to underlying Crohn's disease
suspected by [facility]. �N.p.o., IV fluids, Zosyn, colorectal surgery consulted, GI consulted.
Original Note:
Family Physician
-
Family Physician:
Chief Complaint
-
Abdominal Pain
History of Present Illness
Patient is a 64 y/o female past medical history of DVT, Colitis (possibly Crohn's), prior diverticulitis with perforation/abscess who presents with abdominal pain. Patient reports worsening left lower quadrant abdominal pain for the past 2 days.
She described the pain as constant. She denies any changes in bowel habits. She denies any fevers, sweats or chills. She has a complicated history with rectal perforation requiring ex lap in Oct 2023, and diverticulitis with abscess requiring IR
drainage in Feb/Mar 2024.
Medical History
Past Medical History
Past Medical History: Reports Other
Additional Past Medical History:
Colitis, suspected Crohn's
DVT
Past Surgical History: Reports Other
Additional Past Surgical History:
Exploratory Laparotomy for Perforated Rectum
Social History
Tobacco: Non-smoker
Alcohol: None
Drug: None
Family History
Family History: Not pertinent
Allergies / Home Medications
Allergies reflects when Allergies were last updated in [employer].
Home Medications with original date entered in [employer]
Allergy/Medication List:
Allergies
Allergy/AdvReac Type Severity Reaction Status Date / Time
No Known Allergies Allergy Verified 12/16/24 12:21
Home Medications
colestipol 1 gram tablet 1 g PO DAILY 03/06/24
therapeutic multivitamin 1 tab PO DAILY Supplement 03/06/24
acetaminophen 325 mg tablet (Tylenol) 650 mg PO Q6HPRN PRN mild pain 12/16/24
Review of Systems
-
A 12 point ROS was completed and negative except as noted: Yes
Constitutional: Denies Fever or Chills
Respiratory: Denies Cough or Trouble Breathing
Cardiac: Denies Chest Pain or Palpitations
Physical Exam
Vital Signs
Vital Signs
Temp Pulse Resp BP Pulse Ox
98.5 F 78 16 125/65 99
12/16/24 12:20 12/16/24 14:31 12/16/24 14:31 12/16/24 14:13 12/16/24 14:30
Physical Exam
General: Comfortable and Conversant
HEENT: Anicteric and Moist mucous membranes
Respiratory: Clear and Non Labored Respirations
Cardiac: S1/S2 and Regular Rhythm
GI: Soft and Tender (Mild throughout)
Rectal: Deferred by Provider
Musculoskeletal: No Clubbing, No Cyanosis and No Edema
Skin: Warm and Dry
Neuro: Awake, Alert, Oriented and Nonfocal/grossly intact
Psych: Calm
Laboratory Results
-
12/16/24 12:34
12/16/24 12:34
Laboratory Results
Total Bilirubin 0.5 mg/dl (0.2-1.3) 12/16/24 12:34
AST 24 U/L (14-36) 12/16/24 12:34
ALT 28 U/L (0-35) 12/16/24 12:34
Alkaline Phosphatase 119 U/L (38-126) 12/16/24 12:34
Abd/Pelvis CT:
1. Bowel wall thickening and mild inflammatory change involving the rectosigmoid, sigmoid, and distal descending colon, consistent with infectious or inflammatory colitis.
2. Collection of fluid and air within the left lateral abdominal wall, measuring 8.7 x 8.7 x 1.8 cm, increased in size compared to prior CT dated 10/11/2024.
3. Suspected fistulous communication between the descending colon and left abdominal wall collection, best seen on coronal images 31-33, and axial series 201 images 43-46.
4. Multiple midline ventral hernias, including a periumbilical hernia containing loops of small bowel. No evidence of incarceration or intestinal obstruction.
Data Reviewed
-
Lab Data: Labs Reviewed by me
Old Records: Reviewed
Impression/Plan
-
Colitis, possible inflammatory vs infectious involving rectosigmoid, sigmoid and distal descending colon
Left Lateral Abdominal Wall Abscess
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
-Consult Colorectal Surgery and GI
-Continue NPO/IVFs
-Continue Zosyn
-Check stool cultures and fecal calprotectin
-Check inflammatory markers
Hx DVT - No longer on anticoagulation
DVT proph: Lovenox
Code Status: Full Code
[2024-12-16] MEDS: ZOSYN 50 IV ×2 (14:46→20:27)
[2024-12-16 16:33] LABS: C-Reactive Protein 138.60 mg/L (0.0-10.00)
--- NOTE | 2024-12-16 16:37 | CON.CRS ---
Consultation
-
Date/Time Consultation Requested: 12/16/2024, 14:45
Date/Time Consultation Performed: , 15:00
Requesting Provider: Viraj Soto PA-C
Performing Provider: Mickey Blakely MD
Reason for Consultation: colitis
Medical History
-
Chief Complaint: abdominal pain
History of Present Illness:
64-year-old female presents today due to left-sided abdominal pain. She has a significant past medical history of colitis.. In March 2023 she had issues with diarrhea and a CT showed inflammation of the sigmoid colon concerning for
diverticulitis. In September 2023 she had a colonoscopy at [place] showing active inflammation in the rectum with pseudomembranes. She was started on antibiotics for C. difficile. In October 2023 she presented to [facility] with abdominal pain
and a CT showed free air and colitis of descending and sigmoid colon. She underwent ex lap with primary repair of the proximal rectal perforation. C. difficile was negative and she was discharged on 10/27/2024. On 12/08/2023 she presented to the
ER with recurrent diarrhea. The CT showed colitis of the descending and sigmoid colon. In December 2023 she was an outpatient with Dr. Hugo and recommended a repeat colonoscopy. However she is waiting for her course of Eliquis to be complete for
a DVT. On 02/25/2024 she presented to the ER with worsening left flank pain. The CT showed 9 mm descending colon inflammation associated with a 7.8 x 7.5 x 1 cm abscess. IR performed drainage with return of 3 mL of bloody fluid. C. difficile and
stool cultures were negative and the fecal calprotectin was 2.[address] Blakely in the office on 03/29/2024. He thought that most likely the left-sided colitis was related to Crohn's disease due to inflammatory markers but it may also be due to diverticulitis. So far all the infection testing is come back
negative. Her last colonoscopy was 3 years ago. She then subsequently had a colonoscopy 06/[address] [facility] [address] Otoole on May 19. The report is not available for review.
She now presents to [facility] with left-sided abdominal pain. CT of the abdomen and pelvis shows bowel wall thickening and mild inflammatory change in the rectosigmoid, sigmoid, and distal descending colon consistent with infectious
inflammatory colitis. There is a collection of fluid and air in the left lateral wall measuring 8.7 x 8.7 x 1.8 cm. This is increased in size since the CT which was dated on 10/11/2024. She apparently had an enterography at that time which showed
mild inflammatory changes in the mid descending colon. There was suspicion for contained perforation fistula and abscess. Currently her WBC is 15.8. Her Tmax is 99.1. We are admitting for further workup.
Past Medical History
Past Medical History: Other (C. difficile colitis, perforated rectum, SBP)
Past Surgical History: Appendectomy
Social History
Alcohol: None
Drug: None
Family History
Family History: Reviewed & Not Pertinent
Allergies / Home Medications
Allergy/AdvReac Type Severity Reaction Status Date / Time
No Known Allergies Allergy Verified 12/16/24 12:21
�Medication �Instructions �Recorded �Confirmed �Type
colestipol 1 gram tablet 1 g PO DAILY 03/06/24 12/16/24 History
therapeutic multivitamin 1 tab PO DAILY Supplement 03/06/24 12/16/24 History
acetaminophen 325 mg tablet 650 mg PO Q6HPRN PRN mild pain 12/16/24 12/16/24 History
(Tylenol)
Review of Systems
-
History Source: Patient
Abdomen/GI: Abdominal Pain
A 10 point review of systems was completed, and was negative except as per HPI.
Physical Exam
Vital Signs
Temp 98.5 F 12/16/24 12:20
Pulse 70 12/16/24 16:36
Resp Rate 16 12/16/24 14:31
Blood pressure 118/60 12/16/24 16:00
SaO2 96 12/16/24 16:30
12/15/24 12/16/24 12/17/24
06:59 06:59 06:59
Actual Weight 79.9 kg
Lab Results / Allergies
12/16/24 12:34
12/16/24 12:34
WBC 15.8 10^3/uL (4.8-10.8) H 12/16/24 12:34
Hgb 9.6 g/dL (12.0-16.0) L 12/16/24 12:34
Hct 32.8 % (37.0-47.0) L 12/16/24 12:34
Plt Count 375 10^3/uL (130-400) 12/16/24 12:34
Abs Immat Gran (auto) 0.1 10^3/uL (0-0.05) H 12/16/24 12:34
Neutrophils % 79.8 % (42.2-75.2) H 12/16/24 12:34
Allergy/AdvReac Type Severity Reaction Status Date / Time
No Known Allergies Allergy Verified 12/16/24 12:21
Physical Exam
GI: Soft, Non Distended and Tender (LLQ mild)
Neuro: AO x 3
Data Reviewed
-
CT Scan: Image Personally Visualized and interpreted, Report Reviewed by me and Discussed with Patient
Labs: Labs Reviewed by me and Discussed with Physician
Old Records: Reviewed
Assessment / Plan
-
IMPRESSION:64 yo female with a history of colitis and perforated rectum s/p ex lap presents with abdominal pain, found to have infectious or inflammatory colitis in the rectosigmoid, sigmoid, and distal descending colon with an associated collection
of fluid and air in the left lateral abdominal wall measuring 8.7 x 8.7 x 1.8 cm. Questionable fistula between the descending colon and left abdominal wall collection.
PLAN:
-NPO with IVFs
-Broad spectrum abx
-Pain control
-Fecal calprotectin, stool studies ordered
-Trend CRP and labs
-Will discuss with Dr. Blakely regarding further plans
[2024-12-16] MEDS: DILAUDID 0.5 MG IV ×2 (19:38→23:20)
[2024-12-16] MEDS: LOVENOX 40 MG SC (19:39)
[2024-12-16] MEDS: NORMOSOL-R/PLASMALYTE-A 1000 IV (19:52)
--- NOTE | 2024-12-16 20:00 | PTCARENOTE ---
Pt received from ED via wheelchair at 1915. Pt pleasant, AAOx3, VSS, moderate (5/10) LLQ abdominal pain, and able to ambulate into room without assistance. Pt receptive to room and call gracia. Pt bed in lowest position and call gracia within reach. Pt
educated on importance of call gracia usage, pt relays understanding and cooperation. Will continue with current plan of care.
[2024-12-16] MEDS: TYLENOL 650 MG PO (23:14)
[2024-12-17] MEDS: ZOSYN 50 IV ×4 (01:40→19:51)
--- NOTE | 2024-12-17 06:55 | CON.GI ---
Addendum entered and electronically signed by Fernando Appiah MD 12/17/24 13:38:
Patient seen and examined, agree with nurse practitioner note. The patient is a 64-year-old female with complicated past medical history as noted here with recurrent abdominal pain. She is a longstanding history of abdominal wall abscess and
fistula with questionable inflammatory bowel disease, following rectal perforation and pseudomembranous colitis last year. She has followed up with [facility] for extensive valuation that is showing persistent thickening in the left
colon with probable fistula, and is had increasing abdominal wall fluid collection, likely abscess. She does not have any significant diarrhea, denies any rectal bleeding, rashes or joint swelling, is no family history of inflammatory bowel
disease. On exam she has abdominal hernias and some tenderness on the left side. CT scan now again shows enlarging fluid collection with fluid and air with suspected fistula to the descending colon with multiple midline hernias and periumbilical
hernia containing loops of small bowel without incarceration.
1. Abdominal wall fluid collections fistula: With complicated history as described below. It has been difficult to determine, though clinically seems less likely to be consistent with Crohn's disease with really no significant active colitis noted
throughout. Another possibility would be diverticular related disease with fistula/abscess related and diverticular associated colitis. At this point she has no significant diarrhea and is nontoxic-appearing. Surgery is following, IR consulted
for drainage of, wall collection. Would not start steroids now as again unclear if there is inflammatory bowel disease or not, especially in the setting now of fluid collection and probable abscess. We discussed that the decision of proceeding to
surgery versus trial of Biologics would be to Dr. Otoole at the [facility], She knows to follow-up closely with him on discharge. Unfortunately not much more to offer from a GI standpoint.
We will sign off for now, please abide with any further questions.
Original Note:
Consultation
-
Date/Time Consultation Requested: 12/16/24 1900
Date/Time Consultation Performed: 12/17/24 0815
Requesting Provider: Reina Cruz PA-C
Performing Provider: MIGUEL Hernandez, Ernst Appiah MD
Reason for Consultation: coltiis
Medical History
Chief Complaint / HPI
Chief Complaint: abdominal pain
History of Present Illness:
Pt is a 64yo with hx prior appe, HTN, anemia/ thalassemia, DVT(off Eliquis), and hx diarrhea. Per review of chart age 16 pt has possible fistulizing crohn's disease 1977 s/p surgery [facility]. She then had c-scope 2020 Dr. Valverde for
hx colon polyps with diverticulosis. In 2023 she had colonoscopy at outside facility with pseudomembranous colitis for diarrhea and presented to October of 2023 for evaluation. She was noted with rectal perforation with ex lap and repair with
repeat neg c-diff and concern for proctocolitis but was also treated with Dificid . Follow up imaging with persistent inflammation with elevated inflammatory markers but was given Colestipol with improved symptoms in 12/2023 follow up with concern
for indeterminate colitis She was also noted with + DVT and placed on Eliquis at that time. She presented again in February with left sided abdominal pain with colitis with abscess s/p IR drain and was referred to Dr. Yamil Otoole at [facility] for further
evaluation. She had further follow up imaging with [facility] in May 2024 with concern for fistulizing disease in distal descending colon and abnormal SB thickening with tethering of SB loops with prior inflammatory process. closed loop obstruction not
excluded. Colonoscopy in June with normal ileum, pseudopolyp sigmoid, mild DC mucosal edema but not severe colon otherwise normal, bx SB no pathology, right/transverse chronic colitis, left inactive colitis -patchy, rectum no pathologic changes.
She was recommended to repeat imaging 4-6 weeks and given course of cipro/flagyl. She had follow up in September and there was debate if finding related to post perforation complications vs other. She was recommended fecal charley (1930) CTE in September
with similar finding of descending colon contained perforation/fistula communication/abscess and abdominal wall hernia. She currently remains off therapy and now presents with LLQ pain. CT on admission with Bowel wall thickening and mild
inflammatory change involving the rectosigmoid, sigmoid, and distal descending colon, consistent with infectious or inflammatory colitis. Collection of fluid and air within the left lateral abdominal wall, measuring 8.7 x 8.7 x 1.8 cm, increased in
size compared to prior CT dated 10/11/2024.Suspected fistulous communication between the descending colon and left abdominal wall collection and Multiple midline ventral hernias, including a periumbilical hernia containing loops of small bowel.
Pt states in general she has felt well. She did have symptoms in October with perforation and February but in general has felt well with normal bowel function for last few months but now with onset of abdominal pain. She denies any
odynophagia, dysphagia, GERD, nausea, vomiting, diarrhea, constipation or bleeding. On admission WBC 15,800 with temp up to 100.8.
Past Medical History
Past Medical History: HTN and Other ( chronic diarrhea, c-diff, SBP, indeterminate colitis, anemia- thalassemia, DVT)
Past Surgical History: Appendectomy and Other (exp lap with rectal perforation repair after colonoscopy )
Social History
Tobacco: Non-Smoker
Alcohol: None
Drug: None
Personal:
Living: With Family
Employment: Retired (with apartment leasing consultant job)
Family History
Family History: Other (no family hx IBD or GI issues )
Allergies / Home Medications
Allergy/AdvReac Type Severity Reaction Status Date / Time
No Known Allergies Allergy Verified 12/16/24 12:21
�Medication �Instructions �Recorded
colestipol 1 gram tablet 1 g PO DAILY 03/06/24
therapeutic multivitamin 1 tab PO DAILY Supplement 03/06/24
acetaminophen 325 mg tablet 650 mg PO Q6HPRN PRN mild pain 12/16/24
(Tylenol)
Review of Systems
-
History Source: Patient
Constitutional: Reports Fever
EENT: Reports No Symptoms
Respiratory: Reports No Symptoms
Cardiac: Reports No Symptoms
Abdomen/GI: Reports Abdominal Pain (LLQ )
: Reports No Symptoms
Musculoskeletal: Reports No Symptoms
Skin: Reports No Symptoms
Neurological: Reports No Symptoms
Endocrine: Reports No Symptoms
Hematologic/Lymphatic: Reports No Symptoms
Vital Signs
Temp Pulse Resp BP Pulse Ox
97.7 F 84 18 127/60 96
12/17/24 03:11 12/16/24 23:05 12/16/24 23:05 12/16/24 23:05 12/16/24 23:05
Physical Exam
Exam
General: Well Developed, Well Nourished and No Apparent Distress
HEENT: Normocephalic, Anicteric and Moist Mucous Membranes
Respiratory: Clear
Cardiac: Regular Rhythm
GI: Soft, Non Distended and Tender (LLQ)
Musculoskeletal: No Clubbing and No Cyanosis
Skin: Warm and Dry
Neuro: Awake, Alert and AO x 3
Psych: Calm
Results
WBC 15.8 10^3/uL (4.8-10.8) H 12/16/24 12:34
Hgb 9.6 g/dL (12.0-16.0) L 12/16/24 12:34
Hct 32.8 % (37.0-47.0) L 12/16/24 12:34
MCV 63.0 fL (81.0-99.0) L 12/16/24 12:34
Plt Count 375 10^3/uL (130-400) 12/16/24 12:34
Absolute Neuts (auto) 12.6 10^3/uL (1.4-6.5) H 12/16/24 12:34
PT Cancelled 12/16/24 15:16
INR Cancelled 12/16/24 15:16
APTT Cancelled 12/16/24 15:16
Sodium 135 mmol/L (135-145) 12/16/24 12:34
Potassium 3.9 mmol/L (3.5-5.1) 12/16/24 12:34
Chloride 105 mmol/L (98-107) 12/16/24 12:34
Carbon Dioxide 23 mmol/L (22-30) 12/16/24 12:34
BUN 14 mg/dl (7-17) 12/16/24 12:34
Creatinine 0.6 mg/dL (0.6-1.0) 12/16/24 12:34
Calcium 9.2 mg/dl (8.4-10.2) 12/16/24 12:34
Total Bilirubin 0.5 mg/dl (0.2-1.3) 12/16/24 12:34
AST 24 U/L (14-36) 12/16/24 12:34
ALT 28 U/L (0-35) 12/16/24 12:34
Alkaline Phosphatase 119 U/L (38-126) 12/16/24 12:34
Diagnostic Image Results:
12/16/24 CT A/P
1. Bowel wall thickening and mild inflammatory change involving the rectosigmoid, sigmoid, and distal descending colon, consistent with infectious or inflammatory colitis.
2. Collection of fluid and air within the left lateral abdominal wall, measuring 8.7 x 8.7 x 1.8 cm, increased in size compared to prior CT dated 10/11/2024.
3. Suspected fistulous communication between the descending colon and left abdominal wall collection, best seen on coronal images 31-33, and axial series 201 images 43-46.
4. Multiple midline ventral hernias, including a periumbilical hernia containing loops of small bowel. No evidence of incarceration or intestinal obstruction.
11/03/24 US LE left
No evidence of deep venous thrombosis of the left lower extremity.
10/11/24 CT Enterography
Persistent mild inflammatory changes involving the mid descending colon. Persistent soft tissue communication between the lateral margin of the mid descending colon and adjacent lateral abdominal wall. The possibility of fistulous communication
cannot be excluded. Within the left lateral abdominal wall there is a collection containing gas and fluid with associated soft tissue thickening of the musculature, most pronounced involving the transversalis musculature, highly suspicious for
contained perforation/fistulous communication/abscess.
Anterior abdominal wall hernias.
No specific findings to suggest acute bowel inflammatory changes.
08/26/24 US lower ex left
No evidence of left lower extremity deep venous thrombosis.
06/15/24 [facility]
There is residual focal bowel wall thickening along the lateral aspect of the distal descending colon with adjacent fistula tract formation with the overlying lateral abdominal wall with associated inflammatory thickening and mild phlegmon within
the lateral abdominal wall at this level. No discrete fluid collection. The remainder of the descending colon is intact with interval resolution of previously seen diffuse colitis.
There is a region of small bowel wall thickening and mucosal hyperenhancement with tethering of several small bowel loops, in the low central abdomen, likely sequelae of prior inflammatory process. There are some slightly prominent small bowel loops
in this region. A developing closed-loop obstruction would be difficult to entirely exclude. Recommend close clinical and imaging follow-up.
03/08/24- perc drainage Successful CT guided drainage catheter placement into a left abdominal wall collection, yielding 3 mL of bloody fluid.
03/06/24 CT Abd/pelvis W Iv Cont
There is an approximately 9 cm in length area of severe bowel wall thickening and pericolonic inflammatory stranding in the mid and distal descending colon consistent with acute colitis.
Image 48 series 201 demonstrates confined lateral perforation along the descending colon with associated abscess in the lateral aspect of the left abdominal wall. The abscess measures approximately 7.8 x 1.0 x 7.5 cm in AP, transverse and
craniocaudal dimensions respectively
12/08/23 CT Abd/pel W Iv And Oral Contr
Persistent, unchanged inflammation involving the descending and sigmoid colon. No focal fluid collection.
Interval resolution of bowel wall thickening and surrounding inflammatory changes involving a small bowel loop previously seen on CT from 10/23/2023.
Inflammation involving the central omentum subjacent to the laparotomy scar which may represent omental infarction.
10/23/23CT Abd/pel W Iv And Oral Contr
Postoperative changes with overall decreased pneumoperitoneum however there is a new focus of bowel wall thickening with surrounding edema and focal pneumoperitoneum along a loop of small bowel within the lower midline abdomen, likely jejunum,
suspicious for focal bowel injury.
10/19/23 CT Abd/Pel (IV only)-DH only
1). There is moderate-large volume free intraperitoneal air suggesting the presence of perforated abdominal viscus.
2). There is colitis involving the descending and sigmoid colon
3). There is ileocolic anastomosis in the right mid abdomen
4). There is multilevel lumbar degenerative disc disease
03/26/23 CT Abd/Pel (IV only)-[facility] only
Diverticuli are present in the colon
There is subtle wall thickening and minimal pericolonic inflammatory stranding in the mid sigmoid colon suggesting possible diverticulitis
Prior GI Procedures:
Colonoscopy: Dr. Sydnie Barr 06/2024- normal ileum, pseudopolyp sigmoid, mild DC mucosal edema but not severe colon otherwise normal, bx SB no pathology, right/transverse chronic colitis, left inactive colitis = patchy, rectum no pathologic change
Assessment / Plan
-
Pt is a 64yo with hx prior appe, HTN, anemia/ thalassemia, DVT(off Eliquis), and hx diarrhea. Per review of chart age 16 pt has possible fistulizing crohn's disease 1977 s/p surgery [facility]. She was well til age 63 with stable
colonoscopy in 2020 then rectal perforation after colonoscopy 10/2023 with surgical repair. Initial concern for c-diff related but she presented again in February with left sided abdominal pain with colitis with abscess s/p IR drain and was referred
to Dr. Yamil Otoole at [facility] for further evaluation as concern for fistulizing crohns disease. She had further follow up imaging, colonoscopy and therapy has been held to this point but now returns with leukocytosis, fever and concern for
collection of fluid and air within the left lateral abdominal wall, measuring 8.7 x 8.7 x 1.8 cm increased from 09/2024.
[facility] in May 2024 with concern for fistulizing disease in distal descending colon and abnormal SB thickening with tethering of SB loops with prior inflammatory process. closed loop obstruction not excluded.
Colonoscopy in June 2024 with normal ileum, pseudopolyp sigmoid, mild DC mucosal edema but not severe colon otherwise normal, bx SB no pathology, right/transverse chronic colitis, left inactive colitis -patchy, rectum no pathologic changes. She
was recommended to repeat imaging 4-6 weeks and given course of cipro/flagyl.
09/2024 fecal charley (1930)
09/2024 CTE in September with similar finding of descending colon contained perforation/fistula communication/abscess and abdominal wall hernia.
12/16/24 CT on admission with Bowel wall thickening and mild inflammatory change involving the rectosigmoid, sigmoid, and distal descending colon, consistent with infectious or inflammatory colitis. Collection of fluid and air within the left
lateral abdominal wall, measuring 8.7 x 8.7 x 1.8 cm, increased in size compared to prior CT dated 10/11/2024.Suspected fistulous communication between the descending colon and left abdominal wall collection and Multiple midline ventral hernias,
including a periumbilical hernia containing loops of small bowel.
�Recurrent left-sided colitis associated with concern abdominal wall abscess and likely fistula
-hx possible crohns with small and large bowel disease with fistulization follows with Dr. Otoole at [facility]
-low grade fever/leukocytosis
-hx rectal perforation 10/2023, prior abscess 02/2024
-hx thalassemia
-prior DVT
-prior appe
-HTN
PLAN:
Etiology of left sided collection related to crohns with fistulizating with abscess vs other
plan for IR drain
colorectal following
NPO advance per colorectal
current CRP 138.6-- 88.5, fecal charley pending
will need follow up with Dr. Otoole to again discuss need for biologic therapy
pt is schedule 01/19/25 at 1 pm
10/05/24- Quant gold neg, hep B s Ab <5, hep B core Non reactive, hep B S ag NR, CRP 13.1
-
-
Thank you for consultation and allowing me to participate in the patient's care. Please call the [facility] physician during the after hours with any questions or concerns.
[2024-12-17 07:00] VITALS: BP 111/60
[2024-12-17] MEDS: NORMOSOL-R/PLASMALYTE-A 1000 IV (07:58)
[2024-12-17 08:10] LABS: Hematocrit 27.8 % (37.0-47.0); Hemoglobin 8.5 g/dL (12.0-16.0); Mean Corp Hgb Conc. 30.6 g/dL (33.0-37.0); Mean Corpuscular Volume 61.5 fL (81.0-99.0); Nucleated Red Blood Cells % 0 %; Platelet Count 328 10^3/uL (130-400); Red Cell Dist. Width 15.2 % (11.5-14.5)
[2024-12-17 08:12] LABS: Blood Urea Nitrogen 12 mg/dl (7-17); Calcium 9.1 mg/dl (8.4-10.2); Carbon Dioxide 25 mmol/L (22-30); Chloride 106 mmol/L (98-107); Estimated Creatinine Clearance 95 ml/min; Glucose 95 mg/dl (70-99); Potassium 4.2 mmol/L (3.5-5.1); Sodium 138 mmol/L (135-145); eGFR > 60.00
[2024-12-17 08:15] LABS: C-Reactive Protein 88.50 mg/L (0.0-10.00)
[2024-12-17 09:00] LABS: Hepatitis C Antibody Negative (Negative)
--- NOTE | 2024-12-17 09:31 | W.PN.HOSP.TC ---
Today's Communication/Plan
-
IR for abscess drainage
IV Abx
Add PPI/
IVF
Assessment / Plan
Assessment / Plan
Physical Exam
General: Comfortable and Conversant
HEENT: Anicteric and Moist mucous membranes
Respiratory: Clear and Non Labored Respirations
Cardiac: S1/S2 and Regular Rhythm
GI: Soft and Tender (Mild throughout)
Rectal: Deferred by Provider
Musculoskeletal: No Clubbing, No Cyanosis and No Edema
Skin: Warm and Dry
Neuro: Awake, Alert, Oriented and Nonfocal/grossly intact
Psych: Calm
# Sepsis POA with fever, leukocytosis/ colitis
Recurrent left-sided colitis associated with left Lateral Abdominal Wall Abscess
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
Possible underlying Crohn's
Less pain, no nausea
WBC still elevated with CRP
ON IV ABx
Add IV PPI
Add blood culture
Pain control with IV Dilaudid
Await IR to drain Abscess and subsequent culture
-Continue NPO/ IVFs
Appreciate surgery/ GI/ID help
Hx DVT - No longer on anticoagulation
DVT proph: Lovenox
Code Status: Full Code
Total time spent to see the patient, examine the patient, review data and lab results, discuss treatment plan with patient, nursing staff around 55 minutes
Anticipated Discharge: > 48 hours
Subjective/Interval History
-
Date of Service: December 17, 2024
She feels better
Less abdominal pain
Objective Data
-
Labs:
Laboratory Results
12/17/24
07:08
WBC 14.8 H
Hgb 8.5 L
Hct 27.8 L
Plt Count 328
Sodium 138
Potassium 4.2
Chloride 106
Carbon Dioxide 25
BUN 12
Creatinine 0.6
Glucose 95
Calcium 9.1
Vital Signs:
Vital Signs
Temp Pulse Resp BP Pulse Ox
98.9 F 80 18 111/60 99
12/17/24 07:00 12/17/24 07:00 12/17/24 07:00 12/17/24 07:00 12/17/24 07:00
I&O
12/16/24 12/17/24 12/18/24
06:59 06:59 06:59
Intake Total 1120 / 1120
Balance 1120 / 1120
[2024-12-17] MEDS: NSS (PRESERVATIVE FREE) 10 ML IV (10:04)
[2024-12-17] MEDS: PROTONIX IV 40 MG IV (10:04)
--- NOTE | 2024-12-17 10:05 | CON.ID ---
Consultation
-
Date/Time Consultation Requested: December 17, 2024 0731
Date/Time Consultation Performed: December 17, 2024 1000
Requesting Provider: Dr. Maryanne Mi
Performing Provider: Dr. Maria Elena Villavicencio
Reason for Consultation: Recurrent colitis/abdominal wall abscess
Chief Complaint / Past History
Chief Complaint
left Abdominal pain
History of Present Illness
64-year-old female with history of hypertension, colitis suspected Crohn's disease who presented to the ER last night due to acute left abdominal pain. Patient with history of anal fistula requiring resection at age 16 and then developed adult
onset chronic diarrhea and found to have colitis status post colonoscopy complicated by rectal perforation requiring repair on October 19, 2023. She was hospitalized in February 2024 due to abdominal pain and found to have left-sided colitis with
fistula to the abdominal wall resulting in abscess status post IR drainage March 08, 2024 and treated with a course of Augmentin. Since then she has been following with GI at [facility]. She had colonoscopy in June 2024 which showed colitis.
Patient would follow-up imaging including CAT scan enterography in September 2024 revealing persistent inflammatory changes involving the mid descending colon with persistent soft tissue communication between the lateral margin of the colon and
adjacent lateral abdominal wall containing gas and fluid. Patient developed 2-day history of worsening left lower abdominal pain. Positive subjective fever and chills. No nausea or vomiting. No diarrhea. No other symptoms. In the ER
temperature 100.8, white count of 15.8. CAT scan of the abdomen and pelvis shows bowel wall thickening/inflammatory changes of the rectosigmoid, sigmoid, distal descending colon with suspected fistulous communication to the left abdominal wall with
8.7 x 8.7 x 1.8 cm fluid collection. She is currently on Zosyn.
Past History
Additional Past Medical History:
HTN
Mediterranean anemia/thalasemia
Colitis suspected Crohn's
Left colitis with fistula to abd wall s/p IR drainage 03/08/24 (cx E. coli)
LLE DVT
Chronic diarrhea
Hx rectal perforation post outpatient colonoscopy on 10/17/23 s/p repair
Appendectomy
Anal fistula resection, age 16
Allergy History:
No Known Allergies Allergy (Verified 12/16/24 12:21)
Medications Reviewed: Yes
Current Antibiotics:
Zosyn
Social History
Tobacco: Non-Smoker
Alcohol: None
Drug: None
Personal:
Family History
Family History: Not Pertinent
Review of Systems
Review of Systems
General: Fever, Chills and Change in Appetite
HEENT: Negative Sinus Problems or Headache
Cardiovascular: Negative Chest Pain
Respiratory: Negative Dyspnea or Cough
Gasteroenterology: Negative Nausea, Vomiting or Diarrhea
Genital / Urological: Negative Dysuria or Flank Pain
Endocrine: Weakness
All systems: All other systems were reviewed and were negative
Vital Signs
Temp Pulse Resp BP Pulse Ox
98.9 F 80 18 111/60 99
12/17/24 07:00 12/17/24 07:00 12/17/24 07:00 12/17/24 07:00 12/17/24 07:00
Selected Entries
12/16/24
19:31 12/16/24
23:13
Temp 100.8 F H 100.4 F H
Physical Exam
Physical Exam
Constitutional: No Acute Distress
Eyes: No Conjunctival Hemorrhage and Sclera Anicteric
Cardiovascular: Regular Rate and S1/S2
Pulmonary: Clear
Gastrointestinal: Soft and Tender (left lower quadrant)
Genito-Urinary: Negative CVA Tenderness
Extremities: Negative Edema
Neurological: AO x 3
Lab / Diagnostic Study Results
12/17/24 07:08
12/17/24 07:08
Abs Immat Gran (auto) 0.1 10^3/uL (0-0.05) H 12/17/24 07:08
Absolute Neuts (auto) 11.7 10^3/uL (1.4-6.5) H 12/17/24 07:08
Absolute Lymphs (auto) 1.2 10^3/uL (1.2-3.4) 12/17/24 07:08
Absolute Monos (auto) 1.8 10^3/uL (0.1-0.6) H 12/17/24 07:08
Absolute Basos (auto) 0.1 10^3/uL (0-0.2) 12/17/24 07:08
Immature Gran % 0.5 % (0-0.5) 12/17/24 07:08
Neutrophils % 78.9 % (42.2-75.2) H 12/17/24 07:08
Lymphocytes % 7.9 % (20.5-51.1) L 12/17/24 07:08
Monocytes % 12.1 % (1.7-9.3) H 12/17/24 07:08
Eosinophils % 0.3 % (0-6) 12/17/24 07:08
Basophils % 0.3 % (0-2) 12/17/24 07:08
PT Cancelled 12/16/24 15:16
INR Cancelled 12/16/24 15:16
C-Reactive Protein 88.50 mg/L (0.0-10.00) H 12/17/24 07:08
Ur Squamous Epith Cells 16-20 /LPF (Few) 12/16/24 12:34
Microbiology Results
Micro:
12/17/24 05:14 Salmonella/Shigella Culture - Pending
Feces/Stool Campylobacter Culture - Pending
Shiga Toxin Test - Pending
12/16/24 12:34 Urine Culture - Pending
Urine
12/16/24 CT a/p: Bowel wall thickening and mild inflammatory change involving the rectosigmoid, sigmoid, and distal descending colon, consistent with infectious or inflammatory colitis. Collection of fluid and air within the left lateral abdominal
wall, measuring 8.7 x 8.7 x 1.8 cm, increased in size compared to prior CT dated 10/11/2024. Suspected fistulous communication between the descending colon and left abdominal wall collection, best seen on coronal images 31-33, and axial series 201
images 43-46. Multiple midline ventral hernias, including a periumbilical hernia containing loops of small bowel. No evidence of incarceration or intestinal obstruction.
Assessment / Plan
# Lateral abdominal wall abscess
# Suspected Crohn's left colitis with fistula tract to lateral abdominal wall
# Fever
# leukocytosis
- for IR drainage of abd wall abscess
Send aerobic and anaerobic cultures
- Continue Zosyn.
- Will de-escalate to po abx, if possible, when cx data available.
- trend temps/wbc
Conditions present on admission:
HTN
Mediterranean anemia/thalasemia
Colitis suspected Crohn's
Left colitis with fistula to abd wall s/p IR drainage 03/08/24 (cx E. coli)
LLE DVT
Chronic diarrhea
Hx rectal perforation post outpatient colonoscopy on 10/17/23 s/p repair
Appendectomy
Anal fistula resection, age 16
[2024-12-17 10:12] LABS: INR 1.10; PT 14.6 Sec (11.4-14.6)
--- NOTE | 2024-12-17 10:20 | CM ---
CM reviewed chart, patient seen bedside with sister, initial assessment completed.
Patient is a 64 year old presenting with abdominal pain, left lower quadrant for two days.
Patient lives with her , daughter, and sister in a one story home, two steps to enter.
Patient is independent with ADLS/IADLS, denies use of DME.
Patient reports VN in past, believes agency was [facility], denies SNF.
PCP Cassandra Treviño, [facility], confirms prescription coverage.
Patient denies needs at this time, confirms transport home when stable.
Patient for IR for abscess drainage. On IV antibiotics.
CM will continue to follow for all d/c planning needs.
Plan; home when stable
--- NOTE | 2024-12-17 11:52 | W.PN.CRS1 ---
Addendum entered and electronically signed by Mickey Blakely MD 12/17/24 17:05:
Spoke with Dr. Hugo. He was able to get a hold of Dr. Otoole, who is requesting transfer to [place]. Colorectal surgery will sign off. Please call for any questions or concerns.
Original Note:
Today's Communication / Plan
-
IR drain
Assessment/Plan
-
Recurrent left-sided colitis associated with abdominal wall abscess and likely fistula, concerning for Crohn's
AFVSS, ABD soft, nondistended, moderately tender in the left lateral abdomen, otherwise nontender, no rebound or guarding
WBC 14.8 (15.8), Hb 8.5 (9.6), Cr 0.6 (0.6)
�Abscess is in the exact same location as the collection back in March; will consult IR for IR guided drainage. Npo for procedure.
�No acute surgical intervention; however, she developed a collection in the exact same location associated with persistent colitis; she may benefit from segmental left colectomy, but would clearly need better control of the colitis in order to
decrease the risk of anastomotic leak and ostomy formation
�Appreciate GI/ID.
�Agree with IV Zosyn
� Recommend DVT PPx with Lovenox
� Pain control
� Appreciate hospitalist
-Trending CRPs and WBC
Subjective Data
Subjective Data
Date of Service: December 17, 2024
Patient states she still has some LLQ pain. She denies nausea or vomiting. No other complaints.
Objective Data
-
Vital Signs
Temp Pulse Resp BP Pulse Ox
98.9 F 80 18 111/60 99
12/17/24 07:00 12/17/24 07:00 12/17/24 07:00 12/17/24 07:00 12/17/24 08:00
Intake & Output
12/16/24 12/17/24 12/18/24
06:59 06:59 06:59
Intake Total 1120 / 1120
Balance 1120 / 1120
Intake:
Oral fluids 120 / 120
IV fluids (Total) 900 / 900
IV piggybacks 100 / 100
Other:
Number of approximated MODERATE 2
amounts of urine
Lab Results
12/17/24 07:08
12/17/24 07:08
Physical Exam
-
General: No Acute Distress and AOx3
Abdomen: Soft, Non Distended and Tender (mild LLQ)
Skin: Warm and Dry
[2024-12-17 14:45] VITALS: BP 118/74; BP_SYST 81
[2024-12-17 16:23] VITALS: BP 118/54
[2024-12-17 16:32] VITALS: BP 118/56
[2024-12-17] MEDS: DILAUDID 1 MG IV ×2 (16:58→22:58)
[2024-12-17] MEDS: LOVENOX 40 MG SC (16:59)
--- NOTE | 2024-12-17 17:04 | W.PN.UPDATE ---
Update Note
Progress Note Update
To update, Dr. Hugo discussed with Dr. Otoole [facility] who recommends transfer to [facility] colorectal surgery service to help expedite further workup and possible treatment. I discussed with the patient and family at length who are
agreeable to transfer.
[2024-12-17 23:27] VITALS: BP 127/59
[2024-12-18] MEDS: NORMOSOL-R/PLASMALYTE-A 1000 IV (00:55)
[2024-12-18] MEDS: ZOSYN 50 IV ×4 (02:12→21:49)
[2024-12-18] MEDS: NSS (PRESERVATIVE FREE) 10 ML IV (07:53)
[2024-12-18] MEDS: PROTONIX IV 40 MG IV (07:53)
[2024-12-18 07:55] VITALS: BP 133/70
[2024-12-18 08:09] LABS: Hematocrit 30.1 % (37.0-47.0); Hemoglobin 8.7 g/dL (12.0-16.0); Mean Corp Hgb Conc. 28.9 g/dL (33.0-37.0); Mean Corpuscular Volume 63.9 fL (81.0-99.0); Platelet Count 360 10^3/uL (130-400); Red Cell Dist. Width 15.5 % (11.5-14.5)
[2024-12-18 08:29] LABS: Blood Urea Nitrogen 12 mg/dl (7-17); Calcium 9.2 mg/dl (8.4-10.2); Carbon Dioxide 24 mmol/L (22-30); Chloride 102 mmol/L (98-107); Estimated Creatinine Clearance 95 ml/min; Glucose 78 mg/dl (70-99); Potassium 3.8 mmol/L (3.5-5.1); Sodium 133 mmol/L (135-145); eGFR > 60.00
[2024-12-18 08:45] LABS: C-Reactive Protein 188.40 mg/L (0.0-10.00)
--- NOTE | 2024-12-18 09:29 | W.PN.HOSP.TC ---
Today's Communication/Plan
-
Surgery and GI signed off and recommended transfer to [facility] colorectal surgery service/ after discussing the case with patient's edger machine helper Dr. Otoole. I called [facility], spoke with colorectal surgery on-call
Dr. Quintin Cervantes, he accepted the patient. [facility] transfer will let us know when they will take the patient. Faxing facesheet of the patient to [facility].
Okay to advance to full liquid diet. Continue IV antibiotic
Assessment / Plan
Assessment / Plan
Physical Exam
General: Comfortable and Conversant
HEENT: Anicteric and Moist mucous membranes
Respiratory: Clear and Non Labored Respirations
Cardiac: S1/S2 and Regular Rhythm
GI: Soft and Tender (Mild throughout)
Rectal: Deferred by Provider
Musculoskeletal: No Clubbing, No Cyanosis and No Edema
Skin: Warm and Dry
Neuro: Awake, Alert, Oriented and Nonfocal/grossly intact
Psych: Calm
# Sepsis POA with fever, leukocytosis/ colitis
Recurrent left-sided colitis associated with left Lateral Abdominal Wall Abscess
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
Possible underlying Crohn's
No pain but tender LLQ upon palpation, no nausea
WBC is coming down. Afebrile now
Elevated with CRP
ON IV ABx
Added IV PPI
Added blood culture , still NGTD
IR drain the abd wall fluid, await culture.
Pain control with IV Dilaudid
No abdominal distention or tenderness to all other quadrants.
Patient tolerated liquid diet, we can advance to full liquid
No need for more IV fluid
Surgery and GI signed off and recommended transfer to [facility] colorectal surgery service/ after discussing the case with patient's edger machine helper Dr. Otoole. I called [facility] [place], spoke with colorectal surgery on-call
Dr. Quintin Cervantes, he accepted the patient. [facility] transfer will let us know when they will take the patient. Faxing facesheet of the patient to [facility].
Appreciate surgery/ GI/ID help
Hx DVT - No longer on anticoagulation
DVT proph: Lovenox
Code Status: Full Code
Total time spent to see the patient, examine the patient, review data and lab results, discuss treatment plan with patient, nursing staff around 55 minutes
Anticipated Discharge: 24 - 48 hours
Subjective/Interval History
-
Date of Service: December 18, 2024
She feels fine. She signed consent for transfer
No abd pain
Tolerated liquids
Getting IV Abx
Objective Data
-
Labs:
Laboratory Results
12/18/24
07:29
WBC 12.3 H
Hgb 8.7 L
Hct 30.1 L
Plt Count 360
Sodium 133 L
Potassium 3.8
Chloride 102
Carbon Dioxide 24
BUN 12
Creatinine 0.6
Glucose 78
Calcium 9.2
Vital Signs:
Vital Signs
Temp Pulse Resp BP Pulse Ox
97.8 F 80 18 133/70 98
12/18/24 07:55 12/18/24 07:55 12/18/24 07:55 12/18/24 07:55 12/18/24 07:55
I&O
12/17/24 12/18/24 12/19/24
06:59 06:59 05:59
Intake Total 1120 / 1120 1610 / 1610
Balance 1120 / 1120 1610 / 1610
[2024-12-18] MEDS: DILAUDID 1 MG IV (13:09)
--- NOTE | 2024-12-18 13:55 | CM ---
Chart reviewed and per updated notes patient is is for possible transfer to [facility] Colorectal Surgery Service, will follow with progress.
Plan; Patient is for hospital to hospital transfer.
--- NOTE | 2024-12-18 14:53 | W.PN.ID1 ---
Date of Service
Date of Service: December 18, 2024
Today's Communication
Continue antibiotics per
Assessment / Plan
# Lateral abdominal wall abscess
# Suspected Crohn's left colitis with fistula tract to lateral abdominal wall
# Fever
# leukocytosis
- S/P IR drainage of abd wall abscess
- aerobic and anaerobic cultures pending
- Continue Zosyn.
- Will de-escalate to po abx, if possible, when cx data available.
- trend temps/wbc
Conditions present on admission:
HTN
Mediterranean anemia/thalasemia
Colitis suspected Crohn's
Left colitis with fistula to abd wall s/p IR drainage 03/08/24 (cx E. coli)
LLE DVT
Chronic diarrhea
Hx rectal perforation post outpatient colonoscopy on 10/17/23 s/p repair
Appendectomy
Anal fistula resection, age 16
Chief Complaint
-: Other (Abdominal wall abscess.)
Subjective / Review of Systems
Patient seen and examined. Reports feeling okay. Pain controlled. KELLY drain placed yesterday.
Review of Systems: No Fever and No Chills
Vital Signs / Physical Exam
Vital Signs
Vital Signs
Temp Pulse Resp BP Pulse Ox
97.8 F 80 18 133/70 98
12/18/24 07:55 12/18/24 07:55 12/18/24 07:55 12/18/24 07:55 12/18/24 07:55
Physical Exam
Constitutional: No Acute Distress and Comfortable
Eyes: Sclera Anicteric
Cardiovascular: S1/S2; Negative S3/S4
Pulmonary: Clear and Non Labored
Gastrointestinal: Soft, Non Tender and Non Distended
Extremities: Negative Edema or Cyanosis
Neurological: Awake and Alert
Psychological: Calm
Objective Data
Lab Data
Lab Results
12/18/24 07:29
12/18/24 07:29
PT 14.6 Sec (11.4-14.6) 12/17/24 09:47
INR 1.10 12/17/24 09:47
APTT Cancelled 12/16/24 15:16
Estimated Creat Clear 95 ml/min 12/18/24 07:29
Total Bilirubin 0.5 mg/dl (0.2-1.3) 12/16/24 12:34
AST 24 U/L (14-36) 12/16/24 12:34
ALT 28 U/L (0-35) 12/16/24 12:34
Alkaline Phosphatase 119 U/L (38-126) 12/16/24 12:34
C-Reactive Protein 188.40 mg/L (0.0-10.00) H 12/18/24 07:29
Most recent labs reviewed.
Micro Results:
12/17/24 16:00 Anaerobic Culture - Preliminary
Abscess Culture pending. Anaerobic cultures are examined after 3
days incubation. Additional information to follow.
12/17/24 16:00 Wound Culture - Preliminary
Abscess Gram negative bacilli
Gram Stain - Preliminary
12/17/24 05:14 Salmonella/Shigella Culture - Preliminary
Feces/Stool Culture in Progress
Campylobacter Culture - Preliminary
Culture in Progress
Shiga Toxin Test - Pending
12/17/24 11:09 Blood Culture - Preliminary
Blood/Venous No Growth in 24 hours- Final report to follow
12/16/24 12:34 Urine Culture - Final
Urine NO GROWTH
12/16/24 CT a/p: Bowel wall thickening and mild inflammatory change involving the rectosigmoid, sigmoid, and distal descending colon, consistent with infectious or inflammatory colitis. Collection of fluid and air within the left lateral abdominal
wall, measuring 8.7 x 8.7 x 1.8 cm, increased in size compared to prior CT dated 10/11/2024. Suspected fistulous communication between the descending colon and left abdominal wall collection, best seen on coronal images 31-33, and axial series 201
images 43-46. Multiple midline ventral hernias, including a periumbilical hernia containing loops of small bowel. No evidence of incarceration or intestinal obstruction.
[2024-12-18 15:46] VITALS: BP 129/72
[2024-12-18] MEDS: TYLENOL 650 MG PO (16:03)
[2024-12-18] MEDS: LOVENOX 40 MG SC (17:27)
[2024-12-18] MEDS: FLUSH (NSS) 2 FLUSH IV (21:49)
[2024-12-18] MEDS: DILAUDID 0.5 MG IV (21:59)
[2024-12-18 23:00] VITALS: BP 109/57
[2024-12-19] MEDS: ZOSYN 50 IV ×4 (01:33→20:41)
[2024-12-19 07:35] VITALS: BP 113/61
[2024-12-19] MEDS: NSS (PRESERVATIVE FREE) 10 ML IV (08:06)
[2024-12-19] MEDS: PROTONIX IV 40 MG IV (08:07)
--- NOTE | 2024-12-19 09:25 | W.PN.HOSP.TC ---
Addendum entered and electronically signed by Asha Mi MD 12/19/24 11:48:
Addendum
Patient requested medication called Colestipol. Order as nonformulary
End
Original Note:
Today's Communication/Plan
-
Surgery and GI signed off and recommended transfer to [facility] colorectal surgery service/ after discussing the case with patient's intern product marketing manager Dr. Otoole. I called [facility] transfer center, spoke with colorectal surgery on-call
Dr. Quintin Cervantes, he accepted the patient. [facility] transfer will let us know when they will take the patient. Faxing facesheet of the patient to [facility].
Okay to advance to full liquid diet. Continue IV antibiotic
Check iron studies
Assessment / Plan
Assessment / Plan
Physical Exam
General: Comfortable and Conversant
HEENT: Anicteric and Moist mucous membranes
Respiratory: Clear and Non Labored Respirations
Cardiac: S1/S2 and Regular Rhythm
GI: Soft and Tender (Mild throughout)
Rectal: Deferred by Provider
Musculoskeletal: No Clubbing, No Cyanosis and No Edema
Skin: Warm and Dry
Neuro: Awake, Alert, Oriented and Nonfocal/grossly intact
Psych: Calm
# Sepsis POA with fever, leukocytosis/ colitis
Recurrent left-sided colitis associated with left Lateral Abdominal Wall Abscess
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
Possible underlying Crohn's
No pain or tender LLQ upon palpation, no nausea
WBC is coming down. Afebrile now
Wound culture is gram negative bacilli.
Elevated with CRP
ON IV ABx
Added IV PPI
Added blood culture , still NGTD
IR drain the abd wall fluid, await culture.
Pain control with IV Dilaudid
No abdominal distention or tenderness to all other quadrants.
Patient tolerated liquid diet, we can advance to full liquid
No need for more IV fluid
Surgery and GI signed off and recommended transfer to [facility] colorectal surgery service/ after discussing the case with patient's intern product marketing manager Dr. Otoole. I called [facility] transfer center, spoke with colorectal surgery on-call
Dr. Quintin Cervantes, he accepted the patient. [facility] transfer will let us know when they will take the patient. Faxing facesheet of the patient to [facility].
Appreciate surgery/ GI/ID help
# Hyponatremia
Mild, no confusion
# Anemia of chronic disease
Hx of YARITZA
HGB around 8
Iron level re-check
Hx DVT - No longer on anticoagulation
DVT proph: Lovenox
Code Status: Full Code
Total time spent to see the patient, examine the patient, review data and lab results, discuss treatment plan with patient, nursing staff around 55 minutes
Anticipated Discharge: 24 - 48 hours
Subjective/Interval History
-
Date of Service: December 19, 2024
Less OP in drain
No abd pain
tolerating diet
Objective Data
-
Labs:
Laboratory Results
12/19/24
08:46
WBC Pending
Hgb Pending
Hct Pending
Plt Count Pending
Sodium Pending
Potassium Pending
Chloride Pending
Carbon Dioxide Pending
BUN Pending
Creatinine Pending
Glucose Pending
Calcium Pending
Vital Signs:
Vital Signs
Temp Pulse Resp BP Pulse Ox
98.9 F 82 16 113/61 97
12/19/24 07:35 12/19/24 07:35 12/19/24 07:35 12/19/24 07:35 12/19/24 07:35
I&O
12/18/24 12/19/24 12/20/24
06:59 05:59 06:59
Intake Total 1610 / 1610 830 / 830
Balance 1610 / 1610 830 / 830
[2024-12-19 09:33] LABS: Hematocrit 28.3 % (37.0-47.0); Hemoglobin 8.6 g/dL (12.0-16.0); Mean Corp Hgb Conc. 30.4 g/dL (33.0-37.0); Mean Corpuscular Volume 60.7 fL (81.0-99.0); Platelet Count 338 10^3/uL (130-400); Red Cell Dist. Width 15.1 % (11.5-14.5)
[2024-12-19 10:04] LABS: Blood Urea Nitrogen 7 mg/dl (7-17); Calcium 9.2 mg/dl (8.4-10.2); Carbon Dioxide 23 mmol/L (22-30); Chloride 101 mmol/L (98-107); Estimated Creatinine Clearance 95 ml/min; Glucose 153 mg/dl (70-99); Potassium 3.9 mmol/L (3.5-5.1); Sodium 132 mmol/L (135-145); eGFR > 60.00
[2024-12-19 10:26] LABS: C-Reactive Protein 175.00 mg/L (0.0-10.00)
[2024-12-19] MEDS: NON-FORMULARY ITEM 1 GM PO (12:15)
[2024-12-19 15:12] VITALS: BP 120/67
[2024-12-19] MEDS: LOVENOX 40 MG SC (17:18)
[2024-12-19] MEDS: DILAUDID 0.5 MG IV (20:52)
[2024-12-19 23:00] VITALS: BP 103/54
[2024-12-20] MEDS: ZOSYN 50 IV ×2 (02:23→08:06)
[2024-12-20 07:30] VITALS: BP 112/79
[2024-12-20] MEDS: NON-FORMULARY ITEM 1 GM PO (08:04)
[2024-12-20] MEDS: NSS (PRESERVATIVE FREE) 10 ML IV (08:05)
[2024-12-20] MEDS: PROTONIX IV 40 MG IV (08:06)
[2024-12-20 08:43] LABS: Hematocrit 32.5 % (37.0-47.0); Hemoglobin 9.4 g/dL (12.0-16.0); Mean Corp Hgb Conc. 28.9 g/dL (33.0-37.0); Mean Corpuscular Volume 64.9 fL (81.0-99.0); Platelet Count 427 10^3/uL (130-400); Red Cell Dist. Width 15.5 % (11.5-14.5)
[2024-12-20 09:07] LABS: Blood Urea Nitrogen 5 mg/dl (7-17); Calcium 9.5 mg/dl (8.4-10.2); Carbon Dioxide 27 mmol/L (22-30); Chloride 102 mmol/L (98-107); Estimated Creatinine Clearance 95 ml/min; Glucose 96 mg/dl (70-99); Iron 39 ug/dl (37-170); Potassium 4.0 mmol/L (3.5-5.1); Sodium 138 mmol/L (135-145); eGFR > 60.00
--- NOTE | 2024-12-20 09:11 | W.PN.HOSP.TC ---
Today's Communication/Plan
-
Pending transfer
Assessment / Plan
Assessment / Plan
Physical Exam
General: Comfortable and Conversant
HEENT: Anicteric and Moist mucous membranes
Respiratory: Clear and Non Labored Respirations
Cardiac: S1/S2 and Regular Rhythm
GI: Soft and Tender (Mild throughout)
Rectal: Deferred by Provider
Musculoskeletal: No Clubbing, No Cyanosis and No Edema
Skin: Warm and Dry
Neuro: Awake, Alert, Oriented and Nonfocal/grossly intact
Psych: Calm
A/P:
# Sepsis POA with fever, leukocytosis/ colitis
Recurrent left-sided colitis associated with left Lateral Abdominal Wall Abscess
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
Possible underlying Crohn's
No pain or tender LLQ upon palpation, no nausea
WBC is coming down. Afebrile now
Wound culture is gram negative bacilli.
Elevated with CRP
ON IV ABx--> on IV Zosyn and ID de-escalating to IV ceftriaxone and metronidazole today on 12/20
Added IV PPI
Added blood culture , still NGTD
IR drain the abd wall fluid, await culture.
Pain control with IV Dilaudid
No abdominal distention or tenderness to all other quadrants.
Patient tolerated liquid diet, we can advance to full liquid
No need for more IV fluid
Surgery and GI signed off and recommended transfer to [facility] colorectal surgery service/ after discussing the case with patient's co supervisor grounds and landscape Dr. Otoole. Dr Mi called [facility] transfer center, spoke with colorectal surgery
on-call Dr. Quintin Cervantes, he accepted the patient. [facility] transfer will let us know when they will take the patient. Faxed facesheet of the patient to [facility].
Appreciate surgery/ GI/ID help
# Hyponatremia
Mild, no confusion
# Anemia of chronic disease
Hx of YARITZA
HGB around 8
Iron level re-check
Hx DVT - No longer on anticoagulation
DVT proph: Lovenox
Code Status: Full Code
Total time spent 36 minutes to see the patient, examine the patient, review data and lab results, discuss treatment plan with patient, nursing staff around 55 minutes
Anticipated Discharge: Today
Subjective/Interval History
-
Date of Service: December 20, 2024
Patient feels better overall. No nausea vomiting. Afebrile
Objective Data
-
Labs:
Laboratory Results
12/20/24
07:25
WBC 9.8
Hgb 9.4 L
Hct 32.5 L
Plt Count 427 H D
Sodium 138
Potassium 4.0
Chloride 102
Carbon Dioxide 27
BUN 5 L
Creatinine 0.6
Glucose 96
Calcium 9.5
Vital Signs:
Vital Signs
Temp Pulse Resp BP Pulse Ox
98.4 F 80 18 112/79 95
12/20/24 07:30 12/20/24 07:30 12/20/24 07:30 12/20/24 07:30 12/20/24 07:30
I&O
12/19/24 12/20/24 12/21/24
05:59 06:59 06:59
Intake Total 830 / 830 1660 / 1660
Output Total
Balance 830 / 830 1645 / 1645
[2024-12-20 09:17] LABS: Total Iron Binding Capacity 244 ug/dl (265-497)
[2024-12-20 09:41] LABS: Ferritin 333.0 ng/ml (11.1-264.0)
--- NOTE | 2024-12-20 10:20 | W.PN.ID1 ---
Date of Service
Date of Service: December 20, 2024
Today's Communication
De-escalate Zosyn to ceftriaxone IV 2g q24h and po metronidazole 500mg tid
Assessment / Plan
# Lateral abdominal wall abscess
# Suspected Crohn's left colitis with fistula tract to lateral abdominal wall
# Fever - resolved
# leukocytosis - resolved
- S/P IR drainage of abd wall abscess
- aerobic cx E.coli, anaerobic cx pending
- De-escalate Zosyn to ceftriaxone IV 2g q24h and po metronidazole 500mg tid
- Awaiting transfer to [place] as per GI
Conditions present on admission:
HTN
Mediterranean anemia/thalasemia
Colitis suspected Crohn's
Left colitis with fistula to abd wall s/p IR drainage 03/08/24 (cx E. coli)
LLE DVT
Chronic diarrhea
Hx rectal perforation post outpatient colonoscopy on 10/17/23 s/p repair
Appendectomy
Anal fistula resection, age 16
Chief Complaint
-: Other (Abdominal wall abscess.)
Subjective / Review of Systems
Abdominal pain improving.
Vital Signs / Physical Exam
Vital Signs
Vital Signs
Temp Pulse Resp BP Pulse Ox
98.4 F 80 18 112/79 95
12/20/24 07:30 12/20/24 07:30 12/20/24 07:30 12/20/24 07:30 12/20/24 08:20
Physical Exam
Constitutional: No Acute Distress and Comfortable
Cardiovascular: Regular Rate and S1/S2
Pulmonary: Clear
Gastrointestinal: Soft, Non Tender, Non Distended, Normal Bowel Sounds and Other (L KELLY drain: feculent material)
Genito-Urinary: Negative CVA Tenderness
Neurological: AO x 3
Objective Data
Lab Data
Lab Results
12/20/24 07:25
12/20/24 07:25
PT 14.6 Sec (11.4-14.6) 12/17/24 09:47
INR 1.10 12/17/24 09:47
APTT Cancelled 12/16/24 15:16
Estimated Creat Clear 95 ml/min 12/20/24 07:25
Total Bilirubin 0.5 mg/dl (0.2-1.3) 12/16/24 12:34
AST 24 U/L (14-36) 12/16/24 12:34
ALT 28 U/L (0-35) 12/16/24 12:34
Alkaline Phosphatase 119 U/L (38-126) 12/16/24 12:34
C-Reactive Protein 175.00 mg/L (0.0-10.00) H 12/19/24 08:46
Most recent labs reviewed.
Micro Results:
12/17/24 05:14 Salmonella/Shigella Culture - Final
Feces/Stool No Salmonella, Shigella, Aeromonas or Plesiomonas species
isolated.
Campylobacter Culture - Final
No Campylobacter species isolated.
Shiga Toxin Test - Final
No E. coli Shiga Toxin 1 or 2 detected.
12/17/24 11:09 Blood Culture - Preliminary
Blood/Venous No Growth in 48 hours- Final report to follow
12/17/24 16:00 Anaerobic Culture - Preliminary
Abscess Culture pending. Anaerobic cultures are examined after 3
days incubation. Additional information to follow.
12/17/24 16:00 Wound Culture - Preliminary
Abscess Escherichia coli
Gram Stain - Preliminary
12/16/24 12:34 Urine Culture - Final
Urine NO GROWTH
PATIENT: NELY OLIVA LOC: [address] [place] [address] #: [id number]
AGE/SX: 64/F Race: WHITE ROOM: [facility] RE12/16/[address]: Herve Oleary MD : 1960 BED: 02 DIS:
STATUS: ADM IN TLOC:
SPEC #: [id number] SAVANNAH: 12/17/24-1599 STATUS: RES REQ #: [id number]
RECD: 12/17/24-[address]: Mickey Blakely MD
SOURCE: Abscess ENTR: 12/17/24-[address]: Asha Mi MD
SPDESC: Cassandra Treviño PA-C
Chandrakant Butterfield MD
Olga GREGORY,Adarsh
Lois Fontanez DO
Maria Elena Villavicencio MD
ORDERED: Wound/Other
QUERIES: Comment left abdominal wall abscess
Date Specimen was Collected 12/17/24
Time Specimen was Collected 1600
Procedure Result Verified
Wound/abscess/other Cult Preliminary 12/19/24-1058
Moderate Escherichia coli of two morphotypes
Organism 1 Escherichia coli
1. Escherichia coli
M.I.C. RX
--------- ---
Amoxicillin/Potas. Clavulanate <=8/4 S
Ampicillin <=8 S
Ampicillin/Sulbactam <=4/2 S
Aztreonam <=4 S
Cefazolin <=2 S
Ertapenem <=0.5 S
Ciprofloxacin <=0.25 S
Gentamicin <=2 S
Meropenem <=1 S
Piperacillin/Tazobactam <=8 S
Tetracycline <=4 S
Tobramycin <=2 S
Trimethoprim/Sulfamethoxazole <=2/38 S
Gram Stain Preliminary 12/17/24-1816
Many WBC
No Organisms Seen
12/16/24 CT a/p: Bowel wall thickening and mild inflammatory change involving the rectosigmoid, sigmoid, and distal descending colon, consistent with infectious or inflammatory colitis. Collection of fluid and air within the left lateral abdominal
wall, measuring 8.7 x 8.7 x 1.8 cm, increased in size compared to prior CT dated 10/11/2024. Suspected fistulous communication between the descending colon and left abdominal wall collection, best seen on coronal images 31-33, and axial series 201
images 43-46. Multiple midline ventral hernias, including a periumbilical hernia containing loops of small bowel. No evidence of incarceration or intestinal obstruction.
--- NOTE | 2024-12-20 10:32 | CM ---
CM reviewed chart, patient seen ambulating halls with sister.
Patient for transfer to [facility] pending bed.
CM spoke with patient admitting representative from [facility] regarding discharge planning.
CM will continue to follow for all d/c planning needs.
Plan; transfer to [facility] pending bed
[2024-12-20 11:30] VITALS: BP 108/58
[2024-12-20] MEDS: STERILE WATER FOR INJECTION 20 ML IV (13:16)
[2024-12-20] MEDS: ROCEPHIN 2000 MG IV (13:16)
[2024-12-20] MEDS: FLAGYL 500 MG PO (13:16)
[2024-12-20 15:30] VITALS: BP 102/56
[2024-12-20] MEDS: LOVENOX 40 MG SC (17:01)
[2024-12-20 20:51] VITALS: BP 132/65
--- NOTE | 2024-12-20 21:10 | TRANSFER ---
Addendum entered by Amanda Whyte RN 12/21/24 07:22:
Patient with bed available at [facility]. Report called to nurse Price at [facility]. All personal belongings in room gathered and sent with patient. Patient AAox3 at time of transfer, VSS, no complaints of pain. Patient upset 'middle of night
transfer'. Patient left unit on stretcher with transport team and provided paperwork. Patients contacted to garbage pick up worker Colestipol med left at time of transfer to be picked up by him on 12/21/24.
Original Note:
Patient with bed avaiable at [facility]. Report called to nurse Price at [facility]. All personal belongings in room gathered and sent with patient. Patient AAox3 at time of transfer, VSS, no complaints of pain. Patient upset 'middle of night
transfer'. Patient left unit on stretcher with transport team and provided paperwork. Patients contacted to garbage pick up worker Colestipol med left at time of transfer to be picked up by him on 12/21/24.
[2024-12-21 23:23] LABS: Calprotectin, Fecal >3000 ug/g (<=49)
== END 2024-12-20 20:55 | disposition short-term general hospital (02) | DRG 386 ==
LOC: 4 WEST ACU 15:31
PROVIDERS: Internal Medicine; Nurse Practitioner Adult Health; Physician Assistant; Radiology Vascular & Interventional Radiology; Student in an Organized Health Care Education/Training Program; ADMITTING PHYSICIAN Hospitalist; ATTENDING PHYSICIAN Hospitalist; CONSULT PHYSICIAN Internal Medicine Infectious Disease; CONSULT PHYSICIAN Surgery; EMERGENCY PHYSICIAN Emergency Medicine; FAMILY PHYSICIAN Physician Assistant Medical; OTHER PHYSICIAN Internal Medicine Gastroenterology
DX: K51.513 Left sided colitis with fistula (principal); E87.1 Hypo-osmolality and hyponatremia; L02.211 Cutaneous abscess of abdominal wall; I10 Essential (primary) hypertension; D63.8 Anemia in other chronic diseases classified elsewhere; Z86.0100 Personal history of colon polyps, unspecified
CPT/HCPCS: 74177; 80048; 80053; 81003; 81015; 82728; 83540; 83550; 83993; 85025; 85027; 85610; 86140; 86803; 86850; 86900; 86901; 87040; 87045; 87046; 87070; 87075; 87076; 87077; 87086; 87186; 87205; 87427; 96374; 96375; 99285; Q9967

== ENCOUNTER → 2024-12-30 11:39 | Outpatient (REF) | payer OTHER, SELFPAY ==
[2024-12-30 12:50] VITALS: BP 136/65; BP_SYST 72
== END ==
LOC: RADI 11:39
PROVIDERS: ATTENDING PHYSICIAN Nurse Practitioner Adult Health; FAMILY PHYSICIAN Physician Assistant Medical
DX: Z46.82 Encounter for fitting and adjustment of non-vascular catheter (principal); L02.211 Cutaneous abscess of abdominal wall; K52.9 Noninfective gastroenteritis and colitis, unspecified
CPT/HCPCS: 49424; 76080

== ENCOUNTER → 2025-01-10 09:25 | Outpatient (REF) | payer OTHER, SELFPAY ==
[2025-01-10 09:45] VITALS: BP 140/76; BP_SYST 77
== END ==
LOC: RADI 09:25
PROVIDERS: ATTENDING PHYSICIAN Nurse Practitioner Adult Health; FAMILY PHYSICIAN Physician Assistant Medical
DX: Z46.82 Encounter for fitting and adjustment of non-vascular catheter (principal); K65.1 Peritoneal abscess
CPT/HCPCS: 49424; 76080

== ENCOUNTER 2025-01-16 12:22 | Emergency (ER) | payer OTHER, SELFPAY ==
[2025-01-16 12:26] VITALS: BP 144/110
[2025-01-16 13:01] LABS: Hematocrit 33.5 % (37.0-47.0); Hemoglobin 9.9 g/dL (12.0-16.0); Mean Corp Hgb Conc. 29.6 g/dL (33.0-37.0); Mean Corpuscular Volume 61.0 fL (81.0-99.0); Nucleated Red Blood Cells % 0 %; Platelet Count 421 10^3/uL (130-400); Red Cell Dist. Width 16.2 % (11.5-14.5)
[2025-01-16 13:08] LABS: Urine Character Clear (Clear)
[2025-01-16 13:19] LABS: Urine Squamous Cell >30 /LPF (Few); Urine Urothelial Cell >30 /LPF (FEW)
[2025-01-16 13:22] LABS: Urine White Cell 26-30 /HPF (0-5)
[2025-01-16 13:27] LABS: ALT (SGPT) 32 U/L (0-35); AST (SGOT) 24 U/L (14-36); Albumin 4.4 g/dl (3.5-5.0); Alkaline Phosphatase 106 U/L (38-126); Blood Urea Nitrogen 15 mg/dl (7-17); Calcium 9.6 mg/dl (8.4-10.2); Carbon Dioxide 27 mmol/L (22-30); Chloride 103 mmol/L (98-107); Glucose 93 mg/dl (70-99); Lipase 124 U/L (23-300); Potassium 4.2 mmol/L (3.5-5.1); Sodium 137 mmol/L (135-145); Total Protein 7.5 g/dl (6.3-8.2); eGFR > 60.00
--- NOTE | 2025-01-16 14:40 | ED.GENMED ---
History of Present Illness
General
Chief Complaint: Flank Pain
Source: patient
Exam Limitations: none
Time Seen by Provider: 01/16/25 14:16
Nursing documentation reviewed up to this point in time: agreed with
History of Present Illness
History of Present Illness:
Patient to the emergency department for evaluation of right flank pain. She states her symptoms started yesterday. She denies any fever or chills. She denies any nausea vomiting or diarrhea. She was recently seen here for a left sided
subcutaneous abscess with suspected fistula communication between the descending colon and the left abdominal wall. During that admission she had developed sepsis. She had a drain placed by IR during that admission and then eventually transferred
to [place] for evaluation and treatment by her colorectal providers there.(History of colitis). She states she was transferred from [place], spent a night at [place], and was discharged home the next day without any further intervention. She
continued to take oral antibiotics while at home. She states she felt well until yesterday when right sided flank pain started. She states that the pain feels very similar to the pain that she experienced with a left abdominal wall abscess,
however not as intense. Brought to the emergency department by family for evaluation.
Past History
Past History
ED Past Medical History: HTN and Other (C. difficile colitis, perforated rectum, SBP)
ED Past Surgical History: Appendectomy
Social History
Tobacco: Non-smoker
Alcohol: None
Drug: None
Personal:
Living: with family
Employment: Employed
Review of Systems
Review of Systems
Allergies reviewed?: Yes
All Other Systems: ROS reviewed and negative except as documented in HPI and ROS
Constitutional: Reports no symptoms
EENT: Reports no symptoms
Respiratory: Reports no symptoms
Cardiac: Reports no symptoms
ABD/GI: Reports no symptoms
: Reports flank pain (Right flank pain)
Musculoskeletal: Reports no symptoms
Skin: Reports no symptoms
Neurological: Reports no symptoms
Psychiatric: Reports no symptoms
Phy Exam
General Physical Exam
General Presentation: well appearing and no apparent distress
General age: appears stated age
General Skin: warm and dry
General Habitus: normal
General Mental: alert
Cardiovascular Exam
Cardiovascular Exam: regular rate/rhythm and no edema
Gastrointestinal Exam
Gastrointestinal Exam: normal bowel sounds, soft, no organomegaly, no pulsatile mass and non distended
Palpation: left upper quadrant: No tenderness, left lower quadrant: Minimal tenderness, right upper quadrant: No tenderness and right lower quadrant: Minimal tenderness
Musculoskeletal Exam
Musculoskeletal Exam: full ROM and neuro vasc intact
Skin Exam
Skin Exam: normal color, warm/dry and no rash
Psychiatric Exam
Psychiatric Exam: normal mood/affect
Course
Orders/Labs/Results
Orders:
Orders
01/16/25 12:45
Urinalysis Reflex To Culture Urgent
Date Specimen was Collected: 01/16/25
Time Specimen was Collected: 12:32
Urine Microscopic Reflex Cult Urgent
Urine Culture Urgent
TYREE Source: U
Specimen Description:
Date Specimen was Collected: 01/16/25
Time Specimen was Collected: 12:32
01/16/25 12:51
Complete Blood Count/With Diff Urgent
Comprehensive Metabolic Panel Urgent
Lipase Urgent
01/16/25 14:35
CT Abd/pelvis W Iv Cont Urgent
Comment:
Reason For Exam: pain right flank pain. left abcsess 2 wks ago
01/16/25 16:48
Amoxicillin 875 mg/Clav 125 mg [Augmentin 875 mg/125 mg] 1 tablet PO NOW STA
Abnormal Lab Results
01/16/25 01/16/25
12:45 12:51
WBC 12.8 H 10^3/uL
(4.8-10.8)
RBC 5.49 H 10^6/uL
(4.20-5.40)
Hgb 9.9 L g/dL
(12.0-16.0)
Hct 33.5 L %
(37.0-47.0)
MCV 61.0 L fL
(81.0-99.0)
MCH 18.0 L pg
(27.0-31.0)
MCHC 29.6 L g/dL
(33.0-37.0)
RDW 16.2 H %
(11.5-14.5)
Plt Count 421 H 10^3/uL
(130-400)
MPV 10.8 H fL
(7.4-10.4)
Abs Immat Gran (auto) 0.1 H 10^3/uL
(0-0.05)
Absolute Neuts (auto) 9.6 H 10^3/uL
(1.4-6.5)
Absolute Monos (auto) 0.9 H 10^3/uL
(0.1-0.6)
Lymphocytes % 14.5 L %
(20.5-51.1)
Ur Occult Blood Reflex 1+ A
(Negative)
Leukocyte Esterase Rfl 3+ A
(Negative)
Urine RBC 7-10 A /HPF
(0-2)
Urine WBC (Reflex) 26-30 A /HPF
(0-5)
Urine Bacteria (Reflex) Moderate A
(Negative)
01/16/25 12:51
01/16/25 12:51
Vital Signs
Initial and Last Documented VS:
Initial Vital Signs
Temp Pulse Resp BP Pulse Ox
98.5 F 65 18 144/110 99
01/16/25 12:26 01/16/25 12:26 01/16/25 12:26 01/16/25 12:26 01/16/25 12:26
Last Documented Vital Signs
Temp Pulse Resp BP Pulse Ox
98.5 F 71 18 130/68 100
01/16/25 12:26 01/16/25 16:58 01/16/25 16:58 01/16/25 16:58 01/16/25 16:58
*Radiology
Radiology exam reviewed: radiology read reviewed
*Pulse Oximetry
SaO2: 99
Oxygen Mode of Delivery: Room air
Patient hypoxic: no
*Critical Care Note
Total Time (30-74mins, 75-104mins- exclusive of procedures): Not Applicable
Update Note
Update Note:
Patient to emergency department for evaluation of right-sided abdominal pain/right flank pain. Patient states her symptoms started this morning. She rates the pain as approximately 2. No associated fever/chills, nausea/vomiting/diarrhea. She
states she was admitted here in November for a left abdominal wall abscess as well as a fistula communicating from the left descending colon to left abdominal wall. She was treated with IV antibiotics, drain placed by IR into abscess. She was
transferred to [place] for evaluation by her colorectal providers. She states initially surgery was planned however after 24 hours she was discharged home with drain still in place. She reports that drainage is minimal at this time. She has an
appointment on Friday with colorectal at [place] for follow-up. She was concerned that she was developing a new abscess to the right side of her abdomen so she came to the emergency room today. Vital signs are stable she remains afebrile. Labs
reviewed WBC 12.8. Hgb/HCT stable CMP within normal limits. UA with 26-30 WBCs, negative nitrates. Greater than 30 squamous cells. She has no symptoms of UTI, suspect contamination. Culture is pending. CT of abdomen and pelvis completed.
'Surrounding thin crescentic fluid collection within the left lateral abdominal wall, decreased compared to examination 12/16/2024.' Redemonstration of fistulous track. New finding of sigmoid colon diverticulitis, no evidence for abscess or free
intraperitoneal air. Case discussed with Dr. Woodward, CT report reviewed. Will recommend admission for new finding of diverticulitis as her GI/colon history is complex. Discussed CT findings and recommendation for admission with her and spouse.
Patient has declined admission. Risks/benefits discussed. She states she feels well, pain is minimal. She again states that she will be following up with: Colorectal on Friday. Will start on antibiotics in the ED she will be discharged home
with her CT disc. She was given strict instructions on signs and symptoms to return to the emergency department and she is agreeable to this plan.
ED Attending Note
-
Portions of this chart may have been created with voice recognition software.� Occasional wrong word or��sound alike� substitutions may have occurred due to the inherent limitations of voice recognition software.
Discharge Plan
Departure
Patient Disposition: Home (Routine Discharge)
Date of Disposition: 01/16/25
Time of Disposition: 16:48
Patient with high blood pressure during this ER visit?: No
Condition: Good
Covid-19: Not Applicable
Discharge Problem:
Diverticulitis
Instructions: Diverticulitis (DC)
Prescriptions:
New
amoxicillin-pot clavulanate 875-125 mg tablet
1 tab PO BID Qty: 20 0RF
No Action
therapeutic multivitamin Tablet
1 tab PO DAILY
colestipol 1 gram tablet
1 g PO DAILY
acetaminophen [Tylenol] 325 mg Tablet
650 mg PO Q6HPRN PRN (Reason: mild pain)
Referrals:
Cassandra Treviño PA-C [Family Provider]
Activity Restrictions/Additional Instructions:
Follow-up with your colorectal provider on Friday as scheduled. Return to the emergency department for fever/chills, increasing pain, vomiting, or for any further concerns.
Interventions
Interventions:
*Risk Screen - Suicide Last Done: 01/16/25 12:26
*General Assessment Last Done: 01/16/25 12:26
*Neglect/Abuse Screening Last Done: 01/16/25 14:34
*ED- Fall Risk Assessment Last Done: 01/16/25 14:52
*ED COVID-19 Vaccine History Last Done: 01/16/25 12:26
*ED Influenza Vaccine History Last Done: 01/16/25 12:26
*Nursing Disposition Last Done: 01/16/25 16:59
IT-Poeqlh-Hqtyvfjuiz Assessment Last Done: 01/16/25 14:52
ED-Female Genitourinary Assessment Last Done: 01/16/25 14:52
Discharge Date and Time
Discharge Date/Time: 01/16/25 17:00
Print Language: YI
[2025-01-16] MEDS: AUGMENTIN 875 MG/125 MG 1 TABLET PO (16:55)
[2025-01-16 16:58] VITALS: BP 130/68
== END 2025-01-16 17:00 | disposition home or self-care (01) ==
LOC: EMR 12:22
PROVIDERS: Emergency Medicine; EMERGENCY PHYSICIAN Emergency Medicine; FAMILY PHYSICIAN Physician Assistant Medical
DX: K57.32 Diverticulitis of large intestine without perforation or abscess without bleeding (principal); I10 Essential (primary) hypertension; Z86.19 Personal history of other infectious and parasitic diseases; Z90.49 Acquired absence of other specified parts of digestive tract
CPT/HCPCS: 99284; 74177; 80053; 81003; 81015; 83690; 85025; 87077; 87086; 87186; Q9967

== ENCOUNTER 2025-02-04 09:33 | Emergency (ER) | payer OTHER, SELFPAY ==
[2025-02-04 09:36] VITALS: BP 127/57
--- NOTE | 2025-02-04 11:21 | ED.GENMED ---
History of Present Illness
General
Chief Complaint: Skin Problem
Source: patient
Time Seen by Provider: 02/04/25 11:00
History of Present Illness
History of Present Illness:
64-year-old female with past medical history of Crohn's disease status post diverticular abscess with percutaneous abdominal wall drain in place due to a communicating fistula presenting to the ER at the request of primary care provider who is
concerned that patient could be having a recurrence of her abscess due to some increasing pain/pinching sensation at the drain site. Patient was admitted here back at the end of November and beginning in December where she was admitted for IV
antibiotics and the drain placement, subsequently transferred to the [facility] where she was there for 1 day and subsequently discharged home. She states that she was told that the drain would remain in place until she was started
on Remicade infusions (unsure as to when this will start). She denies any fevers, chills, rigors, nausea or vomiting, change in oral intake and notes that she feels well otherwise. Patient notes that she gets approximately 10 cc of a somewhat
cloudy yellow drainage over the last few weeks which is not any different today
Past History
Past History
ED Past Medical History: HTN, Other (C. difficile colitis, perforated rectum, SBP) and Other (Crohn's Disease)
ED Past Surgical History: Appendectomy and Bowel resection
Social History
Tobacco: Non-smoker
Alcohol: None
Drug: None
Personal:
Living: with family
Employment: Employed
Review of Systems
Review of Systems
All Other Systems: ROS reviewed and negative except as documented in HPI and ROS
Phy Exam
Physical Exam
Physical Exam:
GENERAL: Alert , in no apparent distress
EYE: clear conjunctiva b/l
HEAD: NCAT
ENT: o/p clr, mmm.
CARDIAC: Regular rate and rhythm .
LUNGS: Clear breath sounds bilaterally, no acute respiratory distress, no wheezes/rales/rhonchi
ABDOMEN: Soft, without focal tenderness, no r/g, no cvat, percutaneous drain in place, no surrounding erythema/drainage
NEUROLOGICAL: Alert and oriented
SKIN: Warm and dry, skin intact.
MUSCULOSKELETAL: No edema, well perfused.
PSYCH: Normal and appropriate interaction.
Scores
Heart Failure Risk
Heart Failure Risk Score: Not Applicable
Heart Score for Chest Pain Patients
STEMI patient?: Not applicable
Withdrawal Assessment of Alcohol
Withdrawal Assessment Completed?: Not applicable
Course
Orders/Labs/Results
Orders:
Orders
02/04/25 11:13
CT Abd/pelvis W Iv Cont Urgent
Comment:
Reason For Exam: LLQ abscess, increasing pain, drain in place
02/04/25 11:29
Complete Blood Count/With Diff Urgent
Comprehensive Metabolic Panel Urgent
Abnormal Lab Results
02/04/25
11:29
RBC 5.56 H 10^6/uL
(4.20-5.40)
Hgb 10.3 L g/dL
(12.0-16.0)
Hct 34.3 L %
(37.0-47.0)
MCV 61.7 L fL
(81.0-99.0)
MCH 18.5 L pg
(27.0-31.0)
MCHC 30.0 L g/dL
(33.0-37.0)
RDW 17.0 H %
(11.5-14.5)
Plt Count 403 H 10^3/uL
(130-400)
MPV 11.0 H fL
(7.4-10.4)
Absolute Neuts (auto) 7.2 H 10^3/uL
(1.4-6.5)
Absolute Monos (auto) 0.8 H 10^3/uL
(0.1-0.6)
Lymphocytes % 17.7 L %
(20.5-51.1)
Chloride 108 H mmol/L
(98-107)
Carbon Dioxide 20 L mmol/L
(22-30)
Creatinine 0.5 L mg/dL
(0.6-1.0)
AST 38 H U/L
(14-36)
ALT 63 H U/L
(0-35)
Alkaline Phosphatase 159 H U/L
(38-126)
Total Protein 8.5 H g/dl
(6.3-8.2)
02/04/25 11:29
02/04/25 11:29
Vital Signs
Initial and Last Documented VS:
Initial Vital Signs
Temp Pulse Resp BP Pulse Ox
98.5 F 68 20 127/57 99
02/04/25 09:36 02/04/25 09:36 02/04/25 09:36 02/04/25 09:36 02/04/25 09:36
Last Documented Vital Signs
Temp Pulse Resp BP Pulse Ox
98.5 F 71 16 127/57 99
02/04/25 09:36 02/04/25 13:54 02/04/25 13:54 02/04/25 09:36 02/04/25 13:54
MDM/Problems Addressed
Differential Diagnosis Includes:
Recurring abscess
Diverticulitis
Cellulitis
Pain 2/2 drain placement
MDM/Problems Addressed:
64-year-old female presenting to the ER at the request of primary care provider with concern for possible recurring abscess. Patient is overall very well-appearing, afebrile and noting minimal pain. She is having appropriate drainage. She will be
following up with her GI physician/colorectal physician at [facility] for Remicade infusions in the near future but does not have an exact date. Given the primary care provider's concern and being sent for CT scan, will order labs and CT imaging.
Patient declining any further medications.
*Radiology
Radiology exam reviewed: radiology read reviewed
*Pulse Oximetry
SaO2: 99
Oxygen Mode of Delivery: Room air
Patient hypoxic: no
*Critical Care Note
Total Time (30-74mins, 75-104mins- exclusive of procedures): Not Applicable
Patient Management
Escalation/DeEscalation of care consider admission/obs:
Patient continues to be pain-free. Her CT scan shows improvement of the abscess cavity and without any acute findings. Encouraged continued outpatient follow-up with her primary care team as well as with her GI team as scheduled. Aware of return
precautions to the ER.
ED Attending Note
-
Portions of this chart may have been created with voice recognition software.� Occasional wrong word or��sound alike� substitutions may have occurred due to the inherent limitations of voice recognition software.
Discharge Plan
Departure
Patient Disposition: Home (Routine Discharge)
Date of Disposition: 02/04/25
Time of Disposition: 13:34
Patient with high blood pressure during this ER visit?: No
Discharge Problem:
Abdominal pain
Instructions: Abdominal pain in adults (DC)
Prescriptions:
No Action
therapeutic multivitamin Tablet
1 tab PO DAILY
colestipol 1 gram tablet
1 g PO DAILY
acetaminophen [Tylenol] 325 mg Tablet
650 mg PO Q6HPRN PRN (Reason: mild pain)
amoxicillin-pot clavulanate 875-125 mg tablet
1 tab PO BID Qty: 20 0RF
Referrals:
Cassandra Treviño PA-C [Family Provider]
Interventions
Interventions:
*General Assessment Last Done: 02/04/25 09:36
*Neglect/Abuse Screening Last Done: 02/04/25 09:36
[facility] Fall Risk Assessment Tool Last Done: 02/04/25 11:30
*Nursing Disposition Last Done: 02/04/25 13:55
ED-Skin Assessment Last Done: 02/04/25 11:32
Discharge Date and Time
Discharge Date/Time: 02/04/25 13:55
Print Language: SRI LANKAN
[2025-02-04 11:42] LABS: Hematocrit 34.3 % (37.0-47.0); Hemoglobin 10.3 g/dL (12.0-16.0); Mean Corp Hgb Conc. 30.0 g/dL (33.0-37.0); Mean Corpuscular Volume 61.7 fL (81.0-99.0); Nucleated Red Blood Cells % 0 %; Platelet Count 403 10^3/uL (130-400); Red Cell Dist. Width 17.0 % (11.5-14.5)
[2025-02-04 12:01] LABS: ALT (SGPT) 63 U/L (0-35); AST (SGOT) 38 U/L (14-36); Albumin 4.8 g/dl (3.5-5.0); Alkaline Phosphatase 159 U/L (38-126); Blood Urea Nitrogen 17 mg/dl (7-17); Calcium 9.7 mg/dl (8.4-10.2); Carbon Dioxide 20 mmol/L (22-30); Chloride 108 mmol/L (98-107); Glucose 93 mg/dl (70-99); Potassium 4.6 mmol/L (3.5-5.1); Sodium 137 mmol/L (135-145); Total Protein 8.5 g/dl (6.3-8.2); eGFR > 60.00
== END 2025-02-04 13:55 | disposition home or self-care (01) ==
LOC: EMR 09:33
PROVIDERS: Physician Assistant Medical; EMERGENCY PHYSICIAN Emergency Medicine; FAMILY PHYSICIAN Physician Assistant Medical
DX: R10.9 Unspecified abdominal pain (principal); I10 Essential (primary) hypertension; Z87.19 Personal history of other diseases of the digestive system; Z90.49 Acquired absence of other specified parts of digestive tract
CPT/HCPCS: 99284; 74177; 80053; 85025; Q9967